=== PATIENT | female | born 1970 | race Caucasian/White ===

== ENCOUNTER 2022-01-24 06:29 | Emergency (ER) | payer MEDICARE, MEDICAID, SELFPAY ==
--- NOTE | ~2022-01-24 | CT_ITS ---
EXAMINATION: CT ABDOMEN AND PELVIS WITH CONTRAST CLINICAL INFORMATION: Right lower quadrant pain COMPARISON: Previous CT of the abdomen and pelvis most recent March 2017 TECHNIQUE: Multidetector volumetric images were obtained from the superior aspect of the liver through the pubic symphysis following administration 85 mL of Omnipaque 350 intravenous contrast. Sagittal and coronal reformatted images were obtained on the technologist's workstation. Oral contrast: Yes This CT examination was performed using dose optimization techniques as appropriate, variously including the following: *Automated exposure control *Adjustment of mA and/or kV according to patient size (this includes techniques or standardized protocols for targeted exams where dose is matched to indication/reason for exam; i.e. extremities or head) *Use of iterative reconstruction technique DLP: 1083 mGy-cm FINDINGS: LUNG BASES: The visualized lung bases are unremarkable. LIVER, GALLBLADDER, AND BILIARY TREE: The liver is slightly enlarged, right lobe measuring 19 cm in length. The liver is normal in shape, and attenuation. No focal hepatic lesion or biliary ductal dilatation is present. The gallbladder has been removed. PANCREAS: Unremarkable. SPLEEN: Unremarkable. ADRENAL GLANDS: Unremarkable. KIDNEYS AND URETERS: The kidneys are normal in size, shape, and attenuation. No hydronephrosis, hydroureter, or calculi seen. No perinephric stranding. BLADDER: Unremarkable. GASTROINTESTINAL TRACT: There is abnormal wall thickening and edema of the cecum and proximal right colon. There is significant stranding of the surrounding fat. There are prominent surrounding pericolic and mesenteric lymph nodes. Largest lymph node measures 1.7 cm axial image 45 series 2. There is mild diverticulosis of the colon. The appendix is not seen. The small bowel is unremarkable. The stomach is unremarkable. ABDOMINAL WALL: There is a small umbilical hernia containing fat. LYMPH NODES: There are enlarged right pericolic and small bowel mesentery lymph nodes as described above. There is nonspecific fat stranding of the small bowel mesentery. These findings appear in increased from March 2017 exam. VASCULAR: Unremarkable. PELVIC VISCERA: The uterus is retroverted. There is an IUD in the uterus and satisfactory position. The ovaries appear prominent but similar to previous exams. OSSEOUS STRUCTURES: Unremarkable. CT/CT abdomen pelvis w con IMPRESSION: Edema and wall thickening of the cecum and stranding of the surrounding fat most suggestive of colitis. There is also significant pericolic and mesenteric lymphadenopathy. There is fat stranding seen in the root of the small bowel mesentery. This is a nonspecific finding but appears increased from prior exam. Mesenteritis, inflammatory bowel disease, changes from prior pancreatitis, and neoplastic process including carcinoid or lymphoma should be considered. The appendix is not seen. Fleischner guidelines were followed.
[2022-01-24 06:54] VITALS: BP 122/78; BP 138/88; PULSE 90; PULSE 99; RESP 16; TEMP 36.6; O2SAT 99; BMI 43.9
--- NOTE | 2022-01-24 07:08 | ED.ABDPAIN ---
HPI - Abdominal Pain General Chief Complaint: Abdominal Pain Stated Complaint: ABD PAIN W/URINARY ISSUES PER EMS Time Seen by Provider: 01/24/22 06:58 Source: patient Mode of arrival: EMS Limitations: no limitations History of Present Illness MD elicited complaint: abdominal pain Pertinent past history: constipation Onset (ago): day(s) (6) Pain Consistency: constant Location: RLQ Severity: severe Quality: stabbing Radiation: none Migration to: no migration Exacerbating factors: movement Relieving factors: nothing Associated symptoms: nausea and dysuria Treatments prior to arrival: other (saw UC yesterday started on diflucan and macrobid x 1 dose only though tests negative) Related Data Previous Rx's Medication Instructions Recorded hydrocodone 5 mg-acetaminophen 325 1 tab PO Q6H PRN #12 tab 01/24/22 mg tablet levofloxacin 500 mg tablet 500 mg PO DAILY #6 tab 01/24/22 metronidazole 500 mg tablet 500 mg PO BID 7 Days #14 tab 01/24/22 ondansetron 4 mg disintegrating 4 mg PO Q8H PRN #20 tab 01/24/22 tablet Allergies Allergy/AdvReac Type Severity Reaction Status Date / Time fluticasone Allergy Intermediate MUSCLE Unverified 08/12/20 15:06 [From ADVAIR DISKUS] SPASMS salmeterol Allergy Intermediate MUSCLE Unverified 08/12/20 15:06 [From ADVAIR DISKUS] SPASMS amoxicillin [AMOXICILLIN] Allergy Unknown UNKNOWN Unverified 08/12/20 15:06 penicillin G [PENICILLIN G] Allergy Unknown UNKNOWN Unverified 08/12/20 15:06 Sulfa (Sulfonamide Allergy Unknown UNKNOWN Unverified 08/12/20 15:06 Antibiotics) [SULFA (SULFONAMIDE ANTIBIOTICS)] ibuprofen [From MOTRIN] AdvReac Unknown STOMACH Unverified 08/12/20 15:06 UPSET cats Allergy Unknown Uncoded 05/09/17 00:00 dust Allergy Unknown Uncoded 05/09/17 00:00 feathers Allergy Unknown Uncoded 05/09/17 00:00 grass Allergy Unknown Uncoded 05/09/17 00:00 mold outside & inside Allergy Unknown Uncoded 05/09/17 00:00 rabits Allergy Unknown Uncoded 05/09/17 00:00 tress Allergy Unknown Uncoded 05/09/17 00:00 Review of Systems Review of Systems Constitutional : No Weight loss, No Fever, No Chills ENT/Mouth : No sore throat, No Rhinorrhea Eyes: No Swelling, No Redness Cardiovascular : No Chest Pain, No SOB, No edema Respiratory : No Cough, No Sputum, No Wheezing Gastrointestinal : Positive Nausea, noVomiting, no Diarrhea, positive abdominal Pain, No Hematochezia, No Melena Genitourinary : pos Dysuria, No Urinary Frequency, No Hematuria, No Urgency Musculoskeletal : No joint pain, No Myalgias, No Joint Swelling Skin : No Skin Lesions, No rash Neuro : No Weakness, No Numbness, No Dizziness, No Headache Psych : No Anxiety/Panic, No Depression Heme/Lymph: No Bruising, No Lymphadenopathy Endocrine : No Polyuria, No Polydipsia All other systems reviewed and are negative. [facility] Past Medical History Attestation statement: The following information was validated with the patient. Medical History Dyspepsia Irritable bowel syndrome Seizure Surgical History Hx of cholecystectomy Social History Social History (Updated 01/24/22 @ 07:12 by Kamala Agudelo DO) Patient Tobacco Use Status: Never used Tobacco Advance Directives: No Advance Directives Information Provided: No Physical Exam ED Vital Signs: Vital Signs - 24 hr 01/24/22 06:54 01/24/22 07:51 Temperature 98 F Pulse Rate 99 91 Respiratory Rate 16 14 Blood Pressure 122/78 122/78 Pulse Oximetry 99 97 BMI result Body Mass Index 43.9 Appearance: Alert. Oriented X3. No acute distress. Eyes: Pupils equal, round and reactive to light. ENT: Pharynx normal. Neck: Normal inspection. Neck supple. CVS: Normal heart rate and rhythm. Pulses normal. Respiratory: No respiratory distress. Breath sounds normal. Abdomen: Soft and moderate RLQ ttp with guarding, + Rovsing's sign. Skin: Skin warm and dry. Normal skin color. Normal skin turgor. Extremities: No lower extremity edema. Neuro: Oriented X 3. No motor deficit. No sensory deficit. Course Course Course Narrative: no WBC count, neg lactic acid, afebrile, no vomiting can trial outpatient course of antibiotics given precautions to return MDM - Abdominal Pain MDM Narrative Medical decision making narrative: 51 yo female with hx of PUD, IBS here with RLQ pain x 6 days with nausea now worsening pain at this time she was seen at urgent care tests negative but based off dysuria and seeing some slight discharge on her underwear (no sex x 3 years) they started her on macrobid and diflucan (one dose). She is very tender in RLQ at this time will obtain labs, IV morphine for pain. CT scan for appendicitis, renal colic, ovarian cysts. Dispo per results and findings. Lab Data Result diagrams: 01/24/22 07:19 01/24/22 07:19 Labs: Lab Results 01/24/22 01/24/22 01/24/22 Range/Units 07:19 07:19 07:19 WBC 10.0 (4.8-10.8) X10*3/uL RBC 4.62 (4.20-5.50) X10*6/uL Hgb 13.6 (12.0-16.0) g/dl Hct 41.5 (37.0-47.0) % MCV 89.8 (80.0-98.0) fL MCH 29.4 (27.0-33.0) pg MCHC 32.8 (31.0-35.0) g/dl RDW 12.5 (11.0-16.0) % Plt Count 240 (160-400) X10*3/uL MPV 10.3 (9.4-12.3) fL Immature Gran % (Auto) 0.4 (0.0-0.4) % Neut % (Auto) 76.4 H (45-73) % Lymph % (Auto) 10.3 L (20-40) % [place] % (Auto) 8.0 (2-11) % Eos % (Auto) 4.4 H (0-4) % Baso % (Auto) 0.5 (0-2) % Lymph # (Auto) 1.0 L (1.2-4.9) X10*3/uL [place] # (Auto) 0.8 (0.1-1.2) X10*3/uL Eos # (Auto) 0.4 (0.0-0.4) X10*3/uL Baso # (Auto) 0.1 (0.0-0.2) X10*3/uL Abs Immat Gran (auto) 0.04 H (0.00-0.03) X10*3/uL Absolute Neuts (auto) 7.7 (2.0-8.3) x10*3/uL Absolute Nucleated RBC 0.000 (0.0-0.012) X10*3/uL Nucleated RBC % (auto) 0.0 (0.0-0.2) /100WBC Sodium 141 (135-145) mmol/L Potassium 4.1 (3.3-5.1) mmol/L Chloride 105 (96-108) mmol/L Carbon Dioxide 26 (22-29) mmol/L Anion Gap 14 (12-20) BUN 12 (9-16) mg/dL Creatinine 0.74 (0.5-1.4) mg/dL Estim Creat Clear Calc 106.8 Estimated GFR > 60 Random Glucose 112 (60-115) mg/dL Lactic Acid 1.2 (0.5-2.0) mmol/L Calcium 9.5 (8.4-10.2) mg/dL Magnesium 2.2 (1.6-2.6) mg/dL Total Bilirubin 0.5 (0.0-1.0) mg/dL Direct Bilirubin 0.2 (0.0-0.5) mg/dL AST 23 (5-31) U/L ALT 29 (0-31) U/L Alkaline Phosphatase 93 (39-117) U/L Total Protein 6.7 (6.5-8.0) g/dL Albumin 4.6 (3.5-5.0) g/dL Lipase 33 (8-78) U/L Urine Color Urine Appearance Urine pH (5.0-8.0) Ur Specific [place] (1.005-1.025) Urine Protein (NEG-TRACE) MG/DL Urine Glucose (UA) (NEG) MG/DL Urine Ketones (NEG) MG/DL Urine Blood (NEG) Urine Nitrite (NEG) Ur Leukocyte Esterase (NEG) Urine RBC (0) /HPF Urine WBC (0-4) /HPF Ur Squamous Epith Cells /LPF Urine Bacteria /LPF COVID-19 (JIMMY) (Negative) COVID-19 Clin Com 01/24/22 01/24/22 Range/Units 07:19 07:19 WBC (4.8-10.8) X10*3/uL RBC (4.20-5.50) X10*6/uL Hgb (12.0-16.0) g/dl Hct (37.0-47.0) % MCV (80.0-98.0) fL MCH (27.0-33.0) pg MCHC (31.0-35.0) g/dl RDW (11.0-16.0) % Plt Count (160-400) X10*3/uL MPV (9.4-12.3) fL Immature Gran % (Auto) (0.0-0.4) % Neut % (Auto) (45-73) % Lymph % (Auto) (20-40) % [place] % (Auto) (2-11) % Eos % (Auto) (0-4) % Baso % (Auto) (0-2) % Lymph # (Auto) (1.2-4.9) X10*3/uL [place] # (Auto) (0.1-1.2) X10*3/uL Eos # (Auto) (0.0-0.4) X10*3/uL Baso # (Auto) (0.0-0.2) X10*3/uL Abs Immat Gran (auto) (0.00-0.03) X10*3/uL Absolute Neuts (auto) (2.0-8.3) x10*3/uL Absolute Nucleated RBC (0.0-0.012) X10*3/uL Nucleated RBC % (auto) (0.0-0.2) /100WBC Sodium (135-145) mmol/L Potassium (3.3-5.1) mmol/L Chloride (96-108) mmol/L Carbon Dioxide (22-29) mmol/L Anion Gap (12-20) BUN (9-16) mg/dL Creatinine (0.5-1.4) mg/dL Estim Creat Clear Calc Estimated GFR Random Glucose (60-115) mg/dL Lactic Acid (0.5-2.0) mmol/L Calcium (8.4-10.2) mg/dL Magnesium (1.6-2.6) mg/dL Total Bilirubin (0.0-1.0) mg/dL Direct Bilirubin (0.0-0.5) mg/dL AST (5-31) U/L ALT (0-31) U/L Alkaline Phosphatase (39-117) U/L Total Protein (6.5-8.0) g/dL Albumin (3.5-5.0) g/dL Lipase (8-78) U/L Urine Color STRAW Urine Appearance CLEAR Urine pH 6.0 (5.0-8.0) Ur Specific [place] <= 1.005 (1.005-1.025) Urine Protein NEG (NEG-TRACE) MG/DL Urine Glucose (UA) NEG (NEG) MG/DL Urine Ketones NEG (NEG) MG/DL Urine Blood TRACE (NEG) Urine Nitrite NEG (NEG) Ur Leukocyte Esterase NEG (NEG) Urine RBC 0-2 (0) /HPF Urine WBC 0 (0-4) /HPF Ur Squamous Epith Cells TRACE /LPF Urine Bacteria NONE /LPF COVID-19 (JIMMY) Negative (Negative) COVID-19 Clin Com See Note Discharge Plan Discharge Clinical Impression: Colitis Patient Disposition: Home, Self-Care Instructions: Colitis (ED) Additional Instructions: return to ED for any worsening symptoms or concerns - such as fevers, worsening pain, unable to take medications you will need to talk to your doctor and have a follow up visit for this. you will need a colonoscopy when this has resolved in the next 4 to 6 weeks STOP TAKING MACROBID Prescriptions: New hydrocodone-acetaminophen 5-325 mg tablet 1 tab PO Q6H PRN (Reason: pain) Qty: 12 0RF ondansetron 4 mg tablet,disintegrating 4 mg PO Q8H PRN (Reason: nausea and vomiting) Qty: 20 0RF metronidazole 500 mg tablet 500 mg PO BID 7 Days Qty: 14 0RF levofloxacin 500 mg tablet 500 mg PO DAILY Qty: 6 0RF Rx Instructions: start medication on 01/25 Stand Alone Forms: Work/School Release
[2022-01-24] MEDS: 0.9 % Sodium Chloride 1,000 ML 999 ML IVCONT (07:23)
[2022-01-24 07:24] LABS: MANUAL DIFF FLAG NO
[2022-01-24 07:26] LABS: Appearance Urine CLEAR; Color Urine STRAW; Glucose Urine UA NEG (NEG); Leukocyte Esterase Urine NEG (NEG); Nitrite Urine NEG (NEG); Specific Gravity - Urine <= 1.005 (1.005-1.025); UACC Culture Trigger NO; Urine Blood TRACE (NEG); Urine Ketones NEG (NEG); Urine Protein NEG (NEG-TRACE)
[2022-01-24 07:30] LABS: Basophils Absolute Auto 0.1 X10*3/uL (0.0-0.2); Basophils Percent Auto 0.5 % (0-2); Eosinophils Absolute Auto 0.4 X10*3/uL (0.0-0.4); Eosinophils Percent Auto 4.4 % (0-4); Hematocrit 41.5 % (37.0-47.0); Hemoglobin 13.6 g/dl (12.0-16.0); Imm Gran Abs Auto 0.04 X10*3/uL (0.00-0.03); Imm Gran Pct Auto 0.4 % (0.0-0.4); Lymphocytes Percent Auto 10.3 % (20-40); Mean Corpuscular HGB Conc 32.8 g/dl (31.0-35.0); Mean Corpuscular Hemoglobin 29.4 pg (27.0-33.0); Mean Corpuscular Volume 89.8 fL (80.0-98.0); Mean Platelet Volume 10.3 fL (9.4-12.3); Monocytes Absolute Auto 0.8 X10*3/uL (0.1-1.2); Neutrophils Absolute Auto 7.7 x10*3/uL (2.0-8.3); Neutrophils Percent Auto 76.4 % (45-73); Platelet Count 240 X10*3/uL (160-400); Red Blood Count 4.62 X10*6/uL (4.20-5.50); Red Cell Distribution Width 12.5 % (11.0-16.0)
[2022-01-24 07:38] LABS: Lactic Acid 1.2 mmol/L (0.5-2.0); RBC Urine 0-2 /HPF (0); Squamous Epithelial Cell Urine TRACE /LPF; WBC Urine 0 /HPF (0-4)
[2022-01-24 07:45] LABS: Alanine Aminotransferase 29 U/L (0-31); Albumin Level 4.6 g/dL (3.5-5.0); Alkaline Phosphatase 93 U/L (39-117); Anion Gap 14 (12-20); Aspartate Amino Transferase 23 U/L (5-31); Bilirubin Direct 0.2 mg/dL (0.0-0.5); Bilirubin Total 0.5 mg/dL (0.0-1.0); Blood Urea Nitrogen 12 mg/dL (9-16); Calcium 9.5 mg/dL (8.4-10.2); Carbon Dioxide 26 mmol/L (22-29); Chloride 105 mmol/L (96-108); Creatinine Clr Calc Pharmacy 106.8; Estimated Glomerular Filt Rate > 60; Glucose Random 112 mg/dL (60-115); Lipase 33 U/L (8-78); Magnesium 2.2 mg/dL (1.6-2.6); Potassium 4.1 mmol/L (3.3-5.1); Sodium 141 mmol/L (135-145); Total Protein 6.7 g/dL (6.5-8.0)
[2022-01-24 07:49] LABS: COVID-19 Test Negative (Negative); IDNOW Serial# 16C4AD1C
[2022-01-24 07:51] VITALS: BP 122/78; PULSE 91; RESP 14; O2SAT 97
[2022-01-24] MEDS: Pantoprazole Sodium 40 MG/10 ML VIAL IVPUSH (08:11)
[2022-01-24] MEDS: iohexoL 350 MG/ML 100 ML INFUS..BTL 85 ML IV (08:57)
[2022-01-24] MEDS: levoFLOXacin 500 MG TABLET PO (10:10)
[2022-01-24] MEDS: metroNIDAZOLE 500 MG TABLET PO (10:10)
== END 2022-01-24 10:21 | disposition home or self-care (01) ==
PROVIDERS: Emergency Provider Emergency Medicine
DX: K52.9 Noninfective gastroenteritis and colitis, unspecified (principal); R10.31 Right lower quadrant pain; R30.0 Dysuria; Z79.899 Other long term (current) drug therapy; Z20.822 Contact with and (suspected) exposure to COVID-19
CPT/HCPCS: 74177; 80048; 80076; 81001; 83605; 83690; 83735; 85025; 87635; 96361; 96374; 96375; 99284; Q9967

== ENCOUNTER → 2022-02-27 10:53 | Outpatient (BNVA) | payer SELFPAY | PROVIDERS: Visit Provider Internal Medicine | DX: Z02.79 Encounter for issue of other medical certificate (principal) ==

== ENCOUNTER 2022-10-17 07:31 | Emergency (ER) | payer MEDICARE, MEDICAID, SELFPAY ==
--- NOTE | ~2022-10-17 | CT_ITS ---
EXAMINATION: CT ABDOMEN AND PELVIS WITHOUT CONTRAST CLINICAL INFORMATION: Left flank pain. COMPARISON: CT scan of the abdomen and pelvis dated 01/24/2022. TECHNIQUE: Multidetector volumetric imaging was performed from the superior aspect of the liver through the pubic symphysis. Sagittal and coronal reformatted images were obtained on the technologist's workstation. Lack of intravenous and oral contrast limits visceral evaluation. This CT examination was performed using dose optimization techniques as appropriate, variously including the following: *Automated exposure control *Adjustment of mA and/or kV according to patient size (this includes techniques or standardized protocols for targeted exams where dose is matched to indication/reason for exam; i.e. extremities or head) *Use of iterative reconstruction technique DLP: 1108 mGy-cm FINDINGS: LUNG BASES: Scattered nodules and nodular infiltrates are seen bilaterally. A senior patient account representative nodule posteriorly in the lingula measures 0.8 cm (image 4, series 2). Minute and nodules are seen in a tree-in-bud pattern. Nodular infiltrates posteriorly in the lower lobes, right greater than left are also seen. No pleural or pericardial effusions. LIVER, GALLBLADDER, AND BILIARY TREE: Hepatic steatosis with focal fatty sparing is noted. Status post cholecystectomy. PANCREAS: Unremarkable. SPLEEN: Unremarkable. ADRENAL GLANDS: Unremarkable. KIDNEYS AND URETERS: The kidneys are normal in size, shape, and attenuation. No hydronephrosis, hydroureter, or calculi seen. No perinephric stranding. BLADDER: Unremarkable. GASTROINTESTINAL TRACT: The stomach and small bowel unremarkable. An ovoid calcification is again seen at the level the cecum. No evidence for acute appendicitis. The colon shows scattered mild diverticulosis without surrounding abnormality. The rectum is unremarkable. ABDOMINAL WALL: No significant hernia is appreciated. LYMPH NODES: Mild central mesenteric haziness and scattered mildly enlarged mesenteric lymph nodes including central mesenteric and ileocolic nodes. VASCULAR: Unremarkable. PELVIC VISCERA: Enlarged, anteverted/retroflexed uterus with IUD in place. No adnexal abnormality. OSSEOUS STRUCTURES: Mild thoracolumbar levoscoliosis. Rudimentary 12th ribs are noted. Sacralization of L5. Rudimentary disc at L5-S1. Moderate degenerative disc disease at L2-3, greater on the right. CT/CT abdomen pelvis wo IV con IMPRESSION: 1. Multiple pulmonary nodules and nodular infiltrates are nonspecific and were not seen previously. The overall distribution suggests an infectious/inflammatory process. These findings are not well seen on today's radiographs. Continued short-term monitoring with chest radiographs is recommended. A dedicated CT scan within one month following termination treatment is recommended to reassess these findings for improvement/resolution. 2. No acute intra-abdominal/pelvic abnormality. Interval resolution of previously seen pericecal inflammatory changes. Several incidental findings detailed above without acute associated abnormality. Fleischner guidelines were followed.
--- NOTE | ~2022-10-17 | XR_ITS ---
EXAMINATION: XR CHEST CLINICAL INFORMATION: Cough. COMPARISON: 03/19/2019 chest radiographs. TECHNIQUE: Frontal view of the chest was obtained. FINDINGS: No significant abnormality is noted involving the heart, lungs, mediastinum, bony thorax or soft tissues. XR/XR chest 1V IMPRESSION: No acute cardiopulmonary process.
[2022-10-17 07:37] VITALS: BP 167/87; PULSE 90; RESP 18; TEMP 36.1; O2SAT 99; BMI 46.0
--- NOTE | 2022-10-17 08:08 | ECG_ITS ---
Test Reason : CHEST PAIN Blood Pressure : / mmHG Vent. 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
--- NOTE | 2022-10-17 08:18 | ED.ABDPAIN ---
HPI - Abdominal Pain General Chief Complaint: Abdominal Pain Stated Complaint: L flank pain/Crohns flare up Time Seen by Provider: 10/17/22 07:41 Source: patient Mode of arrival: ambulatory Limitations: no limitations History of Present Illness HPI narrative: 52-year-old female came in for evaluation of left flank pain for the past 2 days. Pain started in the left upper quadrant area radiating down to the left groin area, pain is been constant for the last 2 days, pain described as severe, coughing and movement makes the pain worse nothing relieves the pain, no nausea, vomiting, fever, chills, dysuria, frequency urination, diarrhea, or rectal bleeding. Related Data Previous Rx's Medication Instructions Recorded hydrocodone 5 mg-acetaminophen 325 1 tab PO Q6H PRN pain #12 tabs 01/24/22 mg tablet levofloxacin 500 mg tablet 500 mg PO DAILY #6 tabs 01/24/22 metronidazole 500 mg tablet 500 mg PO BID 7 days #14 tabs 01/24/22 ondansetron 4 mg disintegrating 4 mg PO Q8H PRN nausea and 01/24/22 tablet vomiting #20 tabs albuterol sulfate 90 mcg/actuation 1 inh inhalation QID PRN shortness 10/17/22 aerosol inhaler of breath or wheezing #6.7 grams azithromycin 250 mg tablet See Rx Instructions PO .COMPLEX #6 10/17/22 (Zithromax Z-Edwin) tabs prednisone 10 mg tablet 10 mg PO BID #10 tabs 10/17/22 Allergies Allergy/AdvReac Type Severity Reaction Status Date / Time fluticasone Allergy Intermediate MUSCLE Unverified 08/12/20 15:06 [From ADVAIR DISKUS] SPASMS salmeterol Allergy Intermediate MUSCLE Unverified 08/12/20 15:06 [From ADVAIR DISKUS] SPASMS amoxicillin [AMOXICILLIN] Allergy Unknown UNKNOWN Unverified 08/12/20 15:06 penicillin G [PENICILLIN G] Allergy Unknown UNKNOWN Unverified 08/12/20 15:06 Sulfa (Sulfonamide Allergy Unknown UNKNOWN Unverified 08/12/20 15:06 Antibiotics) [SULFA (SULFONAMIDE ANTIBIOTICS)] ibuprofen [From MOTRIN] AdvReac Unknown STOMACH Unverified 08/12/20 15:06 UPSET cats Allergy Unknown Uncoded 05/09/17 00:00 dust Allergy Unknown Uncoded 05/09/17 00:00 feathers Allergy Unknown Uncoded 05/09/17 00:00 grass Allergy Unknown Uncoded 05/09/17 00:00 mold outside & inside Allergy Unknown Uncoded 05/09/17 00:00 rabits Allergy Unknown Uncoded 05/09/17 00:00 tress Allergy Unknown Uncoded 05/09/17 00:00 Review of Systems Review of Systems All other systems are reviewed and are negative Constitutional: Reports as per HPI and Reports no additional constitutional complaints Eyes: Reports as per HPI and Reports no additional eye complaints Reports system reviewed and no additional complaints, except as documented Cardiovascular: Reports as per HPI and Reports no additional cardiovascular complaints Respiratory: Reports as per HPI and Reports no additional respiratory complaints Gastrointestinal: Reports as per HPI and Reports no additional gastrointestinal complaints Genitourinary: Reports no additional female genitourinary complaints Musculoskeletal: Reports no additional musculoskeletal complaints Skin/Breast: Reports system reviewed and no additional complaints, except as docu Psychiatric: Reports no additional psychiatric complaints Endocrine: Reports no additional endocrine complaints Hematologic/Lymphatic: Reports no additional hematologic/lymphatic complaints Allergic/Immunologic: Reports no additional allergic/immunologic complaints Reports system reviewed and no additional complaints, except as documented and Reports Abnormal speech present [facility] Past Medical History Medical History Dyspepsia Irritable bowel syndrome Seizure Surgical History Hx of cholecystectomy Social History Social History Alcohol intake: never Patient Tobacco Use Status: Never used Tobacco Smoked in Last 30 Days: No Use of substances other than those prescribed or required for medical reasons: No Advance Directives: No Advance Directives Information Provided: Yes Patient : No Physical Exam ED Vital Signs: Vital Signs - 24 hr 10/17/22 07:37 10/17/22 09:16 10/17/22 11:03 Temperature 97 F 97.8 F 97.8 F Pulse Rate 90 91 89 Respiratory Rate 18 17 12 Blood Pressure 167/87 H 140/97 H 129/63 Pulse Oximetry 99 98 99 Oxygen Delivery Method Room Air Room Air Room Air BMI result Body Mass Index 46.0 Vital signs have been reviewed as appeared to be correct. Blood pressure normal. Heart rate normal. Respiration rate normal. Temperature normal. Oxygen saturation normal. Appearance: Alert. Oriented X3. No acute distress. Head: Normal external exam. Normocephalic. Atraumatic. No Cutler signs noted. No raccoon eyes noted Eyes: PERRLA. EOMI. Conjunctiva and sclera normal. Eyelids normal. ENT: TM's Normal. Pharynx normal. Uvula midline. Moist mucous membranes. No trismus noted. No drooling noted. No muffled voice noted. Neck: Normal inspection. Neck supple. FROM. No adenopathy. Thyroid Normal. No meningeal signs. No neck mass noted. CVS: Normal heart rate and rhythm. Heart sound normal. No murmurs noted. Pulses normal throughout. Respiratory: No respiratory distress. Painless inspiration. Breath sounds normal. No wheezes/rales/rhonchi noted. Chest nontender. No accessory muscle usage noted or decreased air movement noted. Abdomen: Soft, obese, left abdominal tenderness, no rebound tenderness, no guarding.. Bowel sounds normal in all 4 quadrants. No distention noted. No organomegaly noted. No visible injury noted. Back: No CVA tenderness. Full range of motion noted. Skin: Skin warm and dry. Normal skin color. Normal skin turgor. No rashes/lesions/lacerations noted. Extremities: No lower extremity edema. Extremities exhibit normal range of motion. Extremities nontender. Neuro: Oriented X 3. Cranial nerve exam: II-XII are grossly intact No motor deficit. No sensory deficit. Reflexes normal. Course Course Course Narrative: 52-year-old female came in for evaluation of left-sided abdominal pain, physical exam is suggesting musculoskeletal origin due to coughing and possible infiltrate on the CT of the abdomen and pelvis will start the patient on Z-Edwin/prednisone/albuterol. Take NSAIDs if needed for pain. Medications Administered Discontinued Medications Generic Name Dose Route Start Last Admin Trade Name Freq PRN Reason Stop Dose Admin Azithromycin 500 mg 10/17/22 10:08 10/17/22 11:15 Azithromycin 500 Mg Tablet PO 10/17/22 10:09 500 mg ONCE ONE Administration Sodium Chloride 1,000 mls @ 999 mls/hr 10/17/22 07:43 10/17/22 09:42 Ns IV 10/17/22 08:43 999 mls/hr .Q1H1M ONE Administration Prednisone 40 mg 10/17/22 10:07 10/17/22 11:15 Prednisone 20 Mg Tablet PO 10/17/22 10:08 40 mg ONCE ONE Administration MDM - Abdominal Pain Lab Data Attestation: I reviewed the patient's lab results. Result diagrams: 10/17/22 08:41 10/17/22 08:41 Labs: Lab Results 10/17/22 10/17/22 10/17/22 Range/Units 08:41 08:41 08:41 WBC 9.6 (4.8-10.8) X10*3/uL RBC 4.39 (4.20-5.50) X10*6/uL Hgb 13.0 (12.0-16.0) g/dl Hct 39.3 (37.0-47.0) % MCV 89.5 (80.0-98.0) fL MCH 29.6 (27.0-33.0) pg MCHC 33.1 (31.0-35.0) g/dl RDW 13.0 (11.0-16.0) % Plt Count 287 (160-400) X10*3/uL MPV 9.2 L (9.4-12.3) fL Immature Gran % (Auto) 0.7 H (0.0-0.4) % Neut % (Auto) 67.8 (45-73) % Lymph % (Auto) 21.3 (20-40) % [place] % (Auto) 7.9 (2-11) % Eos % (Auto) 2.0 (0-4) % Baso % (Auto) 0.3 (0-2) % Lymph # (Auto) 2.1 (1.2-4.9) X10*3/uL [place] # (Auto) 0.8 (0.1-1.2) X10*3/uL Eos # (Auto) 0.2 (0.0-0.4) X10*3/uL Baso # (Auto) 0.0 (0.0-0.2) X10*3/uL Abs Immat Gran (auto) 0.07 H (0.00-0.03) X10*3/uL Absolute Neuts (auto) 6.5 (2.0-8.3) x10*3/uL Absolute Nucleated RBC 0.000 (0.0-0.012) X10*3/uL Nucleated RBC % (auto) 0.0 (0.0-0.2) /100WBC Sodium 141 (135-145) mmol/L Potassium 4.4 (3.3-5.1) mmol/L Chloride 104 (96-108) mmol/L Carbon Dioxide 27 (22-29) mmol/L Anion Gap 14 (12-20) BUN 14 (9-16) mg/dL Creatinine 0.67 (0.5-1.4) mg/dL Estim Creat Clear Calc 115.7 Estimated GFR > 60 Random Glucose 95 (60-115) mg/dL Calcium 9.7 (8.4-10.2) mg/dL Total Bilirubin 0.4 (0.0-1.0) mg/dL Direct Bilirubin < 0.2 (0.0-0.5) mg/dL AST 20 (5-31) U/L ALT 37 H (0-31) U/L Alkaline Phosphatase 74 (39-117) U/L Troponin I High Sens < 3.5 (<3.5-17.0) ng/L Total Protein 6.5 (6.5-8.0) g/dL Albumin 4.4 (3.5-5.0) g/dL Lipase 30 (8-78) U/L Urine Color Urine Appearance Urine pH (5.0-9.0) Ur Specific [place] (1.005-1.025) Urine Protein (Neg-Trace) mg/dL Urine Glucose (UA) (Negative) mg/dL Urine Ketones (Negative) mg/dL Urine Blood (Negative) Urine Nitrite (Negative) Ur Leukocyte Esterase (Negative) Urine RBC (0-2) /HPF Urine WBC (0-5) /HPF Ur Squamous Epith Cells (0-2) /HPF Urine Bacteria (None Seen) Hyaline Casts (0-2) /LPF 10/17/22 Range/Units 10:47 WBC (4.8-10.8) X10*3/uL RBC (4.20-5.50) X10*6/uL Hgb (12.0-16.0) g/dl Hct (37.0-47.0) % MCV (80.0-98.0) fL MCH (27.0-33.0) pg MCHC (31.0-35.0) g/dl RDW (11.0-16.0) % Plt Count (160-400) X10*3/uL MPV (9.4-12.3) fL Immature Gran % (Auto) (0.0-0.4) % Neut % (Auto) (45-73) % Lymph % (Auto) (20-40) % [place] % (Auto) (2-11) % Eos % (Auto) (0-4) % Baso % (Auto) (0-2) % Lymph # (Auto) (1.2-4.9) X10*3/uL [place] # (Auto) (0.1-1.2) X10*3/uL Eos # (Auto) (0.0-0.4) X10*3/uL Baso # (Auto) (0.0-0.2) X10*3/uL Abs Immat Gran (auto) (0.00-0.03) X10*3/uL Absolute Neuts (auto) (2.0-8.3) x10*3/uL Absolute Nucleated RBC (0.0-0.012) X10*3/uL Nucleated RBC % (auto) (0.0-0.2) /100WBC Sodium (135-145) mmol/L Potassium (3.3-5.1) mmol/L Chloride (96-108) mmol/L Carbon Dioxide (22-29) mmol/L Anion Gap (12-20) BUN (9-16) mg/dL Creatinine (0.5-1.4) mg/dL Estim Creat Clear Calc Estimated GFR Random Glucose (60-115) mg/dL Calcium (8.4-10.2) mg/dL Total Bilirubin (0.0-1.0) mg/dL Direct Bilirubin (0.0-0.5) mg/dL AST (5-31) U/L ALT (0-31) U/L Alkaline Phosphatase (39-117) U/L Troponin I High Sens (<3.5-17.0) ng/L Total Protein (6.5-8.0) g/dL Albumin (3.5-5.0) g/dL Lipase (8-78) U/L Urine Color Yellow Urine Appearance Clear Urine pH 7.0 (5.0-9.0) Ur Specific [place] <= 1.005 (1.005-1.025) Urine Protein Negative (Neg-Trace) mg/dL Urine Glucose (UA) Negative (Negative) mg/dL Urine Ketones Negative (Negative) mg/dL Urine Blood Trace H (Negative) Urine Nitrite Negative (Negative) Ur Leukocyte Esterase Negative (Negative) Urine RBC 0-2 (0-2) /HPF Urine WBC 0-5 (0-5) /HPF Ur Squamous Epith Cells 0-2 (0-2) /HPF Urine Bacteria None Seen (None Seen) Hyaline Casts 0-2 (0-2) /LPF Imaging Data Chest x-ray: Attestation: I personally reviewed and interpreted this imaging study as follows: Radiologist's impression: No acute cardiopulmonary process. CT abdomen and pelvis: Attestation: I personally reviewed and interpreted this imaging study as follows: Radiologist's impression: 1. Multiple pulmonary nodules and nodular infiltrates are nonspecific and were not seen previously. The overall distribution suggests an infectious/inflammatory process. These findings are not well seen on today's radiographs. Continued short-term monitoring with chest radiographs is recommended. A dedicated CT scan within one month following termination treatment is recommended to reassess these findings for improvement/resolution. 2. No acute intra-abdominal/pelvic abnormality. Interval resolution of previously seen pericecal inflammatory changes. Several incidental findings detailed above without acute associated abnormality. ? Discharge Plan Discharge Clinical Impression: Bronchopneumonia, Incidental pulmonary nodule, Acute myofascial strain Patient Disposition: Home, Self-Care Instructions: Pulmonary Nodules (ED), Pneumonia (ED) Prescriptions: New azithromycin [Zithromax Z-Edwin] 250 mg tablet See Rx Instructions .ROUTE .COMPLEX Qty: 6 0RF Rx Instructions: For 250 mg dose pack: take 500 mg today (day 1), then 250 mg for 4 days (days 2-5) prednisone 10 mg tablet 10 mg PO BID Qty: 10 0RF albuterol sulfate 90 mcg/actuation HFA aerosol inhaler 1 inh inhalation QID PRN (Reason: shortness of breath or wheezing) Qty: 6.7 0RF No Action hydrocodone-acetaminophen 5-325 mg tablet 1 tab PO Q6H PRN (Reason: pain) Qty: 12 0RF ondansetron 4 mg tablet,disintegrating 4 mg PO Q8H PRN (Reason: nausea and vomiting) Qty: 20 0RF metronidazole 500 mg tablet 500 mg PO BID 7 Days Qty: 14 0RF levofloxacin 500 mg tablet 500 mg PO DAILY Qty: 6 0RF Rx Instructions: start medication on 01/25 Referrals: Nirmal Washington III, MD [Primary Care Provider] -
[2022-10-17 08:44] LABS: MANUAL DIFF FLAG NO
[2022-10-17 08:47] LABS: Basophils Percent Auto 0.3 % (0-2); Eosinophils Absolute Auto 0.2 X10*3/uL (0.0-0.4); Hematocrit 39.3 % (37.0-47.0); Imm Gran Abs Auto 0.07 X10*3/uL (0.00-0.03); Imm Gran Pct Auto 0.7 % (0.0-0.4); Lymphocytes Absolute Auto 2.1 X10*3/uL (1.2-4.9); Lymphocytes Percent Auto 21.3 % (20-40); Mean Corpuscular HGB Conc 33.1 g/dl (31.0-35.0); Mean Corpuscular Hemoglobin 29.6 pg (27.0-33.0); Mean Corpuscular Volume 89.5 fL (80.0-98.0); Mean Platelet Volume 9.2 fL (9.4-12.3); Monocytes Absolute Auto 0.8 X10*3/uL (0.1-1.2); Monocytes Percent Auto 7.9 % (2-11); Neutrophils Absolute Auto 6.5 x10*3/uL (2.0-8.3); Neutrophils Percent Auto 67.8 % (45-73); Platelet Count 287 X10*3/uL (160-400); Red Blood Count 4.39 X10*6/uL (4.20-5.50); White Blood Count 9.6 X10*3/uL (4.8-10.8)
[2022-10-17 09:06] LABS: Alanine Aminotransferase 37 U/L (0-31); Albumin Level 4.4 g/dL (3.5-5.0); Alkaline Phosphatase 74 U/L (39-117); Anion Gap 14 (12-20); Aspartate Amino Transferase 20 U/L (5-31); Bilirubin Direct < 0.2 mg/dL (0.0-0.5); Bilirubin Total 0.4 mg/dL (0.0-1.0); Blood Urea Nitrogen 14 mg/dL (9-16); Calcium 9.7 mg/dL (8.4-10.2); Carbon Dioxide 27 mmol/L (22-29); Chloride 104 mmol/L (96-108); Creatinine Clr Calc Pharmacy 115.7; Estimated Glomerular Filt Rate > 60; Glucose Random 95 mg/dL (60-115); Lipase 30 U/L (8-78); Potassium 4.4 mmol/L (3.3-5.1); Sodium 141 mmol/L (135-145); Total Protein 6.5 g/dL (6.5-8.0)
[2022-10-17 09:16] VITALS: BP 140/97; PULSE 91; RESP 17; TEMP 36.6; O2SAT 98
[2022-10-17 09:27] LABS: Troponin-I High Sensitivity < 3.5 ng/L (<3.5-17.0)
--- NOTE | 2022-10-17 09:35 | PC.NURSE ---
pt is a/o x 4 no sob/stacia noted. fermín upper lungs diminished fermín lower lobes cta. speaks in full sentences. abd obese, soft and c/o tenderness 03/05. newly dx with ibs and crohns dx. no edema noted. pt aware of plan of care.
[2022-10-17] MEDS: 0.9 % Sodium Chloride 1,000 ML 999 ML IV (09:42)
[2022-10-17 10:53] LABS: Appearance Urine Clear; Color Urine Yellow; Glucose Urine UA Negative (Negative); Leukocyte Esterase Urine Negative (Negative); Nitrite Urine Negative (Negative); Specific Gravity - Urine <= 1.005 (1.005-1.025); UMIC TRIGGER UACC YES; Urine Blood Trace (Negative); Urine Ketones Negative (Negative); Urine Protein Negative (Neg-Trace)
[2022-10-17 11:00] LABS: Bacteria Urine None Seen (None Seen); Hyaline Casts Urine 0-2 /LPF (0-2); RBC Urine 0-2 /HPF (0-2); Squamous Epithelial Cell Urine 0-2 /HPF (0-2); WBC Urine 0-5 /HPF (0-5)
[2022-10-17 11:03] VITALS: BP 129/63; PULSE 89; RESP 12; TEMP 36.6; O2SAT 99
[2022-10-17] MEDS: predniSONE 20 MG TABLET 40 MG PO (11:15)
[2022-10-17] MEDS: Azithromycin 500 MG TABLET PO (11:15)
== END 2022-10-17 11:54 | disposition home or self-care (01) ==
PROVIDERS: Emergency Provider Emergency Medicine; PCP Internal Medicine
DX: J18.0 Bronchopneumonia, unspecified organism (principal); R91.1 Solitary pulmonary nodule; R10.12 Left upper quadrant pain; Z79.899 Other long term (current) drug therapy
CPT/HCPCS: 36415; 71045; 74176; 80048; 80076; 81001; 83690; 84484; 85025; 93005; 96360; 96361; 99284; 99285

== ENCOUNTER 2025-09-16 10:51 | Outpatient (AMB) | payer MEDICARE, SELFPAY ==
[2025-09-16 10:57] VITALS: BP 98/78; PULSE 105; O2SAT 96; BMI 40.2
--- NOTE | 2025-09-16 10:57 | A.OFFVIS_ITS ---
Vital Signs 09/16/25 10:57 Height 5 ft 1 in Weight 212 lb 15.465 oz BMI 40.2 BP 98/78 Blood Pressure Location Rt brachial Position Sitting Pulse 105 H Pulse Source Pulse Oximeter Pulse Oximetry (%) 96 Oxygen Delivery Method Room Air Intake Visit Reasons: Arthritis Intake Note: New patient presents today for arthritis. Accompanied by: Self / Same As Patient Allergies fluticasone (From ADVAIR DISKUS) Allergy (Intermediate, Unverified 08/12/20 15:06) MUSCLE SPASMS salmeterol (From ADVAIR DISKUS) Allergy (Intermediate, Unverified 08/12/20 15:06) MUSCLE SPASMS amoxicillin (AMOXICILLIN) Allergy (Unknown, Unverified 08/12/20 15:06) UNKNOWN penicillin G (PENICILLIN G) Allergy (Unknown, Unverified 08/12/20 15:06) UNKNOWN Sulfa (Sulfonamide Antibiotics) (SULFA (SULFONAMIDE ANTIBIOTICS)) Allergy (Unknown, Unverified 08/12/20 15:06) UNKNOWN ibuprofen (From MOTRIN) Adverse Reaction (Unknown, Unverified 08/12/20 15:06) STOMACH UPSET cats Allergy (Unknown, Uncoded 05/09/17 00:00) dust Allergy (Unknown, Uncoded 05/09/17 00:00) feathers Allergy (Unknown, Uncoded 05/09/17 00:00) grass Allergy (Unknown, Uncoded 05/09/17 00:00) mold outside & inside Allergy (Unknown, Uncoded 05/09/17 00:00) rabits Allergy (Unknown, Uncoded 05/09/17 00:00) tress Allergy (Unknown, Uncoded 05/09/17 00:00) Medication List - Last Reconciled 09/16/25 by Rick Lopez MD albuterol sulfate 90 mcg/actuation 1 inh inhalation QID PRN aspirin 162 mg PO DAILY atorvastatin (Lipitor) 10 mg PO DAILY azithromycin (Zithromax Z-Edwin) For 250 mg dose pack: take 500 mg today (day 1), then 250 mg for 4 days (days 2-5) Bacillus coagulans (Probiotic (B. coagulans)) cells PO [centrum woman PO] cholecalciferol (vitamin D3) 50 mcg PO BID cyanocobalamin (vitamin B-12) 1,000 mcg PO DAILY cyclobenzaprine 10 mg PO TID dicyclomine 20 mg PO TID diphenhydramine HCl (Benadryl Allergy) 50 mg PO TID PRN duloxetine 20 mg PO BID iaiomsltjtu-zeceqobei-qmehyylo 100-62.5-25 mcg (Trelegy Ellipta) 1 inh inhalation DAILY immun glob G(IgG)-pro-IgA 0-50 1 gram/5 mL (20 %) (Hizentra) subcut immun glob G(IgG)-pro-IgA 0-50 2 gram/10 mL (20 %) (Hizentra) subcut levofloxacin 500 mg PO DAILY levothyroxine 200 mcg PO DAILY magnesium 250 mg PO DAILY metronidazole 500 mg PO BID 7 days omeprazole 40 mg PO BID prednisone 10 mg PO BID sucralfate 1 g PO QID HPI HPI Arthritis: Details: She has been experiencing pain in her joints since childhood. She has had pain mainly in her hands in the last few weeks. She experiences difficulty using her thumb. She has no new joint swelling. Right knee was replaced a few years ago. She is not experiencing any pain in her left knee but was told that she may need a replacement by her orthopedic surgeon. She was recently prescribed dulox etine but has not started it yet. She has morning stiffness lasting 30 minutes. Crohn's disease is controlled on Entyvio. Crohn's disease was diagnosed 3 years ago but she was symptomatic for at least 30 years after the of her daughter. Review of system is significant for fatigue, weakness, double vision, ringing in ears, loss of hearing, dryness in nose, sores in mouth, dry mouth, hoarseness, fingers turning different colors in the cold, swollen legs, ankles or feet, dyspnea, difficulty swallowing, vaginal dryness, muscle weakness, muscle tenderness, muscle spasms, multiple joint pain involving hands, wrists, knees, hips, feet, ankle particularly the left ankle, shoulder and neck. She has headaches, memory loss, numbness and tingling in her extremities mainly bilateral upper extremities. She has only bruises and has sun sensitivity. She has experienced small bumps on her skin with clear discharge. She has anxiety and depression. She has had 2 pregnancies without any miscarriages. Her daughter has Crohn's disease and enteropathic arthritis. 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 Single seizure due to remote cause Anemia Complex endometrial hyperplasia without atypia IgA deficiency FARMER (nonalcoholic steatohepatitis) Internal hemorrhoids Fibromyalgia Trochanteric bursitis Chronic GERD Goiter Osteoarthritis of right wrist Asthma PCOS (polycystic ovarian syndrome) Abdominal pain Nausea Epigastric pain Yeast infection Vaginal pain Daytime sleepiness PND (post-nasal drip) Former smoker Common variable immunodeficiency Pulmonary nodules Lower respiratory infection Nocturnal hypoxia Crohn disease Abnormal EKG Abnormal stress test Chest pain Coronary artery disease Dyspepsia Irritable bowel syndrome Seizure Surgical History (Updated 09/16/25 @ 11:07 by Erin Cook [facility]) Total knee replacement status History of incision and drainage H/O colonoscopy History of ear surgery History of colposcopy Hx of cholecystectomy Social History (Updated 01/02/25 @ 09:14 by Lorna Whatley [facility]) Alcohol intake: never Patient Tobacco Use Status: Former Tobacco user Physical Exam Vital Signs: Last Vital Signs Pulse 105 H 09/16/25 10:57 BP 98/78 09/16/25 10:57 Pulse Ox 96 09/16/25 10:57 Oxygen Delivery Method Room Air 09/16/25 10:57 BMI result Body Mass Index 40.2 Const Other: General: Comfortable CVS: RRR Respiratory: clear to auscultation bilaterally. Good respiratory effort Skin: Toes and left feet are discolored with purplish hue MSK: Diffuse allodynia of all extremities and back. She has tender bilateral 3rd and 4th MCPs with synovitis of left 3rd MCP. She has tenderness of left CMC with squaring. Normal range of motion of upper extremities and lower extremities. No dactylitis. Positive Phalen's test bilateral. Assessment & Plan Assessment & Plan (1) Enteropathic arthritis associated with Crohn's disease: Comment: mild, involving bilateral MCPs with synovitis of left 3rd MCP on exam while patient is on prednisone 40mg qd for tx acute bronchitis. There is a possibility her joint exam is influenced by high dose of prednisone that she is on. We discussed the importance of monitoring her clinically after prednisone course is completed. We discussed next steps in treatment. She informs me that her Crohn's disease is controlled on Entyvio. We discussed treatment with Sulfasalazine targeting inflammatory arthritis. Discussed side effects, benefits and drug monitoring. Code(s): M07.60 - Enteropathic arthropathies, unspecified site; K50.90 - Crohn's disease, unspecified, without complications Category: Medical Plan: Baseline labs and x-rays of hands and feet ordered After lab results are back, we will send prescription for Sulfasalazine 500 mg twice a day. She will need labs 1 month after starting Sulfasalazine for drug monitoring Information on DMARD therapy given to patient Return to clinic in 3 months (2) Paresthesia of both hands: Comment: She has carpal tunnel syndrome clinically. We discussed diagnosis and management. Code(s): R20.2 - Paresthesia of skin Category: Medical Plan: EMG upper extremities ordered Cock-up wrist braces bilateral ordered to wear at night Return to clinic in 3 months (3) Osteoarthritis of hands, bilateral: Comment: Clinical diagnosis. Likely thumb pain is due to CMC osteoarthritis. We discussed conservative management. Code(s): M19.041 - Primary osteoarthritis, right hand; M19.042 - Primary osteoarthritis, left hand Category: Medical Plan: CMC custom splint prescribed OT prescribed Return to clinic in 3 months (4) Raynaud disease without gangrene: Comment: She has been symptomatic in her feet for years. Discussed conservative management Code(s): I73.00 - Raynaud's syndrome without gangrene Category: Medical Plan: Information printed for patient Return to clinic in 3 months Orders: Orders XR Hand Bilat min 3v Today M25.50 - Pain in unspecified joint XR Foot Michael 3V Today M25.50 - Pain in unspecified joint Erythrocyte Sedimentation Rate Today M25.50 - Pain in unspecified joint, Z79.899 - Other prison (current) drug therapy Rheumatoid Factor Today M25.50 - Pain in unspecified joint Cyclic Citrullinated Peptide Today M25.50 - Pain in unspecified joint NE electromyogram (EMG) Today R20.2 - Paresthesia of skin NE nerve conduction velocity Today R20.2 - Paresthesia of skin OT Evaluation and Treatment Today M19.041 - Primary osteoarthritis, right hand, M19.042 - Primary osteoarthritis, left hand Complete Blood Count Auto Diff Today M25.50 - Pain in unspecified joint, Z79.899 - Other dedicated intermodal truck driver (current) drug therapy Alanine Aminotransferase Today M25.50 - Pain in unspecified joint, Z79.899 - Other dedicated intermodal truck driver (current) drug therapy Aspartate Amino Transferase Today M25.50 - Pain in unspecified joint, Z79.899 - Other prison (current) drug therapy Creatinine Today M25.50 - Pain in unspecified joint, Z79.899 - Other dedicated intermodal truck driver (current) drug therapy C Reactive Protein Today M25.50 - Pain in unspecified joint, Z79.899 - Other dedicated intermodal truck driver (current) drug therapy T Spot TB Today M25.50 - Pain in unspecified joint, Z79.899 - Other dedicated intermodal truck driver (current) drug therapy Hepatitis B,C Profile Today M25.50 - Pain in unspecified joint, Z79.899 - Other prison (current) drug therapy HLA B27 Today K50.90 - Crohn's disease, unspecified, without complications, M07.60 - Enteropathic arthropathies, unspecified site, M25.50 - Pain in unspecified joint Medications: New arm brace (Wrist Brace) As directed Bilateral cockup wrist braces Dx: carpal tunnel syndrome 2 ea 0RF arm brace (Wrist Brace) As directed Bilateral cockup wrist braces Left custom CMC splint Dx: carpal tunnel syndrome, osteoarthritis 3 ea 0RF Coding Level of Care Code New Pt Level 4 (81259) Diagnoses Enteropathic arthritis associated with Crohn's disease M07.60; K50.90 Paresthesia of both hands R20.2 Osteoarthritis of hands, bilateral M19.041; M19.042 Raynaud disease without gangrene I73.00
== END 2025-09-16 12:43 | disposition home or self-care (01) ==
PROVIDERS: PCP Internal Medicine; Visit Provider Internal Medicine Rheumatology
DX: M07.60 Enteropathic arthropathies, unspecified site (principal); K50.90 Crohn's disease, unspecified, without complications; R20.2 Paresthesia of skin; M19.041 Primary osteoarthritis, right hand; M19.042 Primary osteoarthritis, left hand; I73.00 Raynaud's syndrome without gangrene
CPT/HCPCS: 99204

== ENCOUNTER → 2025-09-16 10:51 | Outpatient (BNVA) | payer MEDICARE, MEDICAID, SELFPAY | PROVIDERS: PCP Internal Medicine; Visit Provider Internal Medicine Rheumatology | DX: M07.60 Enteropathic arthropathies, unspecified site (principal); K50.90 Crohn's disease, unspecified, without complications; R20.2 Paresthesia of skin; M19.041 Primary osteoarthritis, right hand; M19.042 Primary osteoarthritis, left hand; I73.00 Raynaud's syndrome without gangrene | CPT/HCPCS: 99202 ==

== ENCOUNTER 2025-09-18 11:03 | Outpatient (REF) | payer MEDICARE, MEDICAID, SELFPAY ==
--- OUTSIDE RECORDS SUMMARY | 2024-08-26 11:19 | XMS_ITS | Encounter Summary ---
Author Organization [facility] Address [address] [place] [address] Care Team Providers Care Washer Meat Name Role Phone Nirmal Washington MD Primary Care Provider [phone] Encounter Details Date Type Department Care Team [...] for your loved ones. For example, child support agent or elderly care for an older adult? 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 file Not on file Not [...] Care Team (Late st Contact Info) Description 09/22/2025 11:00 AM EDT Appointment [facility] [address] [facility] 2nd [place] [phone] 09/29/2025 9:30 AM EST Office Visit [facility] Cardiology [facility] [address] [facility] [address] [place] [phone] Benja Moreno MD [address] [place] [address] [address] [place] [phone] 10/14/2025 9:00 AM EST Office Visit Gastroenterology - [address] [facility] [address] [facility] [address] [place] [phone] Rudy Garcia MD [address] [facility] [address] [place] [address] 10/15/2025 4:00 PM EST Office Visit Adult Medicine [address] [phone] Gurmeet Curtis PA [address] [place], [place] 10/29/2025 10:30 AM EST Office Visit Vascular Surgery - [place] [address] [place] [address] Conchita Trevino PA [address] [place] [phone] 11/02/2025 11:25 AM EST Office Visit Pulmonology - [place] [address] [place] [phone] Elise Hernandez NP [address] [place] [phone] 03/08/2026 9:40 AM EDT Appointment Radiology Department - [address] [phone] documented as of this encounter Visit Diagnoses Not on filedocumented in this encounter Care Teams Washer Meat Relationship Specialty Start Date End Date Nirmal Washington MD PCP - General Internal Medicine 05/24/20 10/01/24 documented as of this encounter
--- NOTE | ~2025-09-18 | XR_ITS ---
EXAMINATION: XR HANDS, BILATERAL CLINICAL INFORMATION: M25.50 - Pain in unspecified joint COMPARISON: None available. TECHNIQUE: PA, lateral, and oblique views both hands. FINDINGS: RIGHT HAND : Asymmetric joint space narrowing involving the proximal and distal interphalangeal joints of the digits. No soft tissue calcifications. Degenerative changes with subchondral cyst formation and sclerosis deforming the hamate bone. No lytic or blastic lesions. No acute cortical disruption or malalignment. No subcutaneous emphysema. LEFT HAND : Asymmetric joint space narrowing involving the proximal distal interphalangeal joints of the digits. No acute cortical disruption or malalignment. No gross soft tissue calcification. Probable old traumatic deformity in the tip of the second digit best seen on the oblique projection. No subcutaneous edema. No lytic or blastic lesions. 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 Electronically signed by: Elver Juan MD 09/18/2025 12:29 PM EDT
--- NOTE | ~2025-09-18 | XR_ITS ---
EXAMINATION: XR FOOT, MICHAEL 3V CLINICAL INFORMATION: M25.50 - Pain in unspecified joint COMPARISON: 02/12/2017 left foot. TECHNIQUE: AP, lateral, and oblique views of each foot obtained. FINDINGS: RIGHT FOOT: There is no fracture, dislocation, or suspicious bone lesion. There is normal alignment. Joint spaces are preserved. There are no periarticular erosions or osteopenia present. Normal plantar arch. There is a small plantar calcaneal spur. Normal soft tissues. LEFT FOOT: There is no fracture, dislocation, or suspicious bone lesion. There is normal alignment. Joint spaces are preserved. There are no periarticular erosions or osteopenia present. Normal plantar arch. There is a small plantar calcaneal spur. Normal soft tissues. XR/XR Foot Michael 3V IMPRESSION:1 1. Small bilateral calcaneal plantar spurs. Otherwise, normal bilateral feet. Electronically signed by: Da Duke MD 09/18/2025 12:24 PM EDT
--- OUTSIDE RECORDS SUMMARY | 2025-09-18 13:12 | XMS_ITS | Encounter Summary ---
Author Organization [facility] Address [address] [place] [address] Care Team Providers Care Sole Tier Name Role Phone Nirmal Washington MD Primary Care Provider [phone] Benja Moreno MD Unavailable Encounter Details Date Type Department Care Team Description 11/15/2023 Cataloging Assistant Report Medical Records [address] [place] [id number] Triny Chavez MD Social History Tobacco Use Types Packs/Day Years Used Date Smoking Tobacco: Former Cigarettes 1 10 0 11/26/2001 - 08/11/2012 Passive Smoke Exposure: Past Smokeless Tobacco: Never Alcohol Use Standard Drinks/Week Comments No 0 (1 standard drink = 0.6 oz pur e alcohol) Sex Assigned at Date Recorded Female 01/26/2022 3:[address] Job Start Date Occupation Industry Not on file Not on file Not on file documented as of this encounter Plan of Treatment Not on file documented as of this encounter Visit Diagnoses Not on filedocumented in this encounter Care Teams Sole Tier Relationship Specialty Start Date End Date Nirmal Washington MD [address] [place] [phone] PCP - General Internal Medicine 05/24/20 Benja Moreno MD [address] [place], [place] [phone] Specialist Cardiology 02/11/24 documented as of this encounter
--- OUTSIDE RECORDS SUMMARY | 2025-09-18 13:12 | XMS_ITS | Encounter Summary ---
Author Organization [facility] Address [address] [place] [address] Care Team Providers Care Work Environment Safety Inspector Name Role Phone Nirmal Washington MD Primary Care Provider [phone] Benja Moreno MD Unavailable Encounter Details Date Type Department Care Team Description 10/02/2023 Orders Only Adult Medicine [address] [phone] Nirmal Washington MD [address] [place] [address] [phone] Low back pain, unspecified back pain laterality, unspecified chronicity, unspecified whether sciatica present; Lumbar herniated disc Social History Tobacco Use Types Packs/Day Years [...] file Not on file Not on file COVID-19 Exposure Response Date Recorded In the last 10 days, have yo u been in contact with someone who was confirmed or suspected to have Coronavirus/COVID-19? No / Unsure 09/20/2023 8:29 AM EDT documented as of this encounter Plan of Treatment Not on file documented as of this encounter Procedures Procedure Name Priority Date/Time Associated Diagnosis Comments MRI OF LUMBAR SPINE NO CONTRAST Routine 09/19/2023 Low back pain, unspecified back pain laterality, unspecified chronicity, unspecified whether sciatica present Lumbar herniated disc documented in this encounter Results * MRI OF LUMBAR SPINE NO CONTRAST (09/19/2023) 09/19/2023 Nirmal Washington MD MRI Performing Organization Address City/State/[facility] Co de Phone Number [address] documented in this encounter Visit Diagnoses Diagnosis Low back pain, unspecified back pain laterality, unspecified chronicity, unspecified whether sciatica present Lumbar herniated disc Displacement of lumbar intervertebral disc without myelopathy documented in this encounter Care Teams Work Environment Safety Inspector Relationship Specialty Start Date End Date Nirmal Washington MD [address] [place] [id number] PCP - General Internal Medicine 05/24/20 Benja Moreno MD [address] [place] [address] Specialist Cardiology 02/11/24 documented as of this encounter
--- OUTSIDE RECORDS SUMMARY | 2025-09-18 13:12 | XMS_ITS | Encounter Summary ---
Author Organization [facility] Address [address] [place] [address] Care Team Providers Care Hotshot Superintendent Name Role Phone Nirmal Washington MD Primary Care Provider [phone] Benja Moreno MD Unavailable Encounter Details Date Type Department Care Team Description 11/13/2023 Orders Only Gastroenterology - [place] [address] [facility] [address] [place] [phone] Rudy Garcia MD 175 [facility] [address] [place] [address] Social History Tobacco Use Types Packs/Day Years [...] on filedocumented in this encounter Care Teams Hotshot Superintendent Relationship Specialty Start Date End Date Nirmal Washington MD [address] [place] [address] PCP - General Internal Medicine 05/24/20 Benja Moreno MD [address] [place] [address] Specialist Cardiology 02/11/24 documented as of this encounter
--- OUTSIDE RECORDS SUMMARY | 2025-09-18 13:12 | XMS_ITS | Encounter Summary ---
Author Organization [facility] Address [address] [place] [address] Care Team Providers Care River Crossing Supervisor Name Role Phone Stevenson Gurrola MD Primary Care Provider Unavail Nirmal Smart MD Primary Care Provider [phone] Benja Moreno MD Unavailable Reason for Visit * Reason Onset Date Comments APPOINTMENT 04/23/2014 Encounter Details Date Type Department Care Team Description 04/23/2014 Telephone Adult Medicine - [address] [address] iDvine Kumar PA-C APPOINTMENT Social History Tobacco Use Types Packs/Day Years Used Date Smoking Tobacco: Former Cigarettes 0.5 Q uit: 08/11/2012 Smokeless Tobacco: Never Comments:Smokes e cigarettes Alcohol Use Standard Drinks/Week Comments No 0 (1 standard drink = 0.6 oz pur e alcohol) Sex Assigned at Date Recorded Female 01/26/2022 3:[address] Job Start Date Occupation Industry Not on file Not on file Not on file documented as of this encounter Miscellaneous Notes * Telephone Encounter - Lisa Perez - 05/15/2014 10:23 AM EDT MESSAGE LEFT TO CALL BACK TO RESCHEDULE APPT. * Telephone Encounter - Lisa Perez - 04/23/2014 1:21 PM EDT Message left for pt reschedule her BRCA testing from 04/23/2014. documented in this encounter Plan of Treatment Not on file documented as of this encounter Visit Diagnoses Not on filedocumented in this encounter Care Teams River Crossing Supervisor Relationship Specialty Start Date End Date Stevenson Gurrola MD PCP - General 09/25/1999 05/23/20 Nirmal Washington MD [address] [place] [id number] PCP - General Internal Medicine 05/24/20 Benja Moreno MD [address] [place] [address] Specialist Cardiology 02/11/24 documented as of this encounter
--- OUTSIDE RECORDS SUMMARY | 2025-09-18 13:12 | XMS_ITS | Encounter Summary ---
Author Organization [facility] Address [address] [place] [address] Care Team Providers Care Wool Hanker Name Role Phone Nirmal Washington MD Primary Care Provider [phone] Benja Moreno MD Unavailable Encounter Details Date Type Department Care Team Description 11/13/2023 Telephone Gastroenterology - [place] [address] [facility] [address] [place] [address] Rudy Garcia MD [address] [facility] [address] [place] [address] Social History Tobacco Use Types Packs/Day Years [...] on filedocumented in this encounter Care Teams Wool Hanker Relationship Specialty Start Date End Date Nirmal Washington MD [address] [place] [phone] PCP - General Internal Medicine 05/24/20 Benja Moreno MD [address] [place] [address] Specialist Cardiology 02/11/24 documented as of this encounter
--- OUTSIDE RECORDS SUMMARY | 2025-09-18 13:12 | XMS_ITS | Encounter Summary ---
Author Organization [facility] Address [address] [place] [address] Care Team Providers Care Marketing Strategy Analyst Name Role Phone Nirmal Washington MD Primary Care Provider [phone] Benja Moreno MD Unavailable Encounter Details Date Type Department Care Team Description 10/25/2023 Nursing Professor Report Medical Records [address] [place] [id number] Сергей Jimenez PA-C Social History Tobacco Use Types Packs/Day Years [...] on filedocumented in this encounter Care Teams Marketing Strategy Analyst Relationship Specialty Start Date End Date Nirmal Washington MD [address] [place] [address] [phone] PCP - General Internal Medicine 05/24/20 Benja Moreno MD [address] [place], [place] [phone] Specialist Cardiology 02/11/24 documented as of this encounter
--- OUTSIDE RECORDS SUMMARY | 2025-09-18 13:12 | XMS_ITS | Encounter Summary ---
Author Organization [facility] Address [address] [place] [address] Care Team Providers Care Tool Technician Name Role Phone Nirmal Washington MD Primary Care Provider [phone] Benja Moreno MD Unavailable Encounter Details Date Type Department Care Team Description 10/31/2023 Pt. Non Urgent Medical Question Adult Medicine [address] [phone] Nirmal Washington MD [address] [place] [address] [phone] Social History Tobacco Use Types Packs/Day Years [...] encounter Miscellaneous Notes * Telephone Encounter - Viridiana Aviles - 10/31/2023 9:51 AM ESTFrom: Ana Vance To: Viviana Washington Sent: 10/31/2023 9:42 AM EST Subject: Ana Vance Ms Dr. Washington good morning this is Ana Vance. I???m sending this message to you because I called Dr. Contreras???s office at [facility] to see if anybody had sent a referral to them and they said that you still haven???t sent them a referral. They said that you guys would have to call them. They would call you back with an appoint ment and then you guys would call me to let me know what day and what time for the appointment my date of is 74 If anybody has any questions, feel free to call me [phone] thank you very much you all. Have a good day. Thank you. documented in this encounter Plan of Treatment Not on file documented as of this encounter Visit Diagnoses Not on filedocumented in this encounter Care Teams Tool Technician Relationship Specialty Start Date End Date Nirmal Washington MD [address] [place] [id number] PCP - General Internal Medicine 05/24/20 Benja Moreno MD [address] [place] [phone] Specialist Cardiology 02/11/24 documented as of this encounter
--- OUTSIDE RECORDS SUMMARY | 2025-09-18 13:14 | XMS_ITS | Encounter Summary ---
Author Organization [facility] Address [address] [place] [address] Care Team Providers Care Attic Fans Mechanic Name Role Phone Nirmal Washington MD Primary Care Provider [phone] Benja Moreno MD Unavailable Encounter Details Date Type Department Care Team Description 02/26/2024 Pt. Non Urgent Medic al Question Gastroenterology - [address] [place] [phone] Chele Torres PA-C Social History Tobacco Use Types Packs/Day [...] encounter Miscellaneous Notes * Telephone Encounter - Sanna Skelton M.A. - 02/26/2024 9:25 AM EDTFrom: Ana Vance To: Lorna Torres Sent: 02/26/2024 8:38 AM EDT Subject: Question regarding FIBROSURE What are the two bottom scores mean cause they are in the red documented in this encounter Plan of Treatment Not on file documented as of this encounter Visit Diagnoses Not on filedocumented in this encounter Care Teams Attic Fans Mechanic Relationship Specialty Start Date End Date Nirmal Washington MD [address] [place] [phone] PCP - General Internal Medicine 05/24/20 Benja Moreno MD [address] [place] [phone] Specialist Cardiology 02/11/24 documented as of this encounter
--- OUTSIDE RECORDS SUMMARY | 2025-09-18 13:14 | XMS_ITS | Encounter Summary ---
Author Organization [facility] Address [address] [place] [address] Care Team Providers Care Council Member Name Role Phone Nirmal Washington MD Primary Care Provider [phone] Benja Moreno MD Unavailable Encounter Details Date Type Department Care Team Description 11/22/2023 Pt. Non Urgent Medical Question Gastroenterology - [place] 175 [facility] [address] [place] [phone] Rudy Garcia MD 175 [facility] [address] [place] [address] Social History Tobacco Use Types Packs/Day Years [...] on filedocumented in this encounter Care Teams Council Member Relationship Specialty Start Date End Date Nirmal Washington MD [address] [place] [address] [phone] PCP - General Internal Medicine 05/24/20 Benja Moreno MD [address] [place] [phone] Specialist Cardiology 02/11/24 documented as of this encounter
--- OUTSIDE RECORDS SUMMARY | 2025-09-18 13:14 | XMS_ITS | Encounter Summary ---
Author Organization [facility] Address [address] [place] [address] Care Team Providers Care Photographer Aerial Name Role Phone Nirmal Washington MD Primary Care Provider [phone] Benja Moreno MD Unavailable Encounter Details Date Type Department Care Team Description 03/10/2024 Refill Gastroenterology - [place] [address] [facility] [address] [place] [phone] Rudy Garcia MD [address] [facility] [address] [place] [address] Social History Tobacco Use Types Packs/Day Years [...] on filedocumented in this encounter Care Teams Photographer Aerial Relationship Specialty Start Date End Date Nirmal Wsahington MD [address] [place] [address] PCP - General Internal Medicine 05/24/20 Benja Moreno MD [address] [place] [address] Specialist Cardiology 02/11/24 documented as of this encounter
--- OUTSIDE RECORDS SUMMARY | 2025-09-18 13:14 | XMS_ITS | Encounter Summary ---
Author Organization [facility] Address [address] [place] [address] Care Team Providers Care Yard Foreman Name Role Phone Nirmal Washington MD Primary Care Provider [phone] Benja Moreno MD Unavailable Encounter Details Date Type Department Care Team Description 01/07/2024 Telephone Gastroenterology - [address] [place] [phone] Chele Torres PA-C Social History Tobacco [...] encounter Miscellaneous Notes * Telephone Encounter - Taylor Fallon - 01/11/2024 3:50 PM EST Left a vm for the patient to call our office back. * Telephone Encounter - Chele Torres PA-C - 01/07/2024 3:45 PM EST I would delay the For a week or until the infection has passed and then restart the Humira as soon as she is feeling better * Telephone Encounter - Koki Washington - 01/07/2024 9:09 AM EST Patient calling, states she had an infection with swollen lymph nodes, wondering if she should still do humira tomorrow. Please advise. documented in this encounter Plan of Treatment Not on file documented as of this encounter Visit Diagnoses Not on filedocumented in this encounter Care Teams Yard Foreman Relationship Specialty Start Date End Date Nirmal Washington MD [address] [place] [address] PCP - General Internal Medicine 05/24/20 Benja Moreno MD [address] [place] [address] Specialist Cardiology 02/11/24 documented as of this encounter
--- OUTSIDE RECORDS SUMMARY | 2025-09-18 13:14 | XMS_ITS | Encounter Summary ---
Author Organization [facility] Address [address] [place] [address] Care Team Providers Care Starch Crab Name Role Phone Nirmal Washington MD Primary Care Provider [phone] Benja Moreno MD Unavailable Encounter Details Date Type Department Care Team Description 02/25/2024 Pt. Non Urgent Medic al Question Gastroenterology - [address] [place] [phone] Chele Torres PA-C Social History Tobacco [...] Encounter - Sanna Skelton M.A. - 02/26/2024 9:24 AM EDTFrom: Ana Vance To: Lorna Torres Sent: 02/25/2024 4:46 PM EDT Subject: Question regarding FIBROSURE I???m not sure exactly what the last part is how their way over I???m so I was wondering if you could send these test results to Dr. Garcia so that way Angela have her give me a call so I can find out what???s going on with them please thank you very much. Appreciate you have a good day. documented in this encounter Plan of Treatment Not on file documented as of this encounter Visit Diagnoses Not on filedocumented in this encounter Care Teams Starch Crab Relationship Specialty Start Date End Date Nirmal Washington MD [address] [place] [address] PCP - General Internal Medicine 05/24/20 Benja Moreno MD [address] [place] [address] Specialist Cardiology 02/11/24 documented as of this encounter
--- OUTSIDE RECORDS SUMMARY | 2025-09-18 13:14 | XMS_ITS | Encounter Summary ---
Author Organization [facility] Address [address] [place] [address] Care Team Providers Care High School Art Teacher Name Role Phone Nirmal Washington MD Primary Care Provider [phone] Benja Moreno MD Unavailable Encounter Details Date Type Department Care Team Description 02/15/2024 Pt. Non Urgent Medic al Question Gastroenterology - [address] [place] [phone] Chele Torres PA-C Social History Tobacco [...] on filedocumented in this encounter Care Teams High School Art Teacher Relationship Specialty Start Date End Date Nirmal Washington MD [address] [place] [address] PCP - General Internal Medicine 05/24/20 Benja Moreno MD [address] [place] [address] Specialist Cardiology 02/11/24 documented as of this encounter
--- OUTSIDE RECORDS SUMMARY | 2025-09-18 13:14 | XMS_ITS | Encounter Summary ---
Author Organization [facility] Address [address] [place] [address] Care Team Providers Care Insurance Administrative Assistant Name Role Phone Nirmal Washington MD Primary Care Provider [phone] Benja Moreno MD Unavailable Encounter Details Date Type Department Care Team Description 12/12/2023 Orders Only Medical Records [address] [place] [address] Izabel Loja PA-C Social History Tobacco Use Types Packs/Day [...] Procedure Name Priority Date/Time Associated Diagnosis Comments OUTSIDE LAB Routine 03/08/2023 OUTSIDE LAB Routine 03/01/2023 documented in this encounter Results * OUTSIDE LAB (03/08/2023) Izabel Loja PA-C LAB * OUTSIDE LAB (03/01/2023) Izabel Arizmendi [facility] documented in this encounter Visit Diagnoses Not on filedocumented in this encounter Care Teams Insurance Administrative Assistant Relationship Specialty Start Date End Date Nirmal Washington MD [address] [place] [address] PCP - General Internal Medicine 05/24/20 Benja Moreno MD [address] [place] [address] Specialist Cardiology 02/11/24 documented as of this encounter
--- OUTSIDE RECORDS SUMMARY | 2025-09-18 13:14 | XMS_ITS | Encounter Summary ---
Author Organization [facility] Address [address] [place] [address] Care Team Providers Care Artist Color Separation Name Role Phone Nirmal Washington MD Primary Care Provider [phone] Benja Moreno MD Unavailable Reason for Visit * Reason Onset Date Comments BLOOD PRESSURE-SELF MEASURED 01/02/2024 Encounter Details Date Type Department Care Team Description 01/02/2024 Pt. Non Urgent Medical Question Adult Medicine [address] [phone] Nirmal Washington MD [address] [place] [address] [phone] Social History Tobacco Use Types Packs/Day Years [...] Miscellaneous Notes * Telephone Encounter - Viridiana Carcamomichel - 01/02/2024 1:42 PM ESTFrom: Ana Vance To: Viviana Washington Sent: 01/02/2024 1:39 PM EST Subject: Ana Vance. Blood Pressure 1:30 blood pressure taken 149 over 89 Pulse 103 documented in this encounter Plan of Treatment Not on file documented as of this encounter Visit Diagnoses Not on filedocumented in this encounter Care Teams Artist Color Separation Relationship Specialty Start Date End Date Nirmal Washington MD [address] [place] [address] PCP - General Internal Medicine 05/24/20 Benja Moreno MD [address] [place] [address] Specialist Cardiology 02/11/24 documented as of this encounter
--- OUTSIDE RECORDS SUMMARY | 2025-09-18 13:14 | XMS_ITS | Encounter Summary ---
Author Organization [facility] Address [address] [place] [address] Care Team Providers Care Instructional Design Consultant Name Role Phone Nirmal Washington MD Primary Care Provider [phone] Benja Moreno MD Unavailable Encounter Details Date Type Department Care Team Description 02/15/2024 Pt. Non Urgent Medical Question Adult Medicine [address] [phone] Nirmal Washington MD [address] [place] [address] [phone] Social History Tobacco Use Types Packs/Day Years [...] encounter Miscellaneous Notes * Telephone Encounter - Lilliam Kirby M.A. - 02/15/2024 1:02 PM EDTFrom: Ana Vance To: Viviana Washington Sent: 02/15/2024 1:00 PM EDT Subject: Question regarding CHOLESTEROL Wow, the set of tests are very high. I did them with fasting. Can you please let Dr. Washington know these results please QUINTEN and see what he wants to do thank you I could be reached [phone]. documented in this encounter Plan of Treatment Not on file documented as of this encounter Visit Diagnoses Not on filedocumented in this encounter Care Teams Instructional Design Consultant Relationship Specialty Start Date End Date Nirmal Washington MD [address] [place] [address] PCP - General Internal Medicine 05/24/20 Benja Moreno MD [address] [place] [address] Specialist Cardiology 02/11/24 documented as of this encounter
--- OUTSIDE RECORDS SUMMARY | 2025-09-18 13:14 | XMS_ITS | Encounter Summary ---
Author Organization [facility] Address [address] [place] [address] Care Team Providers Care Patient Liaison Name Role Phone Stevenson Gurrola MD Primary Care Provider Unavail able Nirmal Washington MD Primary Care Provider [phone] Benja Moreno MD Unavailable Encounter Details Date Type Department Care Team Description 02/01/2015 Firestopper Technician Report Medical Records [address] [place] [address] Nikki Rivera MD Social History Tobacco Use Types Packs/Day [...] on filedocumented in this encounter Care Teams Patient Liaison Relationship Specialty Start Date End Date Stevenson Gurrola MD PCP - General 09/25/1999 05/23/20 Nirmal Washington MD [address] [place], [place] [phone] PCP - General Internal Medicine 05/24/20 Benja Moreno MD [address] [place] [address] Specialist Cardiology 02/11/24 documented as of this encounter
--- OUTSIDE RECORDS SUMMARY | 2025-09-18 13:14 | XMS_ITS | Encounter Summary ---
Author Organization [facility] Address [address] [place] [address] Care Team Providers Care Clinical Biostatistician Name Role Phone Nirmal Washington MD Primary Care Provider [phone] Benja Moreno MD Unavailable Encounter Details Date Type Department Care Team Description 03/05/2024 Pt. Non Urgent Medical Question Gastroenterology - [place] [address] [facility] [address] [place] [phone] Rudy Garcia MD [address] [facility] [address] [place] [address] Social History Tobacco Use Types Packs/Day Years [...] encounter Miscellaneous Notes * Telephone Encounter - Lydia Lane - 03/06/2024 9:05 AM EDTFrom: Ana Vance To: Teto Garcia Sent: 03/05/2024 4:20 PM EDT Subject: Ana Dobson late afternoon Angela, would you be able to do me a favor and let Miss Fang know please that I went over here to [place] at [address] [place] [address] in [place] and I did my blood work that she needed and all the other bloodwork that Dr. Garcia needed tyvm you have a great rest of your day documented in this encounter Plan of Treatment Not on file documented as of this encounter Visit Diagnoses Not on filedocumented in this encounter Care Teams Clinical Biostatistician Relationship Specialty Start Date End Date Nirmal Washington MD [address] [place] [address] PCP - General Internal Medicine 05/24/20 Benja Moreno MD [address] [place] [address]781 Specialist Cardiology 02/11/24 documented as of this encounter
--- OUTSIDE RECORDS SUMMARY | 2025-09-18 13:14 | XMS_ITS | Encounter Summary ---
Author Organization [facility] Address [address] [place] [address] Care Team Providers Care Quilt Sewer Name Role Phone Nirmal Washington MD Primary Care Provider Benja Moreno MD Unavailable Reason for Visit * Reason Onset Date Comments Prior Authorization 12/03/2023 Encounter Details Date Type Department Care Team Description 12/03/2023 Telephone Pulmonology - [place] [address] [facility] [address] [place] [address] Elise Hernandez APRN 175 [facility] 200 [place] [phone] Prior Authorization Social History Tobacco Use Types Packs/Day Years [...] on filedocumented in this encounter Care Teams Quilt Sewer Relationship Specialty Start Date End Date Nirmal Washington MD [address] [place] [address] PCP - General Internal Medicine 05/24/20 Benja Moreno MD [address] [place] [address] 15327 Specialist Cardiology 02/11/24 documented as of this encounter
--- OUTSIDE RECORDS SUMMARY | 2025-09-18 13:14 | XMS_ITS | Encounter Summary ---
Author Organization [facility] Address [address] [place] [address] Care Team Providers Care Law Firm Receptionist Name Role Phone Stevenson Gurrola MD Primary Care Provider Unavail able Nirmal Washington MD Primary Care Provider [phone] Benja Moreno MD Unavailable Encounter Details Date Type Department Care Team Description 07/31/2014 Business Doc Medical Records [address] [place] [address] Abstract, Provider Social History Tobacco Use Types Packs/Day Years [...] on filedocumented in this encounter Care Teams Law Firm Receptionist Relationship Specialty Start Date End Date Stevenson Gurrola MD PCP - General 09/25/1999 05/23/20 Nirmal Washington MD [address] [place] [address] [phone] PCP - General Internal Medicine 05/24/20 Benja Moreno MD [address] [place] [address], [place] [address] Specialist Cardiology 02/11/24 documented as of this encounter
--- OUTSIDE RECORDS SUMMARY | 2025-09-18 13:15 | XMS_ITS | Encounter Summary ---
Author Organization [facility] Address [address] [place] [address] Care Team Providers Care Aircraft Instrument Mechanic Name Role Phone Stevenson Gurrola MD Primary Care Provider Unavail able Nirmal Washington MD Primary Care Provider [phone] Benja Moreno MD Unavailable Reason for Visit * Reason Onset Date Comments Reschedule 01/13/2020 Encounter Details Date Type Department Care Team Description 01/13/2020 Telephone Gastroenterology - [address] [place] [phone] Chele Torres PA-C Reschedule Social History Tobacco Use Types Packs/Day Years Used Date Smoking Tobacco: Former Cigarettes 1 10 0 11/26/2001 - 08/11/2012 Smokeless Tobacco: Never Alcohol Use Standard Drinks/Week Comments No 0 (1 standard drink = 0.6 oz pur e alcohol) Sex Assigned at Date Recorded Female 01/26/2022 3:[address] Job Start Date Occupation Industry Not on file Not on file Not on file documented as of this encounter Miscellaneous Notes * Telephone Encounter - Imani Sheffield - 01/13/2020 3:18 PM EST Reschedule this patient with Nayely Coker or Jaspal Torres. Dr. Swann will not be available this day and is going to be threshing department supervisor from now on documented in this encounter Plan of Treatment Not on file documented as of this encounter Visit Diagnoses Not on filedocumented in this encounter Care Teams Aircraft Instrument Mechanic Relationship Specialty Start Date End Date Stevenson Gurrola MD PCP - General 09/25/1999 05/23/20 Nirmal Washington MD [address] [place] [address] PCP - General Internal Medicine 05/24/20 Benja Moreno MD [address] [place] [address]65 Specialist Cardiology 02/11/24 documented as of this encounter
--- OUTSIDE RECORDS SUMMARY | 2025-09-18 13:15 | XMS_ITS | Encounter Summary ---
Author Organization [facility] Address [address] [place] [address] Care Team Providers Care Field Representative Name Role Phone Stevenson Gurrola MD Primary Care Provider Unavail able Nirmal Washington MD Primary Care Provider [phone] Benja Moreno MD Unavailable Encounter Details Date Type Department Care Team Description 02/11/2020 Orders Only Medical Records [address] [place] [address] Neha Clarke MD [address] [facility] [address] [place] [phone] Social History Tobacco Use Types Packs/Day Years [...] on file documented as of this encounter Progress Notes * Neha Clarke MD - 02/12/2020 2:22 PM EDT Will discuss results with the patient on his next visit. documented in this encounter Plan of Treatment Not on file documented as of this encounter Procedures Procedure Name Priority Date/Time Associated Diagnosis Comments OUTSIDE VASCULAR STUDY Routine 02/10/2020 documented in this encounter Results * OUTSIDE VASCULAR STUDY (02/10/2020) Neha Clarke MD CARDIOLOGY documented in this encounter Visit Diagnoses Not on filedocumented in this encounter Care Teams Field Representative Relationship Specialty Start Date End Date Stevenson Gurrola MD PCP - General 09/25/1999 05/23/20 Nirmal Washington MD [address] [place] [address] PCP - General Internal Medicine 05/24/20 Benja Moreno MD [address] [place] [address] Specialist Cardiology 02/11/24 documented as of this encounter
--- OUTSIDE RECORDS SUMMARY | 2025-09-18 13:15 | XMS_ITS | Encounter Summary ---
Author Organization [facility] Address [address] [place] [address] Care Team Providers Care Plant Supervisor Name Role Phone Nirmal Washington MD Primary Care Provider [phone] Benja Moreno MD Unavailable Encounter Details Date Type Department Care Team Description 10/15/2020 Social Media Marketer Report Medical Records [address] [place] [address] Triny Chavez MD Social History Tobacco Use [...] Exposure Response Date Recorded In the last month, have you been in contact with someone who was confirmed or suspected to have Coronavirus / COVID-19? No / Unsure 10/14/2020 10:11 AM EST documented as of this encounter Plan of Treatment Not on file documented as of this encounter Visit Diagnoses Not on filedocumented in this encounter Care Teams Plant Supervisor Relationship Specialty Start Date End Date Nirmal Washington MD [address] [place] [address] PCP - General Internal Medicine 05/24/20 Benja Moreno MD [address] [place] [address] Specialist Cardiology 02/11/24 documented as of this encounter
--- OUTSIDE RECORDS SUMMARY | 2025-09-18 13:15 | XMS_ITS | Encounter Summary ---
Author Organization [facility] Address [address] [place] [address] Care Team Providers Care Last Pattern Grader Name Role Phone Nirmal Washington MD Primary Care Provider [phone] Benja Moreno MD Unavailable Encounter Details Date Type Department Care Team Description 01/21/2024 Orders Only Gastroenterology - [address] [place] [phone] Madie Moran DScPAS Crohn's disease of colon with complication (HCC); RUQ abdominal pain Social History Tobacco Use Types Packs/Day Years [...] Procedure Name Priority Date/Time Associated Diagnosis Comments CT ABD & PELVIS W/CONTRAST Routine 01/03/2024 Crohn's disease of colon with complication (HCC) RUQ abdominal pain documented in this encounter Results * CT ABD & PELVIS W/CONTRAST (01/03/2024) Madie Moran DScPAS CT SCANS documented in this encounter Visit Diagnoses Diagnosis Crohn's disease of colon with complication (HCC) RUQ abdominal pain Abdominal pain, right upper quadrant documented in this encounter Care Teams Last Pattern Grader Relationship Specialty Start Date End Date Nirmal Washington MD [address] [place] [address] PCP - General Internal Medicine 05/24/20 Benja Moreno MD [address] [place] [address] Specialist Cardiology 02/11/24 documented as of this encounter
--- OUTSIDE RECORDS SUMMARY | 2025-09-18 13:15 | XMS_ITS | Encounter Summary ---
Author Organization [facility] Address [address] [place] [address] Care Team Providers Care Cement Mason [employer] Name Role Phone Stevenson Gurrola MD Primary Care Provider Unavail able Nirmal Washington MD Primary Care Provider [phone] Benja Moreno MD Unavailable Encounter Details Date Type Department Care Team Description 04/10/2002 Telephone Adult Medicine [address] [phone] Yaneli Bourne [address] [place] [address] [phone] Social History Tobacco Use Types Packs/Day Years Used Date Smoking Tobacco: Never Assessed Sex Assigned at Date Recorded Female 01/26/2022 3:[address] Job Start Date Occupation Industry Not on file Not on file Not on file documented as of this encounter Plan of Treatment Not on file documented as of this encounter Visit Diagnoses Not on filedocumented in this encounter Care Teams Cement Mason [employer] Relationship Specialty Start Date End Date Stevenson Gurrola MD PCP - General 09/25/1999 05/23/20 Nirmal Washington MD [address] [place] [address] [phone] PCP - General Internal Medicine 05/24/20 Benja Moreno MD [address] [place] [address] Specialist Cardiology 02/11/24 documented as of this encounter
--- OUTSIDE RECORDS SUMMARY | 2025-09-18 13:15 | XMS_ITS | Encounter Summary ---
Author Organization [facility] Address [address] [place] [address] Care Team Providers Care Laster Hand Name Role Phone Nirmal Washington MD Primary Care Provider [phone] Reason for Visit * Reason Onset Date Comments Medication Problem 08/28/2025 Encounter Details Date Type Department Care Team ([facility] Contact Info) Description 08/28/2025 Telephone Adult Medicine [address] [phone] Nirmal Washington MD [address] [place] [address] Social History Tobacco Use Types Packs/Day Years [...] care for your loved ones. For example, childcare center administrator or elderly care for an older adult? 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 Not on file Not on file documented as of this encounter Progress Notes * Louis Eldridge - 08/28/2025 3:50 PM EDT Patient is requesting if she can be prescribed simvulta , states that she was told to contact our facility and have medication Pain management , states that they can't prescribe it for her but can only give injections documented in this encounter Plan of Treatment Upcoming Encounters Date Type Department Care Team (Late st Contact Info) Description 09/22/2025 11:00 AM EDT Appointment [facility] [address] [facility] 2nd [place] [phone] 09/29/2025 9:30 AM EST Office Visit [facility] Cardiology [facility] [address] [place] [phone] Benja Moreno MD [address] [place] [address] Dr M[address] [place] [phone] 10/14/2025 9:00 AM EST Office Visit Gastroenterology - [address] [facility] 299 [facility] [address] [place] [phone] Rudy Garcia MD 175 [facility] 200 [place] [address] 10/15/2025 4:00 PM EST Office Visit Adult Medicine [facility] [address] [place], [place] [phone] Gurmeet Curtis PA [address] [place], [place] 10/29/2025 10:30 AM EST Office Visit Vascular Surgery - [place] [address] [place] [phone] Conchita Trevino PA [address] [place] [phone] 11/02/2025 11:25 AM EST Office Visit Pulmonology - [place] [address] [facility] [address] [place] [phone] Elise Hernandez, ALEX [address] [place] [address] 03/08/2026 9:40 AM EDT Appointment Radiology Department - [address] [phone] documented as of this encounter Visit Diagnoses Not on filedocumented in this encounter Additional Health Concerns Assessment Noted Time PHQ-9 Depression Total Score: 9 06/04/20 25 10:02 AM EDT documented as of this encounter Care Teams Laster Hand Relationship Specialty Start Date End Date Nirmal Washington MD [address] [place] [address] PCP - General Internal Medicine 10/02/24 documented as of this encounter
--- OUTSIDE RECORDS SUMMARY | 2025-09-18 13:15 | XMS_ITS | Encounter Summary ---
Author Organization [facility] Address [address] [place] [address] Care Team Providers Care Can Repairer Name Role Phone Stevenson Gurrola MD Primary Care Provider Unavail able Nirmal Washington MD Primary Care Provider [phone] Benja Moreno MD Unavailable Encounter Details Date Type Department Care Team Description 03/03/2015 Software Engineer Report Medical Records [address] [place] [phone] Nikki Rivera MD Social History Tobacco Use [...] on filedocumented in this encounter Care Teams Can Repairer Relationship Specialty Start Date End Date Stevenson Gurrola MD PCP - General 09/25/1999 05/23/20 Nirmal Washington MD [address] [place], [place] [phone] PCP - General Internal Medicine 05/24/20 Benja Moreno MD [address] [place] [address] Specialist Cardiology 02/11/24 documented as of this encounter
--- OUTSIDE RECORDS SUMMARY | 2025-09-18 13:15 | XMS_ITS | Encounter Summary ---
Author Organization [facility] Address [address] [place] [address] Care Team Providers Care Travel Counselor [employer]obile Club Name Role Phone Nirmal Washington MD Primary Care Provider [phone] Reason for Visit * Reason Onset Date Comments Appointment 08/31/2025 Encounter Details Date Type Department Care Team (Late st Contact Info) Description 08/31/2025 Telephone [facility] [address] [place] [address] Benja Moreno MD [address] [place] [address] [address] [place] [address] Social History Tobacco Use Types Packs/Day Years [...] care for your loved ones. For example, children's librarian or elderly care for an older adult? 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 Moreno for 09/29/25 at 9:30 * Kristyn Mayorga - 08/31/2025 9:22 AM EDT Patient called to schedule yearly FU appt, due per recall with [employer]. Please return call when available to schedule. Thank you. documented in this encounter Plan of Treatment Upcoming Encounters Date Type Department Care Team (Late st Contact Info) Description 09/22/2025 11:00 AM EDT Appointment [facility] [address] [facility] 2nd [place] [phone] 09/29/2025 9:30 AM EST Office Visit [facility] Cardiology [facility] [address] [place] [phone] Benja Moreno MD [address] [place] [address] [address] [place] [phone] 10/14/2025 9:00 AM EST Office Visit Gastroenterology - [address] [facility] [address] [facility] [address] [place] [phone] Rudy Garcia MD [address] [facility] [address] [place] [address] 10/15/2025 4:00 PM EST Office Visit Adult Medicine [address] [phone] Gurmeet Curtis PA [address] [place] [address] 10/29/2025 10:30 AM EST Office Visit Vascular Surgery - [place] [address] [place] [address] Conchita Trevino PA [address] [place] [phone] 11/02/2025 11:25 AM EST Office Visit Pulmonology - [place] [address] [place] [phone] Elise Hernandez, ALEX [address] [place] [phone] 03/08/2026 9:40 AM EDT Appointment Radiology Department - [address] [phone] documented as of this encounter Visit Diagnoses Not on filedocumented in this encounter Additional Health Concerns Assessment Noted Time PHQ-9 Depression Total Score: 9 06/04/20 25 10:02 AM EDT documented as of this encounter Care Teams Travel Counselor [employer]obile Club Relationship Specialty Start Date End Date Nirmal Washington MD [address] [place] [address] PCP - General Internal Medicine 10/02/24 documented as of this encounter
--- OUTSIDE RECORDS SUMMARY | 2025-09-18 13:15 | XMS_ITS | Encounter Summary ---
Author Organization [facility] Address [address] [place] [address] Care Team Providers Care Insole Taper Name Role Phone Stevenson Gurrola MD Primary Care Provider Unavail able Nirmal Washington MD Primary Care Provider [phone] Benja Moreno MD Unavailable Encounter Details Date Type Department Care Team Description 12/31/2019 Orders Only Gastroenterology - [address] [place] [phone] Montserrat Swann MD Social History Tobacco Use Types Packs/Day [...] on filedocumented in this encounter Care Teams Insole Taper Relationship Specialty Start Date End Date Stevenson Gurrola MD PCP - General 09/25/1999 05/23/20 Nirmal Washington MD [address] [place] [phone] PCP - General Internal Medicine 05/24/20 Benja Moreno MD [address] [place] [phone] Specialist Cardiology 02/11/24 documented as of this encounter
--- OUTSIDE RECORDS SUMMARY | 2025-09-18 13:15 | XMS_ITS | Encounter Summary ---
Author Organization [facility] Address [address] [place] [address] Care Team Providers Care Water Pipe Installer Name Role Phone Nirmal Washington MD Primary Care Provider Benja Moreno MD Unavailable Reason for Visit * Reason Onset Date Comments TEST RESULTS 12/20/2020 Encounter Details Date Type Department Care Team Description 12/20/2020 Telephone Adult Medicine [facility] [address] [place] [address] Nirmal Washington MD [address] [place] [address] TEST RESULTS Social History Tobacco Use Types Packs/Day Years [...] have Coronavirus / COVID-19? No / Unsure 12/23/2020 10:21 AM EST documented as of this encounter Miscellaneous Notes * Telephone Encounter - Jes Morales - 12/20/2020 9:08 AM EST Pt wants to go over blood work results that were done on 12/14/20 she wants to speak to Dr. Washington about them. documented in this encounter Plan of Treatment Not on file documented as of this encounter Visit Diagnoses Not on filedocumented in this encounter Care Teams Water Pipe Installer Relationship Specialty Start Date End Date Nirmal Washington MD [address] [place] [address] PCP - General Internal Medicine 05/24/20 Benja Moreno MD [address] [place] [address] Specialist Cardiology 02/11/24 documented as of this encounter
--- OUTSIDE RECORDS SUMMARY | 2025-09-18 13:15 | XMS_ITS | Encounter Summary ---
Author Organization [facility] Address [address] [place] [address] Care Team Providers Care Principal Technical Specialist Name Role Phone Nirmal Washington MD Primary Care Provider Encounter Details Date Type Department Care Team (Late st Contact Info) Description 09/15/2025 Results Follow-Up Vascular Surgery - [place] [address] [place] [address] Ifeoma Gastelum PA [address] [place] [address] Social History Tobacco Use Types Packs/Day Years [...] care for your loved ones. For example, early childhood education worker or elderly care for an older adult? 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 Not on file Not on file documented as of this encounter Plan of Treatment Upcoming Encounters Date Type Department Care Team (Late Contact Info) Description 09/22/2025 11:00 AM EDT Appointment [facility] [address] 2nd [place] [phone] 09/29/2025 9:30 AM EST Office Visit [facility] [address] [place] [phone] Benja Moreno MD [address] [place] [address] [address] [place] [phone] 10/14/2025 9:00 AM EST Office Visit Gastroenterology - [address] [facility] [address] [facility] [address] [place] [phone] Rudy Garcia MD [address] [facility] 200 [place] [address] 10/15/2025 4:00 PM EST Office Visit Adult Medicine [place] - [place] [address] [place], [place] [phone] Gurmeet Curtis PA [address] [place], [place] 10/29/2025 10:30 AM EST Office Visit Vascular Surgery - [place] [address] [place] [phone] Conchita Trevino PA [address] [place] [phone] 11/02/2025 11:25 AM EST Office Visit Pulmonology - [place] [address] [facility] 200 [place] [phone] Elise Hernandez NP [address] [place] [address] 03/08/2026 9:40 AM EDT Appointment Radiology Department - [address] [phone] documented as of this encounter Visit Diagnoses Not on filedocumented in this encounter Additional Health Concerns Assessment Noted Time PHQ-9 Depression Total Score: 9 06/04/20 25 10:02 AM EDT documented as of this encounter Care Teams Principal Technical Specialist Relationship Specialty Start Date End Date Nirmal Washington MD [address] [place] [address] PCP - General Internal Medicine 10/02/24 documented as of this encounter
--- OUTSIDE RECORDS SUMMARY | 2025-09-18 13:15 | XMS_ITS | Encounter Summary ---
Author Organization [facility] Address [address] [place] [address] Care Team Providers Care Lamp Inspector Name Role Phone Nirmal Washington MD Primary Care Provider [phone] Benja Moreno MD Unavailable Encounter Details Date Type Department Care Team Description 01/28/2024 Pt. Non Urgent Medical Question Gastroenterology - [place] [address] [facility] [address] [place] [phone] Rudy Garcia MD [address] [facility] [address] [place] [address] Social History Tobacco Use Types Packs/Day Years [...] on filedocumented in this encounter Care Teams Lamp Inspector Relationship Specialty Start Date End Date Nirmal Washington MD [address] [place] [phone] PCP - General Internal Medicine 05/24/20 Benja Moreno MD [address] [place] [address] Specialist Cardiology 02/11/24 documented as of this encounter
--- OUTSIDE RECORDS SUMMARY | 2025-09-18 13:15 | XMS_ITS | Encounter Summary ---
Author Organization [facility] Address [address] [place] [address] Care Team Providers Care Braid Cutter Name Role Phone Nirmal Washington MD Primary Care Provider [phone] Benja Moreno MD Unavailable Encounter Details Date Type Department Care Team Description 01/12/2024 Pt. Non Urgent Medic al Question Gastroenterology - [address] [place] [phone] Chele Torres PA-C Social History Tobacco [...] encounter Miscellaneous Notes * Telephone Encounter - Livia Villa M.A. - 01/14/2024 9:55 AM ESTFrom: Ana Vance To: Lorna Torres Sent: 01/12/2024 3:14 PM EST Subject: Ana Vance Hi this is Ana Vance I was wondering if you ended up getting my results yet from the CAT scan that I took when I had to drink that stuff and then they gave me an IV as well because I keep an eye out and I haven???t been able to see anything up there yet, so I was wondering if you received itI can called at [phone] . My dasia e of is.72 thank you documented in this encounter Plan of Treatment Not on file documented as of this encounter Visit Diagnoses Not on filedocumented in this encounter Care Teams Braid Cutter Relationship Specialty Start Date End Date Nirmal Washington MD [address] [place] [address] PCP - General Internal Medicine 05/24/20 Benja Moreno MD [address] [place] [address] Specialist Cardiology 02/11/24 documented as of this encounter
--- OUTSIDE RECORDS SUMMARY | 2025-09-18 13:15 | XMS_ITS | Encounter Summary ---
Author Organization [facility] Address [address] [place] [address] Care Team Providers Care Home Energy Auditor Name Role Phone Stevenson Gurrola MD Primary Care Provider Unavail able Nirmal Washington MD Primary Care Provider [phone] Benja Moreno MD Unavailable Reason for Visit * Reason Onset Date Comments lab test 02/10/2020 Encounter Details Date Type Department Care Team Description 02/10/2020 Telephone Vascular Surgery - [place] [address] [facility] [address] [place] [phone] Neha Clarke MD [address] [place] [address] [place] [phone] lab test Social History Tobacco Use Types Packs/Day Years [...] encounter Miscellaneous Notes * Telephone Encounter - Alma Delia Deleon M.A. - 02/10/2020 2:20 PM EDT Ultrasound order states bilateral testing but only edema on right leg. The lab support tech needs toknow why they are doing both legs?-bc documented in this encounter Plan of Treatment Not on file documented as of this encounter Visit Diagnoses Not on filedocumented in this encounter Care Teams Home Energy Auditor Relationship Specialty Start Date End Date Stevenson Gurrola MD PCP - General 09/25/1999 05/23/20 Nirmal Washington MD [address] [place] [address] PCP - General Internal Medicine 05/24/20 Benja Moreno MD [address] [place] [address] Specialist Cardiology 02/11/24 documented as of this encounter
--- OUTSIDE RECORDS SUMMARY | 2025-09-18 13:16 | XMS_ITS | Encounter Summary ---
Author Organization [facility] Address [address] [place] [address] Care Team Providers Care Manager Sign Name Role Phone Nirmal Washington MD Primary Care Provider [phone] Benja Moreno MD Unavailable Encounter Details Date Type Department Care Team Description 02/01/2021 Pt. Non Urgent Medic al Question Gastroenterology - [address] [place] [address] Montserrat Swann MD Social History Tobacco [...] have Coronavirus / COVID-19? No / Unsure 02/01/2021 9:03 AM EST documented as of this encounter Miscellaneous Notes * Telephone Encounter - Maria L Leon M.A. - 02/01/2021 10:40 AM ESTFrom: Ana Vance To: Montserrat Swann MD Sent: 02/01/2021 10:22 AM EST Subject: Probiotics & Colonoscopy and endoscopy Hi Dr. Casey this is that Micheline I got off the phone with my pharmacy they don't have anything for the probiotic so I was wondering if you'd be able to put that in. And then also I went downstairs togo get the blood work done but the lab is closed temporary so I'm heading to [facility] and getting the blood work done there. And also the endoscopy colonoscopy I tend to get weak and shaky after a couple hours of being up and not eating anything I'm not gonna be able to wait until 11 soI was wondering if we could talk about going in earlier in the morning like seven 8 o'clock the latest so I can get this done at that time. I was one if you give me a call [phone] thank you very much. documented in this encounter Plan of Treatment Not on file documented as of this encounter Visit Diagnoses Not on filedocumented in this encounter Care Teams Manager Sign Relationship Specialty Start Date End Date Nirmal Washington MD [address] [place] [address] PCP - General Internal Medicine 05/24/20 Benja Moreno MD [address] [place] [phone] Specialist Cardiology 02/11/24 documented as of this encounter
--- OUTSIDE RECORDS SUMMARY | 2025-09-18 13:16 | XMS_ITS | Encounter Summary ---
Author Organization [facility] Address [address] [place] [address] Care Team Providers Care Solution Coordinator Name Role Phone Stevenson Gurrola MD Primary Care Provider Unavail able Nirmal Washington MD Primary Care Provider [phone] Benja Moreno MD Unavailable Encounter Details Date Type Department Care Team Description 10/20/2002 Telephone Adult Medicine [address] [phone] Yaneli Bounre [address] [place] [address] [phone] Social History Tobacco Use Types Packs/Day Years [...] on filedocumented in this encounter Care Teams Solution Coordinator Relationship Specialty Start Date End Date Stevenson Gurrola MD PCP - General 09/25/1999 05/23/20 Nirmal Washington MD [address] [place] [phone] PCP - General Internal Medicine 05/24/20 Benja Moreno MD [address] [place] [address] Specialist Cardiology 02/11/24 documented as of this encounter
--- OUTSIDE RECORDS SUMMARY | 2025-09-18 13:16 | XMS_ITS | Clinical Summary ---
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 Name Role Phone Nirmal Washington MD Primary Care Provider [phone] Allergies Active Allergy Reactions Criticality Noted Date Comments Amoxicillin-Pot Clavulanate 02/20/2022 Aspirin 01/16/2022 Cat Dander Unknown 03/09/2025 Diph,Pertus(Acel),Tet Ped (Pf) 09/26/2018 Not a candidate d/t seizure hx per pcp Cannot do tetanus neither Diphenhydramine 01/16/2022 Doxycycline 01/16/2022 Fluticasone Propion-Salmeterol Weakness 04/18/2015 Grass Pollen Unknown 03/09/2025 Ibuprofen 10/16/2018 Abdominal pain Immune Globulin Anaphylaxis High 04/08/2024 Lactose 04/08/2024 Other reaction(s): Unknown Loratadine High 07/23/2015 Other Reaction(s): Numbness, tingling or swelling of the lips, tongue or mouth Mold 04/08/2024 Other reaction(s): Not available Other 05/21/2015 Tree extract Grass, mildew, mold, pollen, cats Sulfa (Sulfonamide Antibiotics) Nausea And Vomiting Medium 01/23/2023 Pt cant remember Pham Dyngenesis Nausea And Vomiting 05/30/2016 Medications cyanocobalamin (VITAMIN B-12) 1,000 mcg tablet Take 1 tablet (1,000 mcg total) by mouth 1 (one) time each day. 04/26/20 22 Active dicyclomine (BENTYL) 20 mg tablet Take 1 tablet (20 mg total) by mouth 3 (three) times a day. For 90 days Active diphenhydrAMINE (BENADRYL) 25 mg capsule Take 2 capsules (50 mg total) by mouth 3 (three) times a day. Active fluticasone-ume clidinium-vilan terol (Trelegy Ellipta) 100-62.5-25 mcg inhaler Inhale 1 puff (100 mcg total) by mouth 1 (one) time each day. 11/13/20 23 Active immun glob G,IgG,-pro-IgA 0-50 (Hizentra) 2 gram/10 mL (20 %) solution Inject 20 mL under the skin. On sunday Active levonorgestreL (MIRENA) 21 mcg/24 hr (8 yrs) 52 mg IUD 1 Device (1 each total) by intrauterine route. 06/17/20 21 026 Active montelukast (SINGULAIR) 10 mg tablet Take 1 tablet (10 mg total) by mouth at bedtime. 11/01/20 23 Active sucralfate (CARAFATE) 1 gram tablet Take 1 tablet (1 g total) by mouth 4 (four) times a day. 04/23/20 24 Active vedolizumab (Entyvio) 300 mg recon soln Infuse 5 mL (300 mg total) into a venous catheter. 03/11/20 24 Active aspirin 81 mg chewable tablet Chew 1 tablet (81 mg total) 1 (one) time each day. Active cholecalciferol , vitamin D3, (VITAMIN D3 ORAL) Take by mouth. Take 100 mcg by mouth Active immun glob G,IgG,-pro-IgA 0-50 (Hizentra) 4 gram/20 mL (20 %) syringe Inject under the skin. Historical Active immun glob G,IgG,-pro-IgA 0-50 (Hizentra) 1 gram/5 mL (20 %) solution Inject 200 mg/kg under the skin every 7 (seven) days. HIstorical Active immune globulin,gamma, IgG, (IMMUNE GLOBULIN, HUMAN,, IGG, IV) Infuse into a venous catheter. Inject 5 ml into vein on sunday Active multivitamin tablet Take 1 tablet by mouth 1 (one) time each day. Active lactobacillus acidoph-l.bulga r 100 million cell granules in packet Take by mouth. Activ e inhalational spacing device (Aerochamber MV) inhaler by Other route. Use as instructed with inhaler Active ipratropium-alb uteroL (Combivent Respimat) 20-100 mcg/actuation inhaler INHALE 1 TO 2 PUFFS INTO THE LUNGS FOUR TIMES DAILY NEEDED FOR WHEEZING OR COUGHING OR SHORTNESS OF BREATH. MAX 6 PUFFS DAILY 4 g 3 10/09/20 24 Active polyethylene glycol (PEG) 17 gram/dose oral powder MIX 17 GRAMS IN LIQUID AND DRINK BY MOUTH TWICE DAILY 1020 g 3 01/02/20 25 Active docusate sodium (COLACE) 100 mg capsule Take 1 capsule (100 mg total) by mouth 2 (two) times a day if needed. Active EPINEPHrine (EPIPEN) 0.3 mg/0.3 mL injection Active levocetirizine (XYZAL) 5 mg tablet Take 1 tablet (5 mg total) by mouth 1 (one) time each day. Active multivitamin (multivitamin-i ramos-minerals) tablet Take 1 tablet by mouth daily. Active lisinopriL (PRINIVIL,ZESTR IL) 10 mg tablet Take 1 tablet (10 mg total) by mouth 1 (one) time each day. 90 each 1 05/21/20 25 Active Additional Information Patient not taking.Reported on 09/08/2025 acetaminophen (Tylenol 8 Hour) 650 mg 8 hr tablet Take 1 tablet (650 mg total) by mouth every 8 (eight) hours if needed for mild pain. Do not crush, chew, or split. 60 tablet 1 05/21/20 25 Active albuterol 2.5 mg /3 mL (0.083 %) nebulizer solutionIndicat ions:Asthma-chr onic obstructive pulmonary disease overlap syndrome (CMS/HCC V24, CMS/HCC V28) Take 3 mL (2.5 mg total) by nebulization every 6 (six) hours if needed for wheezing or shortness of breath. 100 mL 2 07/03/20 25 Active levothyroxine (SYNTHROID, LEVOTHROID) 200 mcg tablet TAKE 1 TABLET(200 MCG) BY MOUTH 1 TIME EACH DAY 90 tablet 1 08/05/20 25 Active atorvastatin (LIPITOR) 10 mg tablet TAKE 1 TABLET BY MOUTH DAILY 90 tablet 1 08/06/20 25 Active omeprazole (PriLOSEC) [address] capsuleIndicati ons:Gastroesoph ageal reflux disease without esophagitis Take 1 capsule (40 mg total) by mouth 2 (two) times a day before meals. 180 capsule 1 08/12/20 25 Active Ventolin HFA 90 mcg/actuation inhalerIndicati ons:Asthma-welder manufacture kayla obstructive pulmonary disease overlap syndrome (CMS/HCC V24, CMS/HCC V28),Acute cough Inhale 2 puffs by mouth every 6 (six) hours if needed for wheezing. 54 g 1 08/13/20 25 026 Active predniSONE (DELTASONE) 10 mg tabletIndicatio ns:COPD exacerbation,as thma exacerbation Take 4 tablets (40 mg total) by mouth 1 (one) time each day for 3 days, THEN 3 tablets (30 mg total) 1 (one) time each day for 3 days, THEN 2 tablets (20 mg total) 1 (one) time each day for 3 days, THEN 1 tablet (10 mg total) 1 (one) time each day for 3 days. 30 each 09/07/20 25 025 Active cyclobenzaprine (FLEXERIL) 10 mg tablet Take 1 tablet (10 mg total) by mouth 3 (three) times a day. 90 tablet 2 09/08/20 25 Active DULoxetine (CYMBALTA) [address] capsule Take 1 capsule (20 mg total) by mouth 1 (one) time each day. Do not crush or chew. 30 each 1 09/08/20 25 Active acetaminophen (TYLENOL 8 HOUR) 650 mg 8 hr tablet Take 3 tablets (1,950 mg total) by mouth. 025 Discontinu ed(Therapy completed) pregabalin (LYRICA) 75 mg capsule Take 1 capsule (75 mg total) by mouth 3 (three) times a day. 025 Discontinu ed(Therapy completed) pregabalin (LYRICA) 100 mg capsule Take 1 capsule (100 mg total) by mouth 1 (one) time each day. Discontinu ed(Therapy completed) ammonium lactate (AmLactin) 12 % lotion Apply topically if needed for dry skin. 400 g 01/27/20 Discontinu ed(Discont inued by another clinician) nystatin (MYCOSTATIN) 100,000 unit/gram powder See administration instructions. Discontinu ed(Therapy completed) oxyCODONE (ROXICODONE) 10 mg immediate release tablet TAKE 1/2 TO 1 TABLET BY MOUTH EVERY 4 HOURS Discontinu ed(Therapy completed) traMADoL (ULTRAM) 50 mg tablet TAKE 1 TO 2 TABLETS BY MOUTH EVERY 6 HOURS . NOT TO EXCEED 400MG /DAY Discontinu ed(Therapy completed) adalimumab (Humira,CF, Pen) 40 mg/0.4 mL pen Discontinu ed(Discont inued by another clinician) celecoxib (CeleBREX) 50 mg capsule TAKE 1 CAPSULE(50 MG) BY MOUTH 1 TIME EACH DAY 90 capsule 1 07/23/20 Discontinu ed(Therapy completed) cyclobenzaprine (FLEXERIL) 10 mg tablet TAKE 1 TABLET(10 MG) BY MOUTH THREE TIMES DAILY NEEDED FOR MUSCLE SPASMS 30 tablet 08/11/20 Discontinu ed(Reorder ) azithromycin (ZITHROMAX) 250 mg tabletIndicatio ns:Cough productive of purulent sputum Take 2 tablets (500 mg total) by mouth 1 (one) time each day for 1 day, THEN 1 tablet (250 mg total) 1 (one) time each day for 4 days. 6 each 09/07/20 25 Active Problems Problem Noted Date Diagnosed Date Memory disorder 03/09/2025 Lesion of oral mucosa 01/05/2025 Lesion of tongue 01/05/2025 Preop cardiovascular exam 10/20/2024 Assessment & Plan (10/20/2024 10:50 AM EST): Per the Olivo cardiac risk index, the patient is low risk for perioperative cardiac events. She may hold her aspirin, atorvastatin and lisinopril for her surgery. No preoperative testing is recommended and she is stable from a CV standpoint. Coronary artery disease 05/20/2024 Abnormal EKG 05/16/2024 Abnormal stress test 05/16/2024 Overview (10/20/2024): January 2024 - Myocardial perfusion imaging of the left ventricle reveals a small, mild, fixed perfusion defect of the apical septal and apical lateral marie after CT attenuation correction was applied to the study - gated SPECT imaging was performed which demonstrated normal LV function and thickening with a calculated LVEF of >67 % Assessment & Plan (10/20/2024 10:50 AM EST): Small fixed defect with pEF - may be false positive given obesity and type of testing (Regadenoson). Echocardiogram reassuring. Currently symptoms unlikely to be cardiac in nature. No further cardiac workup. Will continue with aspirin, atorvastatin and lisinopril. We discussed risk reduction through lifestyle choices including healthy diet, routine exercise and weight management. Consider GLP1. Orders: ECG 12 lead Colitis 01/29/2024 Epigastric pain 01/29/2024 Overview (10/20/2024): Mildly abnormal Nuclear stress test (January 2024) with normal echocardiogram (August 2024). Given elevated heart rate, coronary CTA was not recommended. Catheterization was recommend, but declined given atypical symptoms and normal echocardiogram. Assessment & Plan (10/20/2024 10:50 AM EST): Very atypical symptoms. More likely to be related to a musculoskeletal or GI etiology. Also possibly related to fibromyalgia. No further cardiac workup. 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 Salena Paiz IgG deficiency [place] [place] [facility] [place] 2022 Chronic obstructive pulmonar y disease ([facility] [place]24, [facility] [place] 01/11/2023 Daytime sleepiness 11/04/2022 Primary osteoarthritis of both knees 03/31/2022 Vaginal pain 03/07/2022 Yeast infection of the skin 03/07/2022 Dysphonia 02/08/2022 Overview (03/09/2025): Hoarseness; Note: Date Diagnosed: 02/08/2022 9:06 AM (R49.0) Pelvic pain 05/04/2021 Vitamin B12 deficiency 04/22/2021 Other insomnia 04/01/2021 PCOS (polycystic ovarian syndrome) 01/06/2021 Overview (01/29/2024): Last Assessment & Plan: Again reviewed treatment options for uterine protection in the setting of PCOS and irregular menses. Patient most interested in Mirena IUD. Will submit prior authorization and insert IUD if approved. In the mean time will continue with POPs. Sensorineural hearing loss (SNHL) of both ears 0 07/30/2020 Overview (03/09/2025): Sensorineural hearing loss, bilateral; Note: Date Diagnosed: 07/30/2020 3:03 PM (H90.3) Venous insufficiency of both lower extremities 0 03/11/2020 Subacute sinusitis 12/31/2019 Carpal tunnel syndrome of right wrist 11/27/2019 Asthma in adult, severe pers istent, uncomplicated [place] [place] 09/26/2019 Mild intermittent asthma without complication Muscle spasm 06/27/2019 Vitamin D insufficiency 06/27/2019 Mass of neck 04/18/2019 Overview (03/09/2025): Localized swelling, mass and lump, neck; Note: Date Diagnosed: 04/18/2019 8:49 AM (R22.1) Neck swelling 04/18/2019 Overview (03/09/2025): Localized swelling, mass and lump, neck; Note: Date Diagnosed: 04/18/2019 8:49 AM (R22.1) Pharyngeal dysphagia 04/18/2019 Overview (03/09/2025): Dysphagia, pharyngeal phase; Note: Date Diagnosed: 04/18/2019 8:49 AM (R13.13) History of cholecystectomy 04/15/2019 Post-traumatic osteoarthritis of right wrist Severe obesity (BMI 35.0-39. 9) with comorbidity ([facility] V24, [facility] V28) 03/20/2019 Assessment & Plan (10/20/2024 10:50 AM EST): BMI 43.84. We discussed risk reduction through lifestyle choices including healthy diet, routine exercise and weight management. Consider GLP1. Goiter 01/10/2019 Gastroesophageal reflux disease without esophagi tis 07/17/2018 Allergic rhinitis 01/28/2018 Overview (03/09/2025): Allergic rhinitis: Due to other allergen; Note: Date Diagnosed: 01/28/2018 1:19 PM (477.8) Allergic rhinitis: Due to other allergen; Note: Date Diagnosed: 09/07/2017 10:53 AM (477.8) ; Start Date : 09/07/2017 Other allergic rhinitis; Note: Date Diagnosed: 06/29/2017 1:37 PM (J30.89) ; Start Date : 06/29/2017 Other specified disorders of eustachian tube, bi lateral 01/16/2018 Overview (03/09/2025): Other specified disorders of Eustachian tube, bilateral; Note: Date Diagnosed: 01/16/2018 4:53 PM (H69.83) Partial loss of ear ossicles 01/16/2018 Overview (03/09/2025): Partial loss of ear ossicles, left ear; Note: Date Diagnosed: 01/16/2018 4:54 PM (H74.322) Deviated nasal septum 12/04/2017 Overview (03/09/2025): Deviated nasal septum; Note: Date Diagnosed: 12/04/2017 2:54 PM (J34.2) Polyp of nasal cavity 12/04/2017 Overview (03/09/2025): Polyp of nasal cavity; Note: Date Diagnosed: 12/04/2017 2:54 PM (J33.0) Fibromyalgia 10/30/2017 Overview (10/20/2024): Dr. Ibarra in [facility] Rheumonotology. Trochanteric bursitis of right hip 10/30/2017 Bilateral tinnitus 09/25/2017 Overview (03/09/2025): Tinnitus, bilateral; Note: Date Diagnosed: 09/25/2017 2:16 PM (H93.13) Conductive hearing loss of left ear 09/25/2017 Overview (03/09/2025): Conductive hearing loss, unilateral, left ear with restricted hearing on the contralateral side; Note: Date Diagnosed: 09/25/2017 1:48 PM (H90.A12) Sensorineural hearing loss (SNHL) of right ear 1 Overview (03/09/2025): Sensorineural hearing loss, unilateral, right ear, with restricted hearing on the contralateral side; Note: Date Diagnosed: 09/25/2017 1:48 PM (H90.A21) Dizziness and giddiness 09/25/2017 Overview (03/09/2025): Dizziness and giddiness; Note: Date Diagnosed: 09/25/2017 2:16 PM (R42) Recurrent acute sinusitis 07/05/2017 Overview (03/09/2025): Other acute recurrent sinusitis; Note: Date Diagnosed: 07/05/2017 11:53 AM (J01.81) Nasal congestion 06/29/2017 Overview (03/09/2025): Nasal congestion; Note: Date Diagnosed: 06/29/2017 1:37 PM (R09.81) IBS (irritable bowel syndrome) 06/21/2017 Internal hemorrhoids 06/28/2016 FARMER (nonalcoholic steatohepatitis) 06/07/2016 IgA deficiency [place] [place] [facility] [place]) 2015 Complex endometrial hyperplasia without atypia 0 03/04/2014 Anemia 01/26/2011 Anxiety 10/23/2006 Hypothyroidism 10/23/2006 Seizure disorder ([facility] V24, [facility] V28) 09/27 Encounters Date Type Department Care Team Description 09/15/2025 Results Follow-Up Vascular Surgery [place] [address] [place] [phone] Ifeoma Gastelum PA 09/10/2025 8:30 AM EDT Ancillary Procedure [facility] Cardiology [facility] [address] [place] [phone] Leg swelling 09/08/2025 11:30 AM EDT Office Visit Adult Medicine [address] [address] Gurmeet Curtis PA Chronic low back pain, unspecified back pain laterality, unspecified whether sciatica present (Primary Dx); Hypothyroidism, unspecified type; Hypertension, unspecified type; Hyperlipidemia, unspecified hyperlipidemia type; Asthma-COPD overlap syndrome ([facility] V24, [facility] V28); Numbness of left thumb; Skin lesion; Fibromyalgia 09/07/2025 9:20 AM EDT Office Visit Pulmonology - [place] [address] [place] [phone] Elise Hernandez NP Asthma in adult, severe persistent, with acute exacerbation [place] [place] (Primary Dx); Cough productive of purulent sputum 08/31/2025 Telephone [facility] Cardiology [facility] [address] [place] [phone] Benja Moreno MD 08/28/2025 Telephone Adult Medicine [facility] [address] [place], [place] [phone] Nirmal Washington MD 08/18/2025 4:30 PM EDT - 08/18/2025 11:59 PM EDT Hospital Encounter [facility] [address], [place] [phone] Asthma-chronic obstructive pulmonary disease overlap syndrome (CMS/HCC V24, CMS/HCC V28); Acute cough Discharge Disposition: Home or Self Care 08/13/2025 4:25 PM EDT Office Visit Pulmonology - [place] [address] [place] [phone] Elise Hernandez NP Acute cough (Primary Dx); Asthma-chronic obstructive pulmonary disease overlap syndrome (CMS/HCC V24, CMS/HCC V28) 07/28/2025 11:00 AM EDT - 07/28/2025 11:59 PM EDT Hospital Encounter [facility] [address] [place] [address] Rudy Garcia MD Crohn's disease with complication, unspecified gastrointestinal tract location ([facility] V24, [facility] V28) (Primary Dx) Discharge Disposition: Home or Self Care 06/22/2025 7:28 PM EDT - 06/22/2025 11:59 PM EDT Hospital Encounter [facility] [address] [place] [address] Discharge Disposition: Home or Self Care from Last 3 Months Immunizations Immunization Administration Dates Next Due Influenza, Unspecified 09/26/2018 Moderna SARS-CoV-2 COVID-19, mRNA, LNP-S, preservative free 04/30/2021,03/30/2021 Surgical History Surgery Date Site/Laterality Comments BREAST BIOPSY 11/26/2002 - 11/25/2003 bengin COLPOSCOPY CHOLECYSTECTOMY 11/26/2015 - 11/25/2016 [facility] EXTERNAL EAR SURGERY 11/26/1984 - 11/25/1985 ESOPHAGOSCOPY / EGD gerd and hiatial hernia INCISION AND DRAINAGE PERIRECTAL ABSCESS i & d of the right groin abscess Medical History Medical History Date Comments Abdominal pain Anemia, unspecified Anxiety Asthma Biliary sludge FARMER (nonalcoholic steatohepatitis) Nausea Single seizure due to remote cause (CMS/HCC V24, CMS/HCC V28) Cervical spondylosis without myelopathy Colitis CAD (coronary artery disease) IBS (irritable bowel syndrome) IgA deficiency (CMS/HCC V24, CMS/HCC V28) GERD (gastroesophageal reflux disease) Fatty liver Chronic cholecystitis with calculus History of positive PPD Family History Medical History Relation Name Comments Colon cancer Father Breast cancer Mother colon cancer , osteporosis Hypertension Mother Seizures Other 1 great nephew Breast cancer Other 2 nm aunt Seizures Sister Relation Name Status Comments Father Mother Other 1 Other 2 nm aunt Alive Sister Social History Tobacco Use Types Packs/Day Years Used Date Smoking Tobacco: Former Cigarettes Passive Smoke Exposure: Past Smokeless Tobacco: Never Tobacco Cessation:Counseling Given: Not Answered Housing Instability Answer Date Recorde d Are [...] for your loved ones. For example, children's ministries director or elderly care for an older adult? 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3 C (97.3 F) 09/08/2025 11:27 AM EDT Respiratory Rate 16 09/07/2025 9:45 AM EDT Oxygen Saturation 99% 09/08/2025 11:27 AM EDT Inhaled Oxygen Concentration - - Weight 96.9 kg (213 lb 9.6 oz) 09/08/2025 11:27 AM EDT Height 154.9 cm (5' 0.98 ) 09/08/2025 11:27 AM E DT Body Mass Index 40.38 09/08/2025 11:27 AM EDT Plan of Treatment Upcoming Encounters Date Type Department Care Team (Late st Contact Info) Description 09/22/2025 11:[address] [facility] [address] [place] [phone] 09/29/2025 9:30 AM EST Office Visit [facility] [address] [place] [phone] Benja Moreno MD [address] [place] [address] [address] [place] [phone] 10/14/2025 9:00 AM EST Office Visit Gastroenterology - [address] [facility] [address] [place] [phone] Rudy Garcia MD [address] [facility] [address] [place] [address] 10/15/2025 4:00 PM EST Office Visit Adult Medicine [facility] [address], [place] [phone] Gurmeet Curtis PA [address] [place], [place] 10/29/2025 10:30 AM EST Office Visit Vascular Surgery - [place] [address] [place] [phone] Conchita Trevino PA [address] [place] [phone] 11/02/2025 11:25 AM EST Office Visit Pulmonology - [place] [address] [place] [phone] Elise Hernandez NP [address] [place] [phone] 03/08/2026 9:40 AM EDT Appointment Radiology Department [address] [phone] Health Maintenance Due Date Last Done Comments DTaP,Tdap,and Td Vaccines (1 - Tdap) 1991 Hepatitis B Vaccines (1 of 3 - 19+ 3-dose series) 1991 Pneumococcal Vaccine: 50+ Years (1 of 2 - PCV) 1991 Zoster Vaccines (1 of 2) 1991 Cervical Cancer Screening: Pap Smear 09/20/2020 09/20/2017, 09/20/2017, 09/20/2017 COVID-19 Vaccine (3 - Moderna risk series) 05/28/2021 04/30/2021, 03/30/2021 RSV Immunization Adult Patients (1 - Risk 50-74 years 1-dose series) 2022 Medicare Annual Wellness Visit 09/17/2024 09/17/2023 Influenza Vaccine (#1) 2025 09/26/2018 Social Influencers of Health Screening 06/04/2026 06/04/2025 Hypertension/CHF/CAD Annual BMP Blood Test 06/11/2026 06/11/2025, 06/05/2024, 06/05/2024, Additional history exists Breast Cancer Screening 03/12/2027 03/12/20, 03/03/2025, 02/09/2024, Additional history exists Colorectal Cancer Screening: Colonoscopy 04/26/2027 04/26/2022 Cholesterol Screening (Lipid Panel) 06/11/2030 06/11/2025, 06/05/2024, 06/05/2024 HIV Screening Completed 01/24/2011 Hepatitis C Screening Completed 11/13/2023 Depression Screening Completed 06/04/2025, 09/17/20 HIB Vaccines Aged Out No longer eligi ble based on patient's age to complete this topic HPV Vaccines Aged Out No longer eligi ble based on patient's age to complete this topic Hepatitis A Vaccines Aged Out No long er eligible based on patient's age to complete this topic IPV Vaccines Aged Out No longer eligi ble based on patient's age to complete this topic MMR Vaccines Aged Out No longer eligi ble based on patient's age to complete this topic Meningococcal ACWY Vaccine Aged Out N o longer eligible based on patient's age to complete this topic Meningococcal B Vaccine Aged Out No l onger eligible based on patient's age to complete this topic RSV Immunization Patients Under 20 months Aged Out No longer eligible based on patient's age to complete this topic Varicella Vaccines Aged Out No longer eligible based on patient's age to complete this topic Procedures Procedure Name Priority Date/Time Associated Diagnosis Comments VAS US DUPLEX LOWER EXT VENOUS INSUFFICIENCY BILATERAL Routine 09/10/2025 9:08 AM EDT Leg swelling XR CHEST 2 VIEWS Routine 08/18/2025 4:51 PM EDT Asthma-chronic obstructive pulmonary disease overlap syndrome (CMS/HCC V24, CMS/HCC V28) Acute cough MR LUMBAR SPINE WO CONTRAST Routine 06/22/2025 8:14 PM EDT Chronic bilateral low back pain without sciatica BASIC METABOLIC PANEL Routine 06/11/2025 9:46 AM EDT Routine history and physical examination of adult LIPID PANEL WITH REFLEX TO DIRECT LDL Routine 06/11/2025 9:46 AM EDT Routine history and physical examination of adult Hyperlipidemia, unspecified hyperlipidemia type MG MAMMO DIGITAL DIAGNOSTIC W DYLAN LEFT Routine 03/12/2025 9:32 AM EDT Abnormal mammogram HEPATITIS C SCREENING Routine 11/13/2023 DEPRESSION SCREENING Routine 09/17/2023 COLONOSCOPY Routine 04/26/2022 HPV Routine 09/20/2017 HIV SCREENING Routine 01/24/2011 from Last 3 Months or Most Recently Relevant to Health Maintenance Results * Vascular US duplex lower extremity venous insufficiency bilateral (09/10/2025 9:08 AM EDT) Left GSK julee 0.31 cm CV VAS LAB Left GSDC julee 0.16 cm CV VAS LAB Left GSMT julee 0.35 cm CV VAS LAB Left GSPC julee 0.19 cm CV VAS LAB Left GSPT julee 0.36 cm CV VAS LAB Left SFJ Diameter 0.54 cm CV VAS LAB Left SSMC julee 0.25 cm CV VAS LAB Left SSPC julee 0.18 cm CV VAS LAB Right GSK julee 0.33 cm CV VAS LAB Right GSDC julee 0.09 cm CV VAS LAB Right GSMT julee 0.16 cm CV VAS LAB Right GSPC julee 0.21 cm CV VAS LAB Right GSPT julee 0.28 cm CV VAS LAB Right SFJ Diameter 0.51 cm CV VAS LAB Right SSMC julee 0.14 cm CV VAS LAB Right SSPC julee 0.19 cm CV VAS LAB Right GSPC reflux 2,089 ms CV VAS LAB Anatomical Region Laterality Modality Vascular, Abdomen Ultrasound Narrative 09/15/2025 2:30 PM EDT Right: 1. The right lower extremity veins are compressible and there is no evidence of DVT in the right lower extremity venous system. 2. The GSV has clinically significant reflux of 2.0 seconds at the right upper calf. 3. The SSV has no significant reflux. The saphenopopliteal junction could not be visualized well. Left: 1. The left lower extremity veins are compressible and there is no evidence of DVT in the left lower extremity venous system. 2. The GSV and SSV has no significant reflux. The saphenopopliteal junction could not be visualized well. Right Lower Venous No evidence of deep vein thrombosis in the common femoral, deep femoral, proximal femoral, mid femoral, distal femoral, popliteal, greater saphenous, small saphenous, posterior tibial and peroneal veins of the right leg. The vessels showed compressibility. Interrogation showed phasic and spontaneous Doppler signals. Right Venous Insufficiency Duplex The exam was performed with the patient in reverse Trendelenburg. Right saphenopopliteal junction was not identified. Left Lower Venous No evidence of deep vein thrombosis in the common femoral, deep femoral, proximal femoral, mid femoral, distal femoral, popliteal, greater saphenous, small saphenous, posterior tibial and peroneal veins of the left leg. The vessels showed compressibility. Interrogation showed phasic and spontaneous Doppler signals. Left Venous Insufficiency Duplex The exam was performed with the patient in reverse trendelenburg. Left saphenopopliteal junction was not identified. [employer] Details A resendiz scale, color and doppler analysis ultrasound was performed. During the study longitudinal and transverse views were obtained. Continuous wave doppler and pulsed wave doppler was performed. Overall the study quality was good. us Conchita GÓMEZ CV VASCULAR PROCEDURES Final Result * XR Chest 2 Views (08/18/2025 4:51 PM EDT) Anatomical Region Laterality Modality Body Radiographic Maribel ging 08/18/2025 5:47 PM EDT Narrative 08/18/2025 6:25 PM EDT Chest, 2 views. History cough. Cold. Comparison with prior studies, latest from 09/12/2024. There are coarse linear densities at the left base probably representing atelectasis or scarring. There is no pneumothorax, pleural effusions or acute airspace consolidations. Cardiomediastinal silhouette is unremarkable. CONCLUSIONS: Scarring at the left base. No acute radiographic abnormalities. -------- FINAL REPORT -------- Dictated By: Taryn Velasco Dictated Date: 08/18/2025 17:47 ET Assigned Physician: Taryn Velasco Reviewed and Electronically Signed By: Taryn Velasco Signed Date: 08/18/2025 18:25 ET Workstation ID: [id number] Transcribed By: Self Edit Transcribed Date: 08/18/2025 17:47 ET Procedure Note Taryn Velasco MD - 08/18/2025 Chest, 2 views. History cough. Cold. Comparison with prior studies, latest from 09/12/2024. There are coarse linear densities at the left base probably representingatelectasis or scarring. There is no pneumothorax, pleural effusions oracute airspace consolidations. Cardiomediastinal silhouette isunremarkable. CONCLUSIONS: Scarring at the left base. No acute radiographicabnormalities. -------- FINAL REPORT -------- Dictated By: Taryn Velasco Dictated Date: 08/18/2025 17:47 ET Assigned Physician: Taryn Velasco Reviewed and Electronically Signed By: Taryn Velasco Signed Date: 08/18/2025 18:25 ET Workstation ID: [id number] Transcribed By: Self Edit Transcribed Date: 08/18/2025 17:47 ET Elise Hernandez LEARNING AND DEVELOPMENT SPECIALIST IMG XR PROCEDURES Final Result * MR Lumbar Spine wo Contrast (06/22/2025 8:14 PM EDT) Anatomical Region Laterality Modality L-spine, Spine Magnetic Resonan ce 06/23/2025 3:40 AM EDT Impressions 06/23/2025 3:48 AM EDT 1. Multilevel lumbar spondylosis, as above, most prominent at L3-L4 and L4-L5; progressed from prior. 2. Lumbar spondylosis at L2-L3 is similar to prior -------- FINAL REPORT -------- Dictated By: Jocelyne Isaac Dictated Date: 06/23/2025 03:40 ET Assigned Physician: Jocelyne Isaac Reviewed and Electronically Signed By: Jocelyne Isaac Signed Date: 06/23/2025 03:48 ET Workstation ID: [id number] Transcribed By: Self Edit Transcribed Date: 06/23/2025 03:40 ET Narrative 06/23/2025 3:48 AM EDT INDICATION: chronic bilateral low back pain COMPARISON: August 2023 MRI of the lumbar spine TECHNIQUE: Multiplanar, multisequence MRI was performed of the lumbar spine without IV contrast. FINDINGS: For the purposes of this report, the patient has transitional lumbosacral anatomy with lumbarization of S1. 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 Minimal grade 1 anterolisthesis of L5 on S1. Vertebral body heights are maintained. Conus terminates at L1-L2. Visualized cord signal is unremarkable. Bone marrow signal is heterogeneous with Modic type II changes at L2-L3 and L4- L5; new from 2022. Multilevel disc desiccation. Specific findings are seen at the following levels: T12-L1:No significant spinal canal stenosis or neural foraminal narrowing on sagittal view L1-L2:No significant spinal canal stenosis or neural foraminal narrowing on sagittal view L2-L3:Diffuse disc bulge with right paracentral disc protrusion with facet arthropathy with mild narrowing of the right lateral recess and mild right-sided neural foraminal narrowing. No significant spinal canal stenosis. Findings are similar to prior. L3-L4:Posterior disc osteophyte complex with ligamentum flavum infolding and facet arthropathy which results in moderate spinal canal stenosis and narrowing of the right lateral recess; progressed from prior with mild to moderate right-sided neural foraminal narrowing. L4-L5:Diffuse disc bulge with ligamentum flavum infolding and facet arthropathy (eccentric to the left) which results in mild spinal canal stenosis with narrowing of the left lateral recess and mild to moderate left-sided neural foraminal narrowing; progressed from prior. L5-S1:Mild uncovering of the disc with bilateral facet arthropathy without significant spinal canal stenosis or neural foraminal narrowing. Miscellaneous: Follicles are noted within the right ovary. Procedure Note Jocelyne Isaac MD - 06/23/2025 INDICATION: chronic bilateral low back pain COMPARISON: August 2023 MRI of the lumbar spine TECHNIQUE: Multiplanar, multisequence MRI was performed of the lumbarspine without IV contrast. FINDINGS: For the purposes of this report, the patient has transitional lumbosacralanatomy with lumbarization of S1. Left convex rotatory scoliosis withapex at L2-L3. Minimal grade 1 anterolisthesis of L5 on S1. Vertebralbody heights are maintained. Conus terminates at L1-L2. Visualized cordsignal is unremarkable. Bone marrow signal is heterogeneous with Modictype II changes at L2-L3 and L4-L5; new from 2022. Multilevel discdesiccation. Specific findings are seen at the following levels: T12-L1:No significant spinal canal stenosis or neural foraminal narrowingon sagittal view L1-L2:No significant spinal canal stenosis or neural foraminal narrowingon sagittal view L2-L3:Diffuse disc bulge with right paracentral disc protrusion with facetarthropathy with mild narrowing of the right lateral recess and mildright-sided neural foraminal narrowing. No significant spinal canalstenosis. Findings are similar to prior. L3-L4:Posterior disc osteophyte complex with ligamentum flavum infoldingand facet arthropathy which results in moderate spinal canal stenosis andnarrowing of the right lateral recess; progressed from prior with mild tomoderate right-sided neural foraminal narrowing. L4-L5:Diffuse disc bulge with ligamentum flavum infolding and facetarthropathy (eccentric to the left) which results in mild spinal canalstenosis with narrowing of the left lateral recess and mild to moderateleft-sided neural foraminal narrowing; progressed from prior. L5-S1:Mild uncovering of the disc with bilateral facet arthropathy withoutsignificant spinal canal stenosis or neural foraminal narrowing. Miscellaneous: Follicles are noted within the right ovary. IMPRESSION: 1. Multilevel lumbar spondylosis, as above, most prominent at L3-L4 andL4-L5; progressed from prior. 2. Lumbar spondylosis at L2-L3 is similar to prior -------- FINAL REPORT -------- Dictated By: Jocelyne Isaac Dictated Date: 06/23/2025 03:40 ET Assigned Physician: Jocelyne Isaac Reviewed and Electronically Signed By: Jocelyne Isaac Signed Date: 06/23/2025 03:48 ET Workstation ID: [id number] Transcribed By: Self Edit Transcribed Date: 06/23/2025 03:40 ET Gurmeet GÓMEZ IMG MRI PROCEDURES Joana l Result * (ABNORMAL) Lipid panel with reflex to direct LDL (06/11/2025 9:46 AM EDT) Cholesterol 180 0 - 200 mg/dL LAB CHEMISTRY METHOD 06/11/2025 3:14 PM EDT [facility] Triglycerides 161(H) 0 - 150 mg/dL LAB CHEMISTRY METHOD 06/11/2025 3:14 PM EDT [facility] HDL 53 >=40 mg/dL LAB CHEMISTRY METHOD 06/11/2025 3:14 PM EDT [facility] LDL Calculated 95 0 - 100 mg/dL LAB CHEMISTRY METHOD 06/11/2025 3:14 PM EDT [facility] VLDL Cholesterol Wade 32.2 mg/dL LAB CHEMISTRY METHOD 06/11/2025 3:14 PM EDT [facility] Non HDL Chol. (LDL+VLDL) 127 <145 mg/dL LAB CHEMISTRY METHOD 06/11/2025 3:14 PM EDT [facility] Chol/HDL Ratio 3.4 0.0 - 4.4 LAB CHEMISTRY METHOD 06/11/2025 3:14 PM EDT [facility] Blood Venous blood specimen / Unknown Venipuncture / Unknown 06/11/2025 9:46 AM EDT 06/11/2025 9:46 AM EDT Gurmeet GÓMEZ LAB BLOOD ORDERABLES Fi nal Result [facility] [address] [place] [address], * Basic metabolic panel (06/11/2025 9:46 AM EDT) Sodium 136 133 - 145 mmol/L LAB CHEMISTRY METHOD 06/11/2025 3:14 PM [facility] Potassium 3.9 3.5 - 5.5 mmol/L LAB CHEMISTRY METHOD 06/11/2025 3:14 PM [facility] Chloride 103 96 - 110 mmol/L LAB CHEMISTRY METHOD 06/11/2025 3:14 PM [facility] CO2 25 21 - 32 mmol/L LAB CHEMISTRY METHOD 06/11/2025 3:14 PM [facility] Anion Gap 8 3 - 11 LAB CHEMISTRY METHOD 06/11/2025 3:14 PM [facility] Glucose 83 70 - 100 mg/dL LAB CHEMISTRY METHOD 06/11/2025 3:14 PM [facility] BUN 11 5 - 25 mg/dL LAB CHEMISTRY METHOD 06/11/2025 3:14 PM EDT [facility] Creatinine 0.83 0.50 - 1.10 mg/dL LAB CHEMISTRY METHOD 06/11/2025 3:14 PM EDT [facility] eGFR 85 >=60 mL/min/1. 73m2 LAB CHEMISTRY METHOD 06/11/2025 3:14 PM EDT [facility] Comment:Calculation based on the Chronic Kidney Disease Epidemiology Collaboration (CKD-EPI) equation refit without adjustment for race. BUN/Creatinine Ratio 13.3 LAB CHEMISTRY METHOD 06/11/2025 3:14 PM EDT [facility] Calcium 9.6 8.5 - 10.5 mg/dL LAB CHEMISTRY METHOD 06/11/2025 3:14 PM EDT [facility] Blood Venous blood specimen / Unknown Venipuncture / Unknown 06/11/2025 9:46 AM EDT 06/11/2025 9:46 AM EDT Gurmeet GÓMEZ LAB BLOOD ORDERABLES Fi nal Result [facility] [address] [place] [address], * MG Mammo Digital Diagnostic w Dylan Left (03/12/2025 9:32 AM EDT) Anatomical Region Laterality Modality Breast Left Mammography 03/12/2025 9:38 AM EDT Impressions 03/12/2025 9:40 AM EDT No suspicious finding on callback imaging. Routine annual screening mammography recommended. BREAST DENSITY: B - There are scattered areas of fibroglandular density. BI-RADS CATEGORY: 1 - NEGATIVE RECOMMENDATION: Screening left mammogram is recommended in 1 year. MAMMO LOCATION: [facility], [address] [place] [address], [id number], . -------- FINAL REPORT -------- Dictated By: Leah Lou Dictated Date: 03/12/2025 09:38 ET Assigned Physician: Leah Lou Reviewed and Electronically Signed By: Leah Lou Signed Date: 03/12/2025 09:40 ET Workstation ID: [id number] Transcribed By: Self Edit Transcribed Date: 03/12/2025 09:38 ET Narrative 03/12/2025 9:40 AM EDT EXAM: MG MAMMO DIGITAL DIAGNOSTIC W DYLAN LEFT HISTORY: Call back from a screening mammogram. FINDINGS: 90 ML and spot compression CC views performed with tomosynthesis. The asymmetry in the outer left breast at the middle depth does not persist. No mass or architectural distortion apparent. Parenchymal pattern is similar to prior exams. Procedure Note Leah Lou MD - 03/12/2025 EXAM: MG MAMMO DIGITAL DIAGNOSTIC W DYLAN LEFT HISTORY: Call back from a screening mammogram. FINDINGS: 90 ML and spot compression CC views performed with tomosynthesis. Theasymmetry in the outer left breast at the middle depth does not persist.No mass or architectural distortion apparent. Parenchymal pattern issimilar to prior exams. IMPRESSION: No suspicious finding on callback imaging. Routine annual screeningmammography recommended. BREAST DENSITY: B - There are scattered areas of fibroglandular density. BI-RADS CATEGORY: 1 - NEGATIVE RECOMMENDATION: Screening left mammogram is recommended in 1 year. MAMMO LOCATION: [facility], [address] [place] [address], [phone], . -------- FINAL REPORT -------- Dictated By: Leah Lou Dictated Date: 03/12/2025 09:38 ET Assigned Physician: Leah Lou Reviewed and Electronically Signed By: Leah Lou Signed Date: 03/12/2025 09:40 ET Workstation ID: [id number] Transcribed By: Self Edit Transcribed Date: 03/12/2025 09:38 ET Nirmal Washington MD IMG BI PROCEDURES Final Result * Hepatitis C Screening (11/13/2023) Hepatitis C Screening abstracted Historical Provider HEALTH MAINTENANCE Final Result * Depression Screening (09/17/2023) Pathologist [facility] Depression Screening abstracted Historical Provider HEALTH MAINTENANCE Final Result * Colonoscopy (04/26/2022) [facility] Colonoscopy abnormal, abstracted Anatomical Region Laterality Modality Other [facility] Provider HEALTH MAINTENANCE Final Result * Cervical Cancer Screening: HPV (09/20/2017) [facility] Cervical Cancer Screening: HPV negative, abstracted Historical Provider HEALTH MAINTENANCE Final Result * HIV Screening (01/24/2011) [facility] HIV Screening abstracted [facility] Provider HEALTH MAINTENANCE Final Result from Last 3 Months or Most Recently Relevant to Health [place] [id number] [facility] [employer] MEDICAID - [place] Care Teams Door Furring Installer Relationship Specialty Start Date End Date Nirmal Washington MD [address] [place] [address] PCP - General Internal Medicine 10/02/24
--- OUTSIDE RECORDS SUMMARY | 2025-09-18 13:16 | XMS_ITS | Encounter Summary ---
Author Organization [facility] Address [address] [place] [address] Care Team Providers Care Collar Runner Name Role Phone Nirmal Washington MD Primary Care Provider [phone] Benja Moreno MD Unavailable Reason for Visit * Reason Onset Date Comments TEST RESULTS 01/13/2021 Encounter Details Date Type Department Care Team Description 01/13/2021 Telephone Adult Medicine - [place] [address] [place] [address] Nirmal Washington MD [address] [place] [id number] TEST RESULTS Social History Tobacco Use Types [...] have Coronavirus / COVID-19? No / Unsure 01/12/2021 8:57 AM EST documented as of this encounter Miscellaneous Notes * Telephone Encounter - Jaycob Penn MD - 01/16/2021 5:54 PM EST I discussed the results with the patient daniel * Telephone Encounter - Jaycob Penn MD - 01/13/2021 5:44 PM EST The thyroid gland itself is lobulated but there are no discrete nodules. This is not a reason for concern-more like a normal variant. Please call patient. * Telephone Encounter - Ivette Almazan M.A. - 01/13/2021 4:29 PM EST Ordered by dr penn, result in emr * Telephone Encounter - Chiara Mei - 01/13/2021 4:16 PM EST Inform patient: ANY URGENT OR ABNORMAL RESULTS WIILL RESULT IN A CALL BACK TO THE PATIENT QUINTEN. Type of test: :ultrasound Date test was performed: 01/12/21 Where was the test performed: [address] [place] [address] Who ordered this test?: Dr. Penn Is the doctor here today?: NO Can the message wait until the doctor returns?: NO IF PATIENT'S PCP IS NOT IN INSTRUCT PATIENT THAT THEY WILL RECEIVE A CALL BACK WHEN THE PCP IS IN THE OFFICE NEXT. documented in this encounter Plan of Treatment Not on file documented as of this encounter Visit Diagnoses Not on filedocumented in this encounter Care Teams Collar Runner Relationship Specialty Start Date End Date Nirmal Washington MD [address] [place] [address] PCP - General Internal Medicine 05/24/20 Benja Moreno MD [address] [place] [address] Specialist Cardiology 02/11/24 documented as of this encounter
--- OUTSIDE RECORDS SUMMARY | 2025-09-18 13:16 | XMS_ITS | Encounter Summary ---
Author Organization [facility] Address [address] [place] [address] Care Team Providers Care Electrical Maintenance Technician Name Role Phone Nirmal Washington MD Primary Care Provider [phone] Benja Moreno MD Unavailable Reason for Visit * Reason Onset Date Comments refill request 09/27/2021 Encounter Details Date Type Department Care Team Description 09/27/2021 Refill Pulmonology - [place] [address] [facility] [address] [place] [phone] Elise Hernandez APRN [address] [facility] [address] [place] [address] refill request Social History Tobacco Use Types Packs/Day Years [...] encounter Miscellaneous Notes * Telephone Encounter - Mari Lucio - 09/27/2021 1:36 PM EDT Patient would like script to be: E-PRESCRIBED/FAXED TO PHARMACY WHEN WAS THE PATIENT'S LAST APPOINTMENT IN ADULT MEDICINE? 06/09/21 WHEN WAS THE LAST TIME THE PATIENT SAW THEIR PCP? Same as above Does patient have an upcoming appointment? Yes 10/13/21 (THE MEDICATION REQUESTED IS ON THE MED LIST ABOVE) All of the medications requested were on the CURRENT MEDS list Did you check the Pharmacy information above?: YES Patient wants: 30 -day supply Is this a mail order prescription request ? NO If the refill is from a FAXED refill request what is the RX # listed on the fax? 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
--- OUTSIDE RECORDS SUMMARY | 2025-09-18 13:16 | XMS_ITS | Encounter Summary ---
Author Organization [facility] Address [address] [place] [address] Care Team Providers Care Director Digital Analytics Name Role Phone Stevenson Gurrola MD Primary Care Provider Unavail able Nirmal Washington MD Primary Care Provider [phone] Benja Moreno MD Unavailable Encounter Details Date Type Department Care Team Description 03/11/2020 Special Procedures Technologist Report Medical Records [address] [place] [address] Triny Chavez MD Social History Tobacco Use [...] on filedocumented in this encounter Care Teams Director Digital Analytics Relationship Specialty Start Date End Date Stevenson Gurrola MD PCP - General 09/25/1999 05/23/20 Nirmal Washington MD [address] [place], [place] [phone] PCP - General Internal Medicine 05/24/20 Benja Moreno MD [address] [place] [address] Specialist Cardiology 02/11/24 documented as of this encounter
--- OUTSIDE RECORDS SUMMARY | 2025-09-18 13:16 | XMS_ITS | Encounter Summary ---
Author Organization [facility] Address [address] [place] [address] Care Team Providers Care Marketing Analytics Analyst Name Role Phone Nirmal Washington MD Primary Care Provider Benja Moreno MD Unavailable Reason for Visit * Reason Onset Date Comments Faxed Refill 04/23/2024 Encounter Details Date Type Department Care Team Description 04/23/2024 Refill Gastroenterology - [place] [address] [facility] [address] [place] [phone] Rudy Garcia MD [address] [facility] [address] [place] [address] Faxed Refill Social History Tobacco Use Types Packs/Day Years [...] encounter Miscellaneous Notes * Telephone Encounter - Koki Washington - 04/23/2024 9:38 AM EDT Ishmael 04/22/24 Nov 07/22/24 documented in this encounter Plan of Treatment Not on file documented as of this encounter Visit Diagnoses Not on filedocumented in this encounter Care Teams Marketing Analytics Analyst Relationship Specialty Start Date End Date Nirmal Washington MD [address] [place] [address] PCP - General Internal Medicine 05/24/20 Benja Moreno MD [address] [place] [address] Specialist Cardiology 02/11/24 documented as of this encounter
--- OUTSIDE RECORDS SUMMARY | 2025-09-18 13:16 | XMS_ITS | Encounter Summary ---
Author Organization [facility] Address [address] [place] [address] Care Team Providers Care Broker Agricultural Produce Name Role Phone Nirmal Washington MD Primary Care Provider [phone] Benja Moreno MD Unavailable Encounter Details Date Type Department Care Team Description 12/31/2020 Cardiac Rehab Nurse Report Medical Records [address] [place] [phone] Triny Chavez MD Social History Tobacco Use [...] have Coronavirus / COVID-19? No / Unsure 12/27/2020 10:57 AM EST documented as of this encounter Plan of Treatment Not on file documented as of this encounter Visit Diagnoses Not on filedocumented in this encounter Care Teams Broker Agricultural Produce Relationship Specialty Start Date End Date Nirmal Washington MD [address] [place] [address] PCP - General Internal Medicine 05/24/20 Benja Moreno MD [address] [place] [address] Specialist Cardiology 02/11/24 documented as of this encounter
--- OUTSIDE RECORDS SUMMARY | 2025-09-18 13:16 | XMS_ITS ---
Author Name [facility] Organization Unknown Care Team Organization Name Specialty Phone Email Start Date End Da te [facility] Elise Hernandez Primary Care 10/03/2022 07/14/2024
--- OUTSIDE RECORDS SUMMARY | 2025-09-18 13:16 | XMS_ITS | Encounter Summary ---
Author Organization [facility] Address [address] [place] [address] Care Team Providers Care Heel Cover Softener Name Role Phone Nirmal Washington MD Primary Care Provider [phone] Benja Moreno MD Unavailable Reason for Visit * Reason Onset Date Comments APPOINTMENT 12/24/2020 Encounter Details Date Type Department Care Team Description 12/24/2020 Telephone Physiatry - [address] [phone] Manas Weiss PA-C APPOINTMENT Social History Tobacco Use Types [...] Miscellaneous Notes * Telephone Encounter - Lilliam Radha - 12/24/2020 9:35 AM EST I left a message to schedule follow up with Manas Weiss. Return for 4-6 weeks, Sooner for any complications.. documented in this encounter Plan of Treatment Not on file documented as of this encounter Visit Diagnoses Not on filedocumented in this encounter Care Teams Heel Cover Softener Relationship Specialty Start Date End Date Nirmal Washington MD [address] [place] [address] PCP - General Internal Medicine 05/24/20 Benja Moreno MD [address] [place] [id number] Specialist Cardiology 02/11/24 documented as of this encounter
--- OUTSIDE RECORDS SUMMARY | 2025-09-18 13:16 | XMS_ITS | Encounter Summary ---
Author Organization [facility] Address [address] [place] [address] Care Team Providers Care Ground Crew Supervisor Name Role Phone Stevenson Gurrola MD Primary Care Provider Unavail able Nirmal Washington MD Primary Care Provider [phone] Benja Moreno MD Unavailable Encounter Details Date Type Department Care Team Description 04/27/2020 Pt. Non Urgent Medic al Question Adult Urgent Care - [address] [address] Chiara Gupta PA Social History Tobacco Use Types Packs/Day Years [...] encounter Miscellaneous Notes * Telephone Encounter - Roseann Farris M.A. - 04/27/2020 8:41 AM EDTFrom: Ana Vance To: Chiara Rios PA-C Sent: 04/27/2020 8:17 AM EDT Subject: Question regarding X-RAY OF FOOT The swelling went down it wasn't as big as it was when we talked. Ty for looking into it for me. documented in this encounter Plan of Treatment Not on file documented as of this encounter Visit Diagnoses Not on filedocumented in this encounter Care Teams Ground Crew Supervisor Relationship Specialty Start Date End Date Stevenson Gurrola MD PCP - General 09/25/1999 05/23/20 Nirmal Washington MD [address] [place] [id number] PCP - General Internal Medicine 05/24/20 Benja Moreno MD [address] [place] [id number] Specialist Cardiology 02/11/24 documented as of this encounter
--- OUTSIDE RECORDS SUMMARY | 2025-09-18 13:16 | XMS_ITS | Clinical Summary ---
Author Organization [facility] Address [address] [place] [id number] Care Team Providers Care Manpower Development Specialist Manager Name Role Phone Nirmal Washington MD Primary Care Provider [phone] Allergies Active Allergy Reactions Criticality Noted Date Comments Amoxicillin-Pot Clavulanate 02/20/2022 Aspirin 01/16/2022 Diphenhydramine 01/16/2022 Diphth-Acell Pertussis-Tetanus 09/26/2018 Not a candidate d/t seizure hx per pcp Cannot do tetanus neither Doxycycline 01/16/2022 Fluticasone-Salmeterol 04/18/2015 Other reaction(s): Muscle weakness Ibuprofen 10/16/2018 Other reaction(s): Aspirin indicated Abdominal pain Immune Globulin Anaphylaxis High 04/08/2024 Lactose 04/08/2024 Other reaction(s): Unknown Loratadine High 07/23/2015 Other reaction(s): Numbness, tingling or swelling of the lips, tongue or mouth Molds & Smuts 04/08/2024 Other reaction(s): Not available Other 05/21/2019 Tdap Sulfa Antibiotics Nausea And Vomiting Medium 3 Pt cant remember Tree Extract 05/21/2015 Grass, mildew, mold, pollen, cats Medications Medication Sig Dispensed Refills Start Date End Date Status Sucralfate (CARAFATE PO) Take by mouth. 0 Active OMEPRAZOLE PO Take 2 capsules by mouth 2 (two) times a day. 0 Active dicyclomine (BENTYL) 20 MG tablet Take 1 tablet (20 mg total) by mouth every 6 (six) hours. 0 Active pregabalin (LYRICA) 75 MG capsule Take 1 capsule (75 mg total) by mouth 2 (two) times a day. 0 Active Cyclobenzaprine HCl (FLEXERIL PO) Take by mouth. 0 Active Acetaminophen (TYLENOL 8 HOUR PO) Take 1,000 mg by mouth 3 (three) times a day. 0 Active Phenylephrine HCl (SUDAFED PE MAXIMUM STRENGTH PO) Take by mouth. 3 times per day 0 Active levothyroxine (SYNTHROID) tablet 200 mcg Take 1 tablet (200 mcg total) by mouth every morning on an empty stomach. 0 Active BUDESONIDE PO Take by mouth. 0 Active vitamin D3 (cholecalciferol) 25 MCG (1000 UT) tablet Take 1 tablet (25 mcg total) by mouth daily. 0 Active B Complex Vitamins (B-COMPLEX/B-12 PO) Take by mouth. 0 A ctive Probiotic Product (PROBIOTIC-10 PO) Take by mouth. 0 Act jonas Multiple Vitamin (MULTI VITAMIN DAILY PO) Take by mouth. 0 Active albuterol 108 (90 Base) MCG/ACT inhaler Inhale 2 puffs into the lungs. 0 01/16/2022 Active Fluticasone-Umeclidin -Vilant (Trelegy Ellipta) 100-62.5-25 MCG/ACT AEPB 1 puff 0 03/25/2022 Active predniSONE (DELTASONE) tablet 20 mg Take 1 tablet (20 mg total) by mouth daily. 0 Active azithromycin (ZITHROMAX) 250 MG tablet Take by mouth. 0 Active lisinopril (PRINIVIL,ZESTRIL) tablet 10 mg Take 1.5 tablets (15 mg total) by mouth daily. 0 03/10/2024 Active Aspirin Low Dose 81 MG EC tablet Take 1 tablet (81 mg total) by mouth daily. 0 03/12/2024 Active atorvastatin (LIPITOR) tablet 10 mg Take 1 tablet (10 mg total) by mouth daily. 0 02/18/2024 Active budesonide (ENTOCORT EC) 3 MG 24 hr capsule Take 3 capsules (9 mg total) by mouth daily. 0 02/25/2024 Active Cholecalciferol 50 MCG (2000 UT) CAPS Take 100 mcg by mouth. 0 09/30/2021 Active diphenhydrAMINE (BENADRYL) 25 mg capsule Take 2 capsules (50 mg total) by mouth 3 (three) times a day. 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 Family History Medical History Relation Name Comments COPD Father Colon cancer Father Diabetes Father Heart attack Father Hypertension Father Breast cancer Mother Colon cancer Mother Heart attack Mother Hypertension Mother Relation Name Status Comments Father Mother Social History Tobacco Use Types Packs/Day Years Used Date Smoking Tobacco: Former Cigarettes Smokeless Tobacco: Never Tobacco Cessation:Counseling Given: Not Answered Alcohol Use Standard Drinks/Week Comments Not Currently 0 (1 standard drink = 0.6 oz pur e alcohol) early 20s Sex and Gender Information Value Date Recorded Sex Assigned at Not on file Gender Identity Not on file Sexual Orientation Not on file Job Start Date Occupation Industry Not on file Not on file Not on file Last Filed Vital Signs Vital Sign Reading Time Taken Comments Blood Pressure 121/90 08/26/2024 11:26 AM EDT Pulse 110 08/26/2024 11:26 AM EDT Temperature 36.2 C (97.2 F) 08/26/2024 11:26 AM EDT Respiratory Rate 18 08/26/2024 11:26 AM EDT Oxygen Saturation 100% 08/26/2024 11:26 AM EDT Inhaled Oxygen Concentration - - Weight 109.8 kg (242 lb) 08/26/2024 11:26 AM EDT Height 157.5 cm (5' 2.01 ) 02/20/2023 10:10 AM E DT Body Mass Index 44.25 02/20/2023 10:10 AM EDT Plan of Treatment Health Maintenance Due Date Last Done Comments Hepatitis B Vaccines (1 of 3 - 3-dose series) 1972 Hepatitis C Screening 1972 COVID-19 Vaccine (#1) 1977 Pneumococcal Vaccine (1 of 2 - PCV) 1978 Depression Screening 1984 BMI Counseling 1990 Preventative Health Evaluation 1990 DTap / Tdap / Td (1 - Tdap) 1991 Shingrix-Zoster Vaccine (1 of 2) 1991 Cervical Cancer Screening (P ap Smear) 1993 Colon Cancer Screening (Colonoscopy) 2017 Breast Cancer Screening (Mammogram) 2022 Influenza Vaccine (#1) 2025 RSV Ped < 20 months Aged Out No longe r eligible based on patient's age to complete this topic Care Teams Manpower Development Specialist Manager Relationship Specialty Start Date End Date Nirmal Washington MD PCP - General Internal Medicine 01/23/23
--- OUTSIDE RECORDS SUMMARY | 2025-09-18 13:16 | XMS_ITS | Encounter Summary ---
Author Organization [facility] Address [address] [place] [address] Care Team Providers Care Black Puller Name Role Phone Stevenson Gurrola MD Primary Care Provider Unavail Nirmal Smart MD Primary Care Provider [phone] Benja Moreno MD Unavailable Reason for Visit * Reason Onset Date Comments TEST RESULTS 05/22/2016 Encounter Details Date Type Department Care Team Description 05/22/2016 [place] [facility] [address] [phone] Chiara Gupta PA TEST RESULTS Social History Tobacco Use Types Packs/Day Years Used Date Smoking Tobacco: Former Cigarettes 1 10 0 11/26/2001 - 08/11/2012 Smokeless Tobacco: Former Comments:Smokes e cigarettes Alcohol Use Standard Drinks/Week Comments No 0 (1 standard drink = 0.6 oz pur e alcohol) Sex Assigned at Date Recorded Female 01/26/2022 3:[address] Job Start Date Occupation Industry Not on file Not on file Not on file documented as of this encounter Miscellaneous Notes * Telephone Encounter - Chiara Rios PA-C - 05/22/2016 3:02 PM EDT Returned patient's call. * Telephone Encounter - Radha MontesPMichelleN. - 05/22/2016 1:33 PM EDT Results in EMR * Telephone Encounter - Ratna Bronson - 05/22/2016 1:06 PM EDT Inform patient: ANY URGENT OR ABNORMAL RESULTS WIILL RESULT IN A CALL BACK TO THE PATIENT QUINTEN. Type of test: echo Date test was performed: 05/19/16 Where was the test performed: [facility] [place] Who ordered this test?: chiara Is the doctor here today?: YES Can the message wait until the doctor returns?: YES IF PATIENT'S PCP IS NOT IN INSTRUCT PATIENT THAT THEY WILL RECEIVE A CALL BACK WHEN THE PCP IS IN THE OFFICE NEXT. documented in this encounter Plan of Treatment Not on file documented as of this encounter Visit Diagnoses Not on filedocumented in this encounter Care Teams Black Puller Relationship Specialty Start Date End Date Stevenson Gurrola MD PCP - General 09/25/1999 05/23/20 Nirmal Washington MD [address] [place] [id number] PCP - General Internal Medicine 05/24/20 Benja Moreno MD [address] [place] [address] Specialist Cardiology 02/11/24 documented as of this encounter
--- OUTSIDE RECORDS SUMMARY | 2025-09-18 13:16 | XMS_ITS | Encounter Summary ---
Author Organization [facility] Address [address] [place] [address] Care Team Providers Care Shoe Puller Name Role Phone Nirmal Washington MD Primary Care Provider [phone] Benja Moreno MD Unavailable Reason for Visit * Reason Comments E-prescribe Rx Request Encounter Details Date Type Department Care Team Description 07/27/2024 Refill Gastroenterology [address] [place] [phone] Chele Torres PA-C E-prescribe Rx Request Social History Tobacco Use Types Packs/Day Years [...] on filedocumented in this encounter Care Teams Shoe Puller Relationship Specialty Start Date End Date Nirmal Washington MD [address] [place] [id number] PCP - General Internal Medicine 05/24/20 Benja Moreno MD [address] [place] [address] Specialist Cardiology 02/11/24 documented as of this encounter
--- OUTSIDE RECORDS SUMMARY | 2025-09-18 13:16 | XMS_ITS | Encounter Summary ---
Author Organization [facility] Address [address] [place] [address] Care Team Providers Care County Surveyor Name Role Phone Nrimal Washington MD Primary Care Provider [phone] Benja Moreno MD Unavailable Reason for Visit * Reason Comments E-prescribe Rx Request Encounter Details Date Type Department Care Team Description 04/06/2024 Refill Gastroenterology - [address] [place] [phone] Chele Torres PA-C E-prescribe Rx Request [...] * Telephone Encounter - Lydia Lane - 04/07/2024 10:54 AM EDT Ishmael- 02/12/24 Nov- 04/22/24 documented in this encounter Plan of Treatment Not on file documented as of this encounter Visit Diagnoses Not on filedocumented in this encounter Care Teams County Surveyor Relationship Specialty Start Date End Date Nirmal Washington MD [address] [place] [id number] PCP - General Internal Medicine 05/24/20 Benja Moreno MD [address] [place] [id number] Specialist Cardiology 02/11/24 documented as of this encounter
--- OUTSIDE RECORDS SUMMARY | 2025-09-18 13:16 | XMS_ITS | Encounter Summary ---
Author Organization [facility] Address [address] [place] [address] Care Team Providers Care Porcelain Finisher Name Role Phone Stevenson Gurrola MD Primary Care Provider Unavail able Nirmal Washington MD Primary Care Provider [phone] Benja Moreno MD Unavailable Encounter Details Date Type Department Care Team Description 02/09/2016 Business Doc Medical Records [address] [place] [id number] Abstract, Provider Social History Tobacco Use Types [...] on filedocumented in this encounter Care Teams Porcelain Finisher Relationship Specialty Start Date End Date Stevenson Gurrola MD PCP - General 09/25/1999 05/23/20 Nirmal Washington MD [address] [place] [address] [phone] PCP - General Internal Medicine 05/24/20 Benja Moreno MD [address] [place] [address] Specialist Cardiology 02/11/24 documented as of this encounter
--- OUTSIDE RECORDS SUMMARY | 2025-09-18 13:16 | XMS_ITS | Clinical Summary ---
Author Organization [facility] Address [address] [place] [address] Care Team Providers Care Stamp Press Operator Name Role Phone Nirmal Washington MD Primary Care Provider [phone] Benja Moreno MD Unavailable Allergies Active Allergy Reactions Severity Noted Date Comments Advair Diskus Muscle weakness 04/18/2015 Diphenhydramine 01/16/2022 Augmentin 02/20/2022 Doxycycline 01/16/2022 Ibuprofen 10/16/2018 Abdominal pain Loratadine Numbness, tingling o r swelling of the lips, tongue or mouth High 07/23/2015 Sulfa Drugs Nausea and Vomiting 05/30/2016 Daptacel 09/26/2018 Not a candidate d/t seizure hx per pcp Cannot do tetanus neither Tree Extract 05/21/2015 Grass, mildew, mold, pollen, cats Medications Medication Sig Dispensed Refills Start Date End Date Status SPACER DEVICE-ADULT Use with inhaler 1 Units 0 05/13/2019 Active pregabalin (LYRICA) 75 MG capsule Take 75 mg by mouth 3 times daily. 0 Active cyclobenzaprine (FLEXERIL) 5 MG tablet Take 1 tablet by mouth 3 times daily as needed for Muscle spasms for up to 10 days. 30 tablet 0 04/15/2021 Active levonorgestrel (MIRENA) 20 MCG/24HR IUDIndications:Encoun ter for insertion of intrauterine contraceptive device 1 Each by Intrauterine route Once. 1 Each 0 06/17/2021 05/22/20 26 Active Cholecalciferol (Vitamin D3) 50 MCG (2000 UT) Cap Take 100 mcg by mouth. 0 12/05/2021 Active acetaminophen (TYLENOL) 500 MG tablet Take 1,000 mg by mouth. 0 Active cyanocobalamin 1000 MCG tablet Take 1 Tablet by mouth daily. 0 04/26/2022 Active Multiple Vitamins-Minerals (Oncovite) Tab Take 1 Tablet by mouth daily. 0 Active Probiotic Product (Probiotic-10 Ultimate) Cap Take by mouth. 0 Active diphenhydrAMINE (BENADRYL) 25 MG capsule Take 1 Capsule by mouth every 6 hours as needed. 0 Active Immune Globulin, Human, 10 GM/50ML Solution Inject into the skin. On Sunday 0 Active Immune Globulin, Human, 2 GM/10ML Solution Inject 20 mL into the skin. On Sunday 0 Active pregabalin (LYRICA) 100 MG capsule Take 1 Capsule by mouth. 0 05/16/2023 Active IMMUNE GLOBULIN, HUMAN, IV Inject 5 mL into the vein. On Sunday 0 Active Vedolizumab (Entyvio) 300 MG Recon Soln Inject 300 mg into the vein See Admin Instructions. Inject 300 mg into vein on Week 0, 2, 6 and every 8 weeks threreafter Pre-Medicate with Tylenol 500 mg by mouth 1 Each 8 03/11/2024 Active omeprazole (PRILOSEC) 40 MG capsule TAKE 1 CAPSULE BY MOUTH TWICE DAILY BEFORE MEALS 180 Capsule 3 04/07/2024 Active sucralfate (CARAFATE) 1 g tablet Take 1 Tablet by mouth 4 times daily. 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 90 Tablet 2 07/29/2024 Active atorvastatin (LIPITOR) 10 MG tablet TAKE 1 TABLET BY MOUTH DAILY 90 Tablet 1 08/05/2024 Active Aspirin Low Dose 81 MG EC tablet TAKE 1 TABLET BY MOUTH EVERY DAY 90 Tablet 1 08/13/2024 Active Banophen 25 MG tabletIndications:Com mon variable immunodeficiency (HCC) TAKE 2 TABLETS BY MOUTH THREE TIMES DAILY 0 08/12/2024 Active Hizentra 4 GM/20ML Solution Prefilled SyringeIndications:Co mmon variable immunodeficiency (HCC) 0 06/03/2024 Active Hizentra 1 GM/5ML Solution Prefilled SyringeIndications:Co mmon variable immunodeficiency (HCC) 0 06/03/2024 Active Ventolin HFA 108 (90 Base) MCG/ACT Aero SolnIndications:Moder ate persistent asthma with acute exacerbation Inhale 2 Puffs into the lungs every 6 hours as needed for Cough or Wheezing. With Pulmicort 1-2 puff with significant symtpoms. 54 g 1 08/25/2024 Active Fluticasone-Umeclidin -Vilant (Trelegy Ellipta) 100-62.5-25 MCG/ACT AEROSOL POWDER,BREATH ACTIVATEDIndications: Moderate persistent asthma with acute exacerbation Inhale 1 Puff into the lungs daily. 180 Each 3 08/27/2024 Active celecoxib (CELEBREX) 50 MG capsule TAKE 1 CAPSULE BY MOUTH TWICE DAILY 60 Capsule 5 09/02/2024 Active lisinopril (PRINIVIL,ZESTRIL) 10 MG tablet Take 1.5 Tablets by mouth daily. 45 Tablet 5 09/04/2024 Active Albuterol-Budesonide 90-80 MCG/ACT Aerosol Inhale 2 Puffs into the lungs every 6 hours as needed for Other (respiratory symtpms). 12 g 0 09/05/2024 Active Active Problems Problem Noted Date Coronary artery disease 05/20/2024 Last Assessment & Plan: . Atypical chest pain and abnormal stress test. I am not convinced based on review of the stress test that this represents a prior small infarct although due to her medical history and the other complaint of exertional dyspnea, I discussed options for excluding significant CAD. Coronary CTA would be unlikely to be diagnostic in her case due to her elevated resting heart rate. For this reason I recommended coronary angiography to directly assess whether she has CAD that could be contributing to her dyspnea. I discussed the risk benefits of the procedure and she is agreeable to proceed. Will plan to perform procedure with myself at [facility] in the coming weeks. In the interim her blood pressure is well-controlled on current regimen. Continue aspirin 81 mg a day. Continue statin therapy. I would set an LDL goal of less than 100 if we do not discover coronary disease and less than 70 if we do demonstrate coronary disease on cardiac catheterization. I also recommend an echocardiogram to evaluate cardiac structure and function given her complaint of dyspnea. Follow-up will be determined on the basis of her cardiac catheterization. Chest pain 05/16/2024 Abnormal stress test 05/16/2024 Abnormal EKG 05/16/2024 Crohn's disease with complication 2022 Nocturnal hypoxia 07/27/2023 Overview: Overnight oximetry on room air on 07/17/2023 showed: 1. Lowest oxygen saturation is 85% 2. Time spent<88% is 1 minute and 40 seconds 3. 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 Sees MAHNAZ Paiz Last Assessment & Plan: Receieved biweekly Hzentri 15mg in 75ml at home. Former smoker 05/03/2023 PND (post-nasal drip) 05/03/2023 Daytime sleepiness 11/04/2022 Overview: Only on room air and 07/17/2023 shows frequent oxygen desaturations that could indicate presence of sleep apnea. Patient's heart rate from 64-115. Vaginal pain 03/07/2022 Last Assessment & Plan: UA positive for large LE and large blood. Urine culture sent, will treat as indicated. Wet prep done today to r/o infection. Patient reassured that there is no evidence of prolapse and no vaginal pain is reproducible with palpation on exam. She has an appointment coming up with GI. She was encouraged to keep this appointment. She was instructed to follow-up as needed. Yeast infection of the skin 03/07/2022 Last Assessment & Plan: Rx Nystatin powder sent to pharmacy Pelvic pain 05/04/2021 Last Assessment & Plan: Again discussed potential causes of pelvic pain with the patient including ovarian cysts, endometriosis, interstitial cystitis, irritable bowel, and MSK etiologies. Patient to follow-up with GI. Pelvic US demonstrated interval enlargement of uterus from 8.6cm in December to 9.4cm in March. Ultrasound otherwise unremarkable. Discussed this may likely be due to user error, however will plan to repeat ultrasound in 3 months. Discussed relief measures for pain. Plan to continue POPs at this time. PCOS (polycystic ovarian syndrome) 01/06 Last Assessment & Plan: Again reviewed treatment options for uterine protection in the setting of PCOS and irregular menses. Patient most interested in Mirena IUD. Will submit prior authorization and insert IUD if approved. In the mean time will continue with POPs. Asthma in adult, severe persistent, unco mplicated 09/26/2019 History of cholecystectomy 04/15/2019 Post-traumatic osteoarthritis of right w rist 04/15/2019 Severe obesity (BMI 35.0-39.9) with rao rbidity 03/20/2019 Goiter 01/10/2019 Gastroesophageal reflux disease without esophagitis 07/17/2018 Trochanteric bursitis of right hip 10/30 Fibromyalgia 10/30/2017 Last Assessment & Plan: Bairon Ibarra in [facility] Rheumonotology. No changes in her current treatments. IBS (irritable bowel syndrome) 7 Overview: Constipation. 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 Complex endometrial hyperplasia without atypia 03/04/2014 Overview: Mirena placed 03/04/14; EMBx 06/2014 negative; repeat bx 01/10 was also negative; repeat 01/11 Anemia 01/26/2011 Hypothyroidism 10/23/2006 Overview: Fabio's Anxiety 10/23/2006 remote seizure disorder 10/23/2006 History of positive PPD 10/23/2006 Epigastric pain Nausea Abdominal pain Colitis Resolved Problems Problem Noted Date Resolved Date IUD (intrauterine device) in place 02/23/2020 2020 Last Assessment & Plan: I counseled Ana that while her IUD is no longer considered to be effective for contraception after 6 years, it is not considered harmful to have the IUD in place after that time if it is used to help with bleeding. Given she is amenorrheic, there is no pierre. I explained that her discharge and associated cramping sounds most like ovulation, which continues to occur in most women with the Mirena IUD in place. I explained that the IUD is solely meant to keep the endometrial lining thin and was initially placed to treat her hyperplasia. She was counseled that we cannot determine if she is menopausal until she has gone a full year without menses, without the influence of exogenous hormones. I explained that we can get her scheduled to come in for removal in a couple months. Can do at her scheduled AG on 03/29, but I did explain that this may need to be pushed out further depending on the status of COVID. She voiced understanding and agreed. Lipoma of right upper extremity 10/31/2018 04/17/2019 Overview: Excised 03/2019 Morbid obesity 08/28/2014 09/24/2018 Overview: BMI 41.87 on 08/18/14. Smoking 09/17/2011 01/07/2014 Immunizations Name Administration Dates Next Due COVID-19 (Moderna) PT Reported 04/30/2021,2020 Family History Medical History Relation Name Comments CA Colon Father CA Breast Mother late 40s Hypertension Mother late 40s CA breast, CA c olon, osteporosis CA Breast Mother's side nm aunt aunt seizure disorder Other great nephe w seizure disorder Sister CA Ovarian Negative Hx Relation Name Status Comments Daughter 1 Alive Daughter 2 Alive Father Mother late 40s Mother's side nm aunt Other Sister Alive Social History Tobacco Use Types Packs/Day Years Used Date Smoking Tobacco: Former Cigarettes 1 10 0 11/26/2001 - 08/11/2012 Passive Smoke Exposure: Past Smokeless Tobacco: Never Tobacco Cessation:Counseling Given: Not Answered Alcohol Use Standard Drinks/Week Comments No 0 (1 standard drink = 0.6 oz pur e alcohol) Sex Assigned at Date Recorded Female 01/26/2022 3:[address] Job Start Date Occupation Industry Not on file Not on file Not on file Last Filed Vital Signs Vital Sign Reading Time Taken Comments Blood Pressure 128/86 09/12/2024 9:53 AM EDT Pulse 106 09/12/2024 9:53 AM EDT Temperature 35.6 C (96 F) 09/12/2024 9:53 AM EDT Respiratory Rate 18 09/12/2024 9:53 AM EDT Oxygen Saturation 100% 09/12/2024 9:53 AM EDT Inhaled Oxygen Concentration - - Weight 108.5 kg (239 lb 3.2 oz) 09/12/2024 9:53 AM EDT Height 154.9 cm (5' 1 ) 09/12/2024 9:53 AM EDT Body Mass Index 45.2 09/12/2024 9:53 AM EDT Plan of Treatment Health Maintenance Due Date Last Done Comments DTAP/TDAP/TD (1 - Tdap) 1991 CERVICAL CANCER SCREENING 09/20/20202016, 04/06/2014, 01/24/2011, Additional history exists SHINGLES VACCINE (1 of 2) 2022 DEPRESSION SCREEN 09/17/2024 09/17/2023, , 03/06/2018, Additional history exists BMI CHECK/ADVISE 11/26/2024 09/12/2024, , 01/01/2024, Additional history exists MAMMOGRAM 02/08/2025 02/09/2024, 12/28, 01/14/2022, Additional history exists Covid-19 Vaccine (2022- 4 season) 2025 04/30/2021, 03/30/2021 INFLUENZA (#1) 2025 09/26/2018 (Refu sed), 10/03/2017 (Refused), 08/18/2015 (Refused) BASELINE HEALTH EXAM 40-64 01/01/202601/01, 09/21/2023, 09/17/2023, Additional history exists COLON CANCER SCREENING 04/26/2027 , 06/05/2016 (Completed) CHOLESTEROL SCREENING 06/05/2029 06/05/2024 , 02/15/2024, 02/15/2024, Additional history exists PNEUMOCOCCAL VACCINE FOR HIG H RISK PATIENTS (#2) 2037 08/18/2014 (Refused) Care Teams Stamp Press Operator Relationship Specialty Start Date End Date Nirmal Washington MD [address] [place] [phone] PCP - General Internal Medicine 05/24/20 Benja Moreno MD [address] [place] [phone] Specialist Cardiology 02/11/24
--- OUTSIDE RECORDS SUMMARY | 2025-09-18 13:16 | XMS_ITS | Encounter Summary ---
Author Organization [facility] Address [address] [place] [address] Care Team Providers Care Group Director Experience Name Role Phone Stevenson Gurrola MD Primary Care Provider Unavail able Nirmal Washington MD Primary Care Provider [phone] Benja Moreno MD Unavailable Encounter Details Date Type Department Care Team Description 08/12/2015 Business Doc Medical Records [address] [place] [id number] Abstract, Provider Social History Tobacco Use Types Packs/Day Years Used Date Smoking Tobacco: Former Cigarettes Q uit: 08/11/2012 Smokeless Tobacco: Never Comments:Smokes [...] on filedocumented in this encounter Care Teams Group Director Experience Relationship Specialty Start Date End Date Stevenson Gurrola MD PCP - General 09/25/1999 05/23/20 Nirmal Washington MD [address] [place] [address] [phone] PCP - General Internal Medicine 05/24/20 Benja Moreno MD [address] [place] [address] [phone] Specialist Cardiology 02/11/24 documented as of this encounter
--- OUTSIDE RECORDS SUMMARY | 2025-09-18 13:17 | XMS_ITS | Encounter Summary ---
Author Organization [facility] Address [address] [place] [address] Care Team Providers Care Nursing Administrator Name Role Phone Stevenson Gurrola MD Primary Care Provider Unavail able Nirmal Washington MD Primary Care Provider [phone] Benja Moreno MD Unavailable Encounter Details Date Type Department Care Team Description 08/17/2016 Business Doc Medical Records [address] [place] [address] [id number] Abstract, Provider Social History Tobacco Use Types [...] on filedocumented in this encounter Care Teams Nursing Administrator Relationship Specialty Start Date End Date Stevenson Gurrola MD PCP - General 09/25/1999 05/23/20 Nirmal Washington MD [address] [place] [address] [phone] PCP - General Internal Medicine 05/24/20 Benja Moreno MD [address] [place] [address] Specialist Cardiology 02/11/24 documented as of this encounter
--- OUTSIDE RECORDS SUMMARY | 2025-09-18 13:17 | XMS_ITS | Encounter Summary ---
Author Organization [facility] Address [address] [place] [address] Care Team Providers Care Iuss Acoustic Analyst Name Role Phone Stevenson Gurrola MD Primary Care Provider Unavail able Nirmal Washnigton MD Primary Care Provider [phone] Benja Moreno MD Unavailable Reason for Visit * Reason Onset Date Comments TEST RESULTS 12/12/2016 Encounter Details Date Type Department Care Team Description 12/12/2016 Telephone Adult Medicine [address] [phone] Stevenson Gurrola MD TEST RESULTS Social History Tobacco Use Types [...] encounter Miscellaneous Notes * Telephone Encounter - Katarzyna King M.A. - 12/12/2016 11:18 AM EST Result not back yet, Patient notified * Telephone Encounter - Han Osborne - 12/12/2016 10:21 AM EST Inform patient: ANY URGENT OR ABNORMAL RESULTS WIILL RESULT IN A CALL BACK TO THE PATIENT QUINTEN. Type of test: :H PYLORI ANTIGEN Date test was performed: 12/07/2016 Where was the test performed: [facility] lab Who ordered this test?: Lena Thomas Is the doctor here today?: YES Can the message wait until the doctor returns?: NO IF PATIENT'S PCP IS NOT IN INSTRUCT PATIENT THAT THEY WILL RECEIVE A CALL BACK WHEN THE PCP IS IN THE OFFICE NEXT. documented in this encounter Plan of Treatment Not on file documented as of this encounter Visit Diagnoses Not on filedocumented in this encounter Care Teams Iuss Acoustic Analyst Relationship Specialty Start Date End Date Stevenson Gurrola MD PCP - General 09/25/1999 05/23/20 Nirmal Washington MD [address] [place] [id number] PCP - General Internal Medicine 05/24/20 Benja Moreno MD [address] [place] [address] [phone] Specialist Cardiology 02/11/24 documented as of this encounter
--- OUTSIDE RECORDS SUMMARY | 2025-09-18 13:17 | XMS_ITS | Encounter Summary ---
Author Organization [facility] Address [address] [place] [address] Care Team Providers Care Spoilage Worker Name Role Phone Nirmal Washington MD Primary Care Provider Benja Moreno MD Unavailable Reason for Visit * Reason Onset Date Comments refill request 05/16/2021 Encounter Details Date Type Department Care Team Description 05/16/2021 Refill Pulmonology - [place] [address] [facility] [address] [place] [address] Tony Aguirre MD [address] [facility] [address] [place] [address] refill request Social History Tobacco [...] encounter Miscellaneous Notes * Telephone Encounter - Shelby Owen - 05/16/2021 8:52 AM EDT Ishmael 01/21/21 Nov no appt booked documented in this encounter Plan of Treatment [...] field documented in this encounter Care Teams Spoilage Worker Relationship Specialty Start Date End Date Nirmal Washington MD [address] [place] [phone] PCP - General Internal Medicine 05/24/20 Benja Moreno MD [address] [place] [phone] Specialist Cardiology 02/11/24 documented as of this encounter
--- OUTSIDE RECORDS SUMMARY | 2025-09-18 13:17 | XMS_ITS | Encounter Summary ---
Author Organization [facility] Address [address] [place] [address] Care Team Providers Care Chemistry Physics Teacher Name Role Phone Nirmal Washington MD Primary Care Provider [phone] Benja Moreno MD Unavailable Encounter Details Date Type Department Care Team Description 12/08/2021 SCAN Cardio [facility] [address] [place] [id number] Abstract, Provider Social History Tobacco Use Types [...] Priority Date/Time Associated Diagnosis Comments MRI OF BRAIN WITH AND WITHOU T CONTRAST Routine 12/08/2021 documented in this encounter Results * MRI OF BRAIN WITH AND WITHOUT CONTRAST (12/08/2021) Provider Default MRI documented in this encounter Visit Diagnoses Not on filedocumented in this encounter Care Teams Chemistry Physics Teacher Relationship Specialty Start Date End Date Nirmal Washington MD [address] [place] [phone] PCP - General Internal Medicine 05/24/20 Benja Moreno MD [address] [place] [phone] Specialist Cardiology 02/11/24 documented as of this encounter
--- OUTSIDE RECORDS SUMMARY | 2025-09-18 13:17 | XMS_ITS | Encounter Summary ---
Author Organization [facility] Address [address] [place] [address] Care Team Providers Care Lithographer Apprentice Name Role Phone Stevenson Gurrola MD Primary Care Provider Unavail able Nirmal Washington MD Primary Care Provider [phone] Benja Moreno MD Unavailable Encounter Details Date Type Department Care Team Description 07/03/2017 Pt. Non Urgent Medic al Question Gastroenterology - [address] [address] Sagar Dangelo MD Social History Tobacco Use Types Packs/Day Years Used Date Smoking Tobacco: Former Cigarettes 1 10 0 11/26/2001 - 08/11/2012 Smokeless Tobacco: Never Comments:Smokes e cigarettes Alcohol Use Standard Drinks/Week Comments No 0 (1 standard drink = 0.6 oz pur e alcohol) Sex Assigned at Date Recorded Female 01/26/2022 3:[address] Job Start Date Occupation Industry Not on file Not on file Not on file documented as of this encounter Progress Notes * Annalisa Lindquist L.P.N. - 07/03/2017 5:15 PM EDTFrom: Ana Vance To: Sagar Dangelo MD Sent: 07/03/2017 5:11 PM EDT Subject: update Hi this is Ana Vance 1970. You wanted me to send you an email to let you know how the new medication was for my stomach. So far it's been working good I take it 4 times a day and it has kept the spasms an cramping so far under control right when I would feel them come on it would be gonein seconds. Thank u michelle when u want to see me again let me know so I can make the appt. Finesse mayorga documented in this encounter Plan of Treatment Not on file documented as of this encounter Visit Diagnoses Not on filedocumented in this encounter Care Teams Lithographer Apprentice Relationship Specialty Start Date End Date Stevenson Gurrola MD PCP - General 09/25/1999 05/23/20 Nirmal Washington MD [address] [place] [id number] PCP - General Internal Medicine 05/24/20 Benja Moreno MD [address] [place] [phone] Specialist Cardiology 02/11/24 documented as of this encounter
--- OUTSIDE RECORDS SUMMARY | 2025-09-18 13:17 | XMS_ITS | Encounter Summary ---
Author Organization [facility] Address [address] [place] [address] Care Team Providers Care Probe Operator Name Role Phone Stevenson Gurrola MD Primary Care Provider Unavail able Nirmal Washington MD Primary Care Provider [phone] Benja Moreno MD Unavailable Encounter Details Date Type Department Care Team Description 08/29/2017 Business Doc Medical Records [address] [place] [address] Abstract, Provider Social History Tobacco Use Types [...] on filedocumented in this encounter Care Teams Probe Operator Relationship Specialty Start Date End Date Stevenson Gurrola MD PCP - General 09/25/1999 05/23/20 Nirmal Washington MD [address] [place] [address] [phone] PCP - General Internal Medicine 05/24/20 Benja Moreno MD [address] [place] [address] Specialist Cardiology 02/11/24 documented as of this encounter
--- OUTSIDE RECORDS SUMMARY | 2025-09-18 13:17 | XMS_ITS | Encounter Summary ---
Author Organization [facility] Address [address] [place] [address] Care Team Providers Care Senior Center Manager Name Role Phone Nirmal Washington MD Primary Care Provider [phone] Benja Moreno MD Unavailable Reason for Visit * Reason Onset Date Comments Orders Call 02/15/2021 Encounter Details Date Type Department Care Team Description 02/15/2021 Telephone Physiatry - [address] [id number] Manas Weiss PA-C Orders Call Social History Tobacco Use Types Packs/Day Years [...] encounter Miscellaneous Notes * Telephone Encounter - Heber Ny - 03/01/2021 9:25 AM EDT Spoke with pt and she states during her audio visit with Mr. Weiss he stated she can see a neurologist. This is not noted in office note. Pt states Dr. Washington will not send her to a neurologist until he gets the okay from Mr. Weiss. He did states she can see a surgeon but she declined. Pt very upset on phone stating all she wants to see is the neurologist and why cant she just get the referral. * Telephone Encounter - Manas Weiss PA-C - 02/28/2021 10:28 PM EDT I reviewed chart. If this is early CTS, Neurology consult wouldn't be helpful. Neurology consult would only be if the PCP felt there was something else causing symptoms. * Telephone Encounter - Heber Ny - 02/28/2021 10:27 AM EDT Message routed again to Mr. Weiss * Telephone Encounter - Beth Velasco - 02/28/2021 10:25 AM EDT Patient is calling in regards to message below, she stated she has not heard back from anyone. Please review * Telephone Encounter - Cristin Campa - 02/15/2021 11:02 AM EDT Patient is calling in asking if Mr. Weiss could relay a message to Dr. Washington regarding a referralfor her to see a nurologist. Patient states that Dr. Washington told her that he would not refer her until ok from Mr. Weiss was given documented in this encounter Plan of Treatment Not on file documented as of this encounter Visit Diagnoses Not on filedocumented in this encounter Care Teams Senior Center Manager Relationship Specialty Start Date End Date Nirmal Washington MD [address] [place] [address] PCP - General Internal Medicine 05/24/20 Benja Moreno MD [address] [place] [id number] Specialist Cardiology 02/11/24 documented as of this encounter
--- OUTSIDE RECORDS SUMMARY | 2025-09-18 13:17 | XMS_ITS | Encounter Summary ---
Author Organization [facility] Address [address] [place] [address] Care Team Providers Care Building Economist Name Role Phone Stevenson Gurrola MD Primary Care Provider Unavail able Nirmal Washington MD Primary Care Provider [phone] Benja Moreno MD Unavailable Encounter Details Date Type Department Care Team Description 09/22/2016 Release of Information Medical Records [address] [place] [id number] Abstract, Provider Social History Tobacco Use Types [...] on filedocumented in this encounter Care Teams Building Economist Relationship Specialty Start Date End Date Stevenson Gurrola MD PCP - General 09/25/1999 05/23/20 Nirmal Washington MD [address] [place], [place] [id number] PCP - General Internal Medicine 05/24/20 Benja Moreno MD [address] [place] [address] Specialist Cardiology 02/11/24 documented as of this encounter
--- OUTSIDE RECORDS SUMMARY | 2025-09-18 13:17 | XMS_ITS | Data Portability ---
Author Organization [facility]ENN[facility] - [facility], [facility] Address [address] [place] [address] Care Team Providers Care Newspaper Peddler Name Role Phone CECY MARIE Referring Provider FABIOLA MARIE Primary Care Provider Assessment Encounter Date Assessment Date Assessment LastModified by Organization Details LastModified Time 11/12/2024 11/12/2024 Assessment: Phoebe ent presents with symptoms that are consistent with knee OA. Demonstrates good understanding of home program, post-operative mechanics for gait and stairs, and expectations following surgery. Plan: Discharge patient to knee OA safe [facility]. Follow up with patient post-operatively. [email or web address] Not available 11/12/2024 15:51:25 11/20/2024 11/20/2024 SURGICAL HISTORY AND PHYSICAL PRIMARY DIAGNOSIS: Osteoarthritis of the right knee. REASON FOR ADMISSION: The patient is being admitted for a right total knee arthroplasty with Dr. Jacob Ray on 12/01/2024. HISTORY OF PRESENT ILLNESS: The patient is a 54-year-old female who presents here today with complaints of right knee pain. She reports that she has had this pain ongoing for several years and has been getting progressively worse. The patient reports she has tried and failed nonoperative measures. The pain is severe enough it limits her ability to perform activities of daily living as well as social tasks. She is now ready to pursue a right total knee arthroplasty with Dr. Jacob Ray on 12/01/2024. PAST MEDICAL HISTORY: 1. Osteoarthritis of the right knee. 2. Asthma, COPD followed by Pulmonary. 3. Variable immunodeficiencies for which she is followed by [facility] Allergy provider Izabel Delacruz and receives Hizentra weekly injections. 4. Goiter, hypothyroidism. 5. PCOS. 6. GERD. 7. IBS. 8. Ulcerative colitis/Crohn's where she is followed by GI, Dr. Garcia, and she is on Entyvio. Her last dose was on 10/21/2024, and she is next due on 12/16/2024. 9. Obesity with a BMI of 40. 10. Pulmonary nodules. 11. Memory disorder. 12. GERD. 13. Seizure disorder for which the patient reports she does not take any seizure medications for over the past 30 years and her last seizure was 38 years ago. PAST SURGICAL HISTORY: Includes a cholecystectomy. MEDICATIONS: Current medications include: 1. Atorvastatin 10 mg by mouth once a day. 2. Carafate 2 grams by mouth twice a day. 3. Combivent Respimat 20 mcg/100 mcg inhalation. 4. Dicyclomine 20 mg by mouth 3 times a day. 5. Flexeril 10 mg by mouth 3 times a day. 6. Levothyroxine 200 mcg by mouth once a day. 7. Lisinopril 15 mg by mouth once a day. 8. Lyrica 75 mg by mouth twice a day in the morning and at lunchtime and then Lyrica 100 mg once a day at bedtime. 9. MiraLax 17 grams once a day. 10. Omeprazole 20 mg by mouth twice a day. 11. ProAir inhaler every 6 hours as needed. 12. Trelegy Ellipta 100/62.5/25 mcg inhalation once a day. She will be bringing with her to the hospital. 13. Vitamin B12 tablet once a day. 14. Vitamin D 4000 units by mouth once a day. 15. Hizentra 15 grams intravenous weekly on Fridays. 16. Entyvio 300 mg infusion every 8 weeks, next dose being due 12/16/2024. ALLERGIES: The patient has allergies to MOTRIN AND SEVERAL ANTI-INFLAMMATORIES as they all cause significant GI upset. She reports an allergy to any ANTIHISTAMINES that cause headaches. ASPIRIN causes GI upset. DOXYCYCLINE AND SULFA medications all cause significant GI upset. SOCIAL HISTORY: The patient's daughter, Tomás, will be helping her with her postoperative care. She denies the use of any alcohol, tobacco or recreational drugs. REVIEW OF SYSTEMS: Her 12-point review of systems is negative with the exception of the HPI. PHYSICAL EXAMINATION: VITAL SIGNS: Weight 225 pounds. GENERAL: She is alert and oriented. Normal insight, affect, and grooming. SKIN: Intact. There is a small rash on her left lower abdomen from where she just received her last Hizentra infusion. The site is scabbed over, it is healing well. She also has small flat reddened areas under the lidocaine patch on her right knee, nothing is open. The patient reports this is chronically there from the lidocaine patch. HEENT: Normocephalic. Conjunctivae are pink. NECK: Supple. Trachea midline. CHEST: Lungs are clear to auscultation bilaterally. She does become short of breath with exertion. CARDIOVASCULAR: Heart has a regular rate and rhythm, normal S1, S2. No murmurs, rubs or gallops appreciated. ABDOMEN: Obese, soft, nontender. EXTREMITIES: Lower extremities: The patient has a negative straight leg raise test bilaterally. Full range of motion of both hips without pain. The right knee range of motion is 0-95, it is stable to varus valgus loading. Bilateral lower extremities with positive motor sensation screening intact. The calves are supple, nontender. Ankle motion satisfactory. Skin about the feet is intact. PREOPERATIVE DIAGNOSTIC DATA: The patient's orthopedic x-ray shows severe end-stage osteoarthritis of the right knee, [id number] articulation medially, subchondral sclerosis with osteophyte formation, varus deformity and moderate patellofemoral involvement. LABORATORY DATA: CBC shows a hemoglobin 13.2, hematocrit 39.9, platelet count 221. Coags within normal limits. INR 0.9. Chemistries show a hemoglobin A1c of 5.4, creatinine 0.62. Estimated GFR of 107. ASSESSMENT AND PLAN: The patient has advanced osteoarthritis of the right knee and is now scheduled for a right total knee arthroplasty with Dr. Jacob Ray on 12/01/2024. She was seen by the medical consultative preop clinic, who reported that the patient's risk for any major adverse cardiac events is low. She has stable COPD. There is no additional workup recommended, and she has a low pulmonary risk. She has an elevated fall risk. They do note that they reached out to the patient's GI, Dr. Garcia, to request of mid cycle Entyvio is okay for joint replacement or needs to wait one cycle off with the surgery, as her next dose is scheduled on 12/16/2023. Awaiting his response, no absolute medical contraindications identified to proceeding with the proposed surgery. The patient was seen by her microwave engineer who stated that the patient is a low pulmonary risk, and has no absolute contraindications for right knee replacement surgery from a pulmonary point of view. This is by Elise Hernandez, nurse practitioner. She was also seen by her traffic manager at [facility] who states that although the patient has had shortness of breath and chest pain, these are very atypical symptoms and more likely to be related to musculoskeletal or GI etiology or possibly her fibromyalgia. There is no further cardiac workup is indicated at this time, and per the Olivo's cardiac risk index, she is a low risk for perioperative cardiac events. The patient was seen by her primary care as well who rated her a low risk and no absolute contraindications. The patient will receive intravenous tranexamic acid. She will be on Eliquis 2.5 mg by mouth twice a day, as she has an aspirin allergy for postop DVT prophylaxis. We will use end-tidal CO2, continuous O2 and CPAP to manage the patient's obstructive sleep apnea. We will not use Celebrex or any other anti-inflammatories due to the patient's GI sensitivities and inability to tolerate. Discharge plans will be to home with services. The patient will be staying overnight in the hospital. Questions have been answered, she acknowledges understanding and wishes to proceed. She will have one week in-home physical therapy prior to going outpatient. Prescription sent to the local pharmacy today include none. She will need a script for Eliquis 2.5 #60, Colace and pain medications upon discharge. She already has omeprazole and Tylenol at home. CONTACTS: Her daughter, Tomás, who can be reached at [phone]. [email or web address] Not available 11/20/2024 14:12:21 03/25/2025 03/25/2025 PROBLEM: Status post Right total knee arthroplasty performed on 12/01/24 HPI: Patient returns today for follow-up of their total knee arthroplasty. They report they have returned to most activities of daily living. The patient has no specific concerns today in the office. They have completed outpatient physical therapy. Past family, medical, social history and review of systems has been reviewed, updated and is located in the patient s chart. EXAM: The patient ambulates with a non-antalgic gait. The surgical wound is well-healed. There is no erythema, redness, or signs of infection. Right knee range of motion 0-130 . There is no significant sub-patellar crepitus. There is expected postoperative swelling but no significant effusion. The knee is stable to varus and valgus loading at 0 and 90 without evidence of significant instability. IMAGING: Previously obtained X-rays reviewed in the office today on [facility] PACS: Weightbearing AP of both knees, lateral of the right knee, and sunrise view of both knees demonstrate; Show appropriate position of the patient's right total knee arthroplasty. Overall limb alignment is neutral. Implant position is satisfactory. Patellar tracking is midline. Bone implant interfaces are intact and no evidence of fracture or osteolysis. IMPRESSION: Status post Right total knee arthroplasty PLAN: At this point, the patient is doing extremely well following their total knee arthroplasty. I encouraged them to continue a home exercise and walking program. We discussed activity modification, dental prophylaxis, and the importance of long-term follow-up. The patient is requested to return to work. 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 I highlighted the importance to continue to participate in home exercise program. I encouraged them to return to the office periodically for routine follow-up; sooner if any issues arise. I attempted to answer all of their questions today in the office. [email or web address] speech recognition education director software was used to create portions of this document. An attempt at proofreading has been made to minimize errors. Please call for corrections. [email or web address] Not available 03/25/2025 15:36:08 Plan of Treatment Reminders Order Date Submit Date Provider Last Modified By Organization Details Last Modified Time Details Appointments None record ed. Lab None record ed. Referral None record ed. Procedures None record ed. Surgeries None record ed. Imaging XR, knee, 3 view - 1st PO RTKR 12/01/24 . SJK rm [id number] 12/12/19 25 [email or web address] [facility], [address], [address], [place], [address], 15:40:30 Medication Orders None record ed. Patient Targets Encounter Date Encounter Id Patient Goals Patient Target Last Modified By Organization Details Last Modified Time 11/12/[id number] Independent with HEP and post-operative mechanics. [email or web address] Not available 11/12/2024 15:51:33 Patient InstructionsNo instructions recorded. Reason for Referral None Reported. Results Created Date Observation Date Name Description Value Unit Range Abnormal Flag Note LastModifiedBy Organization Detail LastModifiedTime 12/01/19 25 12/01/2024 anetai john inter preta tion No observ ation record ed. [email or web address] 1 [facility] [address], [place], [address], 12/02/2024 16:13:30 12/12/19 25 12/12/2024 XR, knee, 3 view [email or web address] ?Encry pted=s hAaTro YD8dLq bEUv6g %2BXZw aYqtaq 0bqfl% 2Fg9IQ a4ajBk vP9nXo QUaueC m3YtLR FvZlJ JJ8mAn HZtai3 2h5963 AC0Kqb 3uEV6u nKiQtr MwF INTERFACE [facility] [address] [facility] [address], [place], [address], 12/12/2024 15:39:22 12/12/19 25 12/12/2024 XR, knee, 3 view [email or web address] ?Encry pted=s hAaTro YD8dLq bEUv6g %2BXZw aYqtaq 0bqfl% 2Fg9IQ a4ajBk vP9nXo QUaueC m3YtLR FvZl [facility] 9i6310 AC0Kqb 3uEV6u nKiQtr MwF INTERFACE [facility] [address] [facility] [address], [place], [address], 12/12/2024 15:39:24 Result Notes Documentation Provider Name and Address Organization Details Recorded Time Xr, Knee, 3 View : [email or web address] Encrypted=uuSwZsiYW1wJtjP Uv6g%4DXBvyMsztx9kkeb%2Fg 6NSv1mpVhoC2uVrZQvbwUf4Nq VSPeQwfEFE4gDzBKqiz41j825 1PH8Omk6qZY2owKjHsjZuH Not Available [facility] 12/12/2024 15:39: 23 Xr, Knee, 3 View : [email or web address] Encrypted=kbSlHsjIF3pVomH Uv6g%3CQFgfGzpry8ukow%2Fg 9PUt1mdHwqP8oWqPJfymNu3Cx SWTrPmzUFN0iVcMPxgn94k520 3FY3Ldf9bOE6epWbVwqIiF Not Available [facility] 12/12/2024 15:39: 25 Problems Name Problem SNOMED Code Status Onset Date Resolution Date Notes Provider Name and Address Organization Details Recorded Time Osteoarthri tis of right knee joint 8604043931686 00 Active 2023 Jacob Ray MD [address], [place], [address], [facility] 4 14:12:16 Body mass index 40+ - severely obese 807356949 Active 2023 Jacob Ray MD [address], [place], [address], [facility] 4 16:05:55 Problem Notes None recorded. Procedures Surgical History Date Name Laterality Status Provider Name and Address Organization Details Recorded Time 4 434[address] Therapeutic Exercise (1:1) completed Tiara Hernandez DPT [address], [place], [address], [facility] 11/12/2024 15:51:07 4 46902: Low complexity PT Eval completed Tiara Hernandez DPT [address], [place], [address], [facility] 11/12/2024 15:51:09 Imaging Results None recorded. Procedure Notes None recorded. Medical Equipment None Reported. Allergies Allergen ID Allergen Name Allergen Category Reaction Reaction Severity Criticality Documentation Date Start Date Code Code System Note Provider Name and Address Organization Details Recorded Time 351414 Non-stero idal anti-infl ammatory agent (substanc e) medicatio n Not available Not available Not available 01/28/20242022 10064 5008 SNOMED Not Available [facility] 16:24:25 769109 Substance with sulfonami de structure and antibacte rial mechanism of action (substanc e) medicatio n Not available Not available Not available 01/28/20242022 60857 8003 SNOMED Not Available [facility] 16:24:25 Medications Name Sig Start Date Stop Date Status Note LastModified by Organization Details LastModified Time ammonium lactate 12 % lotion APPLY TOPICALLY IF NEEDED FOR DRY SKIN active Not Available Not Available No t Available atorvastati n 10 mg tablet TAKE 1 TABLET BY MOUTH DAILY active Not Available Not Available No t Available azithromyci n 250 mg tablet TAKE 2 TABLETS BY MOUTH ON DAY 1 THEN 1 TABLET DAILY FOR 4 DAYS 03/25 completed Not Available Not Available Not Available sucralfate 1 gram tablet TAKE 1 TABLET BY MOUTH FOUR TIMES DAILY active Not Available Not Available No t Available ondansetron HCl 4 mg tablet TAKE 1 TABLET BY MOUTH EVERY 8 HOURS NEEDED FOR NAUSEA AND VOMITING 03/25 completed Not Available Not Available Not Available prednisone 20 mg tablet TAKE 2 TABLETS BY MOUTH DAILY FOR 5 DOSES active Not Available Not Available No t Available omeprazole 40 mg capsule,del ayed release TAKE 1 CAPSULE BY MOUTH TWICE DAILY BEFORE MEALS active Not Available Not Available No t Available aspirin 81 mg tablet,yuliana yed release TAKE 1 TABLET BY MOUTH EVERY DAY active Not Available Not Available No t Available tramadol 50 mg tablet TAKE 1 TO 2 TABLETS BY MOUTH EVERY 6 HOURS NEEDED FOR MILD PAIN. DO NOT EXCEED 8 TABLETS (400MG) PER DAY. 03/25 completed Not Available Not Available Not Available amoxicillin 500 mg tablet 03/25 completed Not Available Not Available Not Available nystatin-tr iamcinolone 100,000 unit/gram-0 .1 % topical ointment APPLY TOPICALLY TO THE AFFECTED AREA TWICE DAILY active Not Available Not Available No t Available amoxicillin 875 mg tablet TAKE 1 TABLET BY MOUTH TWICE DAILY FOR 10 DAYS 03/25 completed Not Available Not Available Not Available Deep Sea Nasal 0.65 % spray aerosol INSTILL 1 SPRAY INTO EACH NOSTRIL FOUR TIMES DAILY NEEDED FOR CONGESTIO N active Not Available Not Available No t Available dicyclomine 20 mg tablet TAKE 1 TABLET BY MOUTH THREE TIMES DAILY active Not Available Not Available No t Available pantoprazol e 40 mg tablet,yuliana yed release TAKE 1 TABLET BY MOUTH EVERY MORNING ON EMPTY STOMACH. DO NOT EAT FOR 30 MINUTES AFTER 03/25 completed Not Available Not Available Not Available erythromyci n 5 mg/gram (0.5 %) eye ointment APPLY A 1/2 INCH STRIP TO THE EYE FOUR TIMES DAILY FOR 10 DAYS active Not Available Not Available No t Available Banophen 25 mg tablet TAKE 2 TABLETS BY MOUTH THREE TIMES DAILY active Not Available Not Available No t Available lisinopril 10 mg tablet TAKE 1 AND 1/2 TABLETS BY MOUTH DAILY active Not Available Not Available No t Available lidocaine 5 % topical patch active Not Available Not Available Not Available amoxicillin 250 mg capsule TAKE 1 CAPSULE BY MOUTH FOUR TIMES DAILY FOR 7 DAYS 03/25 completed Not Available Not Available Not Available montelukast 10 mg tablet TAKE 1 TABLET BY MOUTH AT BEDTIME active Not Available Not Available No t Available levothyroxi ne 200 mcg tablet TAKE 1 TABLET BY MOUTH DAILY active Not Available Not Available No t Available budesonide DR - ER 3 mg capsule,del ayed,extend ed release TAKE 2 CAPSULES BY MOUTH EVERY DAY FOR 30 DAYS. THEN 1 CAPSULE BY MOUTH EVERY DAY FOR 30 DAYS active Not Available Not Available No t Available epinephrine 0.3 mg/0.3 mL injection, auto-inject or INJECT 1 PEN IN THE MUSCLE ONE TIME DIRECTED active Not Available Not Available No t Available polyethylen e glycol 3350 17 gram/dose oral powder MIX 17 GRAMS IN LIQUID AND DRINK BY MOUTH TWICE DAILY active Not Available Not Available No t Available betamethaso ne dipropionat e 0.05 % topical ointment APPLY TO AFFECTED AREAS ON ELBOWS TWICE DAILY FOR 2 WEEKS . BREAK 1 WEEK THEN REPEAT NEEDED active Not Available Not Available No t Available amoxicillin 875 mg-potassiu m clavulanate 125 mg tablet TAKE 1 TABLET BY MOUTH TWICE DAILY FOR 10 DAYS 03/25 completed Not Available Not Available Not Available Ventolin HFA 90 mcg/actuati on aerosol inhaler INHALE 2 PUFFS INTO THE LUNGS EVERY 6 HOURS NEEDED FOR COUGH OR WHEEZING. WITH PULMICORT 1-2 PUFFS WITH SIGNIFICA NT SYMPTOMS active Not Available Not Available No t Available cyclobenzap rine 5 mg tablet TAKE 1 TABLET BY MOUTH THREE TIMES DAILY AT BEDTIME NEEDED active Not Available Not Available No t Available pregabalin 75 mg capsule TAKE 1 CAPSULE BY MOUTH IN THE MORNING AND AT NOON active Not Available Not Available No t Available pregabalin 100 mg capsule active Not Available Not Available Not Available magnesium active Not Available Not Radha ilable Not Available atorvastati n active Not Available Not Available Not Available Acetaminoph en Extra Strength active Not Available Not Available Not Available Benadryl active Not Available Not Avai lable Not Available Vitamin D3 active Not Available Not Av ailable Not Available Carafate active Not Available Not Avai lable Not Available Ventolin HFA active Not Available Not Available Not Available cyclobenzap rine (bulk) active Not Available Not Available Not Available dicyclomine (bulk) active Not Available Not Available Not Available celecoxib 50 mg capsule TAKE 1 CAPSULE BY MOUTH TWICE DAILY active Not Available Not Available No t Available levocetiriz ine 5 mg tablet TAKE 1 TABLET BY MOUTH DAILY active Not Available Not Available No t Available oxycodone 10 mg tablet TAKE 1/2 (HALF) TO 1 TABLET BY MOUTH EVERY 4 HOURS NEEDED FOR SEVERE PAIN 03/25 completed Not Available Not Available Not Available lisinopril (bulk) active Not Available Not Available Not Available Hizentra active Not Available Not Avai lable Not Available Probiotic active Not Available Not Radha ilable Not Available montelukast (bulk) active Not Available Not Available Not Available Combivent Respimat 20 mcg-100 mcg/actuati on solution for inhalation INHALE 1 TO 2 PUFFS INTO THE LUNGS FOUR TIMES DAILY NEEDED FOR WHEEZING OR COUGHING OR SHORTNESS OF BREATH. MAX 6 PUFFS DAILY active Not Available Not Available No t Available Eliquis 2.5 mg tablet TAKE ONE TABLET BY MOUTH TWICE DAILY 03/25 completed Not Available Not Available Not Available Entyvio active Not Available Not Avail able Not Available Adults 50 Plus active Not Available Not Available Not Available Trelegy Ellipta 100 mcg-62.5 mcg-25 mcg powder for inhalation INHALE 1 PUFF INTO THE LUNGS DAILY active Not Available Not Available No t Available Trelegy Ellipta active Not Available Not Available Not Available Humira(CF) Pen 40 mg/0.4 mL subcutaneou s kit active Not Available Not Available Not Available omeprazole 20 mg delayed release,dis integrating tablet active Not Available Not Available Not Available Humira(CF) Pen Crohn's-Ulc Colitis-Hid Sup Strt 80 mg/0.8 mL subcut kt active Not Available Not Available No t Available levothyroxi ne 200 mcg capsule active Not Available Not Available Not Available Hizentra 4 gram/20 mL (20 %) subcutaneou s syringe active Not Available Not Available No t Available Hizentra 1 gram/5 mL (20 %) subcutaneou s syringe active Not Available Not Available No t Available Voltaren Arthritis Pain 1 % topical gel APPLY 2 GRAMS TO THE AFFECTED AREA(S) BY TOPICAL ROUTE 4 TIMES PER DAY 2024 active Not Available Not Available Not Avai lable Hizentra 10 gram/50 mL (20 %) subcutaneou s syringe active Not Available Not Available No t Available Vitals Date Recorded Body height Body mass index (BMI) Body weight Provider Name and Address Organization Details Last Updated DateTime 12/12/2024 156.21 cm 41.8 kg/m2 072537.28 [facility] 12/12/2024 15:20:07 Date Recorded Body height Body mass index (BMI) Body weight Provider Name and Address Organization Details Last Updated DateTime 12/31/2024 156.21 cm 41.8 kg/m2 693285.28 g Lavonne Goins [facility] 12/31/2024 10:31:53 Date Recorded Body height Body mass index (BMI) Body weight Provider Name and Address Organization Details Last Updated DateTime 03/25/2025 156.21 cm 41.8 kg/m2 121772.28 g Mandy Figueroa [facility] 03/25/2025 15:12:22 Date Recorded Body height Body mass index (BMI) Body weight Provider Name and Address Organization Details Last Updated DateTime 11/20/2024 156.21 cm 41.9 kg/m2 228299.36 g walker glass [facility] 11/20/2024 10:35:41 Social History None recorded. Functional Status None recorded. Mental Status None recorded. Family History Nothing Reported. Medical History No medical history recorded. Gynecological HistoryNo gynecological history recorded. Obstetrics History GPAL:G 0 P 0 0 0 0 Past Encounters Encounter ID Performer Location Encounter Start Date Encounter Closed Date Diagnosis/Indication Diagnosis SNOMED-CT Code Diagnosis ICD10 Code Diagnosis IMO Codes Diagnosis Note [id number] Jacob Ray MD [facility] [address] [place] [address] 09/17/2024 13:22:52 10/09/2024 12:43:54 Osteoarthritis of right knee joint 8712503537 25567 M17.11 1912463 Body mass index 40+ - severely obese 130940686 E66.01 13775144 [id number] Tiara Hernandez DPT [facility] [address] [place] [address] 11/12/2024 08:34:07 11/12/2024 09:29:47 Osteoarthritis of knee 658956137 M17.11 [id number] Fernanda Delgado APRN [facility] [address] [place] [address] 11/20/2024 10:25:34 12/11/2024 04:00:20 Osteoarthritis of right knee joint 8400779288 04910 M17.11 [id number] MAURI AshrafA - [facility] [address] [place] [address] 12/12/2024 15:10:55 12/27/2024 08:37:29 Postoperative visit [id number] Z48.89 [id number] History of total knee arthroplasty [id number] 105 Z96.651 [id number] MAURI AshrafA - [facility] [address] [place] [address] 12/31/2024 10:09:15 01/21/2025 05:36:53 Postoperative visit [id number] Z48.89 [id number] MD TRICIA Rudd - [facility] [address] [place] [address] 03/25/2025 15:06:30 04/01/2025 10:51:23 History of right total knee replacement [id number] Z96.651 [id number] Health Concerns Section Related Observation LastModified by Organization Detai ls LastModified Time None Recorded Concern Status LastModified by Organization Details LastModified Time None Recorded Advance Directives Directive None Recorded Payers Insurance Date Sequence Insurance Name Policy Number Policy Kennedy Covered Member ID Kennedy Member ID Guarantor Name 04/01/2025 1 [employer] (MEDICARE REPLACEMENT/ ADVANTAGE - PPO) [id number] Ana Bagleyneault [id number] Ana Bagleyneabridget 10/11/2024 1 [place] [employer] Ana Bagleyneault [id number] Ana Bagleyneabridget 04/01/2025 2 [place] [facility] Ana Bagleyneault [id number] Ana Vance Notes Date Note Type Note Provider Name and Address Organization Details Recorded Time 11/12/2024 text/html Patient is 54 year old female, with chronic history of knee pain and OA. Presents today for prehab visit for scheduled TKA on 12/01/24. Arrives today ambulating without AD. Reviewed post-operative mobility and mechanics with appropriate assistive device. Has few steps at home with railings. Demonstrates good understanding of post-operative expectations and HEP. 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 Patient goal is to get back to walking and usual activities without pain. Tiara Hernandez, DPT [address] [facility] [address], [place], [address], [facility] 11/12/2024 15:52:07 12/12/2024 text/html I am seeing the patient today under the supervision of Dr. Cobb who was available but who did not see the patient. HPI: Patient returns follow-up 2 weeks postop right total knee replacement. Patient seems to be progressing well with therapy. Patient's pain seems to be controlled. Past family, medical, social history and review of systems has been reviewed, updated and is located in the patient s chart. Examination: No significant swelling warmth erythema about the right total knee. Incision is healing well. Range of motion of the right total knee: Extension 0, and flexion 75. Good stability about the right total knee. Peripheral, vascular, lymphatic examination, skin, neurological, coordination, reflexes, sensation are within normal limits. X-rays ordered, obtained and reviewed at [facility] 3 views of the right total knee demonstrate good implant interfaces in good alignment. Impression: 2 weeks status post right total knee replacement Plan: Reviewed x-rays. Reviewed postop protocols with the patient today in the office. Continue with formal therapy. Patient can wean from a walker to a cane as safe. Follow-up in 2 weeks to recheck the total knee replacement. Moreno Espinosa PA-C [address], [place], [address], [facility] 12/12/2024 16:19:39 12/31/2024 text/html I am seeing the patient today under the supervision of Dr. [place] was available but who did not see the patient. HPI: Patient returns follow-up 4 weeks postop right total knee replacement. Patient seems to be progressing well with therapy. Patient's pain seems to be controlled. Preop motion is 0-95 Past family, medical, social history and review of systems has been reviewed, updated and is located in the patient s chart. Examination: No significant swelling warmth erythema about the right total knee. Incision is healing well. Range of motion of the right total knee: Extension 0, and [id number] . Good stability about the right total knee. Peripheral, vascular, lymphatic examination, skin, neurological, coordination, reflexes, sensation are within normal limits. Impression: 4 weeks status post right total knee replacement Plan: Reviewed postop protocols with the patient today in the office. Continue with formal therapy. Patient can wean from a cane as safe. Follow-up in 2 months to recheck the total knee replacement. Moreno Espinosa PA-C [address], [place], [address], [facility] 12/31/2024 11:05:29 OBGyn Episode No OBEpisode recorded.
--- OUTSIDE RECORDS SUMMARY | 2025-09-18 13:17 | XMS_ITS | Encounter Summary ---
Author Organization [facility] Address [address] [place] [address] Care Team Providers Care Recreation Worker Name Role Phone Nirmal Washington MD Primary Care Provider [phone] Benja Moreno MD Unavailable Encounter Details Date Type Department Care Team Description 10/14/2021 Pt. Non Urgent Medical Question Pulmonology - [place] [address] [place] [phone] Elise Hernandez APRN [address] [place] [phone] Social History Tobacco Use Types Packs/Day Years [...] have Coronavirus / COVID-19? No / Unsure 10/13/2021 8:50 AM EST documented as of this encounter Miscellaneous Notes * Telephone Encounter - Dara Bishop M.A. - 10/14/2021 2:45 PM ESTFrom: Ana Vance To: Doni Swiftsolitario Sent: 10/14/2021 6:22 AM EST Subject: Question regarding COMPLETE BLOOD COUNT So everything came out good it looks like. How about the tb test? Also the insurance didn???t coverthe pump you sent in the first time. So you had said if it did you would send in the other one if you forgot it???s the third row down all the way to the end I believe the now was Trilogy documented in this encounter Plan of Treatment Not on file documented as of this encounter Visit Diagnoses Not on filedocumented in this encounter Care Teams Recreation Worker Relationship Specialty Start Date End Date Nirmal Washington MD [address] [place] [address] PCP - General Internal Medicine 05/24/20 Benja Moreno MD [address] [place] [address] Specialist Cardiology 02/11/24 documented as of this encounter
--- OUTSIDE RECORDS SUMMARY | 2025-09-18 13:17 | XMS_ITS | Patient Health Record ---
Author Organization [employer] Address [address] [place] [address] Support Name Relationship Address Phone MC MERCER Guarantor Unknown [phone] Allergies Allergen (clinical drug ingredient) Drug/Non Drug Allergy documented on EMR Reaction Allergy Type Onset Date Status lactose Lactose (Intolerance) Unknown Drug Allergy Active Reason For Referral No Information Medications Medication SIG (Take, Route, Frequency, Duration) Notes Start Date End Date Status Vitamin D3 Active Levothyroxine Sodium 100 MCG 1 tablet in the morning on an empty stomach Orally Once a day with 88MCG to make 188MCG and 200MCG on Sundays Active B12 Active Flexeril Active Dicyclomine HCl 20 MG 1 tablet Orally Three times a day Active Albuterol Sulfate HFA 108 (90 Base) MCG/ACT 1 puff as needed Inhalation every 4 hrs Active MiraLax 17 GM/SCOOP 1 packet mixed with 8 ounces of fluid Orally twice a day Active Centrum Active Lyrica 75 MG 1 capsule Orally Twice a day Takes 100mg once a day with the 75 mg twice a day Active Trelegy Ellipta 100-62.5-25 MCG/INH 1 puff Inhalation Once a day Active Budesonide 3 MG as directed Orally three times a day Active Sambucus Elderberry Active Omeprazole 40 MG 1 tablet 30 minutes before morning meal Orally twice a day Active Nystatin 341621 UNIT/GM as directed Active Carafate 1 GM 1 tablet on an empty stomach Orally Twice a day Active Social History Tobacco Use: Social History Observation Description Date Details (start date - stop date) Former Smoker NA - NA Tobacco Use/Smoking Question Answer Notes Are you a former smoker How long has it been since you last smoked? > 10 years Alcohol Screen (Audit-C) Question Answer Notes Did you have a drink containing alcohol in the p ast year? No Points 0 Interpretation Negative Problems Problem Type SNOMED Code ICD Code Onset Dates Problem Status W/U Status Risk Notes Problem Hypothyroidism (89252469) Hypothyroidism, unspecified (E03.9) Active confirmed Problem Chronic obstructive pulmonary disease (30208340) Chronic obstructive pulmonary disease, unspecified (J44.9) Active confirmed Problem Gastro-esophageal reflux disease without esophagitis (356737136) Gastro-esophagea l reflux disease without esophagitis (K21.9) Active confirmed Problem Crohn's disease (73299407) Crohn's disease, unspecified, without complications (K50.90) Active confirmed Problem Fibromyalgia (171998218) Fibromyalgia (M79.7) Active confirmed Problem Body mass index 40+ - severely obese (060199684) Body mass index [BMI] 40.0-44.9, adult (Z68.41) Active confirmed Plan Of Treatment No Information Insurance Providers Payer Name Payer Address Payer Phone Subscriber Number Group Number Insured Name Patient Relationship to Insured Coverage Start Date Coverage End Date Medicare [address] [place] [phone] [id number] MC RAMIREZ Self - patient is the insured [place] [address] [place] [address] [id number] MC RAMIREZ Self - patient is the insured Medical (General) History Medical History History ICD Code hypothyroidism Crohn's disease GERD COPD fibromyalgia and sees rheumatology in [place] Surgical History Surgery Date(Month/Year) cholecystectomy tympanoplasty, left ear, when she was 14
--- OUTSIDE RECORDS SUMMARY | 2025-09-18 13:17 | XMS_ITS | Encounter Summary ---
Author Organization [facility] Address [address] [place] [address] Care Team Providers Care Matcher Leather Parts Name Role Phone Nirmal Washington MD Primary Care Provider [phone] Benja Moreno MD Unavailable Reason for Visit * Reason Onset Date Comments refill request 05/23/2021 Encounter Details Date Type Department Care Team Description 05/23/[address] [place] [phone] Montserrat Swann MD refill request Social History Tobacco Use Types [...] Encounter - Maria L Leon M.A. - 05/23/2021 1:16 PM EDT [place] 02/01/2021 NOV 08/25/[address] Swann * Telephone Encounter - Earnestine Corado - 05/23/2021 12:09 PM EDT [place] 02/01/2021 NOV 08/25/2021 documented in this encounter Plan of Treatment Not on file documented as of this encounter Visit Diagnoses Not on filedocumented in this encounter Care Teams Matcher Leather Parts Relationship Specialty Start Date End Date Nirmal Washington MD [address] [place] [address] PCP - General Internal Medicine 05/24/20 Benja Moreno MD [address] [place] [address] Specialist Cardiology 02/11/24 documented as of this encounter
--- OUTSIDE RECORDS SUMMARY | 2025-09-18 13:17 | XMS_ITS | Encounter Summary ---
Author Organization [facility] Address [address] [place] [address] Care Team Providers Care Electromedical Service Engineer Name Role Phone Stevenson Gurrola MD Primary Care Provider Unavail able Nirmal Washington MD Primary Care Provider [phone] Benja Moreno MD Unavailable Encounter Details Date Type Department Care Team Description 10/20/2016 Hospital Medical Records [address] [place] [address] Diogo Haley MD [address] [place] [address] Social History Tobacco Use Types Packs/Day Years [...] on filedocumented in this encounter Care Teams Electromedical Service Engineer Relationship Specialty Start Date End Date Stevenson Gurrola MD PCP - General 09/25/1999 05/23/20 Nirmal Washington MD [address] [place] [address] PCP - General Internal Medicine 05/24/20 Benja Moreno MD [address] [place] [address] Specialist Cardiology 02/11/24 documented as of this encounter
--- OUTSIDE RECORDS SUMMARY | 2025-09-18 13:17 | XMS_ITS | Encounter Summary ---
Author Organization [facility] Address [address] [place] [address] Care Team Providers Care Supercalender Operator Name Role Phone Nirmal Washington MD Primary Care Provider [phone] Benja Moreno MD Unavailable Encounter Details Date Type Department Care Team Description 02/11/2021 Pt. Non Urgent Medical Question Physiatry - [address] [address] Manas Weiss PA-C Social History Tobacco Use Types Packs/Day [...] encounter Miscellaneous Notes * Telephone Encounter - Lavonne Austin M.A. - 02/14/2021 8:15 AM EDTFrom: Ana Vance To: Manas Weiss PA-C Sent: 02/11/2021 7:59 PM EDT Subject: Ana Vance Nc Dr. Reynaga this is Ana Vance I talked to Dr. Washington and told him what you told me about going to ask about seeing a neurologist because of the twitching in my fingers and how you know I press things and things like that with my phone by just holding things in and today I dropped one of the plate s almost hit my cat had a shoe in the mood to get knocked in the head so I contacted and he looked at it in the notes and he said that the only thing he sees is that you offered a Cortizoneshot and I had said no and then the next thing was for a surgeon and if I wanted to see a surgeon so I'm wondering please if you can let him know Dr. Washington know about the neurologist so they can look d eeper into my nerves like you said and find out where the problem is please if there's any questions please call me [phone] and my name is Ana Bagleyseng thank you documented in this encounter Plan of Treatment Not on file documented as of this encounter Visit Diagnoses Not on filedocumented in this encounter Care Teams Supercalender Operator Relationship Specialty Start Date End Date Nirmal Washington MD [address] [place] [address] PCP - General Internal Medicine 05/24/20 Benja Moreno MD [address] [place] [address] Specialist Cardiology 02/11/24 documented as of this encounter
--- OUTSIDE RECORDS SUMMARY | 2025-09-18 13:17 | XMS_ITS | Encounter Summary ---
Author Organization [facility] Address [address] [place] [address] Care Team Providers Care Timing Machine Operator Name Role Phone Nirmal Washington MD Primary Care Provider Benja Moreno MD Unavailable Reason for Visit * Reason Onset Date Comments Medication 10/13/2021 Encounter Details Date Type Department Care Team Description 10/13/2021 Telephone Pulmonology - [place] [address] [facility] [address] [place] [address] Elise Hernandez APRN [address] [facility] [address] [place] [address] Medication Social History Tobacco Use Types Packs/Day Years [...] encounter Miscellaneous Notes * Telephone Encounter - Corinna Cabrera - 10/13/2021 11:27 AM EST Patient calling stating that her insurance is not going to cover the Symbicort so she wants to knowif you can go with the Trelegy. She also wanted to let Elise know that the blood work and xrays are done. documented in this encounter Plan of Treatment Not on file documented as of this encounter Visit Diagnoses Not on filedocumented in this encounter Care Teams Timing Machine Operator Relationship Specialty Start Date End Date Nirmal Washington MD [address] [place] [address] PCP - General Internal Medicine 05/24/20 Benja Moreno MD [address] [place] [address] Specialist Cardiology 02/11/24 documented as of this encounter
--- OUTSIDE RECORDS SUMMARY | 2025-09-18 13:17 | XMS_ITS | Encounter Summary ---
Author Organization [facility] Address [address] [place] [address] Care Team Providers Care Javascript Developer Name Role Phone Nirmal Washington MD Primary Care Provider [phone] Benja Moreno MD Unavailable Reason for Visit * Reason Onset Date Comments Provider Call Back 06/07/2021 Encounter Details Date Type Department Care Team Description 06/07/2021 Telephone Gastroenterology - [address] [place] [address] Montserrat Swann MD Provider Call Back Social History Tobacco Use Types Packs/Day Years [...] or suspected to have Coronavirus / COVID-19? Unable to assess 06/09/2021 7:47 AM EDT documented as of this encounter Miscellaneous Notes * Telephone Encounter - Tony Aguirre MD - 06/07/2021 4:02 PM EDT Please set audio encounter today or tomorrow to call her and discuss. * Telephone Encounter - Maria L Leon M.A. - 06/07/2021 2:13 PM EDT This was prescribed by Dr.De Barraza , will route to Pulmo * Telephone Encounter - Rosa Causey - 06/07/2021 12:31 PM EDT Pt calling in states she has stopped taking prednisone and has been having a lot of pain and has also been vomiting Call pt at [phone] Thanks documented in this encounter Plan of Treatment Not on file documented as of this encounter Visit Diagnoses Not on filedocumented in this encounter Care Teams Javascript Developer Relationship Specialty Start Date End Date Nirmal Washington MD [address] [place] [address] PCP - General Internal Medicine 05/24/20 Benja Moreno MD [address] [place] [address] Specialist Cardiology 02/11/24 documented as of this encounter
--- OUTSIDE RECORDS SUMMARY | 2025-09-18 13:18 | XMS_ITS | Encounter Summary ---
Author Organization [facility] Address [address] [place] [address] Care Team Providers Care Shade Matcher Name Role Phone Stevenson Gurrola MD Primary Care Provider Unavail able Nirmal Washington MD Primary Care Provider [phone] Benja Moreno MD Unavailable Encounter Details Date Type Department Care Team Description 05/09/2017 Analytical Lab Analyst Report Medical Records [address] [place] [address] Abstract, Provider Social History Tobacco Use Types [...] on filedocumented in this encounter Care Teams Shade Matcher Relationship Specialty Start Date End Date Stevenson Gurrola MD PCP - General 09/25/1999 05/23/20 Nirmal Washington MD [address] [place] [address] [phone] PCP - General Internal Medicine 05/24/20 Benja Moreno MD [address] [place] [address] Specialist Cardiology 02/11/24 documented as of this encounter
--- OUTSIDE RECORDS SUMMARY | 2025-09-18 13:18 | XMS_ITS | Encounter Summary ---
Author Organization [facility] Address [address] [place] [address] Care Team Providers Care Interactive Media Marketing Strategist Name Role Phone Stevenson Gurrola MD Primary Care Provider Unavail Nirmal Smart MD Primary Care Provider [phone] Benja Moreno MD Unavailable Reason for Visit * Reason Onset Date Comments TEST RESULTS 06/14/2017 Encounter Details Date Type Department Care Team Description 06/14/2017 Telephone Adult Medicine [address] [address] Chiara Gupta PA TEST RESULTS Social History [...] Miscellaneous Notes * Telephone Encounter - Chiara Gray PA-C - 06/14/2017 11:04 AM EDT Notified via My Chart. * Telephone Encounter - Livia Calzada C.M.A. - 06/14/2017 9:12 AM EDT Chiara patient is requesting lab results. Please advise * Telephone Encounter - Mary Hagen - 06/14/2017 9:09 AM EDT Inform patient: ANY URGENT OR ABNORMAL RESULTS WIILL RESULT IN A CALL BACK TO THE PATIENT QUINTEN. Type of test: :labs Date test was performed: 06-12-2017 Where was the test performed: [facility] Who ordered this test?: chiara gray Is the doctor here today?: YES Can the message wait until the doctor returns?: NO IF PATIENT'S PCP IS NOT IN INSTRUCT PATIENT THAT THEY WILL RECEIVE A CALL BACK WHEN THE PCP IS IN THE OFFICE NEXT. documented in this encounter Plan of Treatment Not on file documented as of this encounter Visit Diagnoses Not on filedocumented in this encounter Care Teams Interactive Media Marketing Strategist Relationship Specialty Start Date End Date Stevenson Gurrola MD PCP - General 09/25/1999 05/23/20 Nirmal Washington MD [address] [place] [address] PCP - General Internal Medicine 05/24/20 Benja Moreno MD [address] [place] [address] Specialist Cardiology 02/11/24 documented as of this encounter
--- OUTSIDE RECORDS SUMMARY | 2025-09-18 13:18 | XMS_ITS | Encounter Summary ---
Author Organization [facility] Address [address] [place] [address] Care Team Providers Care Instructor Product Inspection Name Role Phone Stevenson Gurrola MD Primary Care Provider Unavail able Nirmal Washington MD Primary Care Provider [phone] Benja Moreno MD Unavailable Reason for Visit * Reason Onset Date Comments Wound Infection 06/04/2017 mohsen watson over the weekend Encounter Details Date Type Department Care Team Description 06/04/2017 Telephone Adult Medicine [address] [phone] Anastasiya Tijerina MD [address] [place] [address] [phone] Wound Infection (mohsen watson over the weekend) Social History Tobacco Use Types Packs/Day Years [...] encounter Miscellaneous Notes * Telephone Encounter - Cielo Sheffield L.P.N. - 06/04/2017 8:54 AM EDT Outreach call to pt to check status of wound/abcess per dr Tijerina. Pt needs to be seen by surgery eddie. Pt reports she went to [facility] yesterday Sunday and had the wound drained and packed atb was changed from Keflex to Doxycycline. Pt to call office as needed if has any questions or concerns. FYI to dr Tijerina documented in this encounter Plan of Treatment Not on file documented as of this encounter Visit Diagnoses Not on filedocumented in this encounter Care Teams Instructor Product Inspection Relationship Specialty Start Date End Date Stevenson Gurrola MD PCP - General 09/25/1999 05/23/20 Nirmal Washington MD [address] [place] [address] PCP - General Internal Medicine 05/24/20 Benja Moreno MD [address] [place] [address] Specialist Cardiology 02/11/24 documented as of this encounter
--- OUTSIDE RECORDS SUMMARY | 2025-09-18 13:18 | XMS_ITS | Encounter Summary ---
Author Organization [facility] Address [address] [place] [address] Care Team Providers Care Ux Research Associate Name Role Phone Stevenson Gurrola MD Primary Care Provider Unavail able Nirmal Washington MD Primary Care Provider [phone] Benja Moreno MD Unavailable Encounter Details Date Type Department Care Team Description 05/10/2005 Orders Only OBGYN - [place] [address] [place] [address] Chastity Fatima CNM OTHER SPECIFIED SCREENING; HEMATURIA Social History Tobacco Use Types Packs/Day Years Used Date Smoking Tobacco: Never Assessed Sex Assigned at Date Recorded Female 01/26/2022 3:[address] Job Start Date Occupation Industry Not on file Not on file Not on file documented as of this encounter Plan of Treatment Not on file documented as of this encounter Procedures Procedure Name Priority Date/Time Associated Diagnosis Comments URINE, CULTURE Routine 05/10/2005 3:31 PM EDT Other Specified Screening Hematuria documented in this encounter Results * URINE, CULTURE (05/10/2005 3:31 PM EDT) URINE CULTURE No Growth after 2 days [facility] 05/10/2005 3:31 PM EDT 05/10/2005 3:32 PM EDT Chastity Fatima CNM LAB [facility] [employer] documented in this encounter Visit Diagnoses Diagnosis Other screening Other specified screening Hematuria documented in this encounter Care Teams Ux Research Associate Relationship Specialty Start Date End Date Stevenson Gurrola MD PCP - General 09/25/1999 05/23/20 Nirmal Washington MD [address] [place] [address] PCP - General Internal Medicine 05/24/20 Benja Moreno MD [address] [place] [address] Specialist Cardiology 02/11/24 documented as of this encounter
--- OUTSIDE RECORDS SUMMARY | 2025-09-18 13:18 | XMS_ITS | Encounter Summary ---
Author Organization [facility] Address [address] [place] [address] Care Team Providers Care Practicing Md Anesthesiologist Name Role Phone Stevenson Gurrola MD Primary Care Provider Unavail able Nirmal Washington MD Primary Care Provider [phone] Benja Moreno MD Unavailable Encounter Details Date Type Department Care Team Description 04/10/2005 Orders Only Medical [address] [place] [id number] Stevenson Gurrola MD UNSPECIFIED ACQUIRED HYPOTHYROIDISM (Primary Dx) Social History Tobacco Use Types Packs/Day Years Used Date Smoking Tobacco: Never Assessed Sex Assigned at Date Recorded Female 01/26/2022 3:[address] Job Start Date Occupation Industry Not on file Not on file Not on file documented as of this encounter Plan of Treatment Scheduled Orders Name Type Priority Associated Diagnoses Orde r Schedule VENIPUNCTURE Lab Routine Unspecified Acquired Hypothyroidism Ordered: 04/10/2005 documented as of this encounter Procedures Procedure Name Priority Date/Time Associated Diagnosis Comments FREE THYROXINE (T4) NON CASCAD Routine 04/10/2005 10:09 AM EDT THYROID PROFILE W/TSH Routine 04/10/2005 10:09 AM EDT Unspecified Acquired Hypothyroidism documented in this encounter Results * FREE THYROXINE (T4) NON CASCAD (04/10/2005 10:09 AM EDT) FREE T4 CASCADE 1.05 0.70 - 1.80 ng/dL [facility] 04/10/2005 10:0 9 AM EDT 04/10/2005 10:10 AM EDT Stevenson Gurrola MD LAB [facility] * (ABNORMAL) THYROID PROFILE W/TSH (04/10/2005 10:09 AM EDT) TSH CASCADE 5.88(H) 0.40 - 4.00 uIU/ml [facility] 04/10/2005 10:0 9 AM EDT 04/10/2005 10:10 AM EDT Stevenson Gurrola MD LAB Performing Organization Address City/[facility]/ZIP Co de Phone Number [facility] documented in this encounter Visit Diagnoses Diagnosis Unspecified hypothyroidism- Primary documented in this encounter Care Teams Practicing Md Anesthesiologist Relationship Specialty Start Date End Date Stevenson Gurrola MD PCP - General 09/25/1999 05/23/20 Nirmal Washington MD [address] [place] [id number] PCP - General Internal Medicine 05/24/20 Benja Moreno MD [address] [place] [id number] Specialist Cardiology 02/11/24 documented as of this encounter
--- OUTSIDE RECORDS SUMMARY | 2025-09-18 13:18 | XMS_ITS | Encounter Summary ---
Author Organization [facility] Address [address] [place] [address] Care Team Providers Care Transition Of Care Specialist Name Role Phone Stevenson Gurrola MD Primary Care Provider Unavail able Nirmal Washington MD Primary Care Provider [phone] Benja Moreno MD Unavailable Encounter Details Date Type Department Care Team Description 04/16/2017 SCAN Medical Records [address] [place] [phone] Abstract, Provider Social History Tobacco Use Types [...] Name Priority Date/Time Associated Diagnosis Comments OUTSIDE CT Routine 04/11/2017 OUTSIDE LAB Routine 04/11/2017 documented in this encounter Results * OUTSIDE CT (04/11/2017) Provider Abstract RADIOLOGY * OUTSIDE LAB (04/11/2017) Provider Abstract LAB documented in this encounter Visit Diagnoses Not on filedocumented in this encounter Care Teams Transition Of Care Specialist Relationship Specialty Start Date End Date Stevenson Gurrola MD PCP - General 09/25/1999 05/23/20 Nirmal Washington MD [address] [place] [phone] PCP - General Internal Medicine 05/24/20 Benja Moreno MD [address] [place] [phone] Specialist Cardiology 02/11/24 documented as of this encounter
--- OUTSIDE RECORDS SUMMARY | 2025-09-18 13:18 | XMS_ITS | Encounter Summary ---
Author Organization [facility] Address [address] [place] [address] Care Team Providers Care Wholesale And Retail Merchant Name Role Phone Stevenson Gurrola MD Primary Care Provider Unavail able Nirmal Washington MD Primary Care Provider [phone] Benja Moreno MD Unavailable Encounter Details Date Type Department Care Team Description 04/28/2005 Orders Only OBGYN - [place] [address] [place] [address] [phone] Chastity Fatima CNM OTHER SPECIFIED SCREENING (Primary Dx) Social History Tobacco Use Types Packs/Day Years Used Date Smoking Tobacco: Never Assessed Sex Assigned at Date Recorded Female 01/26/2022 3:[address] Job Start Date Occupation Industry Not on file Not on file Not on file documented as of this encounter Plan of Treatment Scheduled Orders Name Type Priority Associated Diagnoses Orde r Schedule VENIPUNCTURE Lab Routine Other Specified Screening Ordered: 04/28/2005 documented as of this encounter Procedures Procedure Name Priority Date/Time Associated Diagnosis Comments MATERNAL QUAD MARKER Routine 04/28/2005 8:41 AM EDT Other Specified Screening documented in this encounter Results * MATERNAL QUAD MARKER (04/28/2005 8:41 AM EDT) INTERPRETATION : [facility] Comment:Screen Negative for Open NTD, DS, and Trisomy 18. [facility] ONTD RISK 1 IN: <1:5000 [facility] AGE RISK DS 1 IN: 1:467 [facility] NOE DS RISK 1 IN: 1:4200 <1:270 [facility] NOE TRISOMY 18 RISK <1:5000 <1:100 [facility] MSAFP 26.00 NG/ML [facility] MSAFP MOM 0.91 [facility] AFP EXPECTED LEVELS : [facility] Comment: Carrion Less Than 2.5 MOM Twin Less Than 4.0 MOM Triplet Less Than 4.5 MOM ESTRIOL, UNCONJUGATED 2.14 NG/ML [facility] ESTRIOL,MOM 0.86 [facility] hCG 20.66 IU/ML [facility] HCG,MOM 0.93 [facility] INHIBIN 77.32 PG/ML [facility] INHIBIN,MOM 0.54 [facility] COMMENT : [facility] GESTATIONAL AGE 16.3 Weeks [facility] MATERNAL AGE AT DUE DATE 5 [facility] DATING METHOD US [facility] WEIGHT 195 LBS [facility] RACE White [facility] INSULIN-DEPENDENT No [facility] REPEAT SPECIMEN No [facility] MULTIPLE GESTATION 1 [facility] FAMILY HISTORY OF NTD No [facility] PATIENT DATE OF 2 [facility] MATERNAL QUAD SCREEN COMMENT : [facility] Comment: This is a screening test, not a diagnostic test. This riskassessment report is based in part on demographic data pro- vided by the ordering physician. Please notify the lab promptly if any data is incorrect. For assistance with re-calculations, please call the laboratory @ [phone]. The FDA has not approved any testing reagent system for use in the estimation during of the risk of chromosomal abnormalities. Interpretive cut-offs Screen positive for open NTD: > or = 2.50 Adjusted MOM > or = 1.90 Adjusted MOM for Insulin- Dependent Diabetics > or = 4.00 Adjusted MOM for Twins > or = 4.50 Adjusted MOM for Triplets Screen positive for Down Syndrome: Quad Down Syndrome Risk that equals or exceeds 1 in 270. Screen positive for Trisomy 18: Quad Trisomy 18 Risk that equals or exceeds 1 in 100. Test performed @ [facility], [place], [place] 04/28/2005 8:41 AM EDT 04/28/2005 8:43 AM EDT Chastity Fatima CNM LAB [facility] documented in this encounter Visit Diagnoses Diagnosis Other screening- Primary Other specified screening documented in this encounter Care Teams Wholesale And Retail Merchant Relationship Specialty Start Date End Date Stevenson Gurrola MD PCP - General 09/25/1999 05/23/20 Nirmal Washington MD [address] [place] [id number] PCP - General Internal Medicine 05/24/20 Benja Moreno MD [address] [place] [phone] Specialist Cardiology 02/11/24 documented as of this encounter
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
--- OUTSIDE RECORDS SUMMARY | 2025-09-18 13:19 | XMS_ITS | Encounter Summary ---
Author Organization [facility] Address [address] [place] [address] Care Team Providers Care Planograph Operator Name Role Phone Nirmal Washington MD Primary Care Provider [phone] Benja Moreno MD Unavailable Reason for Visit * Reason Comments E-prescribe Rx Request Encounter Details Date Type Department Care Team Description 04/01/2023 Refill Gastroenterology - [address] [place] [phone] Chele Torres PA-C E-prescribe Rx Request [...] suspected to have Coronavirus/COVID-19? No / Unsure 03/15/2023 9:07 AM EDT documented as of this encounter Miscellaneous Notes * Telephone Encounter - Maria L Leon M.A. - 04/02/2023 11:26 AM EDT Ishmael 03/15/2023 Nov - 06/11/2023 documented in this encounter Plan of Treatment Not on file documented as of this encounter Visit Diagnoses Not on filedocumented in this encounter Care Teams Planograph Operator Relationship Specialty Start Date End Date Nirmal Washington MD [address] [place] [address] PCP - General Internal Medicine 05/24/20 Benja Moreno MD [address] [place] [address] Specialist Cardiology 02/11/24 documented as of this encounter
--- OUTSIDE RECORDS SUMMARY | 2025-09-18 13:19 | XMS_ITS | Encounter Summary ---
Author Organization [facility] Address [address] [place] [address] Care Team Providers Care Manager Data Warehousing Name Role Phone Stevenson Gurrola MD Primary Care Provider Unavail able Nirmal Washington MD Primary Care Provider [phone] Benja Moreno MD Unavailable Reason for Visit * Reason Onset Date Comments Appointment Cancelled 09/30/2018 Encounter Details Date Type Department Care Team Description 09/30/2018 Telephone Internal Medicine - [place] [address] [facility], [address] [place] [address] Lavonne Mendenhall, RD, LDN [address] [facility] [place] [address] [place] [address] Appointment Cancelled Social History Tobacco Use Types Packs/Day Years [...] encounter Miscellaneous Notes * Telephone Encounter - Rashmi Robert - 09/30/2018 11:48 AM EST Spoke to pt informed Medicare will not cover nutrition visit with DX IBS-offered out of pocket costof $360.-pt said to canc appt PB 09/30/18 documented in this encounter Plan of Treatment Not on file documented as of this encounter Visit Diagnoses Not on filedocumented in this encounter Care Teams Manager Data Warehousing Relationship Specialty Start Date End Date Stevenson Gurrola MD PCP - General 09/25/1999 05/23/20 Nirmal Washington MD [address] [place] [address] PCP - General Internal Medicine 05/24/20 Benja Moreno MD [address] [place] [address] Specialist Cardiology 02/11/24 documented as of this encounter
--- OUTSIDE RECORDS SUMMARY | 2025-09-18 13:19 | XMS_ITS | Encounter Summary ---
Author Organization [facility] Address [address] [place] [address] Care Team Providers Care Life Skills Coordinator Volunteer Name Role Phone Stevenson Gurrola MD Primary Care Provider Unavail able Nirmal Washington MD Primary Care Provider [phone] Benja Moreno MD Unavailable Encounter Details Date Type Department Care Team Description 12/05/2010 Night Triage Doc Medical Records [address] [place] [address] Abstract, Provider Social History Tobacco Use Types Packs/Day Years Used Date Smoking Tobacco: Every Day Cigarettes 0.5 Alcohol Use Standard Drinks/Week Comments No 0 [...] on filedocumented in this encounter Care Teams Life Skills Coordinator Volunteer Relationship Specialty Start Date End Date Stevenson Gurrola MD PCP - General 09/25/1999 05/23/20 Nirmal Washington MD [address] [place], [place] [address] PCP - General Internal Medicine 05/24/20 Benja Moreno MD [address] [place], [place] [address] Specialist Cardiology 02/11/24 documented as of this encounter
--- OUTSIDE RECORDS SUMMARY | 2025-09-18 13:19 | XMS_ITS | Encounter Summary ---
Author Organization [facility] Address [address] [place] [address] Care Team Providers Care Paperback Machine Operator Name Role Phone Nirmal Washington MD Primary Care Provider [phone] Benja Moreno MD Unavailable Encounter Details Date Type Department Care Team Description 07/05/2023 Telephone Gastroenterology - [address] [place] [phone] Chele Torres PA-C Social History Tobacco [...] suspected to have Coronavirus/COVID-19? No / Unsure 07/05/2023 7:46 AM EDT documented as of this encounter Miscellaneous Notes * Telephone Encounter - Chele Torres PA-C - 07/05/2023 4:36 PM EDT Tell patient that she just needs to watch her dietary intake that will help decrease the fat in theliver. In regards to her spleen, we will just continue to keep an eye on it * Telephone Encounter - Chele Torres PA-C - 07/05/2023 4:36 PM EDT ----- Message from Maria L Leon M.A. sent at 07/05/2023 2:56 PM EDT ----- Regarding: FW: Recent ultrasound Contact: ----- Message ----- From: Ana Vance Sent: 07/05/2023 1:25 PM EDT To: Gi Clinical Team Subject: Recent ultrasound Hello Miss Elaine, I am just trying to figure out him what???s going on and I think that there was also my spleen was more enlarged than the last time when they compared the pictures and they said something about my pancreas I???m not sure what you???re talking about there and then they all of them for my cholesterol and everything I push all the way over there like all way too high. Is there anything that I should be taking that can help me for them to go down before any trouble happens? documented in this encounter Plan of Treatment Not on file documented as of this encounter Visit Diagnoses Not on filedocumented in this encounter Care Teams Paperback Machine Operator Relationship Specialty Start Date End Date Nirmal Washington MD [address] [place] [address] PCP - General Internal Medicine 05/24/20 Benja Moreno MD [address] [place] [address] Specialist Cardiology 02/11/24 documented as of this encounter
--- OUTSIDE RECORDS SUMMARY | 2025-09-18 13:19 | XMS_ITS | Encounter Summary ---
Author Organization [facility] Address [address] [place] [address] Care Team Providers Care Power Crane Operator Name Role Phone Nirmal Washington MD Primary Care Provider [phone] Benja Moreno MD Unavailable Reason for Visit * Reason Onset Date Comments Faxed Refill 04/30/2023 Encounter Details Date Type Department Care Team Description 04/30/2023 Refill Gastroenterology - [address] [place] [phone] Donal Coker PA-C Faxed Refill Social History Tobacco Use Types [...] suspected to have Coronavirus/COVID-19? No / Unsure 04/25/2023 4:07 PM EDT documented as of this encounter Miscellaneous Notes * Telephone Encounter - Koki Washington - 04/30/2023 2:46 PM EDT Ishmael 03/15/23 Nov 06/28/23 aurora documented in this encounter Plan of Treatment Not on file documented as of this encounter Visit Diagnoses Not on filedocumented in this encounter Care Teams Power Crane Operator Relationship Specialty Start Date End Date Nirmal Washington MD [address] [place] [address] PCP - General Internal Medicine 05/24/20 Benja Moreno MD [address] [place] [address] Specialist Cardiology 02/11/24 documented as of this encounter
--- OUTSIDE RECORDS SUMMARY | 2025-09-18 13:19 | XMS_ITS | Encounter Summary ---
Author Organization [facility] Address [address] [place] [address] Care Team Providers Care Fiberglass Boat Assembly Supervisor Name Role Phone Nirmal Washington MD Primary Care Provider [phone] Benja Moreno MD Unavailable Reason for Visit * Reason Onset Date Comments Medication 04/12/2022 Encounter Details Date Type Department Care Team Description 04/12/2022 Refill Gastroenterology - [address] [place] [phone] Montserrat Swann MD Medication Social History Tobacco Use Types Packs/Day [...] suspected to have Coronavirus/COVID-19? No / Unsure 03/13/2022 10:55 AM EDT documented as of this encounter Miscellaneous Notes * Telephone Encounter - Rosa Causey - 04/14/2022 9:40 AM EDT Pt calling in asking for rx for moviprep to be sent to [id number] - [place], [place] [address] [facility] Please advise Thanks documented in this encounter Plan of Treatment Not on file documented as of this encounter Visit Diagnoses Not on filedocumented in this encounter Care Teams Fiberglass Boat Assembly Supervisor Relationship Specialty Start Date End Date Nirmal Washington MD [address] [place] [address] PCP - General Internal Medicine 05/24/20 Benja Moreno MD [address] [place] [address] Specialist Cardiology 02/11/24 documented as of this encounter
--- OUTSIDE RECORDS SUMMARY | 2025-09-18 13:19 | XMS_ITS | Encounter Summary ---
Author Organization [facility] Address [address] [place] [address] Care Team Providers Care Emt Name Role Phone Nirmal Washington MD Primary Care Provider [phone] Benja Moreno MD Unavailable Reason for Visit * Reason Onset Date Comments Medication 04/21/2022 Encounter Details Date Type Department Care Team Description 04/21/2022 Refill Gastroenterology [address] [place] [phone] Montserrat Swann MD Medication Social History [...] suspected to have Coronavirus/COVID-19? No / Unsure 04/19/2022 10:31 AM EDT documented as of this encounter Plan of Treatment Not on file documented as of this encounter Visit Diagnoses Not on filedocumented in this encounter Care Teams Emt Relationship Specialty Start Date End Date Nirmal Washington MD [address] [place] [address] PCP - General Internal Medicine 05/24/20 Benja Moreno MD [address] [place] [address] Specialist Cardiology 02/11/24 documented as of this encounter
--- OUTSIDE RECORDS SUMMARY | 2025-09-18 13:19 | XMS_ITS | Encounter Summary ---
Author Organization [facility] Address [address] [place] [address] Care Team Providers Care Bar Assistant Name Role Phone Nirmal Washington MD Primary Care Provider [phone] Benja Moreno MD Unavailable Encounter Details Date Type Department Care Team Description 06/14/2022 Pt. Non Urgent Medical Question Vascular Surgery - [place] [address] [facility] [address] [place] [phone] Conchita Trevino PA-C [address] [facility] [address] [place] [phone] Social History Tobacco Use Types Packs/Day [...] suspected to have Coronavirus/COVID-19? No / Unsure 05/22/2022 1:50 PM EDT documented as of this encounter Miscellaneous Notes * Telephone Encounter - Gatito Whatley M.A. - 06/14/2022 2:55 PM EDTFrom: Ana M Rajiv To: Teto Suttone Sent: 06/14/2022 1:08 PM EDT Subject: Ana Vance I am writing today through my chart because I had my appointment yesterday to get my legs tested I had an appointment before but they had to reschedule which came to yesterday and at that time I had to call the office here and make another appointment so the lady we made it all the way for July because we didn???t know when I would be going to get the test done and she said once I got the test done to call and they could push the appointment up while I try and the lady wasn???t listening was trying to explain to her so I ended up hanging up on her so now I???m going through the my chart to see if her nurse could call me I???m not planning on waiting until July to get the results for my legs when things can be done and looked at a lot sooner even if it was v irtual over the phoneeither way I don???t care I just want to know what???s going on and I wanted to know to if it was going on with Pepitoeliedilan once she seen it my number is reached at is [phone] my name is Ana Vance and my date of is 9872 Thank you for your time I appreciate it documented in this encounter Plan of Treatment Not on file documented as of this encounter Visit Diagnoses Not on filedocumented in this encounter Care Teams Bar Assistant Relationship Specialty Start Date End Date Nirmal Washington MD [address] [place] [address] PCP - General Internal Medicine 05/24/20 Benja Moreno MD [address] [place] [address] Specialist Cardiology 02/11/24 documented as of this encounter
--- OUTSIDE RECORDS SUMMARY | 2025-09-18 13:19 | XMS_ITS | Encounter Summary ---
Author Organization [facility] Address [address] [place] [address] Care Team Providers Care Trestle Mechanic Name Role Phone Stevenson Gurrola MD Primary Care Provider Unavail able Nirmal Washington MD Primary Care Provider Benja Moreno MD Unavailable Reason for Visit * Reason Comments E-prescribe Rx Request Encounter Details Date Type Department Care Team Description 04/05/2018 Refill Gastroenterology - [address] [address] Sagar Dangelo MD E-prescribe Rx Request Social History Tobacco Use [...] encounter Miscellaneous Notes * Telephone Encounter - Migdalia Vazquez C.M.A. - 04/05/2018 3:02 PM EDT Please review. documented in this encounter Plan of Treatment Not on file documented as of this encounter Visit Diagnoses Diagnosis Chronic abdominal pain Abdominal pain, unspecified site documented in this encounter Care Teams Trestle Mechanic Relationship Specialty Start Date End Date Stevenson Gurrola MD PCP - General 09/25/1999 05/23/20 Nirmal Washington MD [address] [place] [address] PCP - General Internal Medicine 05/24/20 Benja Moreno MD [address] [place] [address] Specialist Cardiology 02/11/24 documented as of this encounter
--- OUTSIDE RECORDS SUMMARY | 2025-09-18 13:19 | XMS_ITS | Encounter Summary ---
Author Organization [facility] Address [address] [place] [address] Care Team Providers Care Flattening Press Operator Name Role Phone Nirmal Washington MD Primary Care Provider Benja Moreno MD Unavailable Reason for Visit * Reason Onset Date Comments Follow-up Appt Unavailable 02/18/2023 Encounter Details Date Type Department Care Team Description 02/18/2023 Telephone Pulmonology - [place] [address] [facility] [address] [place] [address] Elise Hernandez APRN [address] [facility] [address] [place] [address] Follow-up Appt Unavailable Social History Tobacco Use Types Packs/Day Years [...] suspected to have Coronavirus/COVID-19? No / Unsure 02/08/2023 10:52 AM EDT documented as of this encounter Plan of Treatment Not on file documented as of this encounter Visit Diagnoses Not on filedocumented in this encounter Care Teams Flattening Press Operator Relationship Specialty Start Date End Date Nirmal Washington MD [address] [place] [address] PCP - General Internal Medicine 05/24/20 Benja Moreno MD [address] [place] [address] Specialist Cardiology 02/11/24 documented as of this encounter
--- OUTSIDE RECORDS SUMMARY | 2025-09-18 13:19 | XMS_ITS | Encounter Summary ---
Author Organization [facility] Address [address] [place] [address] Care Team Providers Care Coal Crusher Operator Name Role Phone Stevenson Gurrola MD Primary Care Provider Unavail able Nirmal Washington MD Primary Care Provider [phone] Benja Moreno MD Unavailable Encounter Details Date Type Department Care Team Description 07/18/2005 Orders Only Medical [address] [place] [address] Chastity Fatima CNM OTHER SPECIFIED SCREENING (Primary [...] VENIPUNCTURE Lab Routine Other Specified Screening Ordered: 07/18/2005 documented as of this encounter Procedures Procedure Name Priority Date/Time Associated Diagnosis Comments CBC WITHOUT DIFF Routine 07/18/2005 12:4 9 PM EDT Other Specified Screening HEMOGLOBIN A1C Routine 07/18/2005 12:49 PM EDT Other Specified Screening CHG GLUCOSE QUANTITATIVE BLOOD XCPT REAGENT STRIP Routine 07/18/2005 12:49 PM EDT Other Specified Screening THYROID PROFILE W/TSH Routine 07/18/2005 12:49 PM EDT Other Specified Screening documented in this encounter Results * HEMOGLOBIN A1C (07/18/2005 12:49 PM EDT) GLYCOSYLATED HEMOGLOBIN A1C 4.9 4.0 - 6.0 % [facility] 07/18/2005 12:4 9 PM EDT 07/18/2005 12:50 PM EDT Chastity LabuTrack TV CNM LAB [facility] * GLUCOSE, BLOOD (07/18/2005 12:49 PM EDT) Pathologist [facility] GLUCOSE 101 70 - 110 mg/dL [facility] 07/18/2005 12:4 9 PM EDT 07/18/2005 12:50 PM EDT Chastity Labador CNM LAB [facility] * (ABNORMAL) CBC WITHOUT DIFF (07/18/2005 12:49 PM EDT) Pathologist [facility] WHITE BLOOD COUNT 9.1 4.8 - 10.8 x10-3 [facility] RED BLOOD COUNT 4.0 3.8 - 4.8 x10-6 [facility] Hemoglobin 12.2 12.0 - 15.0 g/dL [facility] Hematocrit 35.2(L) 36 - 46 % [facility] MEAN CORPUSCULAR VOLUME 87.3 79 - 98 fl [facility] MEAN CORPUSCULAR HEMOGLOBIN 30.3 27 - 32 pg [facility] MEAN CORPUSCULAR HGB CONC 34.7 32 - 37 g/dl [facility] RED CELL DISTRIBUTION WIDTH 13.4 11 - 15 % [facility] PLT COUNT 216 130 - 400 x10-3 [facility] 07/18/2005 12:4 9 PM EDT 07/18/2005 12:50 PM EDT Chastity Fatima CNM LAB Performing Organization Address City/[facility]/ZIP Co de Phone Number [facility] * THYROID PROFILE W/TSH (07/18/2005 12:49 PM EDT) TSH CASCADE 2.70 0.40 - 4.00 uIU/ml [facility] 07/18/2005 12:4 9 PM EDT 07/18/2005 12:50 PM EDT Chastity Fatima CNM LAB Performing Organization Address [facility] Co de Phone Number [facility] documented in this encounter Visit Diagnoses Diagnosis Other screening- Primary Other specified screening documented in this encounter Care Teams Coal Crusher Operator Relationship Specialty Start Date End Date Stevenson Gurrola MD PCP - General 09/25/1999 05/23/20 Nirmal Washington MD [address] [place] [address] PCP - General Internal Medicine 05/24/20 Benja Moreno MD [address] [place] [address] Specialist Cardiology 02/11/24 documented as of this encounter
--- OUTSIDE RECORDS SUMMARY | 2025-09-18 13:19 | XMS_ITS | Encounter Summary ---
Author Organization [facility] Address [address] [place] [address] Care Team Providers Care Batch Plant Supervisor Name Role Phone Nirmal Washington MD Primary Care Provider [phone] Benja Moreno MD Unavailable Reason for Visit * Reason Comments E-prescribe Rx Request Encounter Details Date Type Department Care Team Description 04/22/2022 Refill Gastroenterology - [address] [place] [phone] Chele Torres PA-C E-prescribe Rx Request [...] * Telephone Encounter - Taylor Fallon - 04/25/2022 8:12 AM EDT [place]: 02/08/2022 upcoming appointment: 05/09/2022 90 Day supply documented in this encounter Plan of Treatment Not on file documented as of this encounter Visit Diagnoses Not on filedocumented in this encounter Care Teams Batch Plant Supervisor Relationship Specialty Start Date End Date Nirmal Washington MD [address] [place] [address] PCP - General Internal Medicine 05/24/20 Benja Moreno MD [address] [place] [address] Specialist Cardiology 02/11/24 documented as of this encounter
--- OUTSIDE RECORDS SUMMARY | 2025-09-18 13:19 | XMS_ITS | Encounter Summary ---
Author Organization [facility] Address [address] [place] [address] Care Team Providers Care Battery Tester Field Name Role Phone [place] Gurrola MD Primary Care Provider Unavail able Nirmal Washington MD Primary Care Provider [phone] Benja Moreno MD Unavailable Reason for Visit * Reason Comments E-prescribe Rx Request Encounter Details Date Type Department Care Team Description 07/30/2018 Refill Gastroenterology - [address] [address] Sagar Dangelo MD E-prescribe Rx Request Social [...] Telephone Encounter - Migdalia Vazquez C.M.A. - 07/30/2018 8:44 AM EDT Please review. Last appointment 05/2018. documented in this encounter Plan of Treatment Not on file documented as of this encounter Visit Diagnoses Diagnosis Fibromyalgia Mylagia and myositis, unspecified Trochanteric bursitis of right hip Enthesopathy of hip region documented in this encounter Care Teams Battery Tester Field Relationship Specialty Start Date End Date [place] Gurrola MD PCP - General 09/25/1999 05/23/20 Nirmal Washington MD [address] [place] [address] PCP - General Internal Medicine 05/24/20 Benja Moreno MD [address] [place] [address] Specialist Cardiology 02/11/24 documented as of this encounter
--- OUTSIDE RECORDS SUMMARY | 2025-09-18 13:19 | XMS_ITS | Encounter Summary ---
Author Organization [facility] Address [address] [place] [address] Care Team Providers Care Inspector Optical Instrument Name Role Phone Nirmal Washington MD Primary Care Provider Benja Moreno MD Unavailable Reason for Visit * Reason Comments E-prescribe Rx Request Encounter Details Date Type Department Care Team Description 05/26/2023 Refill Pulmonology - [place] [facility] [address] [place] [phone] Elise Hernandez APRN [address] [facility] [address] [place] [phone] E-prescribe Rx Request Social History Tobacco Use [...] encounter Visit Diagnoses Diagnosis Moderate persistent asthma with acute exacerbation documented in this encounter Care Teams Inspector Optical Instrument Relationship Specialty Start Date End Date Nirmal Washington MD [address] [place] [address] PCP - General Internal Medicine 05/24/20 Benja Moreno MD [address] [place] [address] Specialist Cardiology 02/11/24 documented as of this encounter
--- OUTSIDE RECORDS SUMMARY | 2025-09-18 13:19 | XMS_ITS | Encounter Summary ---
Author Organization [facility] Address [address] [place] [address] Care Team Providers Care Commercial Lease Administrator Name Role Phone [place] Gurrola MD Primary Care Provider Unavail able Nirmal Washington MD Primary Care Provider [phone] Benja Moreno MD Unavailable Encounter Details Date Type Department Care Team Description 12/21/2017 Rewinder Report Medical Records [address] [place] [address] Lena Sneed Social History Tobacco Use Types Packs/Day Years [...] on filedocumented in this encounter Care Teams Commercial Lease Administrator Relationship Specialty Start Date End Date [place] Gurrola MD PCP - General 09/25/1999 05/23/20 Nirmal Washington MD [address] [place] [address] PCP - General Internal Medicine 05/24/20 Benja Moreno MD [address] [place] [address], [place] [address] Specialist Cardiology 02/11/24 documented as of this encounter
--- OUTSIDE RECORDS SUMMARY | 2025-09-18 13:19 | XMS_ITS | Encounter Summary ---
Author Organization [facility] Address [address] [place] [address] Care Team Providers Care Tobacco Buyer Name Role Phone Nirmal Washington MD Primary Care Provider [phone] Benja Moreno MD Unavailable Reason for Visit * Reason Onset Date Comments Medical Records 02/08/2022 Encounter Details Date Type Department Care Team Description 02/08/2022 Telephone Gastroenterology - [address] [place] [address] Chele Torres PA-C Medical Records Social History Tobacco Use Types Packs/Day Years [...] have Coronavirus / COVID-19? Unable to assess 02/08/2022 7:25 AM EDT documented as of this encounter Miscellaneous Notes * Telephone Encounter - Chele Torres PA-C - 02/13/2022 4:14 PM EDT Thanks for the info. * Telephone Encounter - Taylor Fallon - 02/13/2022 2:50 PM EDT Records in your bin for review. * Telephone Encounter - Taylor Fallon - 02/08/2022 9:10 AM EDT Faxed request of records to [phone]. * Telephone Encounter - Chele Torres PA-C - 02/08/2022 8:53 AM EDT Patient was recently seen at [facility] in the last 2 to 3 weeks and had been diagnosedwith colitis. Please obtain labs, CT as well as discharge summary if available. Thank you documented in this encounter Plan of Treatment Not on file documented as of this encounter Visit Diagnoses Not on filedocumented in this encounter Care Teams Tobacco Buyer Relationship Specialty Start Date End Date Nirmal Washington MD [address] [place] [address] PCP - General Internal Medicine 05/24/20 Benja Moreno MD [address] [place] [address] Specialist Cardiology 02/11/24 documented as of this encounter
--- OUTSIDE RECORDS SUMMARY | 2025-09-18 13:19 | XMS_ITS | Encounter Summary ---
Author Organization [facility] Address [address] [place] [address] Care Team Providers Care Wooden Furniture Polisher Name Role Phone [place] Gurrola MD Primary Care Provider Unavail able Nirmal Washington MD Primary Care Provider [phone] Benja Moreno MD Unavailable Encounter Details Date Type Department Care Team Description 05/30/2018 Refill Gastroenterology - [address] [phone] Sagar Dangelo MD Social History Tobacco Use [...] encounter Miscellaneous Notes * Telephone Encounter - Annalisa Lindquist L.P.N. - 05/30/2018 11:38 AM EDT Pt called back after speaking with her pharmacy. This script Only lasts 2 weeks so she has it filled twice a mo that is why she has NO refills left after 6 mos * Telephone Encounter - Annalisa Lindquist L.P.N. - 05/30/2018 11:29 AM EDT Spoke w/ pt she is checking w/ her pharmacy & will call me back/dg * Telephone Encounter - Samaria Stacy - 05/30/2018 11:23 AM EDT Patient requesting refill documented in this encounter Plan of Treatment Not on file documented as of this encounter Visit Diagnoses Not on filedocumented in this encounter Care Teams Wooden Furniture Polisher Relationship Specialty Start Date End Date [place] Gurrola MD PCP - General 09/25/1999 05/23/20 Nirmal Washington MD [address] [place] [address] PCP - General Internal Medicine 05/24/20 Benja Moreno MD [address] [place] [address] Specialist Cardiology 02/11/24 documented as of this encounter
--- OUTSIDE RECORDS SUMMARY | 2025-09-18 13:19 | XMS_ITS | Encounter Summary ---
Author Organization [facility] Address [address] [place] [address] Care Team Providers Care Public Health Program Manager Name Role Phone [place] Gurrola MD Primary Care Provider Unavail able Nirmal Washington MD Primary Care Provider [phone] Benja Moreno MD Unavailable Encounter Details Date Type Department Care Team Description 10/25/2018 Hazardous Substances Scientist Report Medical Records [address] [place] [address] Alistair Mendieta Social History Tobacco Use Types Packs/Day Years [...] on filedocumented in this encounter Care Teams Public Health Program Manager Relationship Specialty Start Date End Date [place] Gurrola MD PCP - General 09/25/1999 05/23/20 Nirmal Washington MD [address] [place] [id number] PCP - General Internal Medicine 05/24/20 Benja Moreno MD [address] [place] [address] Specialist Cardiology 02/11/24 documented as of this encounter
--- OUTSIDE RECORDS SUMMARY | 2025-09-18 13:19 | XMS_ITS | Encounter Summary ---
Author Organization [facility] Address [address] [place] [address] Care Team Providers Care Trap Operator Name Role Phone Nirmal Washington MD Primary Care Provider [phone] Benja Moreno MD Unavailable Encounter Details Date Type Department Care Team Description 07/09/2023 Telephone Gastroenterology - [address] [place] [phone] Chele Torres PA-C Social History Tobacco [...] Telephone Encounter - Chele Torres PA-C - 07/11/2023 11:50 AM EDT It is included in the ultrasound of the liver * Telephone Encounter - Taylor Fallon - 07/11/2023 11:48 AM EDT Spoke to the patient and gave information. Patient would just like to add spleen to the next ultrasound if possible, thanks. * Telephone Encounter - Chele Torres PA-C - 07/09/2023 5:01 PM EDT Pls let pt know that the fatty liver can be caused by changes in weight as wella s diabetes and medications. We will continue to monitor every 6 months * Telephone Encounter - Chele Torres PA-C - 07/09/2023 5:01 PM EDT ----- Message from Chiara Mcmanus sent at 07/09/2023 4:19 PM EDT ----- Regarding: FW: diet Contact: ----- Message ----- From: Ana Vance Sent: 07/06/2023 2:47 PM EDT To: Gi Clinical Team Subject: diet Can you please let Miss Bernal know I don???t eat fatty foods I don???t eat beef I don???t eat pork Iair jones all my food I eat, poultry I eat seafood, and I eat vegetables believe it or not so I???m not understanding you know with the fat, you know it watch out what you???re eating because I stay away from that stuff but my concern is my spleen so in six months, can you please find out from her insix months when she checked my liver, she could check my spleen to please. I???m gonna go put on mycalendar for it to be checked. Thank you. documented in this encounter Plan of Treatment Not on file documented as of this encounter Visit Diagnoses Not on filedocumented in this encounter Care Teams Trap Operator Relationship Specialty Start Date End Date Nirmal Washington MD [address] [place] [address] PCP - General Internal Medicine 05/24/20 Benja Moreno MD [address] [place] [address] Specialist Cardiology 02/11/24 documented as of this encounter
--- OUTSIDE RECORDS SUMMARY | 2025-09-18 13:19 | XMS_ITS | Encounter Summary ---
Author Organization [facility] Address [address] [place] [address] Care Team Providers Care Muffle Operator Name Role Phone [place] Gurrola MD Primary Care Provider Unavail able Nirmal Washington MD Primary Care Provider [phone] Benja Moreno MD Unavailable Encounter Details Date Type Department Care Team Description 01/16/2018 Precipitation Equipment Tender Report Medical Records [address] [place] [address] Mario Corrigan Social History Tobacco Use Types Packs/Day Years [...] on filedocumented in this encounter Care Teams Muffle Operator Relationship Specialty Start Date End Date [place] Gurrola MD PCP - General 09/25/1999 05/23/20 Nirmal Washington MD [address] [place] [address] PCP - General Internal Medicine 05/24/20 Benja Moreno MD [address] [place] [address] Specialist Cardiology 02/11/24 documented as of this encounter
--- OUTSIDE RECORDS SUMMARY | 2025-09-18 13:19 | XMS_ITS | Encounter Summary ---
Author Organization [facility] Address [address] [place] [address] Care Team Providers Care Potline Monitor Name Role Phone Nirmal [place] MD Primary Care Provider [phone] Benja Moreno MD Unavailable Encounter Details Date Type Department Care Team Description 04/28/2022 SCAN Medical Records [address] [place] [address] Abstract, Provider Social History Tobacco Use Types [...] Recorded In the last 10 days, have laar u been in contact with someone who was confirmed or suspected to have Coronavirus/COVID-19? No / Unsure 04/19/2022 10:31 AM EDT documented as of this encounter Plan of Treatment Not on file documented as of this encounter Visit Diagnoses Not on filedocumented in this encounter Care Teams Potline Monitor Relationship Specialty Start Date End Date Nirmal Washington MD [address] [place] [address] [phone] PCP - General Internal Medicine 05/24/20 Benja Moreno MD [address] [place] [address] Specialist Cardiology 02/11/24 documented as of this encounter
--- OUTSIDE RECORDS SUMMARY | 2025-09-18 13:19 | XMS_ITS | Encounter Summary ---
Author Organization [facility] Address [address] [place] [address] Care Team Providers Care Kitchen And Counter Worker Name Role Phone Nirmal Washington MD Primary Care Provider [phone] Benja Moreno MD Unavailable Encounter Details Date Type Department Care Team Description 02/21/2022 Orders Only Gastroenterology - [address] [place] [phone] Chele Torres PA-C Social History Tobacco [...] suspected to have Coronavirus/COVID-19? No / Unsure 02/21/2022 10:12 AM EDT documented as of this encounter Plan of Treatment Not on file documented as of this encounter Visit Diagnoses Not on filedocumented in this encounter Care Teams Kitchen And Counter Worker Relationship Specialty Start Date End Date Nirmal [place] MD [address] [place] [address] PCP - General Internal Medicine 05/24/20 Benja Moreno MD [address] [place] [address] Specialist Cardiology 02/11/24 documented as of this encounter
[2025-09-18 13:20] LABS: MANUAL DIFF FLAG NO
--- OUTSIDE RECORDS SUMMARY | 2025-09-18 13:20 | XMS_ITS | Encounter Summary ---
Author Organization [facility] Address [address] [place] [address] Care Team Providers Care Park Naturalist Name Role Phone [place] Gurrola MD Primary Care Provider Unavail able Nirmal Washington MD Primary Care Provider [phone] Benja Moreno MD Unavailable Encounter Details Date Type Department Care Team Description 04/10/2019 Orders Only Medical Records [address] [place] [address] Diogo Haley MD [address] [place] [address] Social History Tobacco Use Types Packs/Day Years [...] Name Priority Date/Time Associated Diagnosis Comments OUTSIDE PATHOLOGY Routine 04/08/2019 documented in this encounter Results * OUTSIDE PATHOLOGY (04/08/2019) Diogo Haley MD OUTSIDE LAB documented in this encounter Visit Diagnoses Not on filedocumented in this encounter Care Teams Park Naturalist Relationship Specialty Start Date End Date [place] Gurrola MD PCP - General 09/25/1999 05/23/20 Nirmal [place] MD [address] [place] [address] PCP - General Internal Medicine 05/24/20 Benja Moreno MD [address] [place] [address] Specialist Cardiology 02/11/24 documented as of this encounter
--- OUTSIDE RECORDS SUMMARY | 2025-09-18 13:20 | XMS_ITS | Encounter Summary ---
Author Organization [facility] Address [address] [place] [address] Care Team Providers Care Account Collector Name Role Phone Nirmal Washington MD Primary Care Provider [phone] Benja Moreno MD Unavailable Reason for Visit * Reason Comments E-prescribe Rx Request Encounter Details Date Type Department Care Team Description 09/19/2022 Refill Pulmonology - [place] [facility] [address] [place] [phone] Elise Hernandez APRN 175 [facility] [address] [place] [phone] E-prescribe Rx Request Social History Tobacco Use [...] suspected to have Coronavirus/COVID-19? No / Unsure 08/22/2022 3:56 PM EDT documented as of this encounter Plan of Treatment Not on file documented as of this encounter Visit Diagnoses Diagnosis Moderate persistent asthma without complication Unspecified asthma documented in this encounter Care Teams Account Collector Relationship Specialty Start Date End Date Nirmal Washington MD [address] [place] [address] PCP - General Internal Medicine 05/24/20 Benja Moreno MD [address] [place] [address] Specialist Cardiology 02/11/24 documented as of this encounter
--- OUTSIDE RECORDS SUMMARY | 2025-09-18 13:20 | XMS_ITS | Encounter Summary ---
Author Organization [facility] Address [address] [place] [address] Care Team Providers Care Agriculture Inspector Name Role Phone Nirmal Washington MD Primary Care Provider [phone] Benja Moreno MD Unavailable Encounter Details Date Type Department Care Team Description 10/30/2022 Competitive Shopper Report Medical Records [address] [place] [address] Polina Oneal NP Social History Tobacco Use Types Packs/Day Years [...] on filedocumented in this encounter Care Teams Agriculture Inspector Relationship Specialty Start Date End Date Nirmal [place] MD [address] [place] [address] [phone] PCP - General Internal Medicine 05/24/20 Benja Moreno MD [address] [place] [address] [phone] Specialist Cardiology 02/11/24 documented as of this encounter
--- OUTSIDE RECORDS SUMMARY | 2025-09-18 13:20 | XMS_ITS | Encounter Summary ---
Author Organization [facility] Address [address] [place] [address] Care Team Providers Care Instructor Extension Work Name Role Phone [place] Gurrola MD Primary Care Provider Unavail able Nirmal Washington MD Primary Care Provider [phone] Benja Moreno MD Unavailable Reason for Referral * EXTERNAL (Routine) - Authorized/Booked Specialty Diagnoses / Procedures Referred By Contac t Referred To Contact Neurosurgery Diagnoses Lumbar herniated disc Procedures REFERRAL TO NEUROSURGERY (IN NETWORK) Nirmal [place] MD [address] [place] [address] Yessica Suarez MD [address] [place] [address] [address] [place] [address] Referral ID Status Reason Start Date Expiration Date V isits Requested Visits Authorized SEE NOTE Authorized/B ooked 05/01/2019 08/02/2019 1 1 Reason for Visit * Reason Onset Date Comments Medication, Reaction To 05/01/2019 Encounter Details Date Type Department Care Team Description 05/01/2019 Pt. Non Urgent Medical Question Adult Medicine [address] [address] Nirmal [place] MD [address] [place] [address] Lumbar herniated disc (Primary Dx) Social History Tobacco Use Types [...] as of this encounter Progress Notes * Lilliam Kirby M.A. - 05/01/2019 7:11 AM EDTFrom: Ana Vance To: Nirmal [place] MD Sent: 05/01/2019 6:10 AM EDT Subject: Question regarding MRI OF SPINE I have a question about MRI OF SPINE resulted on 04/29/19 at 4:47 PM. I left a message yesterday to the pipe connector I'm hoping I would hear from somebody yesterday. I just wanted you to know that the Gabapentin that I was on made me sick so I tried it for two nights and I stopped taking it minnie for two nights two times I woke up in the middle of the night sick. Last night I didn't take it this morning I'm fine and last night I was fine. I was wondering if there wassomething I can get they can help me for the pain I'm not sure if you know something like Lyrica would help with the nerves pain. I'm not sure what would help me with the pain all I know is I hurt and hurt a lot I've been doing hot packs Tylenol every 5 hours which yesterday I cut back some like it's not even doing anything so why hurt my liver cause more trouble. Accounts was here when the results came in and so I asked her you know what should I do and she said go straight 2 neurosurgeon so Itold her okay. I have an appointment next Sunday for the ultrasound and then on the to see doctor Tera so I'll wait to hear from the neurosurgeon can you please let me know where they're coming out of from so if I don't hear from them I can look them up and find them and call them minnie sometimes they wait so long and I'm tired of not being able to walk I still can't walk it's been 8 days. I also wanted to let you know that the top of my life from the grind to my knee just under my nameit goes numb I'll be driving both legs I can't feel my left leg being rubbed but my right leg has anumbing feeling some that's what's happening it's starting to get numb up in this area you know so I want you to have knowledge of that minnie I know the nurse asked me before and I know you did too butat the time now I could feel my leg if this time feels numb. In the Elizabeth is still there today's the last day for for prednisones I did three days of six I've done two days of for today's the last day of four and then I start with to for 3 days so Sunday will be my last dose of the two but I'm still burning I feel like my leg is on fire all the way you know down to my knee. If you could let me know either by message my phone call but the plan is with what we going to do I would greatly appreciate it I don't mean to be a pain I'm just hurting and I finally got a wheelchair that I can borrow and get around in and I can get to the stores and do my stuff. So thank you for everything and hopefully talk to you soon get some answers try some new stuff see what can help me thank you. Micheline Olguin documented in this encounter Plan of Treatment Not on file documented as of this encounter Visit Diagnoses Diagnosis Lumbar herniated disc- Primary Displacement of lumbar intervertebral disc without myelopathy documented in this encounter Care Teams Instructor Extension Work Relationship Specialty Start Date End Date [place] Gurrola MD PCP - General 09/25/1999 05/23/20 Nirmal [place] MD [address] [place] [address] PCP - General Internal Medicine 05/24/20 Benja Moreno MD [address] [place] [address] Specialist Cardiology 02/11/24 documented as of this encounter
--- OUTSIDE RECORDS SUMMARY | 2025-09-18 13:20 | XMS_ITS | Encounter Summary ---
Author Organization [facility] Address [address] [place] [address] Care Team Providers Care Hair Dresser Name Role Phone Nirmal [place] MD Primary Care Provider [phone] Benja Moreno MD Unavailable Encounter Details Date Type Department Care Team Description 01/23/2023 Software Administrator Report Medical Records [address] [place] [id number] Abstract, Provider Social History Tobacco Use Types [...] suspected to have Coronavirus/COVID-19? No / Unsure 01/20/2023 8:36 AM EST documented as of this encounter Plan of Treatment Not on file documented as of this encounter Visit Diagnoses Not on filedocumented in this encounter Care Teams Hair Dresser Relationship Specialty Start Date End Date Nirmal [place] MD [address] [place] [address] [phone] PCP - General Internal Medicine 05/24/20 Benja Moreno MD [address] [place] [address] Specialist Cardiology 02/11/24 documented as of this encounter
--- OUTSIDE RECORDS SUMMARY | 2025-09-18 13:20 | XMS_ITS | Encounter Summary ---
Author Organization [facility] Address [address] [place] [address] Care Team Providers Care Company Manager Name Role Phone Stevenson Gurrola MD Primary Care Provider Unavail able Nirmal [place] MD Primary Care Provider [phone] Benja Moreno MD Unavailable Reason for Visit * Reason Onset Date Comments Post ER Outreach 04/25/2019 [facility] ER follow u p 04/24/2019 Encounter Details Date Type Department Care Team Description 04/25/2019 [facility] [address] [phone] [place] Gurrola MD Post ER Outreach ([facility] ER follow up 04/24/2019) Social History Tobacco Use Types Packs/Day Years [...] encounter Miscellaneous Notes * Telephone Encounter - Cristela Kinsey M.A. - 04/25/2019 10:56 AM EDT Not to my knowledge, [facility] sends the notes directly to the pods after the doctor signs off on thenote. The patient does have information from her ER visit she will be bringing with her. * Telephone Encounter - Nirmal [place] MD - 04/25/2019 10:34 AM EDT That would be ok and do we have the noted from the hospital * Telephone Encounter - Cristela Kinsey M.A. - 04/25/2019 9:53 AM EDT FYI to Dr. [place], Patient was previously booked today for leg pain for today, however she went to the ER last night for sciatica. Would you like me to add her ER visit to the reason she is being seen today? Thank you, Cristela Hernandez C.M.A. Refractory Bricklayer * Telephone Encounter - Cristela Kinsey M.A. - 04/25/2019 9:49 AM EDT EMERGENCY DEPARTMENT/HOSPITAL DISCHARGE FOLLOW-UP CONTACT: Did they go to the ER? : Yes Which ER did they go to? : [facility] Why did the patient go to the ER? sciatica Was the patient admitted? : No. ER/Hospital discharge plan reviewed: Yes reviewed with patient How is the patient feeling? : patient states she is sore. Any concerns or information needed? no Disposition? : Patient was previously scheduled for today. Comments: Patient went to the ER for sciatica. She was given Lidocaine patches and Robaxin that is not covered so she will bring her paperwork. She also had been given Prednisone which she has pickedup and started. She relays that she is taking Flexeril BID. Patient is using a walker that was provided to her by the ER. Patient will be in today to see Dr. [place]. Cristela Kinsey M.A. documented in this encounter Plan of Treatment Not on file documented as of this encounter Visit Diagnoses Not on filedocumented in this encounter Care Teams Company Manager Relationship Specialty Start Date End Date Stevenson Gurrola MD PCP - General 09/25/1999 05/23/20 Nirmal [place] MD [address] [place] [address] PCP - General Internal Medicine 05/24/20 Benja Moreno MD [address] [place] [address] Specialist Cardiology 02/11/24 documented as of this encounter
--- OUTSIDE RECORDS SUMMARY | 2025-09-18 13:20 | XMS_ITS | Encounter Summary ---
Author Organization [facility] Address [address] [place] [address] Care Team Providers Care Photo Technologist Name Role Phone Stevenson Gurrola MD Primary Care Provider Unavail able Nirmal [place] MD Primary Care Provider [phone] Benja Moreno MD Unavailable Encounter Details Date Type Department Care Team Description 01/25/2011 Business Doc Medical Records [address] [place] [id number] Abstract, Provider Social History Tobacco Use Types Packs/Day Years Used Date Smoking Tobacco: Every Day Cigarettes 0.5 Smokeless Tobacco: Never Alcohol Use Standard Drinks/Week [...] on filedocumented in this encounter Care Teams Photo Technologist Relationship Specialty Start Date End Date Stevenson Gurrola MD PCP - General 09/25/1999 05/23/20 Nirmal [place] MD [address] [place], [place] [phone] PCP - General Internal Medicine 05/24/20 Benja Moreno MD [address] [place], [place] [phone] Specialist Cardiology 02/11/24 documented as of this encounter
--- OUTSIDE RECORDS SUMMARY | 2025-09-18 13:20 | XMS_ITS | Encounter Summary ---
Author Organization [facility] Address [address] [place] [address] Care Team Providers Care Named Account Executive Name Role Phone Stevenson Gurrola MD Primary Care Provider Unavail able Nirmal [place] MD Primary Care Provider [phone] Benja Moreno MD Unavailable Reason for Visit * Reason Onset Date Comments medication problems 03/20/2019 Encounter Details Date Type Department Care Team Description 03/20/2019 Telephone Adult Medicine [address] [phone] Lena Thomas PA-C [address] [place] [address] [phone] medication problems Social History Tobacco Use Types Packs/Day Years [...] encounter Miscellaneous Notes * Telephone Encounter - Rosemarie Sheffield M.A. - 03/21/2019 9:00 AM EDT Called and spoke with patient, Advised as per Provider request , to contact the Provider who prescibed her the medication flexeril to inquire instructions as to taking the medication. * Telephone Encounter - Lena Thomas PA-C - 03/20/2019 3:33 PM EDT This is not prescribed by adult medicine. Lena Thomas PA-C * Telephone Encounter - Kristyn Valencia - 03/20/2019 3:26 PM EDT Lena Patient questions in regards to flexeril would like to know if can take one in am q12h she takes 1 tab in evening please advise * Telephone Encounter - Anne-Marie Sheffield - 03/20/2019 1:18 PM EDT Who is calling? The patient Name of the medication cyclobenzaprine (FLEXERIL) 5 MG tablet. What is the specific problem or interaction? Patient would like to know what time of the day she should take this medication. She normally takes the medication at night time If the patient is having a problem with taking the med - how long has the problem been going on? N/A documented in this encounter Plan of Treatment Not on file documented as of this encounter Visit Diagnoses Not on filedocumented in this encounter Care Teams Named Account Executive Relationship Specialty Start Date End Date Stevenson Gurrola MD PCP - General 09/25/1999 05/23/20 Nirmal [place] MD [address] [place] [address] PCP - General Internal Medicine 05/24/20 Benja Moreno MD [address] [place] [address] Specialist Cardiology 3/18/24 documented as of this encounter
--- OUTSIDE RECORDS SUMMARY | 2025-09-18 13:21 | XMS_ITS | Encounter Summary ---
Author Organization [facility] Address [address] [place] [address] Care Team Providers Care Russian Language Professor Name Role Phone Stevenson Gurrola MD Primary Care Provider Unavail able Nirmal [place] MD Primary Care Provider [phone] Benja Moreno MD Unavailable Encounter Details Date Type Department Care Team Description 06/27/2019 Security Alarm Technician Report Medical Records [address] [place] [address] [phone] Social History Tobacco Use Types Packs/Day Years [...] on filedocumented in this encounter Care Teams Russian Language Professor Relationship Specialty Start Date End Date Stevenson Gurrola MD PCP - General 09/25/1999 05/23/20 Nirmal [place] MD [address] [place] [address] [phone] PCP - General Internal Medicine 05/24/20 Benja Moreno MD [address] [place] [address] Specialist Cardiology 02/11/24 documented as of this encounter
--- OUTSIDE RECORDS SUMMARY | 2025-09-18 13:21 | XMS_ITS | Encounter Summary ---
Author Organization [facility] Address [address] [place] [address] Care Team Providers Care Fish Cutting Machine Operator Name Role Phone Stevenson Gurrola MD Primary Care Provider Unavail able Nirmal [place] MD Primary Care Provider [phone] Benja Moreno MD Unavailable Encounter Details Date Type Department Care Team Description 11/05/2018 Collections Assistant Report Medical Records [address] [place] [address] Capri Lai MD [address] [place] [address] Social History Tobacco Use Types Packs/Day Years [...] on filedocumented in this encounter Care Teams Fish Cutting Machine Operator Relationship Specialty Start Date End Date Stevenson Gurrola MD PCP - General 09/25/1999 05/23/20 Nirmal [place] MD [address] [place] [address] PCP - General Internal Medicine 05/24/20 Benja Moreno MD [address] [place] [address] Specialist Cardiology 02/11/24 documented as of this encounter
--- OUTSIDE RECORDS SUMMARY | 2025-09-18 13:21 | XMS_ITS | Encounter Summary ---
Author Organization [facility] Address [address] [place] [address] Care Team Providers Care College Basketball Coach Name Role Phone Stevenson Gurrola MD Primary Care Provider Unavail able Nirmal [place] MD Primary Care Provider [phone] Benja Moreno MD Unavailable Reason for Visit * Reason Onset Date Comments Appointment-Internal Referral 02/04/2019 Encounter Details Date Type Department Care Team Description 02/04/2019 Telephone Adult Medicine [address] [address] Chiara Gupta PA Appointment-Internal Referral Social History Tobacco Use Types Packs/Day Years [...] encounter Miscellaneous Notes * Telephone Encounter - Tabatha Leonardo - 02/04/2019 4:11 PM EDT Patient declined Endocrinology referral due to location. Will take patient off referral que at thistime. documented in this encounter Plan of Treatment Not on file documented as of this encounter Visit Diagnoses Not on filedocumented in this encounter Care Teams College Basketball Coach Relationship Specialty Start Date End Date Stevenson Gurrola MD PCP - General 09/25/1999 05/23/20 Nirmal [place] MD [address] [place] [address] PCP - General Internal Medicine 05/24/20 Benja Moreno MD [address] [place] [address] Specialist Cardiology 02/11/24 documented as of this encounter
[2025-09-18 13:32] LABS: Hematocrit 39.4 % (37.0-47.0); Hemoglobin 12.8 g/dl (12.0-16.0); Imm Gran Abs Auto 0.05 X10*3/uL (0.00-0.03); Imm Gran Pct Auto 0.5 % (0.0-0.4); Lymphocytes Absolute Auto 3.0 X10*3/uL (1.2-4.9); Mean Corpuscular HGB Conc 32.5 g/dl (31.0-35.0); Mean Corpuscular Hemoglobin 28.8 pg (27.0-33.0); Mean Corpuscular Volume 88.7 fL (80.0-98.0); NRBC Abs Auto 0.000 X10*3/uL (0.0-0.012); NRBC Pct Auto 0.0 /100WBC (0.0-0.2); Platelet Count 310 X10*3/uL (160-400); Red Blood Count 4.44 X10*6/uL (4.20-5.50); White Blood Count 9.7 X10*3/uL (4.8-10.8)
[2025-09-18 14:18] LABS: Alanine Aminotransferase 30 U/L (0-31); Aspartate Amino Transferase 23 U/L (5-31); Estimated Glomerular Filt Rate > 60
[2025-09-19 03:51] LABS: HBc Num1 0.60 S/CO (0.00-0.79)
[2025-09-19 04:16] LABS: HBS Num1 236.53 mIU/mL (0-7.99); HBsAGNum1 0.79 S/CO (0.00-0.99); Hepatitis B Surface Antigen Negative (Negative); ~HepC Num1 0.09 S/CO (0.00-0.79); ~Hepatitis B Surface Antibody REACTIVE (Nonreactive); ~Hepatitis C Antibody Nonreactive (Nonreactive)
[2025-09-21 11:34] LABS: TS Negative Control Passed; TS Panel A 0; TS Panel B 0; TS Positive Control Passed; TSpotTB Negative (Negative)
[2025-09-23 10:34] LABS: HLA B27 Negative (Negative)
== END 2025-09-18 11:04 | disposition home or self-care (01) ==
LOC: HO.HMGCX 11:03
PROVIDERS: PCP Internal Medicine; Visit Provider Internal Medicine Rheumatology
DX: Z01.84 Encounter for antibody response examination (principal); Z11.1 Encounter for screening for respiratory tuberculosis; K50.90 Crohn's disease, unspecified, without complications; M07.60 Enteropathic arthropathies, unspecified site; M25.50 Pain in unspecified joint; Z79.899 Other long term (current) drug therapy
CPT/HCPCS: 36415; 73130; 73630; 82565; 84450; 84460; 85025; 85652; 86140; 86200; 86431; 86481; 86704; 86706; 86803; 86812; 87340

== ENCOUNTER → 2025-09-18 11:55 | Outpatient (BNV) | payer MEDICARE, MEDICAID, SELFPAY | PROVIDERS: PCP Internal Medicine; Visit Provider Radiology Diagnostic Radiology | DX: M19.041 Primary osteoarthritis, right hand (principal); M19.042 Primary osteoarthritis, left hand; M79.671 Pain in right foot; M79.672 Pain in left foot | CPT/HCPCS: 73110; 73130; 73630 ==

== ENCOUNTER 2025-10-19 12:05 | Outpatient (REF) | payer MEDICARE, MEDICAID, SELFPAY ==
--- OUTSIDE RECORDS SUMMARY | 2024-08-26 10:19 | XMS_ITS | Encounter Summary ---
Author Organization [facility] Address [address] [place] [address] Care Team Providers Care Plate Grinder Name Role Phone Nirmal Washington MD Primary Care Provider [phone] Encounter Details Date Type Department Care Team (Late st Contact Info) Description 08/26/2024 11:19 AM EDT Hospital Encounter TH HISTORIC ENCOUNTERS EASTERN CONVERSION ONLY Social History Tobacco Use Types Packs/Day Years Used Date Smoking Tobacco: Former Cigarettes Passive Smoke Exposure: Past Smokeless Tobacco: Never Housing Instability Answer Date Recorde d Are you worried that in the next 2 months you may not have stable housing? No 06/04/2025 Food Access & Nutrition Answer Date Rec orded Do you have access to a vari ety of food including fruits and vegetables? Yes 06/04/2025 Access to Healthcare Answer Date Record ed Within the last 3 months, ho w many times did you visit the emergency department for your medical care? 0 06/04/2025 Health Literacy Answer Date Recorded How often do you need to hav e someone help you when you read instructions, pamphlets, or other written material from your doctor or pharmacy? Never 06/04/2025 Caregiver: How often do you need to have someone help you when you read instructions, pamphlets, or other written material from your doctor or pharmacy? Not on file 06/04/2025 Financial Risk Answer Date Recorded How hard is it for you to pa y for the very basics like food, housing, medical care, and air conditioning / heating? Somewhat hard 06/04/2025 Transportation Answer Date Recorded Has the lack of transportati on kept you from meetings, work, or from getting things needed for daily living? No Has the lack of transportati on kept you from medical appointments or from getting medications? No 06/04/2025 Social Isolation Answer Date Recorded How often do you feel lonely or isolated from th ose around you? Never 06/04/2025 Food Risk Answer Date Recorded Within the past 12 months we worried whether our food would run out before we got money to buy more. Never true 06/04/2025 Within the past 12 months th e food we bought just didn't last and we didn't have money to get more. Never true 06/04/2025 Dependent Care Answer Date Recorded Do you need help finding or paying for care for your loved ones. For example, child and youth program assistant or elderly care for an older adult? No 06/04/2025 Education Answer Date Recorded Do you think completing more education or training, like finishing a GED, going to college, or learning a trade, would be helpful for you? N/A 06/04/2025 Employment and Income Answer Date Recor ded During the last four weeks, have you been actively looking for work? Yes 06/04/2025 Living Situation Answer Date Recorded What is your living situation? 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 Patient reports pain in the right knee; states that she has to lose 5 more pounds to have knee replacement. Otherwise patient is doing well. Patient has no questions/concerns for the provider at this time. Vitals are stable. Treatment released to pharmacy. IV placed in the right AC, +BR. NS KVO. 1200 Entyvio infusing at this time. Call su within reach. 1235 Patient tolerated infusion well, without adverse reaction/complaint. Patient eating her lunch. 1300 Patient ate full lunch. Tolerated treatment well. Next appt scheduled. IV removed, intact. Patient discharged stable, with steady gait. documented in this encounter Plan of Treatment Upcoming Encounters Date Type Department Care Team (Late st Contact Info) Description 10/23/2025 8:00 AM EST Appointment [facility] Ultrasound [address] [place] [address] 10/29/2025 10:30 AM EST Office Visit Vascular Surgery - [place] [address] [facility] [address] [place] [address] Conchita Trevino PA [address] [facility] [address] [place] [address] 11/02/2025 11:25 AM EST Office Visit Pulmonology - [place] [address] [facility] [address] [place] [address] Elise Hernandez NP [address] [place] [phone] 11/09/2025 10:45 AM EST Appointment Radiology Department [address] [phone] 11/13/2025 8:00 AM EST Appointment [facility] CT Scan [address] [place] [phone] 11/17/2025 11:00 AM EST Appointment [facility] Infusion Center [address] [place] [phone] 12/21/2025 11:00 AM EST Consult Endocrinology - [address] [phone] Catrina Pelletier PA [address] [place] [address] 01/12/2026 11:00 AM EST Appointment [facility] Infusion Center [address] [place] [phone] 03/08/2026 9:40 AM EDT Appointment Radiology Department - [address] [phone] 03/17/2026 11:00 AM EDT Office Visit [facility] - [address] [phone] Gurmeet Curtis PA [address] [place] [address] documented as of this encounter Visit Diagnoses Not on filedocumented in this encounter Care Teams Plate Grinder Relationship Specialty Start Date End Date Nirmal Washington MD PCP - General Internal Medicine 05/24/20 10/01/24 documented as of this encounter
--- OUTSIDE RECORDS SUMMARY | 2025-10-14 09:00 | XMS_ITS | Encounter Summary ---
Author Organization [facility] Address [address] [place] [address] Care Team Providers Care Board Writer Name Role Phone Nirmal [place] MD Primary Care Provider [phone] Reason for Referral * Imaging (Routine) - Pending Review Specialty Diagnoses / Procedures Referred By Maryanne kong Referred To Contact Radiology Diagnoses FARMER (nonalcoholic steatohepatitis) Procedures US Abdomen Complete Rudy Garcia MD [address] [address] Phone: tel: fax: [facility] Referral ID Status Reason Start Date Expiration Date V isits Requested Visits Authorized [id number] Pending Review 10/14/2025 10/14/2026 1 1 Reason for Visit * Reason Comments Crohn's Disease Encounter Details Date Type Department Care Team ([facility] st Contact Info) Description 10/14/2025 9:00 AM EST Office Visit Gastroenterology - [address] [place] [phone] Rudy Garcia MD [address] [address] Carpal tunnel syndrome of right wrist (Primary Dx); Crohn's disease of large intestine with complication (CMS/HCC V24, CMS/HCC V28); FARMER (nonalcoholic steatohepatitis); Severe obesity (BMI 35.0-39.9) with comorbidity (CMS/HCC V24, CMS/HCC V28) Social History Tobacco Use Types Packs/Day Years [...] for your loved ones. 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 Continue infusions; repeat colonoscopy 2026; abd u/s to evaluate ?MASH; recommend weight loss with diet and exercise * Rudy Garcia MD - 10/14/2025 9:00 AM EST 55 y/o WF on Entyvio infusions [id number] for right colon CD with good control of symptoms. Has been using bilateral wrist braces for carpal tunnel syndrome ?surgery. Followed by Dr Lopez Immunology at [facility]. Last colonoscopy 2021 showed mild ascenging colon colitis only. Had elevated LFTs in past but recent values normal. Weight is increasing due to inactivity and poor diet (ice cream atnight). PMH: reviewed ROS: no SSCP HAMM edema PE: Overweight Middle-aged WF NAD HEENT no icterus Cor and Lungs: clear Abd: soft non-tender no mass Extr; bilateral wrist braces Imp & Plan: CD in clinical remission on Entyvio. Not due for repeat colonoscopy until 2o27. Abdominal u/s due for ?MASH documented in this encounter Plan of Treatment Upcoming Encounters Date Type Department Care Team (Late st Contact Info) Description 10/23/2025 8:00 AM EST Appointment [facility] Ultrasound [address] [place] [address] 10/29/2025 10:30 AM EST Office Visit Vascular Surgery - [place] 300 [facility] [address] [place] [address] Conchita Trevino PA 300 [facility] 210 [place] [address] 11/02/2025 11:25 AM EST Office Visit Pulmonology - [place] 175 [facility] 200 [place] [address] Elise Hernandez, ALEX [address] [place] [address] 11/09/2025 10:45 AM EST Appointment Radiology Department - [address] [address] 11/13/2025 8:00 AM EST Appointment [facility] CT Scan [address] [place] [address] 11/17/2025 11:00 AM EST Appointment [facility] Infusion Center 271 [facility] 2nd [place] [address] 12/21/2025 11:00 AM EST Consult Endocrinology - [address] [phone] Catrina Pelletier PA 444 [place], [place] 01/12/2026 11:00 AM EST Appointment [facility] Infusion Center [address] [place] [address] [address] [place] [phone] 03/08/2026 9:40 AM EDT Appointment Radiology Department - [address] [phone] 03/17/2026 11:00 AM EDT Office Visit [facility] Medicine [place] - [address] [phone] Gurmeet Curtis PA [address] [place] [address] Scheduled Orders Name Type Priority Associated Diagnoses Orde r Schedule US Abdomen Complete Imaging Routine FARMER (nonalcoholic steatohepatitis) Expected: 10/14/2025, Expires: 10/14/2026 documented as of this encounter Visit Diagnoses Diagnosis Carpal tunnel syndrome of right wrist- Primary Crohn's disease of large intestine with complication ([facility]/HCC V24, [facility] V28) FARMER (nonalcoholic steatohepatitis) Other chronic nonalcoholic liver disease Severe obesity (BMI 35.0-39.9) with comorbidity ([facility]/HCC V24, [facility] V28) documented in this encounter Additional Health Concerns Assessment Noted Time PHQ-9 Depression Total Score: 9 06/04/20 25 10:02 AM EDT documented as of this encounter Care Teams Board Writer Relationship Specialty Start Date End Date Nirmal [place] MD [address] [place] [address] PCP - General Internal Medicine 10/02/24 documented as of this encounter
--- OUTSIDE RECORDS SUMMARY | 2025-10-15 16:00 | XMS_ITS | Encounter Summary ---
Author Organization [facility] Address [address] [place] [address] Care Team Providers Care Policy Advisor Name Role Phone Nirmal [place] MD Primary Care Provider [phone] Reason for Referral * Imaging (Routine) - Pending Review Specialty Diagnoses / Procedures Referred By Maryanne kong Referred To Contact Radiology Diagnoses Swollen gland Procedures US Head Neck Soft Tissue Gurmeet Curtis PA [address] [place] [address] Phone: tel: fax: [address] Phone: tel: Referral ID Status Reason Start Date Expiration Date V isits Requested Visits Authorized [id number] Pending Review 10/15/2025 10/15/2026 1 1 Reason for Visit * Reason Comments Chronic Pain Encounter Details Date Type Department Care Team ([facility] st Contact Info) Description 10/15/2025 4:00 PM EST Office Visit Adult Medicine [address], [place] [phone] Gurmeet Curtis PA [address] [place], [place] Swollen gland (Primary Dx) Social History Tobacco Use Types [...] for your loved ones. For example, child development teacher or elderly care for an older adult? 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 Not on file Not on file documented as of this encounter Last Filed Vital Signs Vital Sign Reading Time Taken Comments Blood Pressure 112/66 10/15/2025 4:11 PM EST Pulse 102 10/15/2025 4:11 PM EST Temperature 36.2 C (97.2 F) 10/15/2025 4:11 PM EST Respiratory Rate - - Oxygen Saturation 99% 10/15/2025 4:11 PM EST Inhaled Oxygen Concentration - - Weight 100 kg (220 lb 12.8 oz) 10/15/2025 4:11 P M EST Height 154.9 cm (5' 0.98 ) 10/15/2025 4:11 PM ES T Body Mass Index 41.74 10/15/2025 4:11 PM EST documented in this encounter Plan of Treatment Upcoming Encounters Date Type Department Care Team (Late st Contact Info) Description 10/23/2025 8:00 AM EST Appointment [facility] Ultrasound [address] [place] [phone] 10/29/2025 10:30 AM EST Office Visit Vascular Surgery - [place] [address] [place] [phone] Conchita Trevino PA 300 [facility] 210 [place] [address] 11/02/2025 11:25 AM EST Office Visit Pulmonology - [place] 175 [facility] [address] [place] [phone] Elise Hernandez, ALEX [address] [place] [address] 11/09/2025 10:45 AM EST Appointment Radiology Department - [address] [phone] 11/13/2025 8:00 AM EST Appointment [facility] CT Scan 271 [place] [address] 11/17/2025 11:00 AM EST Appointment [facility] Infusion Center [address] [address] 12/21/2025 11:00 AM EST Consult Endocrinology - [address] [phone] Catrina Pelletier PA [address] [place] [address] 01/12/2026 11:00 AM EST Appointment [facility] Infusion Center [address] [address] 03/08/2026 9:40 AM EDT Appointment Radiology Department - [address] [phone] 03/17/2026 11:00 AM EDT Office Visit Adult Medicine South - [address] [phone] Gurmeet Curtis PA [address] [place] [address] Scheduled Orders Name Type Priority Associated Diagnoses Orde r Schedule US Head Neck Soft Tissue Imaging Routine Swollen gland Expected: 10/15/2025, Expires: 10/15/2026 documented as of this encounter Visit Diagnoses Diagnosis Swollen gland- Primary documented in this encounter Additional Health Concerns Assessment Noted Time PHQ-9 Depression Total Score: 0 10/15/20 25 4:11 PM EST documented as of this encounter Care Teams Policy Advisor Relationship Specialty Start Date End Date Nirmal [place] MD [address] [place] [phone] PCP - General Internal Medicine 10/02/24 documented as of this encounter
--- OUTSIDE RECORDS SUMMARY | 2025-10-19 16:08 | XMS_ITS | Clinical Summary ---
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 Active omeprazole (PRILOSEC) 40 MG capsule Take 40 mg by mouth 2 (two) times a day. Active sucralfate (CARAFATE) 1 gram tablet Take 2 g by mouth daily. Active dicyclomine (BENTYL) 20 mg tablet Take 20 mg by mouth every 6 (six) hours. Active polyethylene glycol (MIRALAX) 17 gram packet Take 17 g by mouth daily. Active albuterol 90 mcg/actuation inhaler Inhale 2 puffs into the lungs every 4 (four) hours as needed. Active therapeutic multivitamin tablet Take 1 tablet by mouth daily. Active acetaminophen (TYLENOL) 500 MG tablet Take 1,000 mg by mouth every 6 (six) hours. Active cholecalciferol (VITAMIN D3) 2,000 unit capsuleIndications :Vitamin D insufficiency Take 1 capsule (2,000 Units total) by mouth 2 (two) times a day. 180 capsule 1 1 Active TRELEGY ELLIPTA 100-62.5-25 mcg inhalation powder Inhale 1 puff into the lungs daily. 2 Active budesonide (ENTOCORT EC) 3 mg 24 hr capsule Take 9 mg by mouth daily. 2 Active pyridoxine HCl, vitamin B6, (VITAMIN B-6 ORAL) Take by mouth. Active phenylephrine/diph enhydramine (BENADRYL ALLERGY PLUS CONGEST ORAL) Take 2 tablets by mouth 3 (three) times a day. Active immun glob G,IgG,/pro/IgA 0-50 (HIZENTRA SUBQ) Inject 15 g under the skin every 7 days. Active montelukast (SINGULAIR) 10 mg tablet Take 10 mg by mouth nightly at bedtime. at bedtime. Active lisinopril (PRINIVIL,ZESTRIL) 10 MG tablet Take 15 tablets by mouth every morning. 4 Active aspirin 81 MG EC tablet Take 81 mg by mouth daily. Active atorvastatin (LIPITOR) 10 MG tablet Take 10 mg by mouth daily. Active pregabalin (LYRICA) 75 MG capsuleIndications :Fibromyalgia TAKE 1 CAPSULE BY MOUTH IN THE MORNING AND AT NOON 180 capsule 1 4 Active pregabalin (LYRICA) 100 MG capsuleIndications :Fibromyalgia TAKE 1 CAPSULE BY MOUTH AT NIGHT 90 capsule 1 4 Active cyclobenzaprine (FLEXERIL) 5 MG tabletIndications: Fibromyalgia,Muscl e spasm TAKE 1 TABLET BY MOUTH THREE TIMES DAILY AND AT BEDTIME NEEDED 120 tablet 3 4 Active Active Problems Problem Noted Date Diagnosed Date Class 3 severe obesity due t o excess calories with serious comorbidity and body mass index (BMI) of 45.0 to 49.9 in adult 05/16/2023 Assessment & Plan (02/20/2024 2:15 PM EDT): Continue diligent portion control. Limit concentrated sugars, saturated fats and calories in the diet. Keep well-hydrated. If unable to achieve expected goal consider formal dietary/nutritional support. Assessment & Plan (11/15/2023 4:30 PM EST): Continue diligent portion control. Limit concentrated sugars, saturated fats and calories in the diet. Keep well-hydrated. If unable to achieve expected goal consider formal dietary/nutritional support. Assessment & Plan (05/16/2023 4:34 PM EDT): Continue diligent portion control. Limit concentrated sugars, saturated fats and calories in the diet. Keep well-hydrated. If unable to achieve expected goal consider formal dietary/nutritional support. 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 Assessment & Plan (11/15/2023 4:21 PM EST): Continue close follow-up with treating taper and floater to replace IgA to normal range before adding Humira for the treatment of Crohn's colitis. Assessment & Plan (06/03/2023 1:00 PM EDT): Continue close follow-up with treating taper and floater to replace IgA to normal range before adding Humira for the treatment of Crohn's colitis. Crohn disease 09/01/2022 Assessment & Plan (02/20/2024 1:47 PM EDT): Eat well-balanced nutritionally diet and keep well-hydrated. Follow closely with resolution specialist exactly as scheduled Assessment & Plan (11/15/2023 4:30 PM EST): Eat well-balanced nutritionally diet and keep well-hydrated. Follow closely with resolution specialist exactly as scheduled Assessment & Plan (05/16/2023 4:34 PM EDT): Eat well-balanced nutritionally diet and keep well-hydrated. Follow closely with resolution specialist exactly as scheduled Assessment & Plan (09/30/2022 2:56 PM EDT): Eat well-balanced nutritionally diet and keep well-hydrated. Follow closely with resolution specialist exactly as scheduled Primary osteoarthritis of both knees 03/31/2022 Assessment & Plan (09/01/2022 8:59 AM EDT): Joint protection, energy conservation. Gentle, regular exercise routine. Avoid falls, injuries, overuse kneeling, squatting, sudden turns. Well fitting, supportive shoes. Work on bringing her body weight as close as possible to ideal range for her height. She may benefit from topical cream such as Arnica, Biofreeze, Aspercreme versus medicated patches such as salonpas, icy hot patch 2-3 times daily and if necessary at bedtime x 3 weeks. Assessment & Plan (04/16/2022 4:27 PM EDT): Joint protection, energy conservation. Gentle, regular exercise routine. Avoid falls, injuries, overuse kneeling, squatting, sudden turns. Well fitting, supportive shoes. Work on bringing her body weight as close as possible to ideal range for her height. She may benefit from topical cream such as Arnica, Biofreeze, Aspercreme versus medicated patches such as salonpas, icy hot patch 2-3 times daily and if necessary at bedtime x 3 weeks. Vitamin B12 deficiency 04/22/2021 Assessment & Plan (05/16/2023 4:36 PM EDT): Due to low normal serum level I encouraged Ana to improve her vitamin B12 concentration by taking daily 1000 mcg vitamin B-12 supplement. Assessment & Plan (09/01/2022 9:02 AM EDT): Due to low normal serum level I encouraged Ana to improve her vitamin B12 concentration by taking daily 1000 mcg vitamin B-12 supplement. Assessment & Plan (03/31/2022 9:00 AM EDT): Due to low normal serum level I encouraged Ana to improve her vitamin B12 concentration by taking daily 1000 mcg vitamin B-12 supplement. Assessment & Plan (09/30/2021 9:05 AM EDT): Due to low normal serum level I encouraged Ana to improve her vitamin B12 concentration by taking daily 1000 mcg vitamin B-12 supplement. Assessment & Plan (04/25/2021 8:54 AM EDT): Due to low normal serum level I encouraged Ana to improve her vitamin B12 concentration by taking daily 1000 mcg vitamin B-12 supplement. Chronic midline low back pain 04/01/2021 Assessment & Plan (05/16/2023 4:33 PM EDT): Use heating pad onto her lower back followed by gentle massage of gel such as Arnica, Biofreeze, Aspercreme 3 times daily etc. and prior to bed rest Carefully continue hemp gummy as it appears helpful for inflammation and burning. Continue carefully Lyrica as prescribed. Work on reducing her body weight as close as possible to ideal range. Avoid frequent bending, heavy lifting, sudden turns, falls or injuries. Gentle, regular core muscle strengthening exercises. Assessment & Plan (09/01/2022 9:00 AM EDT): Use heating pad onto her lower back followed by gentle massage of gel such as Arnica, Biofreeze, Aspercreme 3 times daily etc. and prior to bed rest Carefully continue hemp gummy as it appears helpful for inflammation and burning. Continue carefully Lyrica as prescribed. Work on reducing her body weight as close as possible to ideal range. Avoid frequent bending, heavy lifting, sudden turns, falls or injuries. Gentle, regular core muscle strengthening exercises. Assessment & Plan (04/01/2021 10:38 AM EDT): Use heating pad onto her lower back followed by gentle massage of gel such as Arnica, Biofreeze, Aspercreme 3 times daily etc. and prior to bed rest Carefully continue hemp gummy as it appears helpful for inflammation and burning. Continue carefully Lyrica as prescribed. Work on reducing her body weight as close as possible to ideal range. Avoid frequent bending, heavy lifting, sudden turns, falls or injuries. Gentle, regular core muscle strengthening exercises. Other insomnia 04/01/2021 Assessment & Plan (04/11/2021 8:08 AM EDT): Principles of sleep hygiene reviewed in details and strongly encouraged. Listen to relaxation tapes, CALM versus sleep with me janice prior to bed rest and every time she wakes up. Pulmonary nodules 12/31/2020 Assessment & Plan (12/31/2020 10:38 AM EST): Follow-up with chest CT as scheduled next week and food beverage attendant afterwards. Venous insufficiency of both lower extremities 0 03/11/2020 Assessment & Plan (03/11/2020 10:38 AM EDT): Continue supportive stockings put first things in the morning as instructed by her vascular surgeon. Work on bringing body weight as close as possible to ideal range for her height. Regular walking and gentle muscle strengthening exercises. Subacute sinusitis 12/31/2019 Assessment & Plan (01/25/2020 5:31 PM EST): Continue doxycycline as prescribed. Proper hydration. Inhale vapor of water with few drops of essential oil of lavender or Chammomile 2-3 times daily and gently blow nostrils 1 at a time. Use Dilia pot to evacuate congestion twice daily. Return for evaluation if not better or worse despite above measures. Chronic right-sided low back pain with sciatica 11/27/2019 Assessment & Plan (02/20/2024 1:42 PM EDT): Use heating pad onto her lower back followed by gentle massage of gel such as Arnica, Biofreeze, Aspercreme 3 times daily etc. and prior to bed rest Carefully continue hemp gummy as it appears helpful for inflammation and burning. Continue carefully Lyrica as prescribed. Work on reducing her body weight as close as possible to ideal range. Avoid frequent bending, heavy lifting, sudden turns, falls or injuries. Gentle, regular core muscle strengthening exercises. Assessment & Plan (11/15/2023 4:30 PM EST): Use heating pad onto her lower back followed by gentle massage of gel such as Arnica, Biofreeze, Aspercreme 3 times daily etc. and prior to bed rest Carefully continue hemp gummy as it appears helpful for inflammation and burning. Continue carefully Lyrica as prescribed. Work on reducing her body weight as close as possible to ideal range. Avoid frequent bending, heavy lifting, sudden turns, falls or injuries. Gentle, regular core muscle strengthening exercises. Assessment & Plan (04/25/2021 8:56 AM EDT): Use heating pad onto her lower back followed by gentle massage of gel such as Arnica, Biofreeze, Aspercreme 3 times daily etc. and prior to bed rest Carefully continue hemp gummy as it appears helpful for inflammation and burning. Continue carefully Lyrica as prescribed. Work on reducing her body weight as close as possible to ideal range. Avoid frequent bending, heavy lifting, sudden turns, falls or injuries. Gentle, regular core muscle strengthening exercises. Assessment & Plan (12/11/2019 7:26 PM EST): Avoid falls, injuries, bending, stooping, heavy lifting and sudden turns warm pool therapy. Work diligently on bringing body weight as close as possible to ideal range for her height. Core muscle strengthening exercises after warm pack or warm shower Joint protection, energy conservation. Gentle, regular exercise routine. She may benefit from topical cream such as Arnica, Biofreeze, Aspercreme versus medicated patches such as salonpas, icy hot patch 2-3 times daily and if necessary at bedtime x 3 weeks. Consider acupuncture, chiropractic therapy, gentle massage as additional adjunctive strategies Carpal tunnel syndrome of right wrist 11/27/2019 Assessment & Plan (12/31/2020 10:40 AM EST): Avoid prolonged, repetitive use without breaks. Use wrist splint for extended activities. Rest, ice, use topical cream versus patch 2-3 times daily and if needed at bedtime. Consider formal OT and if not better or worse local steroid injection. Assessment & Plan (10/22/2020 4:20 PM EST): Avoid prolonged, repetitive use without breaks. Use wrist splint for extended activities. Rest, ice, use topical cream versus patch 2-3 times daily and if needed at bedtime. Consider formal OT and if not better or worse local steroid injection. Assessment & Plan (12/11/2019 7:27 PM EST): Avoid prolonged, repetitive use without breaks. Use wrist splint for extended activities. Rest, ice, use topical cream versus patch 2-3 times daily and if needed at bedtime. Consider formal OT and if not better or worse local steroid injection. Fibromyalgia 06/27/2019 Assessment & Plan (02/20/2024 2:18 PM EDT): We again reviewed the diagnosis of fibromyalgia, its natural history, and treatment. Specifically, we discussed that treatment requires many interventions and recognition that we are often unable to get patients completely pain free. Management of fibromyalgia requires patient engagement to address any underlying depression, anxiety, or sleep disorder. Further, patients are encouraged to engage in regular physical activity. Some studies have suggested that Mykel Chi is effective. Other physical activity may including water-based aerobics, gentle yoga, biking, walking, swimming, Pilates etc. Carefully continue Lyrica 75 mg every morning & midday in addition to Lyrica 100 mg every evening . I reviewed with her that it is safer to carefully build up the dose of Lyrica hoping for improved benefit before adding additional medication I reviewed with her need for careful monitoring and limiting frequency and dosing of Flexeril to reduce the risk of tolerance and dependence. Try to limit Tylenol in favor of topical cream versus patch in addition to warm pool therapy that I encouraged her to start as soon as possible and build up gradually her strength and endurance up to the goal of 30-45 minutes 5-6 times a week. She would benefit from reading book written by Dr Virgil Costa [facility] addressing management strategies for patients with fibromyalgia utilizing mindfulness approach. Another good resource is book written by Dr. Kate Briseno Managing pain before it manages you Assessment & Plan (11/20/2023 10:09 PM EST): We reviewed the diagnosis of fibromyalgia, its natural history, and treatment. Specifically, we discussed that treatment requires many interventions and recognition that we are often unable to get patients completely pain free. Management of fibromyalgia requires patient engagement to address any underlying depression, anxiety, or sleep disorder. Further, patients are encouraged to engage in regular physical activity. Some studies have suggested that Mykel Chi is effective. Other physical activity may including water-based aerobics, gentle yoga, biking, walking, swimming, Pilates etc. Carefully increase Lyrica 75 mg every morning to 100 mg and continue 100 mg every evening remaining on Lyrica 75 mg midday. I reviewed with her that it is safer to carefully build up the dose of Lyrica hoping for improved benefit before adding additional medication I reviewed with her need for careful monitoring and limiting frequency and dosing of Flexeril to reduce the risk of tolerance and dependence. Try to limit Tylenol in favor of topical cream versus patch in addition to warm pool therapy that I encouraged her to start as soon as possible and build up gradually her strength and endurance up to the goal of 30-45 minutes 5-6 times a week. She would benefit from reading book written by Dr Virgil Costa [facility] addressing management strategies for patients with fibromyalgia utilizing mindfulness approach. Another good resource is book written by Dr. Kate Briseno Managing pain before it manages you Assessment & Plan (05/16/2023 4:35 PM EDT): We reviewed the diagnosis of fibromyalgia, its natural history, and treatment. Specifically, we discussed that treatment requires many interventions and recognition that we are often unable to get patients completely pain free. Management of fibromyalgia requires patient engagement to address any underlying depression, anxiety, or sleep disorder. Further, patients are encouraged to engage in regular physical activity. Some studies have suggested that Mykel Chi is effective. Other physical activity may including water-based aerobics, gentle yoga, biking, walking, swimming, Pilates etc. Carefully continue Lyrica 75 mg every morning and midday while carefully increasing evening dose to 100 mg. I reviewed with her need for careful monitoring and limiting frequency and dosing of Flexeril to reduce the risk of tolerance and dependence. Try to limit Tylenol in favor of topical cream versus patch in addition to warm pool therapy that I encouraged her to start as soon as possible and build up gradually her strength and endurance up to the goal of 30-45 minutes 5-6 times a week. She would benefit from reading book written by Dr Virgil Costa [facility] addressing management strategies for patients with fibromyalgia utilizing mindfulness approach. Assessment & Plan (09/01/2022 8:48 AM EDT): We reviewed the diagnosis of fibromyalgia, its natural history, and treatment. Specifically, we discussed that treatment requires many interventions and recognition that we are often unable to get patients completely pain free. Management of fibromyalgia requires patient engagement to address any underlying depression, anxiety, or sleep disorder. Further, patients are encouraged to engage in regular physical activity. Some studies have suggested that Mykel Chi is effective. Other physical activity may including water-based aerobics, gentle yoga, biking, walking, swimming, Pilates etc. Carefully continue Lyrica 75 mg every morning and midday while carefully increasing evening dose to 100 mg. I reviewed with her need for careful monitoring and limiting frequency and dosing of Flexeril to reduce the risk of tolerance and dependence. Try to limit Tylenol in favor of topical cream versus patch in addition to warm pool therapy that I encouraged her to start as soon as possible and build up gradually her strength and endurance up to the goal of 30-45 minutes 5-6 times a week. She would benefit from reading book written by Dr Virgil Costa [facility] addressing management strategies for patients with fibromyalgia utilizing mindfulness approach. Assessment & Plan (03/31/2022 8:59 AM EDT): We reviewed the diagnosis of fibromyalgia, its natural history, and treatment. Specifically, we discussed that treatment requires many interventions and recognition that we are often unable to get patients completely pain free. Management of fibromyalgia requires patient engagement to address any underlying depression, anxiety, or sleep disorder. Further, patients are encouraged to engage in regular physical activity. Some studies have suggested that Mykel Chi is effective. Other physical activity may including water-based aerobics, gentle yoga, biking, walking, swimming, Pilates etc. Carefully continue Lyrica 75 mg every morning and midday while carefully increasing evening dose to 100 mg. I reviewed with her need for careful monitoring and limiting frequency and dosing of Flexeril to reduce the risk of tolerance and dependence. Try to limit Tylenol in favor of topical cream versus patch in addition to warm pool therapy that I encouraged her to start as soon as possible and build up gradually her strength and endurance up to the goal of 30-45 minutes 5-6 times a week. She would benefit from reading book written by Dr Virgil Costa [facility] addressing management strategies for patients with fibromyalgia utilizing mindfulness approach. Assessment & Plan (10/01/2021 9:20 PM EDT): We reviewed the diagnosis of fibromyalgia, its natural history, and treatment. Specifically, we discussed that treatment requires many interventions and recognition that we are often unable to get patients completely pain free. Management of fibromyalgia requires patient engagement to address any underlying depression, anxiety, or sleep disorder. Further, patients are encouraged to engage in regular physical activity. Some studies have suggested that Mykel Chi is effective. Other physical activity may including water-based aerobics, gentle yoga, biking, walking, swimming, Pilates etc. Carefully continue Lyrica 75 mg every morning and midday while carefully increasing evening dose to 100 mg. I reviewed with her need for careful monitoring and limiting frequency and dosing of Flexeril to reduce the risk of tolerance and dependence. Try to limit Tylenol in favor of topical cream versus patch in addition to warm pool therapy that I encouraged her to start as soon as possible and build up gradually her strength and endurance up to the goal of 30-45 minutes 5-6 times a week. She would benefit from reading book written by Dr Virgil Costa [facility] addressing management strategies for patients with fibromyalgia utilizing mindfulness approach. Assessment & Plan (04/25/2021 8:55 AM EDT): We reviewed the diagnosis of fibromyalgia, its natural history, and treatment. Specifically, we discussed that treatment requires many interventions and recognition that we are often unable to get patients completely pain free. Management of fibromyalgia requires patient engagement to address any underlying depression, anxiety, or sleep disorder. Further, patients are encouraged to engage in regular physical activity. Some studies have suggested that Mykel Chi is effective. Other physical activity may including water-based aerobics, gentle yoga, biking, walking, swimming, Pilates etc. Carefully continue Lyrica 75 mg 3 times daily . I reviewed with her need for careful monitoring and limiting frequency and dosing of Flexeril to reduce the risk of tolerance and dependence. Try to limit Tylenol in favor of topical cream versus patch in addition to warm pool therapy that I encouraged her to start as soon as possible and build up gradually her strength and endurance up to the goal of 30-45 minutes 5-6 times a week. She would benefit from reading book written by Dr Virgil Costa [facility] addressing management strategies for patients with fibromyalgia utilizing mindfulness approach. Assessment & Plan (04/01/2021 10:40 AM EDT): We reviewed the diagnosis of fibromyalgia, its natural history, and treatment. Specifically, we discussed that treatment requires many interventions and recognition that we are often unable to get patients completely pain free. Management of fibromyalgia requires patient engagement to address any underlying depression, anxiety, or sleep disorder. Further, patients are encouraged to engage in regular physical activity. Some studies have suggested that Mykel Chi is effective. Other physical activity may including water-based aerobics, gentle yoga, biking, walking, swimming, Pilates etc. Carefully continue Lyrica 75 mg 3 times daily . Try to limit Tylenol in favor of topical cream versus patch in addition to warm pool therapy that I encouraged her to start as soon as possible and build up gradually her strength and endurance up to the goal of 30-45 minutes 5-6 times a week. She would benefit from reading book written by Dr Virgil [facility] addressing management strategies for patients with fibromyalgia utilizing mindfulness approach. Assessment & Plan (12/31/2020 10:39 AM EST): We reviewed the diagnosis of fibromyalgia, its natural history, and treatment. Specifically, we discussed that treatment requires many interventions and recognition that we are often unable to get patients completely pain free. Management of fibromyalgia requires patient engagement to address any underlying depression, anxiety, or sleep disorder. Further, patients are encouraged to engage in regular physical activity. Some studies have suggested that Mykel Chi is effective. Other physical activity may including water-based aerobics, gentle yoga, biking, walking, swimming, Pilates etc. Carefully continue Lyrica 75 mg 3 times daily . Try to limit Tylenol in favor of topical cream versus patch in addition to warm pool therapy that I encouraged her to start as soon as possible and build up gradually her strength and endurance up to the goal of 30-45 minutes 5-6 times a week. She would benefit from reading book written by Dr Virgil [facility] addressing management strategies for patients with fibromyalgia utilizing mindfulness approach. Assessment & Plan (10/22/2020 4:20 PM EST): We reviewed the diagnosis of fibromyalgia, its natural history, and treatment. Specifically, we discussed that treatment requires many interventions and recognition that we are often unable to get patients completely pain free. Management of fibromyalgia requires patient engagement to address any underlying depression, anxiety, or sleep disorder. Further, patients are encouraged to engage in regular physical activity. Some studies have suggested that Mykel Chi is effective. Other physical activity may including water-based aerobics, gentle yoga, biking, walking, swimming, Pilates etc. Carefully build up Lyrica from 75 mg 3 times daily to 75 mg every morning+ 75 mg midday + 100 mg at nighttime. Try to limit Tylenol in favor of topical cream versus patch in addition to warm pool therapy that I encouraged her to start as soon as possible and build up gradually her strength and endurance up to the goal of 30-45 minutes 5-6 times a week. She would benefit from reading book written by Dr Virgil [facility] addressing management strategies for patients with fibromyalgia utilizing mindfulness approach. Assessment & Plan (07/09/2020 10:38 AM EDT): We reviewed the diagnosis of fibromyalgia, its natural history, and treatment. Specifically, we discussed that treatment requires many interventions and recognition that we are often unable to get patients completely pain free. Management of fibromyalgia requires patient engagement to address any underlying depression, anxiety, or sleep disorder. Further, patients are encouraged to engage in regular physical activity. Some studies have suggested that Mykel Chi is effective. Other physical activity may including water-based aerobics, gentle yoga, biking, walking, swimming, Pilates etc. Carefully build up Lyrica from 75 mg twice daily to 3 times daily and hold Flexeril x 7 days and call me back regarding response. Try to limit Tylenol in favor of topical cream versus patch in addition to warm pool therapy that I encouraged her to start as soon as possible and build up gradually her strength and endurance up to the goal of 30-45 minutes 5-6 times a week. She would benefit from reading book written by Dr Virgil Costa [facility] addressing management strategies for patients with fibromyalgia utilizing mindfulness approach. Assessment & Plan (03/11/2020 9:53 PM EDT): We reviewed the diagnosis of fibromyalgia, its natural history, and treatment. Specifically, we discussed that treatment requires many interventions and recognition that we are often unable to get patients completely pain free. Management of fibromyalgia requires patient engagement to address any underlying depression, anxiety, or sleep disorder. Further, patients are encouraged to engage in regular physical activity. Some studies have suggested that Mykel Chi is effective. Other physical activity may including water-based aerobics, gentle yoga, biking, walking, swimming, Pilates etc. Carefully continue current regimen consisting of Lyrica 75 mg twice daily and Flexeril 5 mg twice daily and try to limit Tylenol in favor of topical cream versus patch in addition to warm pool therapy that I encouraged her to start as soon as possible and build up gradually her strength and endurance up to the goal of 30- 45 minutes 5-6 times a week. She would benefit from reading book written by Dr Virgil [facility] addressing management strategies for patients with fibromyalgia utilizing mindfulness approach. Assessment & Plan (01/25/2020 5:32 PM EST): We discussed the diagnosis of fibromyalgia, its natural history, and treatment. Specifically, we discussed that treatment requires many interventions and recognition that we are often unable to get patients completely pain free. Management of fibromyalgia requires patient engagement to address any underlying depression, anxiety, or sleep disorder. Further, patients are encouraged to engage in regular physical activity. Some studies have suggested that Mykel Chi is effective. Other physical activity may including water-based aerobics, gentle yoga, biking, walking, swimming, Pilates etc. In terms of pharmacotherapy, there are many options, including tricyclic antidepressants, duloxetine, gabapentin or pregabalin, and cyclobenzaprine as well as other similar medications to those listed. In this case, the patient might carefully continue current regimen consisting of Lyrica 75 mg twice daily and Flexeril 5 mg twice daily and try to limit Tylenol in favor of topical cream versus patch in addition to warm pool therapy that I encouraged her to start as soon as possible and build up gradually her strength and endurance up to the goal of 30-45 minutes 5-6 times a week. She would benefit from reading book written by Dr Virgil Costa [facility] addressing management strategies for patients with fibromyalgia utilizing mindfulness approach. Assessment & Plan (11/27/2019 11:01 AM EST): We discussed the diagnosis of fibromyalgia, its natural history, and treatment. Specifically, we discussed that treatment requires many interventions and recognition that we are often unable to get patients completely pain free. Management of fibromyalgia requires patient engagement to address any underlying depression, anxiety, or sleep disorder. Further, patients are encouraged to engage in regular physical activity. Some studies have suggested that Mykel Chi is effective. Other physical activity may including water-based aerobics, gentle yoga, biking, walking, swimming, Pilates etc. In terms of pharmacotherapy, there are many options, including tricyclic antidepressants, duloxetine, gabapentin or pregabalin, and cyclobenzaprine as well as other similar medications to those listed. In this case, the patient might carefully continue current regimen consisting of Lyrica 75 mg twice daily and Flexeril 5 mg twice daily and try to limit Tylenol in favor of topical cream versus patch in addition to warm pool therapy that I encouraged her to start as soon as possible and build up gradually her strength and endurance up to the goal of 30-45 minutes 5-6 times a week. She would benefit from reading book written by Dr Virgil Costa [facility] addressing management strategies for patients with fibromyalgia utilizing mindfulness approach. Assessment & Plan (06/29/2019 7:33 PM EDT): We discussed the diagnosis of fibromyalgia, its natural history, and treatment. Specifically, we discussed that treatment requires many interventions and recognition that we are often unable to get patients completely pain free. Management of fibromyalgia requires patient engagement to address any underlying depression, anxiety, or sleep disorder. Further, patients are encouraged to engage in regular physical activity. Some studies have suggested that Mykel Chi is effective. Other physical activity may including water-based aerobics, gentle yoga, biking, walking, swimming, Pilates etc. In terms of pharmacotherapy, there are many options, including tricyclic antidepressants, duloxetine, gabapentin or pregabalin, and cyclobenzaprine as well as other similar medications to those listed. In this case, the patient might carefully continue current regimen consisting of Lyrica 75 mg twice daily and Flexeril 5 mg twice daily and try to limit Tylenol in favor of topical cream versus patch in addition to warm pool therapy that I encouraged her to start as soon as possible and build up gradually her strength and endurance up to the goal of 30-45 minutes 5-6 times a week. She would benefit from reading book written by Dr [facility] addressing management strategies for patients with fibromyalgia utilizing mindfulness approach. Gastroesophageal reflux disease without esophagi tis 06/27/2019 Assessment & Plan (02/20/2024 1:42 PM EDT): Avoid late, large, spicy meals. Keep headboard elevated at 45 angle for nighttime. Assessment & Plan (11/15/2023 4:22 PM EST): Avoid late, large, spicy meals. Keep headboard elevated at 45 angle for nighttime. Assessment & Plan (05/16/2023 4:35 PM EDT): Avoid late, large, spicy meals. Keep headboard elevated at 45 angle for nighttime. Assessment & Plan (09/01/2022 9:01 AM EDT): Avoid late, large, spicy meals. Keep headboard elevated at 45 angle for nighttime. Assessment & Plan (03/31/2022 8:59 AM EDT): Avoid late, large, spicy meals. Keep headboard elevated at 45 angle for nighttime. Assessment & Plan (04/01/2021 10:39 AM EDT): Continue omeprazole and sucralfate as prescribed. Avoid late, large, spicy meals. Keep headboard elevated at 45 angle for nighttime. Assessment & Plan (12/31/2020 10:40 AM EST): Avoid late, large, spicy meals. Keep headboard elevated at 45 angle for nighttime. Assessment & Plan (10/22/2020 4:22 PM EST): Avoid late, large, spicy meals. Keep headboard elevated at 45 angle for nighttime. Assessment & Plan (07/09/2020 10:28 AM EDT): Avoid late, large, spicy meals. Keep headboard elevated at 45 angle for nighttime. Assessment & Plan (03/11/2020 10:37 AM EDT): Carefully continue sucralfate and omeprazole as prescribed. Avoid late, large, spicy meals. Keep headboard elevated at 45 angle for nighttime. Assessment & Plan (01/25/2020 5:34 PM EST): Avoid late, large, spicy meals. Keep headboard elevated at 45 angle for nighttime. Assessment & Plan (11/27/2019 11:06 AM EST): Avoid late, large, spicy meals. Keep headboard elevated at 45 angle for nighttime. Assessment & Plan (06/29/2019 7:34 PM EDT): Avoid late, large, spicy meals. Keep headboard elevated at 45 angle for nighttime. Work diligently on reducing body weight back to ideal range for her height. Acquired hypothyroidism 06/27/2019 Assessment & Plan (09/01/2022 9:00 AM EDT): Continue thyroid replacement therapy exactly as instructed and follow closely with prescribing physician as scheduled. Assessment & Plan (03/31/2022 8:57 AM EDT): Continue thyroid replacement therapy exactly as instructed and follow closely with prescribing physician as scheduled. Assessment & Plan (10/01/2021 9:19 PM EDT): Continue thyroid replacement therapy exactly as instructed and follow closely with prescribing physician as scheduled. Assessment & Plan (12/31/2020 10:38 AM EST): Continue Synthroid as prescribed and close follow-up with prescribing physician. Assessment & Plan (10/22/2020 4:17 PM EST): Continue Synthroid as prescribed and close follow-up with prescribing physician. Assessment & Plan (11/27/2019 11:00 AM EST): Continue Synthroid as prescribed and close follow-up with prescribing physician. Assessment & Plan (06/29/2019 7:29 PM EDT): Continue Synthroid as prescribed and close follow-up with prescribing physician. Mild intermittent asthma without complication Assessment & Plan (12/31/2020 10:37 AM EST): Avoid known triggers. Use inhalers as prescribed. Follow with PCP/food beverage attendant as scheduled. Assessment & Plan (10/22/2020 4:17 PM EST): Avoid known triggers. Use inhalers as prescribed. Follow with PCP/food beverage attendant as scheduled. Assessment & Plan (11/27/2019 11:06 AM EST): Avoid known triggers. Use inhalers as prescribed. Follow with PCP/food beverage attendant as scheduled. Assessment & Plan (06/29/2019 7:28 PM EDT): Avoid known triggers. Use inhalers as prescribed. Follow with PCP/food beverage attendant as scheduled. Vitamin D insufficiency 06/27/2019 Assessment & Plan (05/16/2023 4:37 PM EDT): Continue 4000 units vitamin D daily Assessment & Plan (09/01/2022 9:02 AM EDT): Take 4000 units vitamin D daily till 02/23/2021 Assessment & Plan (03/31/2022 9:00 AM EDT): Take 4000 units vitamin D daily till 02/23/2021 Assessment & Plan (09/30/2021 9:05 AM EDT): Take 4000 units vitamin D daily till 02/23/2021 Assessment & Plan (04/01/2021 10:40 AM EDT): Take 5000 units vitamin D daily to replace the deficit. She has 2000 units capsules that she will take 2 a day in addition to 1000 units in her Centrum multivitamin Assessment & Plan (12/31/2020 10:39 AM EST): Take 5000 units vitamin D daily to replace the deficit. She has 2000 units capsules that she will take 2 a day in addition to 1000 units in her Centrum multivitamin Assessment & Plan (10/22/2020 4:17 PM EST): Take 5000 units vitamin D daily to replace the deficit. She has 2000 units capsules that she will take 2 a day in addition to 1000 units in her Centrum multivitamin Assessment & Plan (07/09/2020 10:30 AM EDT): Take 5000 units vitamin D daily to replace the deficit. She has 2000 units capsules that she will take 2 a day in addition to 1000 units in her Centrum multivitamin Assessment & Plan (03/11/2020 10:39 AM EDT): Take 5000 units vitamin D daily to replace the deficit. She has 2000 units capsules that she will take 2 a day in addition to 1000 units in her Centrum multivitamin Assessment & Plan (12/31/2019 4:59 PM EST): Daily requirements reviewed and strongly encouraged. Serum level requested to make sure that there is no need for additional supplementation. Since she experienced stomach upset with 5000 units vitamin D capsule I encouraged her to try smaller dose of 2000 units capsule twice daily by 10-12 hours. Assessment & Plan (12/11/2019 7:36 PM EST): Daily requirements reviewed and strongly encouraged. Serum level requested to make sure that there is no need for additional supplementation. Since she experienced stomach upset with 5000 units vitamin D capsule I encouraged her to try smaller dose of 2000 units capsule twice daily by 10-12 hours. Assessment & Plan (06/29/2019 7:29 PM EDT): Daily requirements reviewed and strongly encouraged. Serum level requested to make sure that there is no need for additional supplementation. Muscle spasm 06/27/2019 Assessment & Plan (11/15/2023 4:21 PM EST): Gentle stretching after warm pack or warm shower. Proper hydration. Well-balanced nutritionally diet in electrolytes, vitamins and microelements. Gentle massage versus acupuncture or acupressure. She is requesting prescription for fourth tablet of Flexeril 5 mg at nighttime when her muscle spasms are so severe that she has hard time sleeping. I reviewed with her need for monitoring for delay response, dizziness, grogginess etc. Assessment & Plan (05/16/2023 4:36 PM EDT): Gentle stretching after warm pack or warm shower. Proper hydration. Well-balanced nutritionally diet in electrolytes, vitamins and microelements. Gentle massage versus acupuncture or acupressure. She is requesting prescription for fourth tablet of Flexeril 5 mg at nighttime when her muscle spasms are so severe that she has hard time sleeping. I reviewed with her need for monitoring for delay response, dizziness, grogginess etc. Assessment & Plan (09/01/2022 9:01 AM EDT): Gentle stretching after warm pack or warm shower. Proper hydration. Well-balanced nutritionally diet in electrolytes, vitamins and microelements. Gentle massage versus acupuncture or acupressure. Assessment & Plan (03/31/2022 9:00 AM EDT): Gentle stretching after warm pack or warm shower. Proper hydration. Well-balanced nutritionally diet in electrolytes, vitamins and microelements. Gentle massage versus acupuncture or acupressure. Assessment & Plan (09/30/2021 9:06 AM EDT): Gentle stretching after warm pack or warm shower. Proper hydration. Well-balanced nutritionally diet in electrolytes, vitamins and microelements. Gentle massage versus acupuncture or acupressure. Assessment & Plan (04/25/2021 8:56 AM EDT): Gentle stretching after warm pack or warm shower. Proper hydration. Well-balanced nutritionally diet in electrolytes, vitamins and microelements. Gentle massage versus acupuncture or acupressure. Assessment & Plan (07/09/2020 10:36 AM EDT): Gentle stretching after warm pack or warm shower. Proper hydration. Well-balanced nutritionally diet in electrolytes, vitamins and microelements. Gentle massage versus acupuncture or acupressure. Assessment & Plan (12/11/2019 7:28 PM EST): Gentle stretching after warm pack or warm shower. Proper hydration. Well-balanced nutritionally diet in electrolytes, vitamins and microelements. Gentle massage versus acupuncture or acupressure. Assessment & Plan (06/29/2019 7:34 PM EDT): Gentle stretching after warm pack or warm shower. Proper hydration. Well-balanced nutritionally diet in electrolytes, vitamins and microelements. Resolved Problems Problem Noted Date Diagnosed Date Resolved Date Class 3 severe obesity due t o excess calories without serious comorbidity with body mass index (BMI) of 40.0 to 44.9 in adult 04/01/2021 Assessment & Plan (09/30/2022 2:55 PM EDT): Continue diligent portion control. Limit concentrated sugars, saturated fats and calories in the diet. Keep well-hydrated. If unable to achieve expected goal consider formal dietary/nutritional support. Assessment & Plan (03/31/2022 8:58 AM EDT): Portion control. Limit concentrated sugars, saturated fats and calories in the diet. Keep well-hydrated. If unable to achieve expected goal consider formal dietary/nutritional support. Assessment & Plan (09/30/2021 9:07 AM EDT): Portion control. Limit concentrated sugars, saturated fats and calories in the diet. Keep well-hydrated. If unable to achieve expected goal consider formal dietary/nutritional support. Assessment & Plan (04/11/2021 8:08 AM EDT): Portion control. Limit concentrated sugars, saturated fats and calories in the diet. Keep well-hydrated. If unable to achieve expected goal consider formal dietary/nutritional support. Chronic bilateral low back p ain with bilateral sciatica 12/31/2019 05/16/2023 Assessment & Plan (03/31/2022 8:58 AM EDT): Use heating pad onto her lower back followed by gentle massage of gel such as Arnica, Biofreeze, Aspercreme 3 times daily etc. and prior to bed rest Carefully continue hemp gummy as it appears helpful for inflammation and burning. Continue carefully Lyrica as prescribed. Work on reducing her body weight as close as possible to ideal range. Avoid frequent bending, heavy lifting, sudden turns, falls or injuries. Gentle, regular core muscle strengthening exercises. Assessment & Plan (12/31/2020 10:40 AM EST): Use heating pad onto her lower back followed by gentle massage of gel such as Arnica, Biofreeze, Aspercreme 3 times daily etc. and prior to bed rest Carefully continue hemp gummy as it appears helpful for inflammation and burning. Continue carefully Lyrica as prescribed. Work on reducing her body weight as close as possible to ideal range. Avoid frequent bending, heavy lifting, sudden turns, falls or injuries. Gentle, regular core muscle strengthening exercises. Assessment & Plan (10/22/2020 4:21 PM EST): Use heating pad onto her lower back followed by gentle massage of gel such as Arnica, Biofreeze, Aspercreme 3 times daily etc. and prior to bed rest Carefully continue hemp gummy as it appears helpful for inflammation and burning. Continue carefully Lyrica as prescribed. Work on reducing her body weight as close as possible to ideal range. Avoid frequent bending, heavy lifting, sudden turns, falls or injuries. Gentle, regular core muscle strengthening exercises. Assessment & Plan (07/09/2020 10:37 AM EDT): Use heating pad onto her lower back followed by gentle massage of gel such as Arnica, Biofreeze, Aspercreme 3 times daily etc. and prior to bed rest Carefully continue hemp gummy as it appears helpful for inflammation and burning. Continue carefully Lyrica and Flexeril as prescribed. Work on reducing her body weight as close as possible to ideal range. Avoid frequent bending, heavy lifting, sudden turns, falls or injuries. Gentle, regular core muscle strengthening exercises. Assessment & Plan (03/11/2020 9:54 PM EDT): Use heating pad onto her lower back followed by gentle massage of gel such as Arnica, Biofreeze, Aspercreme 3 times daily etc. and prior to bed rest Continue carefully Lyrica and Flexeril as prescribed. Work on reducing her body weight as close as possible to ideal range. Avoid frequent bending, heavy lifting, sudden turns, falls or injuries. Gentle, regular core muscle strengthening exercises. Assessment & Plan (01/25/2020 5:34 PM EST): Use heating pad onto her lower back followed by gentle massage of gel such as Arnica, Biofreeze, Aspercreme 3 times daily etc. and prior to bed rest Continue carefully Lyrica and Flexeril as prescribed. Due to severe pain that prevents her from walking I prescribed her a week supply of Tylenol # 3 to be taken every 8 hours as needed for severe pain. Class 2 obesity due to exces s calories without serious comorbidity with body mass index (BMI) of 37.0 to 37.9 in adult 06/27/201904/2022 Assessment & Plan (12/31/2020 10:39 AM EST): Portion control. Limit concentrated sugars, saturated fats and calories in the diet. Keep well-hydrated. If unable to achieve expected goal consider formal dietary/nutritional support. Assessment & Plan (10/22/2020 4:18 PM EST): Portion control. Limit concentrated sugars, saturated fats and calories in the diet. Keep well-hydrated. If unable to achieve expected goal consider formal dietary/nutritional support. Assessment & Plan (07/09/2020 10:30 AM EDT): Portion control. Limit concentrated sugars, saturated fats and calories in the diet. Keep well-hydrated. If unable to achieve expected goal consider formal dietary/nutritional support. Assessment & Plan (03/11/2020 9:50 PM EDT): Portion control. Limit concentrated sugars, saturated fats and calories in the diet. Keep well-hydrated. If unable to achieve expected goal consider formal dietary/nutritional support. If interested in bilateral total knee replacement aim at body weight <240 pounds. Assessment & Plan (01/25/2020 5:31 PM EST): Portion control. Limit concentrated sugars, saturated fats and calories in the diet. Keep well-hydrated. If unable to achieve expected goal consider formal dietary/nutritional support. Assessment & Plan (11/27/2019 11:00 AM EST): Portion control. Limit concentrated sugars, saturated fats and calories in the diet. Keep well-hydrated. If unable to achieve expected goal consider formal dietary/nutritional support. Assessment & Plan (06/29/2019 7:29 PM EDT): Portion control. Limit concentrated sugars, saturated fats and calories in the diet. Keep well-hydrated. If unable to achieve expected goal consider formal dietary/nutritional support. Family History Medical History Relation Comments Colon cancer Father Breast cancer Mother Colon cancer Mother Hypertension Mother Osteoporosis Mother Relation Status Comments Father Mother Social History Tobacco Use Types Packs/Day Years Used Date Smoking Tobacco: Former Cigarettes Q uit: 06/27/2012 Smokeless Tobacco: Never Tobacco Cessation:Counseling Given: Not Answered Education Answer Date Recorded Are you interested in more education? Not on dylan e 03/23/2023 Are you concerned about learning? Not on file 03/23/2023 No 03/23/2023 No 03/23/2023 Digital Access Answer Date Recorded No 04/21/2023 No 04/21/2023 Reliable internet access at home? Not on file 04/21/2023 Device with a working camera? Not on file Comments Unknown Sex and Gender Information Value Date Recorded Sex Assigned at Female 06/30/2021 8:43 AM EDT Legal Sex Female 9:46 AM EDT Gender Identity Female 06/30/2021 8:43 AM EDT Sexual Orientation Not on file Last Filed Vital Signs Vital Sign Reading Time Taken Comments Blood Pressure 143/82 11/15/2023 2:57 PM EST patient reported Pulse 109 11/15/2023 2:57 PM EST Temperature - - Respiratory Rate - - Oxygen Saturation - - Inhaled Oxygen Concentration - - Weight 113.4 kg (250 lb) 02/20/2024 1:1 4 PM EDT patient reported Height 157.5 cm (5' 2 ) 02/20/2024 1:14 PM EDT Body Mass Index 45.73 02/20/2024 1:14 PM EDT Plan of Treatment Health Maintenance Due Date Last Done Comments Adult Td,Tdap Booster 1972 TSH LEVEL 1972 DEPRESSION SCREENING 1984 SMOKING Hx and SMOKELESS TOBACCO SCREENING 1985 HEPATITIS C SCREENING 1990 HIV ONE-TIME SCREENING (18-6 5 YEARS) 1990 PNEUMOCOCCAL VACCINES (50+ years) (1 of 2 - PCV) 1991 ZOSTER VACCINES (1 of 2) 1991 PAP SMEAR 1993 COLOGUARD 2017 COLONOSCOPY 2017 COLORECTAL CANCER SCREENING 2017 FIT TEST 2017 FOBT 2017 SIGMOIDOSCOPY 2017 VIRTUAL COLONOSCOPY 2017 CREATININE LEVEL 06/27/2020 06/27/2019 POTASSIUM LEVEL 06/27/2020 06/27/2019 SCREENING FOR DIABETES 06/27/2022 06/27/2019 RSV VACCINE (1 - Risk 50-74 years 1-dose series) 2022 INFLUENZA VACCINE (#1) 2025 COVID-19 VACCINE (3 - 2024-2 6 season) 2025 04/27/2021, 03/30/2021 MAMMOGRAM 02/08/2026 02/09/2024, 01/14/2022, 10/15/2019 LIPID PANEL 02/14/2029 02/15/2024, 01/02/2024 HEPATITIS A VACCINES Aged Out No long er eligible based on patient's age to complete this topic HIB VACCINES Aged Out No longer eligi ble based on patient's age to complete this topic MENINGOCOCCAL VACCINES (ACWY) Aged Out No longer eligible based on patient's age to complete this topic MENINGOCOCCAL VACCINES (B) Aged Out N o longer eligible based on patient's age to complete this topic Medical Devices Not on file Procedures Procedure Name Priority Date/Time Associated Diagnosis Comments COMPREHENSIVE METABOLIC PANEL (CMP) Routine 06/27/2019 2:12 PM EDT Acquired hypothyroidism from Last 3 Months or Most Recently Relevant to Health Maintenance Results * (ABNORMAL) Comprehensive metabolic panel (06/27/2019 2:12 PM EDT) SODIUM 141 133 - 146 mmol/L [facility] POTASSIUM 4.4 3.3 - 5.1 mmol/L [facility] CHLORIDE 106 96 - 108 mmol/L [facility] CO2 25 21 - 35 mmol/L [facility] BUN 15 6 - 19 mg/dL [facility] CREATININE 0.70 0.5 - 1.5 mg/dL [facility] GLUCOSE 108(H) 70 - 99 mg/dL [facility] ALBUMIN 4.4 3.9 - 4.8 g/dL [facility] TOTAL PROTEIN 6.0(L) 6.5 - 8.0 g/dL [facility] CALCIUM 9.0 8.4 - 10.3 mg/dL [facility] ALKALINE PHOSPHATASE 69 39 - 117 U/L [facility] TOTAL BILIRUBIN 0.2 0.0 - 1.2 mg/dL [facility] AST 31 0 - 37 U/L [facility] ALT 33 0 - 40 U/L [facility] GLOBULIN 1.6 1 - 4.8 g/dL [facility] EGFR 104 >59 mL/min/1.7 3m2 [facility] Comment:If patient is black, multiply result by 1.159. Estimated glomerular filtration rate calculated using the CKD-EPI equation. ANION GAP 14 10 - 20 mmol/L [facility] Blood 06/27/2019 2:12 PM EDT 06/27/2019 2:15 PM EDT us Triny Chavez MD LAB BLOOD BKR ORDERABLES Final Result [address] [id number] from Last 3 Months or Most Recently Relevant to Health Maintenance Insurance MEDICARE PART A [place] [employer] MEDICARE REPLACEMENT MEDICARE PART A & [place] [employer] MED[place] REPL[place] [facility] MED[facility]ARE REPLAC[place] MED[place]ARE PART A [place] [facility] MED[facility] PART A & [facility] RE[facility] MEDICARE PART A & B [facility] [employer] MEDICARE REPLACEMENT Care Teams Pv Design Engineer Relationship Specialty Start Date End Date Nirmal Washington MD [address] [place] [id number] PCP - General Internal Medicine 07/16/20 Additional Source Comments The information contained in this document represents components of the legal health record. It is not the complete legal health record.[facility]
--- OUTSIDE RECORDS SUMMARY | 2025-10-19 16:08 | XMS_ITS | Clinical Summary ---
Author Organization [facility] Address [address] [place] [id number] Care Team Providers Care Pie Maker Name Role Phone Nirmal Washington MD Primary Care Provider [phone] Allergies Active Allergy Reactions Criticality Noted Date [...] age to complete this topic Care Teams Pie Maker Relationship Specialty Start Date End Date Nirmal Washington MD PCP - General Internal Medicine 01/23/23
--- OUTSIDE RECORDS SUMMARY | 2025-10-19 16:08 | XMS_ITS | Clinical Summary ---
Author Organization Patient Business Ser [facility] Address [address] [place] [address] Care Team Providers Care Director Of Advertising Sales Name Role Phone Nirmal Washington MD Primary Care Provider [phone] Allergies Active Allergy Reactions Criticality Noted Date [...] mouth 3 (three) times a day. Active fluticasone-umec lidinium-vilante rol (Trelegy Ellipta) 100-62.5-25 mcg inhaler Inhale 1 [...] total) 1 (one) time each day. Active cholecalciferol, vitamin D3, (VITAMIN D3 ORAL) Take by mouth. Take 100 mcg by mouth Active immun glob G,IgG,-pro-IgA 0-50 (Hizentra) 4 gram/20 mL (20 %) syringe Inject under the skin. Historical Active immun glob G,IgG,-pro-IgA 0-50 (Hizentra) 1 gram/5 mL (20 %) solution Inject 200 mg/kg under the skin every 7 (seven) days. HIstorical Active immune globulin,gamma,I gG, (IMMUNE GLOBULIN, HUMAN,, IGG, IV) Infuse into a venous catheter. Inject 5 ml into vein on sunday Active multivitamin tablet Take 1 tablet by mouth 1 (one) time each day. Active lactobacillus acidoph-l.mojgangar 100 million cell granules in packet Take by mouth. Activ e inhalational spacing device (Aerochamber MV) inhaler by Other route. Use as instructed with inhaler Active ipratropium-albu teroL (Combivent Respimat) 20-100 mcg/actuation inhaler INHALE 1 [...] 1 (one) time each day. Active multivitamin (multivitamin-ir on-minerals) tablet Take 1 tablet by mouth daily. Active lisinopriL (PRINIVIL,ZESTRI L) 10 mg tablet Take 1 tablet (10 [...] 2.5 mg /3 mL (0.083 %) nebulizer solutionIndicati ons:Asthma-chron ic obstructive pulmonary disease overlap syndrome (CMS/HCC V24, [...] 25 Active omeprazole (PriLOSEC) [address] capsuleIndicatio ns:Gastroesophag eal reflux disease without esophagitis Take 1 capsule (40 mg total) by mouth 2 (two) times a day before meals. 180 capsule 1 08/12/20 25 Active Ventolin HFA 90 mcg/actuation inhalerIndicatio ns:Asthma-chroni c obstructive pulmonary disease overlap syndrome (CMS/HCC V24, CMS/HCC V28),Acute cough Inhale 2 puffs by mouth every 6 (six) hours if needed for wheezing. 54 g 1 08/13/20 25 026 Active cyclobenzaprine (FLEXERIL) 10 mg tablet Take 1 tablet (10 mg total) by mouth 3 (three) times a day. 90 tablet 2 09/08/20 25 Active DULoxetine (CYMBALTA) [address] capsule Take 1 capsule (20 mg total) by mouth 1 (one) time each day. Do not crush or chew. 30 each 1 09/08/20 25 Active diclofenac (VOLTAREN) 1 % topical gel Apply 2 g topically 4 (four) times a day. 1 each 09/28/20 25 Active predniSONE (DELTASONE) 10 mg tabletIndication s:COPD exacerbation,ast hma exacerbation Take 4 tablets (40 mg total) [...] days. 30 each 09/07/20 25 025 Active Problems Problem Noted Date Diagnosed Date [...] LVEF of >67 % Assessment & Plan (10/06/2025 9:33 AM EST): No current symptoms suggestive of coronary insufficiency. Prior stress test may have been and I believe is likely a false positive related to body habitus and technique. I recommended a coronary CTA to clearly define her coronary anatomy. I will plan to discuss these results with the patient directly by phone. Her preventative therapy for CAD is appropriate with aspirin, Lipitor, lisinopril for blood pressure control with a goal of blood pressure less than 130. 80. I have not planned routine medical follow-up in our office. If her coronary CTA demonstrates significant abnormalities then we will arrange appropriate follow- up Assessment & Plan (10/20/2024 10:50 AM EST): [...] pain 01/29/2024 Crohn's disease with complic ation ([facility] V24, [facility] V28) 09/17/2023 Nocturnal hypoxia 07/27/2023 Lower respiratory tract infection 05/03/2023 PND (post-nasal drip) 05/03/2023 Pulmonary nodules 05/03/2023 Acute pneumonia 02/20/2023 Adverse effect of immunoglobulin 02/20/2023 Common variable immunodefici ency, unspecified ([facility] V24, 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 [facility] V24, [facility] V28) 2022 Chronic obstructive pulmonar y disease ([facility] V24, [facility] V28) 01/11/2023 Daytime sleepiness 11/04/2022 Primary osteoarthritis [...] Asthma in adult, severe pers istent, uncomplicated ([facility] V28) 09/26/2019 Mild intermittent asthma without complication [...] Severe obesity (BMI 35.0-39. 9) with comorbidity ([facility] V24, [facility] V28) 03/20/2019 Assessment & Plan (10/20/2024 [...] Fibromyalgia 10/30/2017 Overview (10/20/2024): Dr. Ibarra in [facility] Rheumonotology. 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 V24, [facility] V28) 2015 Complex endometrial hyperplasia without atypia 0 03/04/2014 Anemia 01/26/2011 Anxiety 10/23/2006 Hypothyroidism 10/23/2006 Seizure disorder ([facility] V24, [facility] V28) 09/27 Encounters Date Type Department Care Team Description 10/15/2025 4:00 PM EST Office Visit Adult Medicine [address] [phone] Gurmeet Curtis PA Swollen gland (Primary Dx) 10/14/2025 9:00 AM EST Office Visit Gastroenterology - [address] [facility] [address] [facility] [place] [phone] Rudy Garcia MD Carpal tunnel syndrome of right wrist (Primary Dx); Crohn's disease of large intestine with complication ([facility] V24, [facility] V28); FARMER (nonalcoholic steatohepatitis); Severe obesity (BMI 35.0-39.9) with comorbidity (CMS/HCC V24, CMS/HCC V28) 10/09/2025 Telephone [facility] Cardiology [facility] [address] [place] [address] Benja Miller MD 09/30/2025 Telephone Orthopedic Surgery [facility] [address] [place] [phone] Christina Nolen MA 09/29/2025 9:30 AM EST Office Visit [facility] Cardiology [facility] [address] [place] [address] Benja Miller MD Coronary artery disease, unspecified vessel or lesion type, unspecified whether angina present, unspecified whether [place] or transplanted heart (Primary Dx); Abnormal stress test 09/28/2025 11:30 AM EST Consult Orthopedic Surgery - [place] [address] [place] [phone] Samaria Calle PA Bilateral hand pain (Primary Dx); Hand paresthesia; Primary osteoarthritis of both first carpometacarpal joints 09/22/2025 10:57 AM EDT - 09/22/2025 11:59 PM EDT Hospital Encounter [facility] [address] [place] [phone] Rudy Garcia MD Crohn's disease with complication, unspecified gastrointestinal tract location ([facility] V24, [facility] V28) (Primary Dx) Discharge Disposition: Home or Self Care 09/22/2025 Telephone Gastroenterology - [place] [address] [facility] [address] [place] [phone] Rudy Garcia MD 09/15/2025 Results Follow-Up Vascular Surgery [facility] [address] [place] [phone] Ifeoma Gastelum PA 09/10/2025 8:30 AM EDT Ancillary Procedure [facility] Cardiology [facility] [address] [place] [phone] Leg swelling 09/08/2025 11:30 AM EDT Office Visit Adult Medicine [address] [phone] Gurmeet Curtis PA Chronic low back pain, unspecified back pain laterality, unspecified whether sciatica present (Primary Dx); Hypothyroidism, unspecified type; Hypertension, unspecified type; Hyperlipidemia, unspecified hyperlipidemia type; Asthma-COPD overlap syndrome (CMS/HCC V24, CMS/HCC V28); Numbness of left thumb; Skin lesion; Fibromyalgia 09/07/2025 9:20 AM EDT Office Visit Pulmonology [facility] [address] [facility] [address] [place] [phone] Elise Hernandez NP Asthma in adult, severe persistent, with acute exacerbation (CMS/HCC V28) (Primary Dx); Cough productive of purulent sputum 08/31/2025 Telephone [facility] Cardiology [address] [place] [phone] Benja Miller MD 08/28/2025 Telephone Adult Medicine [address] [phone] Nirmal Washington MD 08/18/2025 4:30 PM EDT - 08/18/2025 11:59 PM EDT Hospital Encounter [address] [phone] Asthma-chronic obstructive pulmonary disease overlap syndrome (CMS/HCC V24, CMS/HCC V28); Acute cough Discharge Disposition: Home or Self Care 08/13/2025 4:25 PM EDT Office Visit Pulmonology [facility] [address] [facility] [address] [place] [phone] Elise Hernandez NP Acute cough (Primary Dx); Asthma-chronic obstructive pulmonary disease overlap syndrome (CMS/HCC V24, CMS/HCC V28) 07/28/2025 11:00 AM EDT - 07/28/2025 11:59 PM EDT Hospital Encounter [facility] [address] [place] [address] Rudy Garcia MD Crohn's disease with complication, unspecified gastrointestinal tract location ([facility] V24, [facility] V28) (Primary Dx) Discharge Disposition: Home or Self Care from [...] Nausea Single seizure due to remote cause ([facility] V24, [facility] V28) Cervical spondylosis without myelopathy Colitis CAD (coronary artery disease) IBS (irritable bowel syndrome) IgA deficiency ([facility] V24, [facility] V28) GERD (gastroesophageal reflux disease) Fatty liver [...] do you feel lonely or isolated from ose around you? Never 06/04/2025 Food Risk [...] for your loved ones. 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 Not on file Not on file Obstetrics History Para Term AB IAB SAB Ectopic Multiple Livin g Live Births 3 3 2 1 2 2 Date Outcome GA Total Labor Labor/2nd/3rd Weight Sex Type Anes PTL Eunice A1 A5 Name Clin Term 1991 Vag-S pont Epidur al Livin g china [place] [place] Term Vag-S pont None Livin g navid daniel Delivery Location:[facility] Last Filed Vital Signs Vital Sign Reading Time Taken Comments Blood Pressure 112/66 10/15/2025 4:11 PM EST Pulse 102 10/15/2025 4:11 PM EST Temperature 36.2 C (97.2 F) 10/15/2025 4:11 PM EST Respiratory Rate 18 09/22/2025 11:12 AM EDT Oxygen Saturation 99% 10/15/2025 4:11 PM EST Inhaled Oxygen Concentration - - Weight 100 kg (220 lb 12.8 oz) 10/15/2025 4:11 P M EST Height 154.9 cm (5' 0.98 ) 10/15/2025 4:11 PM ES T Body Mass Index 41.74 10/15/2025 4:11 PM EST Plan of Treatment Upcoming Encounters Date Type Department Care Team (Late st Contact Info) Description 10/23/2025 8:00 AM EST Appointment [facility] Ultrasound [address] [place] [phone] 10/29/2025 10:30 AM EST Office Visit Vascular Surgery - [place] [address] [facility] [address] [place] [address] Conchita Trevino PA [address] [facility] [address] [place] [address] 11/02/2025 11:25 AM EST Office Visit Pulmonology - [place] [address] [facility] [address] [place] [phone] Elise Hernandez NP [address] [place] [phone] 11/09/2025 10:45 AM EST Appointment Radiology Department - [address] [phone] 11/13/2025 8:00 AM EST Appointment [facility] CT Scan [address] [place] [address] 11/17/2025 11:00 AM EST Appointment [facility] [address] [place] [phone] 12/21/2025 11:00 AM EST Consult Endocrinology - [address] [phone] Catrina Pelletier PA [address] [place] [address] 01/12/2026 11:00 AM EST Appointment [facility] [address] [place] [phone] 03/08/2026 9:40 AM EDT Appointment Radiology Department - [address] [phone] 03/17/2026 11:00 AM EDT Office Visit Adult Medicine South - [address] [phone] Gurmeet Curtis PA [address] [place] [address] Health Maintenance Due Date Last Done Comments [...] Additional history exists Breast Cancer Screening 03/12/2027 03/12/20 25, 03/03/2025, 02/09/2024, Additional history exists Colorectal Cancer Screening: Colonoscopy 04/26/2027 04/26/2022 Cholesterol Screening (Lipid Panel) 06/11/2030 06/11/2025, 06/05/2024, 06/05/2024 HIV Screening Completed 01/24/2011 Hepatitis C Screening Completed 11/13/2023 Depression Screening Completed 10/15/2025, 09/17/20 HIB Vaccines Aged Out No longer [...] Procedure Name Priority Date/Time Associated Diagnosis Comments ECG 12-LEAD Routine 09/29/2025 10:02 AM EST Coronary artery disease, unspecified vessel or lesion type, unspecified whether angina present, unspecified whether [place] or transplanted heart XR HAND 3+ VIEWS BILAT Routine 09/28/2025 12:15 PM EST Bilateral hand pain VAS US DUPLEX LOWER EXT VENOUS INSUFFICIENCY BILATERAL Routine 09/10/2025 9:08 AM EDT Leg swelling XR CHEST 2 VIEWS Routine 08/18/2025 4:51 PM EDT Asthma-chronic obstructive pulmonary disease overlap syndrome (CMS/HCC V24, CMS/HCC V28) Acute cough BASIC METABOLIC PANEL Routine 06/11/2025 9:46 AM [...] Recently Relevant to Health Maintenance Results * ECG 12 lead (09/29/2025 10:02 AM EST) Ventricular Rate ECG 102 BPM GEMUSE Atrial Rate 102 BPM GEMUSE P-R Interval 152 ms GEMUSE QRS Duration 72 ms GEMUSE Q-T Interval 342 ms GEMUSE QTc 445 ms GEMUSE P Wave [place] 67 degrees GEMUSE R [place] -10 degrees GEMUSE T [place] 41 degrees GEMUSE ECG Interpretation Sinus tachycardia Low voltage QRS Cannot rule out Anteroseptal infarct , old Abnormal ECG When compared with ECG of 20-OCT-2024 10:13, Questionable change in initial forces of Lateral leads Confirmed by BENJA MILLER ([id number]) on 09/29/2025 11:05:09 AM GEMUSE 09/29/2025 10:0 2 AM EST 09/29/2025 11:05 AM EST us Benja Miller MD ECG ORDERABLES Final Result GEMUSE * XR Hand 3+ Views bilat (09/28/2025 12:15 PM EST) Anatomical Region Laterality Modality Upper Extremities, Hand Bilateral Computed Radiography Narrative 09/28/2025 1:25 PM EST Date of Visit: 09/28/2025 Reason for visit: Bilateral hand pain Views: AP, lateral, oblique bilateral hands Comparison: None Findings: Bilateral thumb basal joint arthritis moderate to severe left worse than right. No fracture, dislocation or lytic lesions. No calcifications Impression: Bilateral thumb basal joint arthritis us Samaria GÓMEZ IMG XR PROCEDURES Final Resul t * Vascular US duplex lower extremity venous [...] trendelenburg. Left saphenopopliteal junction was not identified. Die Keeper Details A resendiz scale, color and doppler [...] Signed Date: 08/18/2025 18:25 ET Workstation ID: [id number] Transcribed By: Self Edit Transcribed Date: 08/18/2025 [...] Signed Date: 08/18/2025 18:25 ET Workstation ID: [id number] Transcribed By: Self Edit Transcribed Date: 08/18/2025 17:47 ET Elise Hernandez OUTSIDE RIGGER IMG XR PROCEDURES Final Result * (ABNORMAL) Lipid panel with reflex to direct LDL (06/11/2025 9:46 AM EDT) Cholesterol 180 0 - 200 mg/dL LAB CHEMISTRY METHOD 06/11/2025 3:14 PM EDT [facility] Triglycerides 161(H) 0 - 150 mg/dL LAB CHEMISTRY METHOD 06/11/2025 3:14 PM EDT [facility] HDL 53 >=40 mg/dL LAB CHEMISTRY METHOD 06/11/2025 3:14 PM EDT [facility] LDL Calculated 95 0 - 100 mg/dL LAB CHEMISTRY METHOD 06/11/2025 3:14 PM EDT [facility] VLDL Cholesterol Wade 32.2 mg/dL LAB CHEMISTRY METHOD 06/11/2025 3:14 PM T [facility] Non HDL Chol. (LDL+VLDL) 127 <145 mg/dL LAB [facility] Chol/HDL Ratio 3.4 0.0 - 4.4 LAB CHEMISTRY METHOD 06/11/2025 3:[address] [facility] Blood Venous blood specimen / Unknown Venipuncture / Unknown 06/11/2025 9:46 AM EDT 06/11/2025 9:46 AM EDT Gurmeet GÓMEZ LAB BLOOD ORDERABLES Fi nal Result [facility] [address] [place] [address], [place] [phone] * Basic metabolic panel (06/11/2025 9:46 AM EDT) Sodium 136 133 - 145 mmol/L LAB CHEMISTRY METHOD 06/11/2025 3:[address] [facility] Potassium 3.9 3.5 - 5.5 mmol/L LAB CHEMISTRY METHOD 06/11/2025 3:[address] [facility] Chloride 103 96 - 110 mmol/L LAB CHEMISTRY METHOD 06/11/2025 3:[address] [facility] CO2 25 21 - 32 mmol/L LAB CHEMISTRY METHOD 06/11/2025 3:[address] [facility] Anion Gap 8 3 - 11 LAB CHEMISTRY METHOD 06/11/2025 3:[address] [facility] Glucose 83 70 - 100 mg/dL LAB CHEMISTRY METHOD 06/11/2025 3:[address] [facility] BUN 11 5 - 25 mg/dL LAB CHEMISTRY METHOD 06/11/2025 3:[address] [facility] Creatinine 0.83 0.50 - 1.10 mg/dL LAB CHEMISTRY METHOD 06/11/2025 3:14 PM EDT [facility] eGFR 85 >=60 mL/min/1. 73m2 LAB CHEMISTRY METHOD 06/11/2025 3:14 PM EDT [facility] Comment:Calculation based on the Chronic Kidney Disease Epidemiology Collaboration (CKD-EPI) equation refit without adjustment for race. BUN/Creatinine Ratio 13.3 LAB CHEMISTRY METHOD 06/11/2025 3:14 PM EDT [facility] Calcium 9.6 8.5 - 10.5 mg/dL LAB CHEMISTRY METHOD 06/11/2025 3:14 PM EDT [facility] Blood Venous blood specimen / Unknown Venipuncture / Unknown 06/11/2025 9:46 AM EDT 06/11/2025 9:46 AM EDT Gurmeet GÓMEZ LAB BLOOD ORDERABLES Fi nal Result [facility] [address] [place] [address], [place] [phone] * MG Mammo Digital Diagnostic w Dylan [...] is recommended in 1 year. MAMMO LOCATION: [facility], [address] [place] [address], [address], . -------- FINAL REPORT -------- Dictated By: Leah Lou Dictated Date: 03/12/2025 09:38 ET Assigned Physician: Leah Lou Reviewed and Electronically Signed By: Leah Lou Signed Date: 03/12/2025 09:40 ET Workstation ID: [id number] Transcribed By: Self Edit Transcribed Date: 03/12/2025 [...] is recommended in 1 year. MAMMO LOCATION: [facility], [address] [place] [address], [address], . -------- FINAL REPORT -------- Dictated By: Leah Lou Dictated Date: 03/12/2025 09:38 ET Assigned Physician: Leah Lou Reviewed and Electronically Signed By: Leah Lou Signed Date: 03/12/2025 09:40 ET Workstation ID: [id number] Transcribed By: Self Edit Transcribed Date: 03/12/2025 09:38 ET us Nirmal [place] MD IMG BI PROCEDURES Final Result * Hepatitis C Screening (11/13/2023) Hepatitis C Screening abstracted us Historical Provider HEALTH MAINTENANCE Final Result * Depression Screening (09/17/2023) Depression Screening abstracted Historical Provider HEALTH MAINTENANCE Final Result * Colonoscopy (04/26/2022) Pathologist [facility] Colonoscopy abnormal, abstracted Anatomical Region Laterality Modality Other Historical Provider HEALTH MAINTENANCE Final Result * Cervical Cancer Screening: HPV (09/20/2017) Pathologist [facility] Cervical Cancer Screening: HPV negative, abstracted [facility] Provider HEALTH MAINTENANCE Final Result * HIV Screening (01/24/2011) Pathologist [facility] HIV Screening abstracted [facility] Provider HEALTH MAINTENANCE Final Result from Last 3 Months or Most Recently Relevant to [place] [id number] [employer] MED[employer]ARE [employer]VANTAGE [place]ICAID [place] Care Teams Director Of Advertising Sales Relationship Specialty Start Date End Date Nirmal Washington MD [address] [place] [address] [facility] [phone] PCP - General Internal Medicine 10/02/24
--- OUTSIDE RECORDS SUMMARY | 2025-10-19 16:08 | XMS_ITS | Encounter Summary ---
Author Organization [facility] Address [address] [place] [address] Care Team Providers Care Gold Cutter Name Role Phone Nirmal Washington MD Primary Care Provider [phone] Reason for Visit * Reason Onset Date Comments Request For Order(s) 09/30/2025 EMG Encounter Details Date Type Department Care Team ([facility] st Contact Info) Description 09/30/2025 Telephone Orthopedic Surgery - [place] [address] [facility] [address] [place] [address] Christina Nolen MA Social History Tobacco Use Types Packs/Day Years [...] care for your loved ones. 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 Not on file Not on file documented as of this encounter Progress Notes * Christina Nolen MA - 09/30/2025 8:49 AM EST Order for EMG faxed over to Jose documented in this encounter Plan of Treatment Upcoming Encounters Date Type Department Care Team (Late st Contact Info) Description 10/23/2025 8:00 AM EST Appointment [facility] Ultrasound [address] [place] [address] 10/29/2025 10:30 AM EST Office Visit Vascular Surgery - [place] [address] [place] [address] Conchita Trevino PA [address] [facility] [address] [place] [address] 11/02/2025 11:25 AM EST Office Visit Pulmonology - [place] [address] [facility] [address] [place] [phone] Elise Hernandez, ALEX [address] [place] [phone] 11/09/2025 10:45 AM EST Appointment Radiology Department - [address] [phone] 11/13/2025 8:00 AM EST Appointment [facility] CT Scan [address] [place] [address] 11/17/2025 11:00 AM EST Appointment [facility] Infusion [facility] [address] [place] [phone] 12/21/2025 11:00 AM EST Consult Endocrinology - [address] [phone] Catrina Pelletier PA [address] [place] [address] 01/12/2026 11:00 AM EST Appointment [facility] [address] [place] [phone] 03/08/2026 9:40 AM EDT Appointment Radiology Department - [address] [phone] 03/17/2026 11:00 AM EDT Office Visit Adult Medicine South [address] [phone] Gurmeet Curtis PA [address] [place] [address] documented as of this encounter Visit Diagnoses Not on filedocumented in this encounter Additional Health Concerns Assessment Noted Time PHQ-9 Depression Total Score: 9 06/04/20 25 10:02 AM EDT documented as of this encounter Care Teams Gold Cutter Relationship Specialty Start Date End Date Nirmal Washington MD [address] [place] [address] PCP - General Internal Medicine 10/02/24 documented as of this encounter
--- OUTSIDE RECORDS SUMMARY | 2025-10-19 16:08 | XMS_ITS | Encounter Summary ---
Author Organization [facility] Address [address] [place] [address] Care Team Providers Care Carpenter Supervisor Wooden Ship Name Role Phone Nirmal Washington MD Primary Care Provider [phone] Encounter Details Date Type Department Care Team (Late st Contact Info) Description 09/15/2025 Results Follow-Up Vascular Surgery - [place] [address] [phone] Ifeoma Gastelum PA [address] [place] [phone] Social History Tobacco Use Types Packs/Day Years [...] care for your loved ones. For example, professor of early childhood education or elderly care for an older adult? 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 Not on file Not on file documented as of this encounter Plan of Treatment Upcoming Encounters Date Type Department Care Team (Late Contact Info) Description 10/23/2025 8:00 AM EST Appointment [facility] Ultrasound [address] [place] [address] 10/29/2025 10:30 AM EST Office Visit Vascular Surgery - [place] [address] [place] [address] Conchita Trevino PA 300 [facility] [address] [place] [address] 11/02/2025 11:25 AM EST Office Visit Pulmonology - [place] 175 [facility] [address] [place] [phone] Elise Hernandez, ALEX [address] [place] [address] 11/09/2025 10:45 AM EST Appointment Radiology Department - [address] [phone] 11/13/2025 8:00 AM EST Appointment [facility] CT Scan [address] [place] [address] 11/17/2025 11:00 AM EST Appointment [facility] Infusion Center [address] [address] 12/21/2025 11:00 AM EST Consult Endocrinology - [address] [phone] Catrina Pelletier PA [address] [place] [address] 01/12/2026 11:00 AM EST Appointment [facility] Infusion Center [address] [address] 03/08/2026 9:40 AM EDT Appointment Radiology Department - [address] [phone] 03/17/2026 11:00 AM EDT Office Visit Adult Medicine [facility] [address] [place] [address] Gurmeet Curtis PA [address] [place], [place] documented as of this encounter Visit Diagnoses Not on filedocumented in this encounter Additional Health Concerns Assessment Noted Time PHQ-9 Depression Total Score: 9 06/04/20 25 10:02 AM EDT documented as of this encounter Care Teams Carpenter Supervisor Wooden Ship Relationship Specialty Start Date End Date Nirmal Washington MD [address] [place] [address] PCP - General Internal Medicine 10/02/24 documented as of this encounter
[2025-10-19 18:19] LABS: MANUAL DIFF FLAG NO
[2025-10-19 18:41] LABS: Hematocrit 40.0 % (37.0-47.0); Hemoglobin 12.9 g/dl (12.0-16.0); Imm Gran Abs Auto 0.02 X10*3/uL (0.00-0.03); Imm Gran Pct Auto 0.3 % (0.0-0.4); Lymphocytes Absolute Auto 1.4 X10*3/uL (1.2-4.9); Mean Corpuscular HGB Conc 32.3 g/dl (31.0-35.0); Mean Corpuscular Hemoglobin 28.9 pg (27.0-33.0); Mean Corpuscular Volume 89.5 fL (80.0-98.0); NRBC Abs Auto 0.000 X10*3/uL (0.0-0.012); NRBC Pct Auto 0.0 /100WBC (0.0-0.2); Platelet Count 269 X10*3/uL (160-400); Red Blood Count 4.47 X10*6/uL (4.20-5.50); White Blood Count 6.3 X10*3/uL (4.8-10.8)
[2025-10-19 19:09] LABS: Alanine Aminotransferase 37 U/L (0-31); Aspartate Amino Transferase 38 U/L (5-31); Estimated Glomerular Filt Rate > 60
== END 2025-10-19 12:06 | disposition home or self-care (01) ==
LOC: HO.HKASLDS 12:05
PROVIDERS: PCP Internal Medicine; Visit Provider Internal Medicine Rheumatology
DX: Z79.899 Other long term (current) drug therapy (principal)
CPT/HCPCS: 36415; 82565; 84450; 84460; 85025; 85652; 86140

== ENCOUNTER 2025-10-20 09:04 | Outpatient (AMB) | payer MEDICARE, MEDICAID, SELFPAY ==
--- NOTE | 2025-10-20 09:06 | A.OFFVIS_ITS ---
Vital Signs 10/20/25 09:10 Height 5 ft 1 in Weight 219 lb 12.814 oz BMI 41.5 BP 122/86 Blood Pressure Location Rt brachial Position Sitting Pulse 100 Pulse Source Pulse Oximeter Pulse Oximetry (%) 99 Oxygen Delivery Method Room Air Intake Visit Reasons: Med follow up Intake Note: New patient presents today for arthritis. Accompanied by: Daughter Allergies fluticasone (From ADVAIR DISKUS) Allergy (Intermediate, Verified 10/20/25 09:09) MUSCLE SPASMS salmeterol (From ADVAIR DISKUS) Allergy (Intermediate, Verified 10/20/25 09:09) MUSCLE SPASMS amoxicillin (AMOXICILLIN) Allergy (Unknown, Verified 10/20/25 09:09) UNKNOWN penicillin G (PENICILLIN G) Allergy (Unknown, Verified 10/20/25 09:09) UNKNOWN Sulfa (Sulfonamide Antibiotics) (SULFA (SULFONAMIDE ANTIBIOTICS)) Allergy (Unknown, Verified 10/20/25 09:09) UNKNOWN ibuprofen (From MOTRIN) Adverse Reaction (Unknown, Verified 10/20/25 09:09) STOMACH UPSET cats Allergy (Mild, Uncoded 10/20/25 09:09) Rash dust Allergy (Mild, Uncoded 10/20/25 09:09) Rash feathers Allergy (Mild, Uncoded 10/20/25 09:09) Rash grass Allergy (Mild, Uncoded 10/20/25 09:09) Itchy Eyes mold outside & inside Allergy (Mild, Uncoded 10/20/25 09:09) Stomach Upset rabits Allergy (Mild, Uncoded 10/20/25 09:09) Nausea tress Allergy (Unknown, Uncoded 10/20/25 09:09) Sneezing HPI HPI Med follow up: Details: She is on Hyzentra subcu prescribed by RICO Mahajan (Allergy and immunology). She was having recurrent infections, which is the reason for her being on subcutaneous immune globulin. She saw orthopedic surgery who diagnosed her with arthritis in her wrists. 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 She is afraid of being on Sulfasalazine because of her history with a past sulfa antibiotic and reaction of abdominal pain that she had. She is fearful for having similar reaction. Crohn's disease is controlled at this time. No new joint swelling. 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 Single seizure due to remote cause Anemia Complex endometrial hyperplasia without atypia IgA deficiency FARMER (nonalcoholic steatohepatitis) Internal hemorrhoids Fibromyalgia Trochanteric bursitis Chronic GERD Goiter Osteoarthritis of right wrist Asthma PCOS (polycystic ovarian syndrome) Abdominal pain Nausea Epigastric pain Yeast infection Vaginal pain Daytime sleepiness PND (post-nasal drip) Former smoker Common variable immunodeficiency Pulmonary nodules Lower respiratory infection Nocturnal hypoxia Crohn disease Abnormal EKG Abnormal stress test Chest pain Coronary artery disease Dyspepsia Irritable bowel syndrome Seizure Surgical History (Updated 09/16/25 @ 11:07 by Erin Cook [facility]) Total knee replacement status History of incision and drainage H/O colonoscopy History of ear surgery History of colposcopy Hx of cholecystectomy Social History (Updated 01/02/25 @ 09:14 by Lorna Whatley [facility]) Alcohol intake: never Patient Tobacco Use Status: Former Tobacco user Physical Exam Vital Signs: Last Vital Signs Pulse 100 10/20/25 09:10 BP 122/86 10/20/25 09:10 Pulse Ox 99 10/20/25 09:10 Oxygen Delivery Method Room Air 10/20/25 09:10 BMI result Body Mass Index 41.5 Const Other: General: Comfortable CVS: RRR Respiratory: clear to auscultation bilaterally. Good respiratory effort MSK: She has tender right 3rd MCPs with synovitis and tender right 4th, 5th MCP, 3rd to 5th PIPs. She has synovitis left 2nd to 3rd MCP without tenderness. She has tenderness of left CMC with squaring. Normal range of motion of upper extremities and lower extremities. No dactylitis. Assessment & Plan Assessment & Plan (1) Enteropathic arthritis associated with Crohn's disease: Comment: Mild. She has bilateral MCP synovitis with tender PIPs. She informs me that her Crohn's disease is controlled on Entyvio. Entyvio is not indicated for inflammatory arthritis control. She is afraid to go on Sulfasalazine because of a prior history of adverse event with a sulfur antibiotic causing abdominal pain. We discuss alternative options. At this time optimization of immunosuppression with adding DMARD therapy is best. Contraindication to leflunomide and methotrexate due to mild transaminitis on recent labs. We discussed starting hydroxychloroquine. Discussed side effects, benefits and drug monitoring on hydroxychloroquine. She is hesitant to change her biologic, because it is controlling her Crohn's disease. Code(s): M07.60 - Enteropathic arthropathies, unspecified site; K50.90 - Crohn's disease, unspecified, without complications Category: Medical Plan: Repeat LFTs in 2 weeks After lab results are back, we will send prescription for hydroxychloroquine 400 mg daily Information on hydroxychloroquine given to patient Continue management of Crohn's per GI. Patient is on biologic Entyvio Return to clinic in 2-3 months (2) Paresthesia of both hands: Comment: She has carpal tunnel syndrome clinically. Code(s): R20.2 - Paresthesia of skin Category: Medical Plan: EMG upper extremities ordered. Scheduled for November 2025. Wear wrist braces at night Return to clinic in 2 months to review results (3) Osteoarthritis of hands, bilateral: Comment: Clinical diagnosis. Likely thumb pain is due to CMC osteoarthritis. She saw orthopedic surgeon who also diagnosed her with CMC osteoarthritis. She was prescribed CMC splints, which she is wearing during the visit. Code(s): M19.041 - Primary osteoarthritis, right hand; M19.042 - Primary osteoarthritis, left hand Category: Medical Plan: Continue to wear CMC splints Return to clinic in 2-3 months (4) Raynaud disease without gangrene: Comment: She has been symptomatic in her feet for years. Code(s): I73.00 - Raynaud's syndrome without gangrene Category: Medical Plan: Continue conservative management Return to clinic in 3 months (5) Transaminitis: Code(s): R74.01 - Elevation of levels of liver transaminase levels Category: Medical Plan: Repeat LFTs in 2 weeks Orders: Orders Liver Panel Today R74.01 - Elevation of levels of liver transaminase levels Coding Level of Care Code Complex visit Add On G2211 Diagnoses Enteropathic arthritis associated with Crohn's disease M07.60; K50.90 Paresthesia of both hands R20.2 Osteoarthritis of hands, bilateral M19.041; M19.042 Raynaud disease without gangrene I73.00 Transaminitis R74.01
[2025-10-20 09:10] VITALS: BP 122/86; PULSE 100; O2SAT 99; BMI 41.5
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
--- OUTSIDE RECORDS SUMMARY | 2025-10-20 09:51 | XMS_ITS | Data Portability ---
Author Organization JENNIFER - [facility], [facility] Address [address] [place] [address] Care Team Providers Care Managing Supervisor Name Role Phone CECY MARIE Referring Provider FABIOLA MARIE Primary Care Provider [phone] Assessment Encounter Date Assessment Date Assessment LastModified by Organization Details LastModified Time 11/12/2024 11/12/2024 Assessment: Phoebe ent presents with symptoms that are consistent with knee OA. Demonstrates good understanding of home program, post-operative mechanics for gait and stairs, and expectations following surgery. Plan: Discharge patient to knee OA safe [facility]. [facility]. [facility] Not available 11/12/2024 15:51:25 11/20/2024 11/20/2024 SURGICAL [...] immunodeficiencies for which she is followed by [facility] Allergy provider Izabel Delacruz and receives [...] severe end-stage osteoarthritis of the right knee, shki-zv-ofzw articulation medially, subchondral sclerosis with osteophyte formation, [...] surgery. The patient was seen by her radiology rn who stated that the patient is a low pulmonary risk, and has no absolute contraindications for right knee replacement surgery from a pulmonary point of view. This is by Elise Hernandez, nurse practitioner. She was also seen by her pipe finishing supervisor at [facility] who states that although the patient has [...] daughter, Tomás, who can be reached at [phone]. lucie Not available 11/20/2024 14:12:21 03/25/2025 03/25/2025 [...] X-rays reviewed in the office today on [facility] PACS: Weightbearing AP of both knees, [...] return to work. 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 I highlighted the importance to continue to participate in home exercise program. I encouraged them to return to the office periodically for routine follow-up; sooner if any issues arise. I attempted to answer all of their questions today in the office. [employer] speech recognition house registry rn software was used to create portions of this document. An attempt at proofreading has been made to minimize errors. Please call for corrections. Not available 03/25/2025 15:36:08 Plan of Treatment [...] [facility], [address], [place], [address], 15:40:30 Medication Orders None record ed. Patient Targets Encounter Date Encounter Id Patient Goals Patient Target Last Modified By Organization Details Last Modified Time 11/12/[id number] Independent with HEP and post-operative mechanics. [facility] Not available 11/12/2024 15:51:33 Patient InstructionsNo instructions recorded. Reason for Referral None Reported. Results Created Date Observation Date Name Description Value Unit Range Abnormal Flag Note LastModifiedBy Organization Detail LastModifiedTime 12/01/19 25 12/01/2024 anetai john inter preta tion No observ ation record ed. [email or web address] 1 [facility] [address], [place], [address], 12/02/2024 16:13:30 12/12/19 25 12/12/2024 XR, knee, 3 view [email or web address] ?Encry pted=s hAaTro YD8dLq bEUv6g %2BXZw aYqtaq 0bqfl% 2Fg9IQ a4ajBk vP9nXo QUaueC m3YtLR FvZlJ JJ8mAn HZtai3 4r4891 AC0Kqb 3uEV6u nKiQtr MwF INTERFACE [facility] [address] [facility] [address], [place], [address], 12/12/2024 15:39:22 12/12/19 25 12/12/2024 XR, knee, 3 view [email or web address]:/ [email or web address] ?Encry pted=s hAaTro YD8dLq bEUv6g %2BXZw aYqtaq 0bqfl% 2Fg9IQ a4ajBk vP9nXo QUaueC m3YtLR FvZl [facility] 1n7824 AC0Kqb 3uEV6u nKiQtr MwF INTERFACE [facility] [address] [facility] [address], [place], [address], 12/12/2024 15:39:24 Result Notes Documentation Provider Name and Address Organization Details Recorded Time Xr, Knee, 3 View : [email or web address] Encrypted=iaJuUkaFU7cHxcL Uv6g%9LGMrySfbyc7bcqp%2Fg 8FEd3zeCraL0zNtPYvbjBq4Vm BWCyJdwQZL0lJzORofd33y947 8SY9Qtw3gTS5jiIyMvhGeF Not Available [facility] 12/12/2024 15:39: 23 Xr, Knee, 3 View : [email or web address] Encrypted=fbVnGhvCM1rEqxH Uv6g%8YUXnrVpbrx3pmng%2Fg 6PPs9ocRfdK4vGbULbkxWf6Oy YWPwJnpQEI8sBeTMofn37u572 3CI7Sgj0xQF9yaQtMpxHhJ Not Available [facility] 12/12/2024 15:39: 25 Problems Name Problem SNOMED Code Status Onset Date Resolution Date Notes Provider Name and Address Organization Details Recorded Time Osteoarthri tis of right knee joint 3698694065351 00 Active 2023 Jacob Ray MD [address], [place], [address], [facility] 4 14:12:16 Body mass index 40+ - severely obese 839913341 Active 2023 Jacob Ray MD [address], [place], [address], [facility] 4 16:05:55 Problem Notes None recorded. Procedures Surgical History Date Name Laterality Status Provider Name and Address Organization Details Recorded Time 4 07677 Therapeutic Exercise (1:1) completed Tiara Hernandez DPT [address], [place], [address], [facility] 11/12/2024 15:51:07 4 49226: Low complexity PT Eval completed Tiara Hernandez DPT [address], [place], [address], [facility] 11/12/2024 15:51:09 Imaging Results None recorded. Procedure Notes None recorded. Medical Equipment None Reported. Allergies Allergen ID Allergen Name Allergen Category Reaction Reaction Severity Criticality Documentation Date Start Date Code Code System Note Provider Name and Address Organization Details Recorded Time 000904 Non-stero idal anti-infl ammatory agent (substanc e) medicatio n Not available Not available Not available 01/28/20242022 26998 5008 SNOMED Not Available [facility] 16:24:25 582395 Substance with sulfonami de structure and antibacte rial mechanism of action (substanc e) medicatio n Not available Not available Not available 01/28/20242022 17540 8003 SNOMED Not Available [facility] 16:24:25 Medications Name Sig Start Date Stop [...] Updated DateTime 12/12/2024 156.21 cm 41.8 kg/m2 014096.28 [facility] 12/12/2024 15:20:07 Date Recorded Body height Body mass index (BMI) Body weight Provider Name and Address Organization Details Last Updated DateTime 12/31/2024 156.21 cm 41.8 kg/m2 424458.28 g Lavonne Goins [facility] 12/31/2024 10:31:53 Date Recorded Body height Body mass index (BMI) Body weight Provider Name and Address Organization Details Last Updated DateTime 03/25/2025 156.21 cm 41.8 kg/m2 254918.28 g Mandy Figueroa [facility] 03/25/2025 15:12:22 Date Recorded Body height Body mass index (BMI) Body weight Provider Name and Address Organization Details Last Updated DateTime 11/20/2024 156.21 cm 41.9 kg/m2 582375.36 g walker glass [facility] 11/20/2024 10:35:41 Social History None recorded. Functional Status None recorded. Mental Status None recorded. Family History Nothing Reported. Medical History No medical history recorded. Gynecological HistoryNo gynecological history recorded. Obstetrics History GPAL:G 0 P 0 0 0 0 Past Encounters Encounter ID Performer Location Encounter Start Date Encounter Closed Date Diagnosis/Indication Diagnosis SNOMED-CT Code Diagnosis ICD10 Code Diagnosis IMO Codes Diagnosis Note [id number] Jacob Ray MD [facility] [address] [place] [address] 09/17/2024 13:22:52 10/09/2024 12:43:54 Osteoarthritis of right knee joint 7054502464 54847 M17.11 8696419 Body mass index 40+ - severely obese 583331647 E66.01 05379349 [id number] Tiara Hernandez DPT [facility] [address] [place] [address] 11/12/2024 08:34:07 11/12/2024 09:29:47 Osteoarthritis of knee 960757674 M17.11 [id number] Fernanda Delgado APRN [facility] [address] [place] [address] 11/20/2024 10:25:34 12/11/2024 04:00:20 Osteoarthritis of right knee joint 3599512063 57928 M17.11 4628243 [id number] MAURI AshrafA - [facility] [address] [place] [address] 12/12/2024 15:10:55 12/27/2024 08:37:29 Postoperative visit 037361500 Z48.89 71938578 History of total knee arthroplasty 6067585091 105 Z96.651 31821209 [id number] MAURI AshrafA - [facility] [address] [place] [address] 12/31/2024 10:09:15 01/21/2025 05:36:53 Postoperative visit 530945682 Z48.89 [id number] [id number] MD TRICIA Rudd - [facility] [address] [place] [address] 03/25/2025 15:06:30 04/01/2025 10:51:23 History of right total knee replacement 1995033169 400224 Z96.651 [id number] Health Concerns Section Related Observation LastModified by Organization Detai ls LastModified Time None Recorded Concern Status LastModified by Organization Details LastModified Time None Recorded Advance Directives Directive None Recorded Payers Insurance Date Sequence Insurance Name Policy Number Policy Kennedy Covered Member ID Kennedy Member ID Guarantor Name 04/01/2025 1 [employer] (MEDICARE REPLACEMENT/ ADVANTAGE - PPO) [id number] Ana Bagleyneault [id number] Ana Bagleyneabridget 10/11/2024 1 [place] [employer] Ana Bagleyneault [id number] Ana Bagleyneabridget 04/01/2025 2 [place] [facility] Ana Bagleyneault [id number] Ana Vance Notes Date Note Type Note [...] expectations and HEP. 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 Patient goal is to get back to walking and usual activities without pain. Tiara Hernandez, DPT [address] [facility] [address], [place], [address], [facility] 11/12/2024 15:52:07 12/12/2024 text/html [...] limits. X-rays ordered, obtained and reviewed at [facility] 3 views of the right total knee [...] total knee replacement. Moreno Espinosa PA-C [address], [place], [address], [facility] 12/12/2024 16:19:39 12/31/2024 text/html [...] the right total knee: Extension 0, and fwvhmti15 . Good stability about the right total [...] total knee replacement. Moreno Espinosa PA-C [address], [place], [address], [facility] 12/31/2024 11:05:29 OBGyn Episode No OBEpisode recorded.
== END 2025-10-20 09:50 | disposition home or self-care (01) ==
LOC: HO.RHES 09:04
PROVIDERS: PCP Internal Medicine; Visit Provider Internal Medicine Rheumatology
DX: M07.6 Enteropathic arthropathies (principal); K50.90 Crohn's disease, unspecified, without complications; R20.2 Paresthesia of skin; M19.041 Primary osteoarthritis, right hand; M19.042 Primary osteoarthritis, left hand; I73.00 Raynaud's syndrome without gangrene; R74.01 Elevation of levels of liver transaminase levels
CPT/HCPCS: 99213; G2211

== ENCOUNTER → 2025-10-20 09:04 | Outpatient (BNVA) | payer MEDICARE, MEDICAID, SELFPAY | PROVIDERS: PCP Internal Medicine; Visit Provider Internal Medicine Rheumatology | DX: I73.00 Raynaud's syndrome without gangrene (principal); R20.2 Paresthesia of skin; M07.60 Enteropathic arthropathies, unspecified site; K50.90 Crohn's disease, unspecified, without complications; M19.041 Primary osteoarthritis, right hand; M19.042 Primary osteoarthritis, left hand; R74.01 Elevation of levels of liver transaminase levels | CPT/HCPCS: 99212 ==

== ENCOUNTER 2025-11-03 12:45 | Outpatient (REF) | payer MEDICARE, MEDICAID, SELFPAY ==
[2025-11-03 16:51] LABS: Alanine Aminotransferase 47 U/L (0-31); Albumin Level 4.7 g/dL (3.5-5.0); Alkaline Phosphatase 96 U/L (39-117); Aspartate Amino Transferase 37 U/L (5-31); Total Protein 7.3 g/dL (6.5-8.0)
== END 2025-11-03 12:46 | disposition home or self-care (01) ==
LOC: HO.HMGCLDS 12:45
PROVIDERS: Visit Provider Internal Medicine Rheumatology
DX: R74.01 Elevation of levels of liver transaminase levels (principal)
CPT/HCPCS: 36415; 80076